=== PATIENT | female | born 1940 | race Caucasian/White ===

== ENCOUNTER 2019-07-13 10:35 | Outpatient (CLI) | payer MEDICARE, OTHER, SELFPAY ==
[2019-07-13 10:46] LABS: Basophils Absolute Auto 0.1 K/mm3 (0.0-0.1); Basophils Percent Auto 0.7 % (0.2-1.2); Eosinophils Absolute Auto 0.2 K/mm3 (0-0.3); Eosinophils Percent Auto 3.6 % (0-4.4); Hematocrit 48.1 % (37.0-47.0); Hemoglobin 15.1 g/dL (12.0-15.0); Immature Granulocyte Absolute 0.02 K/mm3 (0.00-0.031); Immature Granulocyte Percent A 0.3 % (0-0.5); Lymphocytes Absolute Auto 1.76 K/mm3 (0.9-3.2); Lymphocytes Percent Auto 26.1 % (18.3-44.2); Mean Corpuscular HGB Conc 31.4 g/dl (32-36); Mean Corpuscular Hemoglobin 28.9 pg (26-34); Mean Platelet Volume 10.1 fl (7.4-10.4); Monocytes Absolute Auto 0.8 K/mm3 (0.1-0.6); Monocytes Percent Auto 11.9 % (2.6-8.5); Neutrophils Absolute Auto 3.9 K/mm3 (1.3-6.7); Neutrophils Percent Auto 57.4 % (45.5-73.1); Platelet Count Result 292 k/mm3 (150-375); Red Blood Count 5.23 M/mm3 (4.2-5.4); Red Cell Distribution Width 15.5 % (11.5-14.5); White Blood Count 6.8 K/mm3 (4.5-10.0)
== END 2019-07-13 10:36 | disposition home or self-care (01) ==
PROVIDERS: PCP Family Medicine; Visit Provider Internal Medicine Hematology & Oncology
DX: D75.1 Secondary polycythemia (principal)
CPT/HCPCS: 36415; 85025

== ENCOUNTER 2019-12-11 12:24 | Outpatient (CLI) | payer MEDICARE, OTHER, SELFPAY ==
--- NOTE | ~2019-12-11 | MM_ITS ---
EXAMINATION: MM screening nina BI w amarjit HISTORY: Screening mammogram TECHNIQUE: Craniocaudal and mediolateral oblique 3-D tomosynthesis images were obtained and synthetic 2-D images were generated. CAD analysis was submitted and interpreted. COMPARISON: 11/28/2018, 11/01/2017, 10/29/2016 bilateral digital screening mammogram examinations BREAST PARENCHYMAL COMPOSITION: There are scattered areas of fibroglandular density. FINDINGS: There are multiple bilateral benign calcifications. There is no evidence of suspicious mass , calcification, or architectural distortion to suggest malignancy in either breast. There has been n o suspicious interval change. IMPRESSION: 1. No mammographic evidence of malignancy. 2. Recommend routine screening mammography in one year. BI-RADS Category 2: Benign finding(s). Reviewed, dictated and finalized at location A.
== END 2019-12-11 12:25 | disposition home or self-care (01) ==
PROVIDERS: PCP Family Medicine; Visit Provider Family Medicine
DX: Z12.31 Encounter for screening mammogram for malignant neoplasm of breast (principal)
CPT/HCPCS: 77063; 77067

== ENCOUNTER 2020-03-16 08:26 | Inpatient (IN) | payer MEDICARE, OTHER, SELFPAY ==
[2020-03-16] VITALS (9 sets, daily range): BP systolic 113–169; BP diastolic 41–54; PULSE 68–78; RESP 14–25; TEMP 36.4–36.7; O2SAT 91–100; BMI 28.5
--- NOTE | ~2020-03-16 | XR_ITS ---
EXAMINATION: XR chest 1V portable INDICATION: Shortness of breath TECHNIQUE: Portable AP chest at 0858 hours COMPARISON: 02/23/2016, 01/12/2013 FINDINGS: There are patchy, peripheral predominant opacities of the lungs. No pleural effusion or pne umothorax is identified. The heart size is normal. There is chronic leftward deviation of the trachea related to a previously described goiter. IMPRESSION: 1. Patchy bilateral airspace opacities, consistent with atelectasis versus pneumonia. Reviewed, dictated and finalized at location A. [employer]ITY ENGAGEMENT LEADER IMPRESSION: 1. Patchy bilateral airspace opacities, consistent with atelectasis versus pneu monia.
--- NOTE | 2020-03-16 08:43 | ECG_ITS ---
Measurements Intervals [place] Rate: 74 P: 66 TN: 158 QRS: -45 QRSD: 90 T: 34 QT: 364 QTc: 405 Interpretive Statements SINUS RHYTHM LEFT ANTERIOR FASCICULAR BLOCK POOR R WAVE PROGRESSION, ANTERIOR LEADS ABNORMAL ECG Electronically Signed On 03-16-2020 15:01:00 DESK ATTENDANT by Gus Baez D.O.
--- NOTE | 2020-03-16 08:52 | ED.WEAKNESS ---
HPI - Weakness General Chief complaint: Weakness Stated complaint: weakness/chills Time Seen by Provider: 03/16/20 08:33 Source: patient Mode of arrival: EMS Limitations: no limitations History of Present Illness HPI Narrative: This patient is a 79 year old female with history of hypertension, hyperlipidemia, and COPD who presents for evaluation of weakness and shortness of breath. She states she has been sob for 5-7 days and it is worse with any activity. She also reports weakness for the same period. She denies having a cough but her is here today for evaluation of a cough and weakness. She also denies fever, nausea, vomiting, chest pain, diarrhea or abdominal pain. She denies history of PE, DVT. She denies leg swelling or calf pain . EMS reports patient's oxygenation on arrival to their home was 89% on room so she was placed on NC. Her oxygen saturation in ED is 91-95% on room air. Related Data Home Medications Medication Instructions Recorded Confirmed aspirin 81 mg tablet,delayed 81 mg PO DAILY 04/10/19 03/16/20 release cholecalciferol (vitamin D3) 125 2,000 unit PO DAILY 04/10/19 03/16/20 mcg (5,000 unit) tablet ascorbic acid (vitamin C) [Centrum 500 mg PO BID 03/16/20 03/16/20 Singles-Vitamin C] atorvastatin [Lipitor] 40 mg PO DAILY 03/16/20 03/16/20 [id number] 1 ea INHALATION DAILY 03/16/20 03/16/20 [Trelegy Ellipta] Allergies Allergy/AdvReac Type Severity Reaction Status Date / Time iodine Allergy Unknown Rash Verified 03/16/20 16:21 Iodine and Iodide Containing Allergy Unknown Rash Verified 03/16/20 16:21 Produc Review of Systems Review of Systems: All systems reviewed & are unremarkable except as noted in HPI and below Constitutional: Constitutional: Denies fever(s) and Reports weakness ENT: Denies dizziness and Denies sore throat Cardiovascular: Cardiovascular: Denies chest pain Respiratory: Respiratory: Denies cough, Reports dyspnea and Denies wheezing Gastrointestinal: Gastrointestinal: Denies abdominal pain, Denies diarrhea, Denies nausea and Denies vomiting Genitourinary: Genitourinary: Denies hematuria, Denies nocturia and Denies dysuria Neurologic: Denies headache(s) [facility] Past Medical History Medical History (Updated 03/16/20 @ 18:37 by Dinorah Bui MD) Basal cell carcinoma Cerebrovascular accident (~1995) With mild right-sided weakness. Chronic kidney disease, stage 3 Baseline creatinine between 1.6 and 1.70. Gastroesophageal reflux disease History of vaginal delivery x 2. Hyperlipidemia Hypertension Mild obstructive sleep apnea On sleep study in March 2008. Osteoarthritis Transient ischemic attack Urge incontinence Surgical History Surgical History (Updated 03/16/20 @ 14:42 by Natalie Balderas PA-C) History of basal cell carcinoma excision (~2016) From the nose and brow. History of bilateral breast biopsy (~09/2006) With benign pathology. History of cataract extraction History of dilation and curettage History of tubal ligation Status post debridement (~2017) Debridement of traumatic hematoma of the left medial leg. [place] teeth removed Family History Family History Mother Hypertension Family history of malignant neoplasm of breast in first degree relative Other Cerebrovascular accident Diabetes mellitus Social History Social History (Updated 03/16/20 @ 14:43 by Natalie Balderas PA-C) Social History: Surrogate decision maker: Ronal Palacios, . Code status: Full code. Smoking packs per day: 1 Smoking cigarettes per day: 20.0 Years smoked: 35 Smoking pack-years: 35.00 Smoking status: Former smoker Second hand tobacco smoke exposure: No Smoking end date: 05/16/89 Alcohol intake: never Substance use: never Additional living arrangements comments: Resides in [place] with her .
[2020-03-16 09:14] LABS: Basophils Percent Auto 0.3 % (0.2-1.2); Eosinophils Percent Auto 0.3 % (0-4.4); Hematocrit 42.1 % (37.0-47.0); Hemoglobin 14.1 g/dL (12.0-15.0); Immature Granulocyte Absolute 0.03 K/mm3 (0.00-0.031); Immature Granulocyte Percent A 0.9 % (0-0.5); Lymphocytes Absolute Auto 0.44 K/mm3 (0.9-3.2); Lymphocytes Percent Auto 12.7 % (18.3-44.2); Mean Corpuscular HGB Conc 33.5 g/dl (32-36); Mean Corpuscular Hemoglobin 29.8 pg (26-34); Mean Platelet Volume 10.7 fl (7.4-10.4); Monocytes Absolute Auto 0.3 K/mm3 (0.1-0.6); Monocytes Percent Auto 9.8 % (2.6-8.5); Neutrophils Absolute Auto 2.6 K/mm3 (1.3-6.7); Platelet Count Result 217 k/mm3 (150-375); Red Blood Count 4.73 M/mm3 (4.2-5.4); Red Cell Distribution Width 13.7 % (11.5-14.5); White Blood Count 3.5 K/mm3 (4.5-10.0)
[2020-03-16 09:18] LABS: Base Excess ABG -8.4 mEq/l (+/-2.0); Carboxyhemoglobin 1.2 % THb (0-2.0); Fractional Inspired Oxygen 21 %; Methemoglobin ABG 0.3 %THb (0-1.5); Oxygen Content ABG 17.9 %vol (16.0-22.0); Oxygen Saturation ABG 93.4 % (95.0-100.0); Oxyhemoglobin 90.8 % THb (90.0-100.0); PO2 ABG 61.9 mmHg (80.0-100.0); PO2 FiO2 Ratio Arterial Blood 2.95 %; Reduced Hemoglobin 7.7 %THb (0-5.0)
[2020-03-16 09:20] LABS: Device ROOM AIR; PCO2 ABG 19.1 mmHg (35.0-45.0); Site Drawn LEFT BRACHIAL
[2020-03-16 09:24] LABS: Prothrombin Time 13.2 Seconds (11.1-14.7)
[2020-03-16 09:27] LABS: D Dimer 0.41 ug/mL (<0.48); Lactic Acid Reflex 1.3 mmol/L (0.7-2.1)
[2020-03-16 09:30] LABS: Alanine Aminotransferase 15 U/L (4-35); Alkaline Phosphatase 73 U/L (38-126); Anion Gap 14 mmol/L (8-16); Aspartate Amino Transferase 38 U/L (14-36); Bilirubin,Total 0.6 mg/dL (0.2-1.3); Blood Urea Nitrogen 32 mg/dL (7-17); Calcium 9.1 mg/dL (8.4-10.2); Carbon Dioxide 17 mmol/L (22-30); Chloride 101 mmol/L (98-107); Estimated CRCL calculation 24 ml/min; Estimated Glomerular Filt Rate 29; Glucose 100 mg/dL (65-105); Magnesium 1.7 mg/dL (1.6-2.3); Potassium 4.5 mmol/L (3.4-5.0); Sodium 132 mmol/L (137-145)
[2020-03-16 09:40] LABS: NT Pro B Type Natriuretic Pept 447 PG/ML (5-100); Troponin I < 0.012 ng/mL (0.000-0.034)
[2020-03-16 09:59] LABS: CRP 4.6 mg/dL (<1.0)
--- NOTE | 2020-03-16 10:07 | PC.NURSE ---
Patient oxygen sat at this time on room air noted to be 88%, placed on 2 li NC current oxygen at 99%. Dr Bui notified.
[2020-03-16 10:11] LABS: Add Urine Microscopic? YES; Appearance Urine Clear (Clear); Bacteria Urine Trace /hpf; Bilirubin Urine Negative (Negative); Blood Urine Negative (Negative); Color Urine Yellow (Yellow); Glucose Urine UA Negative (Negative); Ketones Urine Trace mg/dL (Negative); Leukocyte Esterase Ur Negative LEU/UL (Negative); Mucus Urine Rare /lpf; Nitrate Urine Negative (Negative); Protein Urine Negative (Negative); RBC Urine 0-2 /hpf (0-2); Specific Grav Ur 1.013 (1.001-1.035); Squamous Epithelial Cell Urine Rare /hpf (Few); Urobilinogen Urine Negative mg/dL (<2.0); WBC Urine 0-3 /hpf
[2020-03-16] MEDS: DEXAMETHASONE 2 MG TABLET 6 MG PO (12:21)
--- NOTE | 2020-03-16 14:00 | PM.IMHP ---
H&P: HPI History of Present Illness Date/Time: 03/16/20 14:00 Chief complaint: Weakness, shortness of breath. Narrative: Radha Palacios is a 79-year-old female with hypertension, hyperlipidemia, GERD, chronic kidney disease stage 3, and history of TIA to send to the emergency department earlier today via EMS from home for evaluation of weakness and shortness of breath. Both the patient and her were tested for COVID at a local religious on 03/03/2020, as they were offering free testing. They had no symptoms at that time but thought it would be a good idea to get tested. Several days thereafter they a received the news that they tested negative, and they went to [employer] to get some necessities. Prior to that they had been avoiding going outside of the home; they state compliance with masks while outside of the home. Unfortunately both began to feel bad on March 06 or . She complains mainly of generalized malaise, shortness of breath, rhinorrhea, occasional dry cough, and chills. She has been taking NyQuil with some benefit in her symptoms. She denies fever, headache, otalgia, odynophagia, chest pain, pleuritic pain, nausea, vomiting, anosmia, dysgeusia, and diarrhea. No known sick contacts or exposure to those positive for COVID-19. Her son has been staying with them while he is building a house, and he continues to work and go out and about in the community however he has not shown any signs of illness. No recent travel. Of note, on EMS arrival today she was reportedly hypoxic with ambulation and was placed on nasal cannula however was able to be weaned off of that as the day has progressed. Review of Systems Review of Systems: Narrative: Twelve systems were reviewed with pertinent positives and negatives as per HPI. Appetite has been okay. No diarrhea. No dysuria. She denies lower extremity edema. Except as documented, all other systems were reviewed and are negative. [facility] Past Medical History Medical History Basal cell carcinoma Cerebrovascular accident (~1995) With mild right-sided weakness. Chronic kidney disease, stage 3 Baseline creatinine between 1.6 and 1.70. Gastroesophageal reflux disease History of vaginal delivery x 2. Hyperlipidemia Hypertension Mild obstructive sleep apnea On sleep study in March 2008. Osteoarthritis Transient ischemic attack Urge incontinence Surgical History Surgical History (Updated 03/16/20 @ 14:42 by Natalie Balderas PA-C) History of basal cell carcinoma excision (~2016) From the nose and brow. History of bilateral breast biopsy (~09/2006) With benign pathology. History of cataract extraction History of dilation and curettage History of tubal ligation Status post debridement (~2017) Debridement of traumatic hematoma of the left medial leg. [place] teeth removed Family History Family History Mother Hypertension Family history of malignant neoplasm of breast in first degree relative Other Cerebrovascular accident Diabetes mellitus Social History Social History Social History: Surrogate decision maker: Ronal Palacios, . Code status: Full code. Smoking packs per day: 1 Smoking cigarettes per day: 20.0 Years smoked: 30 Smoking pack-years: 30.00 Smoking status: Former smoker Tobacco type: cigarettes Second hand tobacco smoke exposure: No Smoking end date: 09/28/95 Alcohol intake: never Substance use: never Additional living arrangements comments: Resides in [place] with her . Additional occupation/education comments: Retired. Gender identity (if verbalized by the patient): Female Sexual Orientation (if Verbalized by the Patient): Straight or Heterosexual Spiritual care concerns: No Meds Home Medications and Allergi
--- NOTE | 2020-03-16 16:13 | ADMGEN ---
This patient, Radha Palacios, was admitted to [facility] Surg Room 331-01. Patient/family oriented to hospital policies and general routines including ID bracelet, bed and alarms, visiting hours, pain management, procedures, bathroom and other care routines, personal items, smoking policy, room service/diet, and visiting hours. Information on how to activate the Rapid Response Team has been discussed. Patient/Family are encouraged to report perceived risks to care and to ask questions if they do not understand what they are told or what they should do.
[2020-03-17] VITALS: BP 133/48; PULSE 65; RESP 20; TEMP 36.6; O2SAT 92
[2020-03-17 04:00] VITALS: BP 138/60; PULSE 78; RESP 18; TEMP 36.5; O2SAT 91
[2020-03-17 06:48] LABS: Hematocrit 39.6 % (37.0-47.0); Hemoglobin 13.8 g/dL (12.0-15.0); Immature Granulocyte Absolute 0.03 K/mm3 (0.00-0.031); Immature Granulocyte Percent A 1.6 % (0-0.5); Lymphocytes Percent Auto 26.5 % (18.3-44.2); Mean Corpuscular HGB Conc 34.8 g/dl (32-36); Mean Corpuscular Hemoglobin 30.2 pg (26-34); Mean Corpuscular Volume 86.7 fl (80-100); Mean Platelet Volume 10.1 fl (7.4-10.4); Monocytes Absolute Auto 0.3 K/mm3 (0.1-0.6); Monocytes Percent Auto 16.4 % (2.6-8.5); Neutrophils Absolute Auto 1.1 K/mm3 (1.3-6.7); Neutrophils Percent Auto 55.5 % (45.5-73.1); Platelet Count Result 224 k/mm3 (150-375); Red Blood Count 4.57 M/mm3 (4.2-5.4); Red Cell Distribution Width 13.5 % (11.5-14.5)
[2020-03-17 07:04] LABS: Alanine Aminotransferase 15 U/L (4-35); Albumin Level 3.6 g/dL (3.5-5.1); Alkaline Phosphatase 69 U/L (38-126); Anion Gap 12 mmol/L (8-16); Aspartate Amino Transferase 32 U/L (14-36); Bilirubin,Total 0.6 mg/dL (0.2-1.3); Blood Urea Nitrogen 31 mg/dL (7-17); Calcium 8.8 mg/dL (8.4-10.2); Carbon Dioxide 17 mmol/L (22-30); Chloride 103 mmol/L (98-107); Estimated CRCL calculation 28 ml/min; Estimated Glomerular Filt Rate 36; Glucose 133 mg/dL (65-105); Lactate Dehydrogenase 651 U/L (313-618); Magnesium 1.9 mg/dL (1.6-2.3); Potassium 4.5 mmol/L (3.4-5.0); Sodium 132 mmol/L (137-145)
[2020-03-17 07:17] LABS: D Dimer 0.54 ug/mL (<0.48)
[2020-03-17 07:20] LABS: White Blood Count 1.9 K/mm3 (4.5-10.0)
[2020-03-17 07:22] LABS: Platelet Estimate Adequate (Adequate); Poikilocytosis 1+ (NORMAL)
[2020-03-17 07:23] LABS: Burr Cells 1+ (NORMAL); Ovalocytes 1+ (NORMAL)
[2020-03-17 08:00] VITALS: BP 142/80; PULSE 80; RESP 16; TEMP 36.3; O2SAT 94
[2020-03-17 08:51] LABS: Immature Granulocyte Absolute 0.03 K/mm3 (0.00-0.031); Lymphocytes Absolute Auto 0.55 K/mm3 (0.9-3.2); Lymphocytes Percent Auto 17.6 % (18.3-44.2); Mean Corpuscular HGB Conc 34.1 g/dl (32-36); Mean Corpuscular Hemoglobin 29.7 pg (26-34); Mean Corpuscular Volume 86.9 fl (80-100); Monocytes Absolute Auto 0.5 K/mm3 (0.1-0.6); Monocytes Percent Auto 14.7 % (2.6-8.5); Neutrophils Absolute Auto 2.1 K/mm3 (1.3-6.7); Neutrophils Percent Auto 66.7 % (45.5-73.1); Platelet Count Result 231 k/mm3 (150-375); Red Blood Count 4.72 M/mm3 (4.2-5.4); Red Cell Distribution Width 13.6 % (11.5-14.5); White Blood Count 3.1 K/mm3 (4.5-10.0)
[2020-03-17] MEDS: CHOLECALCIFEROL 1,000 UNITS TABLET 2000 UNITS PO (10:41)
[2020-03-17] MEDS: lisinopriL 20 MG TABLET 40 MG PO (10:41)
[2020-03-17] MEDS: TOLTERODINE TARTRATE LA 4 MG CAP.ER.24H PO (10:41)
[2020-03-17] MEDS: CLOPIDOGREL BISULFATE 75 MG TABLET PO (10:41)
[2020-03-17] MEDS: FELODIPINE 5 MG TAB CR 10 MG PO (10:41)
[2020-03-17] MEDS: PANTOPRAZOLE SOD SESQUIHYDRATE 20 MG TAB PO (10:41)
[2020-03-17] MEDS: ASPIRIN 81 MG ENTERIC TABLET PO (10:41)
[2020-03-17] MEDS: ATORVASTATIN 40 MG TABLET PO (10:42)
[2020-03-17] MEDS: ASCORBIC ACID 500 MG TABLET PO ×2 (10:42→18:11)
[2020-03-17 12:00] VITALS: BP 126/50; PULSE 78; RESP 18; TEMP 36.3; O2SAT 94
[2020-03-17 12:56] VITALS: BMI 28.5
[2020-03-17 16:00] VITALS: BP 115/40; PULSE 80; RESP 18; TEMP 36.5; O2SAT 91
--- NOTE | 2020-03-17 16:31 | PM.IMPN ---
Progress Note: A&P Assessment and Plan (1) Hypoxia: Code(s): R09.02 - Hypoxemia Status: Acute Assessment and Plan: 03/17/20 16:31 Patient is 79-year-old female presented emergency department with a complaint of weakness tired fatigue and shortness of breath concern the patient may be COVID positive patient is isolated, patient states feeling better denies any shortness of breath denies any fever or chills (2) Respiratory symptoms: Code(s): R09.89 - Other specified symptoms and signs involving the circulatory and respiratory systems Status: Acute Assessment and Plan: clinically stable (3) Abnormal chest x-ray: Code(s): R93.89 - Abnormal findings on diagnostic imaging of other specified body structures Status: Acute Assessment and Plan: possibly COVID pneumonia secondary bacterial pneumonia patient is being treated with Rocephin azithromycin pending COVID test results further recommendation to follow (4) Hypertension: Code(s): I10 - Essential (primary) hypertension Status: Inactive Assessment and Plan: will continue home regimen (5) Chronic kidney disease, stage 3: Code(s): N18.30 - Chronic kidney disease, stage 3 unspecified Status: Inactive Assessment and Plan: will monitor kidney function (6) Hyperlipidemia: Code(s): E78.5 - Hyperlipidemia, unspecified Status: Acute Assessment and Plan: will continue home regimen (7) Gastroesophageal reflux disease: Code(s): K21.9 - Gastro-esophageal reflux disease without esophagitis Status: Inactive Assessment and Plan: PPI (8) Urge incontinence: Code(s): N39.41 - Urge incontinence Status: Acute Assessment and Plan: will continue home regimen Subjective Date/time seen: 03/17/20 16:31 Patient is 79-year-old female presented emergency department with a complaint of weakness tired fatigue and shortness of breath concern the patient may be COVID positive patient is isolated, patient states feeling better denies any shortness of breath denies any fever or chills Review of Systems Review of Systems: All systems reviewed & are unremarkable except as noted in HPI and below Exam Narrative: Exam Narrative: elderly frail Patient is comfortable, NAD HEENT: eyes are clear and none icteric LUNGS: bilateral fair air with minimal rhonchi HEART: RR S1S2 ABD: not distended Lower extremities: no edema SKIN: nonjaundiced Neuro: grossly intact. Objective Data Vital Signs Vital Signs: Vital Signs - 24 hr 03/16/20 20:00 03/17/20 00:00 03/17/20 04:00 Temperature 97.5 F L 97.8 F 97.7 F Pulse Rate 71 65 78 Respiratory Rate 18 20 18 Blood Pressure 130/44 L 133/48 L 138/60 Pulse Oximetry 91 92 91 03/17/20 08:00 03/17/20 12:00 Temperature 97.3 F L 97.4 F L Pulse Rate 80 78 Respiratory Rate 16 18 Blood Pressure 142/80 H 126/50 L Pulse Oximetry 94 94 Intake/Output Intake/Output: Intake & Output 03/15/20 03/16/20 03/16/20 03/17/20 00:59 00:59 23:59 23:59 Intake Total 840 Output Total 200 Balance 640 Meds/Results Medications: Active Medications Generic Name Dose Route Start Last Admin Trade Name Freq PRN Reason Stop Dose Admin Albuterol 2 puff 03/16/20 11:26 Albuterol Sulfate (*Sp) Aerosol 1 Puff INHALATION QIDRT PRN Shortness Of Breath Ascorbic Acid 500 mg 03/17/20 09:00 03/17/20 10:42 Ascorbic Acid 500 Mg Tablet PO 500 mg BID KELVIN Administration Aspirin 81 mg 03/17/20 09:00 03/17/20 10:41 Aspirin 81 Mg Enteric Tablet PO 81 mg DAILY KELVIN Administration Atorvastatin Calcium 40 mg 03/17/20 09:00 03/17/20 10:42 Atorvastatin 40 Mg Tablet PO 40 mg DAILY KELVIN Administration Clopidogrel Bisulfate 75 mg 03/17/20 09:00 03/17/20 10:41 Clopidogrel Bisulfate 75 Mg Tablet PO 75 mg DAILY KELVIN Administration Felodipine 10 mg 03/17/20 09:00
--- NOTE | 2020-03-17 17:18 | PDONCCN ---
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 Patient came into the hospital with increasing shortness of breath and weakness. Denies any fevers and chills. She was tested for COVID-19 on March 03 and came back negative. She has been complaining of generalized malaise, rhinorrhea and shortness of breath. Is currently being treated for pneumonia. Her WBC count dropped to 1.9. hemoglobin and platelet count remains stable. She denies any bleeding and bruising. Denies any dysuria and hematuria. Denies any sore throat. Review of Systems - Review of Systems All systems reviewed & are unremarkable except as noted in HPI and bel - Neurologic Reports weakness, Denies headache(s) [facility] Medical History: Medical History (Last Reviewed 03/16/20 @ 20:45 by Natalie Balderas PA-C) Basal cell carcinoma Cerebrovascular accident Onset Date: ~1995 With mild right-sided weakness. Chronic kidney disease, stage 3 Baseline creatinine between 1.6 and 1.70. Gastroesophageal reflux disease History of vaginal delivery x 2. Hyperlipidemia Hypertension Mild obstructive sleep apnea On sleep study in March 2008. Osteoarthritis Transient ischemic attack Urge incontinence Surgical History: Surgical History (Last Updated 03/16/20 @ 14:42 by Natalie Balderas PA-C) History of basal cell carcinoma excision Onset Date: ~2016 From the nose and brow. History of bilateral breast biopsy Onset Date: ~09/2006 With benign pathology. History of cataract extraction History of dilation and curettage History of tubal ligation Status post debridement Onset Date: ~2017 Debridement of traumatic hematoma of the left medial leg. [place] teeth removed Family History: Family History (Last Reviewed 03/16/20 @ 14:42 by Natalie Balderas PA-C) Mother Hypertension Family history of malignant neoplasm of breast in first degree relative Other Cerebrovascular accident Diabetes mellitus - Social History Social History: Social History (Last Reviewed 03/16/20 @ 20:46 by Natalie Balderas PA-C) Gender Identity: Gender identity (if verbalized by the patient): Female Sexual Orientation: Sexual Orientation (if Verbalized by the Patient): Straight or Heterosexual Alcohol Use: Alcohol intake: never Substance Use: Substance use: never Others: Spiritual care concerns: No Smoking Status: Smoking status: Former smoker Tobacco type: cigarettes Second hand tobacco smoke exposure: No Smoking end date: 09/28/95 Smoking Pack-years: Smoking packs per day: 1 Smoking cigarettes per day: 20.0 Years smoked: 30 Smoking pack-years: 30.00 Meds Home Medications Medication Instructions Recorded Confirmed Type aspirin 81 mg tablet,delayed 81 mg PO DAILY 04/10/19 03/16/20 History release cholecalciferol (vitamin D3) 125 2,000 unit PO DAILY 04/10/19 03/16/20 History mcg (5,000 unit) tablet cetirizine 10 mg tablet 10 mg PO DAILY PRN #90 tablet 12/10/19 03/16/20 Rx felodipine 10 mg tablet,extended 10 mg PO DAILY #90 tablet 12/10/19 03/16/20 Rx release 24 hr clopidogrel 75 mg tablet 75 mg PO DAILY #90 tablet 03/10/20 03/16/20 Rx lisinopril 40 mg tablet 40 mg PO DAILY #90 tablet 03/10/20 03/16/20 Rx pantoprazole 20 mg tablet,delayed 20 mg PO QAM #90 tablet 03/10/20 03/16/20 Rx release tolterodine 4 mg capsule,extended 4 mg PO DAILY #90 cap 03/10/20 03/16/20 Rx release 24 hr ascorbic acid (vitamin C) [Centrum 500 mg PO
[2020-03-17 19:58] LABS: SARS-CoV-2 RNA PCR Positive
[2020-03-17 20:00] VITALS: BP 113/47; PULSE 75; RESP 16; TEMP 36.6; O2SAT 90
[2020-03-18] VITALS (7 sets, daily range): BP systolic 101–119; BP diastolic 39–54; PULSE 66–88; RESP 16–20; TEMP 36.4–37; O2SAT 90–95
[2020-03-18 06:29] LABS: Basophils Percent Auto 0.2 % (0.2-1.2); Eosinophils Percent Auto 0.2 % (0-4.4); Hematocrit 41.9 % (37.0-47.0); Hemoglobin 14.2 g/dL (12.0-15.0); Immature Granulocyte Absolute 0.04 K/mm3 (0.00-0.031); Immature Granulocyte Percent A 0.7 % (0-0.5); Lymphocytes Absolute Auto 1.64 K/mm3 (0.9-3.2); Lymphocytes Percent Auto 27.1 % (18.3-44.2); Mean Corpuscular HGB Conc 33.9 g/dl (32-36); Mean Corpuscular Hemoglobin 29.5 pg (26-34); Mean Corpuscular Volume 87.1 fl (80-100); Mean Platelet Volume 10.2 fl (7.4-10.4); Monocytes Absolute Auto 0.9 K/mm3 (0.1-0.6); Monocytes Percent Auto 14.9 % (2.6-8.5); Neutrophils Absolute Auto 3.5 K/mm3 (1.3-6.7); Neutrophils Percent Auto 56.9 % (45.5-73.1); Platelet Count Result 302 k/mm3 (150-375); Red Blood Count 4.81 M/mm3 (4.2-5.4); Red Cell Distribution Width 13.9 % (11.5-14.5); White Blood Count 6.1 K/mm3 (4.5-10.0)
[2020-03-18 06:37] LABS: Alanine Aminotransferase 19 U/L (4-35); Albumin Level 3.7 g/dL (3.5-5.1); Alkaline Phosphatase 80 U/L (38-126); Anion Gap 13 mmol/L (8-16); Aspartate Amino Transferase 38 U/L (14-36); Bilirubin,Total 0.5 mg/dL (0.2-1.3); Blood Urea Nitrogen 34 mg/dL (7-17); Calcium 9.1 mg/dL (8.4-10.2); Carbon Dioxide 22 mmol/L (22-30); Chloride 102 mmol/L (98-107); Estimated CRCL calculation 27 ml/min; Estimated Glomerular Filt Rate 34; Glucose 94 mg/dL (65-105); Potassium 4.3 mmol/L (3.4-5.0); Sodium 137 mmol/L (137-145)
[2020-03-18] MEDS: CLOPIDOGREL BISULFATE 75 MG TABLET PO (08:06)
[2020-03-18] MEDS: CHOLECALCIFEROL 1,000 UNITS TABLET 2000 UNITS PO (08:06)
[2020-03-18] MEDS: ATORVASTATIN 40 MG TABLET PO (08:06)
[2020-03-18] MEDS: PANTOPRAZOLE SOD SESQUIHYDRATE 20 MG TAB PO (08:07)
[2020-03-18] MEDS: ASPIRIN 81 MG ENTERIC TABLET PO (08:07)
[2020-03-18] MEDS: ASCORBIC ACID 500 MG TABLET PO ×2 (08:07→17:16)
[2020-03-18] MEDS: ACETAMINOPHEN 325 MG TABLET 650 MG PO (15:18)
--- NOTE | 2020-03-18 15:32 | PM.IMPN ---
Progress Note: A&P Assessment and Plan (1) Hypoxia: Code(s): R09.02 - Hypoxemia Status: Acute Assessment and Plan: 03/18/20 15:32 Patient is 79-year-old female presented emergency department with a complaint of weakness tired fatigue and shortness of breath concern the patient may be COVID positive patient is isolated, patient is positive for COVID-19 however is not requiring any oxygen does not have any fever, will continue to monitor if patient does not have any fever or requiring oxygen for 2 days will discharge the patient home. (2) Respiratory symptoms: Code(s): R09.89 - Other specified symptoms and signs involving the circulatory and respiratory systems Status: Acute Assessment and Plan: clinically stable (3) Abnormal chest x-ray: Code(s): R93.89 - Abnormal findings on diagnostic imaging of other specified body structures Status: Acute Assessment and Plan: possibly COVID pneumonia secondary bacterial pneumonia patient is being treated with Rocephin azithromycin pending COVID test results further recommendation to follow (4) Hypertension: Code(s): I10 - Essential (primary) hypertension Status: Inactive Assessment and Plan: will continue home regimen (5) Chronic kidney disease, stage 3: Code(s): N18.30 - Chronic kidney disease, stage 3 unspecified Status: Inactive Assessment and Plan: will monitor kidney function (6) Hyperlipidemia: Code(s): E78.5 - Hyperlipidemia, unspecified Status: Acute Assessment and Plan: will continue home regimen (7) Gastroesophageal reflux disease: Code(s): K21.9 - Gastro-esophageal reflux disease without esophagitis Status: Inactive Assessment and Plan: PPI (8) Urge incontinence: Code(s): N39.41 - Urge incontinence Status: Acute Assessment and Plan: will continue home regimen Subjective Date/time seen: 03/18/20 15:32 Patient is 79-year-old female presented emergency department with a complaint of weakness tired fatigue and shortness of breath concern the patient may be COVID positive patient is isolated, patient is positive for COVID-19 however is not requiring any oxygen does not have any fever, will continue to monitor if patient does not have any fever or requiring oxygen for 2 days will discharge the patient home. Review of Systems Review of Systems: All systems reviewed & are unremarkable except as noted in HPI and below Exam Narrative: Exam Narrative: elderly frail Patient is comfortable, NAD HEENT: eyes are clear and none icteric LUNGS: bilateral fair air with minimal rhonchi HEART: RR S1S2 ABD: not distended Lower extremities: no edema SKIN: nonjaundiced Neuro: grossly intact. Objective Data Vital Signs Vital Signs: Vital Signs - 24 hr 03/17/20 16:00 03/17/20 20:00 03/18/20 00:00 Temperature 97.7 F 98 F 98.6 F Pulse Rate 80 75 71 Respiratory Rate 18 16 16 Blood Pressure 115/40 L 113/47 L 113/43 L Pulse Oximetry 91 90 92 03/18/20 05:00 03/18/20 08:00 03/18/20 12:00 Temperature 98.3 F 98.2 F 97.6 F Pulse Rate 69 74 72 Respiratory Rate 16 16 16 Blood Pressure 109/54 L 119/53 L 114/39 L Pulse Oximetry 90 95 93 Intake/Output Intake/Output: Intake & Output 03/16/20 03/16/20 03/17/20 03/18/20 00:59 23:59 23:59 23:59 Intake Total 2440 850 Output Total 300 450 Balance 2140 400 Meds/Results Medications: Active Medications Generic Name Dose Route Start Last Admin Trade Name Freq PRN Reason Stop Dose Admin Acetaminophen 650 mg 03/18/20 15:10 03/18/20 15:18 Acetaminophen 325 Mg Tablet PO 650 mg Q6H PRN Administration Mild Pain (1-3) or Fever Albuterol 2 puff 03/16/20 11:26 Albuterol Sulfate (*Sp) Aerosol 1 Puff INHALATION QIDRT PRN Shortness Of Breath Ascorbic Acid 500 mg 03/17/20 09:00 03/18/20 08:07 Ascorbic Acid 500 Mg Tablet PO 5
[2020-03-18] MEDS: TOLTERODINE TARTRATE LA 4 MG CAP.ER.24H PO (17:16)
[2020-03-19] VITALS (10 sets, daily range): BP systolic 108–136; BP diastolic 42–77; PULSE 65–94; RESP 16–20; TEMP 36.2–37; O2SAT 88–94
[2020-03-19 06:31] LABS: Basophils Percent Auto 0.7 % (0.2-1.2); Eosinophils Percent Auto 0.5 % (0-4.4); Hematocrit 39.5 % (37.0-47.0); Hemoglobin 13.2 g/dL (12.0-15.0); Immature Granulocyte Absolute 0.04 K/mm3 (0.00-0.031); Lymphocytes Absolute Auto 0.85 K/mm3 (0.9-3.2); Lymphocytes Percent Auto 21.1 % (18.3-44.2); Mean Corpuscular HGB Conc 33.4 g/dl (32-36); Mean Corpuscular Hemoglobin 29.3 pg (26-34); Mean Corpuscular Volume 87.6 fl (80-100); Mean Platelet Volume 9.9 fl (7.4-10.4); Monocytes Absolute Auto 0.8 K/mm3 (0.1-0.6); Monocytes Percent Auto 20.6 % (2.6-8.5); Neutrophils Absolute Auto 2.3 K/mm3 (1.3-6.7); Neutrophils Percent Auto 56.1 % (45.5-73.1); Platelet Count Result 247 k/mm3 (150-375); Red Blood Count 4.51 M/mm3 (4.2-5.4); Red Cell Distribution Width 13.9 % (11.5-14.5)
[2020-03-19 06:54] LABS: Alanine Aminotransferase 17 U/L (4-35); Albumin Level 3.2 g/dL (3.5-5.1); Alkaline Phosphatase 78 U/L (38-126); Anion Gap 9 mmol/L (8-16); Aspartate Amino Transferase 34 U/L (14-36); Bilirubin,Total 0.4 mg/dL (0.2-1.3); Blood Urea Nitrogen 33 mg/dL (7-17); Calcium 8.5 mg/dL (8.4-10.2); Carbon Dioxide 22 mmol/L (22-30); Chloride 103 mmol/L (98-107); Estimated CRCL calculation 28 ml/min; Estimated Glomerular Filt Rate 36; Glucose 94 mg/dL (65-105); Sodium 134 mmol/L (137-145)
[2020-03-19 08:10] LABS: Platelet Estimate Adequate (Adequate)
[2020-03-19 08:11] LABS: Burr Cells 1+ (NORMAL); Ovalocytes 1+ (NORMAL)
[2020-03-19] MEDS: ENOXAPARIN 40 MG/0.4 ML SYRINGE SUB-Q ×2 (08:29→21:33)
[2020-03-19] MEDS: ASPIRIN 81 MG ENTERIC TABLET PO (08:29)
[2020-03-19] MEDS: PANTOPRAZOLE SOD SESQUIHYDRATE 20 MG TAB PO (08:29)
[2020-03-19] MEDS: ASCORBIC ACID 500 MG TABLET PO ×2 (08:29→16:50)
[2020-03-19] MEDS: ATORVASTATIN 40 MG TABLET PO (08:29)
[2020-03-19] MEDS: CHOLECALCIFEROL 1,000 UNITS TABLET 2000 UNITS PO (08:29)
[2020-03-19] MEDS: CLOPIDOGREL BISULFATE 75 MG TABLET PO (08:29)
[2020-03-19] MEDS: DEXAMETHASONE SOD PHOS INJ 4 MG/ML VIAL 6 MG IV PUSH (11:54)
--- NOTE | 2020-03-19 15:10 | PM.IMPN ---
Progress Note: A&P Assessment and Plan (1) Hypoxia: Code(s): R09.02 - Hypoxemia Status: Acute Assessment and Plan: 03/18/20 15:32 Patient is 79-year-old female presented emergency department with a complaint of weakness tired fatigue and shortness of breath, patient is positive for COVID-19 however is not requiring any oxygen does not have any fever, inflammatory markers were not that high but with her subjective shortness of breath and O2 sat less than 94 with basilar crackles will add dexamethasone 6 mg daily. Will hold antiviral at present time unless symptoms worsen (2) Respiratory symptoms: Code(s): R09.89 - Other specified symptoms and signs involving the circulatory and respiratory systems Status: Acute Assessment and Plan: clinically stable with good O2 sats and no tachypnea (3) Abnormal chest x-ray: Code(s): R93.89 - Abnormal findings on diagnostic imaging of other specified body structures Status: Acute Assessment and Plan: possibly COVID pneumonia or secondary bacterial pneumonia patient is being treated with Rocephin azithromycin and probable d/c on discharge home (4) Hypertension: Code(s): I10 - Essential (primary) hypertension Status: Inactive Assessment and Plan: pressure is soft and will continue calcium channel kayla but hold LEANDER-inhibitor (5) Chronic kidney disease, stage 3: Code(s): N18.30 - Chronic kidney disease, stage 3 unspecified Status: Inactive Assessment and Plan: will monitor kidney function, stable with creatinine 1.4 (6) Hyperlipidemia: Code(s): E78.5 - Hyperlipidemia, unspecified Status: Acute Assessment and Plan: will continue home regimen, atorvastatin 40 daily (7) Gastroesophageal reflux disease: Code(s): K21.9 - Gastro-esophageal reflux disease without esophagitis Status: Inactive Assessment and Plan: PPI (8) Urge incontinence: Code(s): N39.41 - Urge incontinence Status: Acute Assessment and Plan: will continue home regimen (9) DVT prophylaxis: Code(s): Z29.9 - Encounter for prophylactic measures, unspecified Status: Acute Assessment and Plan: Lovenox b.i.d. Subjective Date/time seen: 03/19/20 15:10 Interval history: date of visit 03/19. 79-year-old hypertensive female presented to ER with malaise some dyspnea on exertion and low-grade fever. Did slightly desaturate with exertion but O2 sats at rest have been 92 and above. COVID was positive and today she stated she feels a little short of breath with exertion but for the most part doing well. Exam Narrative: Exam Narrative: Blood pressure 134/60 pulse 72 respirations 16 per minute satting 92% on room air elderly frail Patient is comfortable, NAD HEENT: eyes are clear and non icteric LUNGS: bibasilar crackles posteriorly HEART: RR S1S2 ABD: not distended Lower extremities: no edema Neuro: grossly intact with no focal deficits. Objective Data Vital Signs Vital Signs: Vital Signs - 24 hr 03/18/20 16:00 03/18/20 18:54 03/18/20 22:00 Temperature 36.5 C 36.7 C Pulse Rate 66 88 Respiratory Rate 16 20 Blood Pressure 101/40 L 101/50 L 103/49 L Pulse Oximetry 92 91 03/19/20 00:15 03/19/20 04:40 03/19/20 08:00 Temperature 36.8 C 36.2 C L 36.6 C Pulse Rate 94 74 65 Respiratory Rate 20 20 16 Blood Pressure 108/47 L 111/42 L 124/47 L Pulse Oximetry 92 94 92 03/19/20 08:25 03/19/20 12:00 03/19/20 14:42 Temperature 36.8 C Pulse Rate 78 67 Respiratory Rate 16 18 Blood Pressure 134/60 Pulse Oximetry 92 91 92 Intake/Output Intake/Output: Intake & Output 03/16/20 03/17/20 03/18/20 03/19/20 23:59 23:59 23:59 23:59 Intake Total 2440 1300 395 Output Total 300 600 600 Balance 2140 700 -205 Meds/Results Medications: Active Medications Generic Name Dose Route Start Last Admin Trade Name Freq [place]
[2020-03-19] MEDS: REMDESIVIR 200 MG/NS 250 ML 200 MG/250 ML BAG 250 MG IVPB (16:50)
[2020-03-19] MEDS: TOLTERODINE TARTRATE LA 4 MG CAP.ER.24H PO (16:51)
[2020-03-20] VITALS (7 sets, daily range): BP systolic 96–143; BP diastolic 47–56; PULSE 68–97; RESP 16–20; TEMP 36.3–37.1; O2SAT 92–98
[2020-03-20 06:35] LABS: Basophils Percent Auto 0.6 % (0.2-1.2); Hematocrit 38.9 % (37.0-47.0); Hemoglobin 13.3 g/dL (12.0-15.0); Immature Granulocyte Absolute 0.07 K/mm3 (0.00-0.031); Lymphocytes Absolute Auto 0.67 K/mm3 (0.9-3.2); Lymphocytes Percent Auto 19.2 % (18.3-44.2); Mean Corpuscular HGB Conc 34.2 g/dl (32-36); Mean Corpuscular Hemoglobin 29.8 pg (26-34); Mean Platelet Volume 9.7 fl (7.4-10.4); Monocytes Absolute Auto 0.5 K/mm3 (0.1-0.6); Monocytes Percent Auto 14.6 % (2.6-8.5); Neutrophils Absolute Auto 2.2 K/mm3 (1.3-6.7); Neutrophils Percent Auto 63.6 % (45.5-73.1); Platelet Count Result 280 k/mm3 (150-375); Red Blood Count 4.47 M/mm3 (4.2-5.4); Red Cell Distribution Width 13.6 % (11.5-14.5); White Blood Count 3.5 K/mm3 (4.5-10.0)
[2020-03-20 06:46] LABS: D Dimer 1.34 ug/mL (<0.48)
[2020-03-20 06:56] LABS: Alanine Aminotransferase 25 U/L (4-35); Albumin Level 3.3 g/dL (3.5-5.1); Alkaline Phosphatase 77 U/L (38-126); Anion Gap 5 mmol/L (8-16); Aspartate Amino Transferase 35 U/L (14-36); Bilirubin,Total 0.4 mg/dL (0.2-1.3); Blood Urea Nitrogen 31 mg/dL (7-17); Calcium 8.7 mg/dL (8.4-10.2); Carbon Dioxide 25 mmol/L (22-30); Chloride 105 mmol/L (98-107); Estimated CRCL calculation 33 ml/min; Estimated Glomerular Filt Rate 43; Glucose 119 mg/dL (65-105); Lactate Dehydrogenase 685 U/L (313-618); Potassium 4.3 mmol/L (3.4-5.0); Sodium 135 mmol/L (137-145)
[2020-03-20 07:28] LABS: Platelet Estimate Adequate (Adequate)
[2020-03-20 07:29] LABS: Ovalocytes 1+ (NORMAL); Poikilocytosis 1+ (NORMAL)
[2020-03-20] MEDS: CHOLECALCIFEROL 1,000 UNITS TABLET 2000 UNITS PO (08:46)
[2020-03-20] MEDS: DEXAMETHASONE SOD PHOS INJ 4 MG/ML VIAL 6 MG IV PUSH (08:46)
[2020-03-20] MEDS: CLOPIDOGREL BISULFATE 75 MG TABLET PO (08:46)
[2020-03-20] MEDS: ASPIRIN 81 MG ENTERIC TABLET PO (08:46)
[2020-03-20] MEDS: ATORVASTATIN 40 MG TABLET PO (08:47)
[2020-03-20] MEDS: ENOXAPARIN 40 MG/0.4 ML SYRINGE SUB-Q ×2 (08:47→20:37)
[2020-03-20] MEDS: FELODIPINE 5 MG TAB CR 10 MG PO (08:47)
[2020-03-20] MEDS: PANTOPRAZOLE SOD SESQUIHYDRATE 20 MG TAB PO (08:47)
[2020-03-20] MEDS: ASCORBIC ACID 500 MG TABLET PO ×2 (08:48→18:03)
--- NOTE | 2020-03-20 12:19 | PM.IMPN ---
Progress Note: A&P Assessment and Plan (1) Hypoxia: Code(s): R09.02 - Hypoxemia Status: Acute Assessment and Plan: Patient is 79-year-old female presented emergency department with a complaint of weakness tired fatigue and shortness of breath, patient is positive for COVID-19 however was not requiring any oxygen until pm 03/19., inflammatory markers are about the same decadron and remdesivir started 03/19 with the desaturation(D#2) (2) Abnormal chest x-ray: Code(s): R93.89 - Abnormal findings on diagnostic imaging of other specified body structures Status: Acute Assessment and Plan: COVID pneumonia or possible secondary bacterial pneumonia patient is being treated with Rocephin azithromycin D#5 (3) Hypertension: Code(s): I10 - Essential (primary) hypertension Status: Inactive Assessment and Plan: pressure was lower and will continue calcium channel kayla but hold LEANDER-inhibitor (4) Chronic kidney disease, stage 3: Code(s): N18.30 - Chronic kidney disease, stage 3 unspecified Status: Inactive Assessment and Plan: will monitor kidney function, stable with creatinine down to 1.2 today (5) Hyperlipidemia: Code(s): E78.5 - Hyperlipidemia, unspecified Status: Acute Assessment and Plan: will continue home regimen, atorvastatin 40 daily (6) Gastroesophageal reflux disease: Code(s): K21.9 - Gastro-esophageal reflux disease without esophagitis Status: Inactive Assessment and Plan: PPI (7) Urge incontinence: Code(s): N39.41 - Urge incontinence Status: Acute Assessment and Plan: will continue home regimen (8) DVT prophylaxis: Code(s): Z29.9 - Encounter for prophylactic measures, unspecified Status: Acute Assessment and Plan: Lovenox b.i.d. Subjective Date/time seen: 03/20/20 12:19 Interval history: date of visit 03/20. 79-year-old hypertensive female presented to ER with malaise some dyspnea on exertion and low-grade fever. Did slightly desaturate with exertion but O2 sats at rest have been 92 and above until pm of 03/19 when dipped below 90 at rest. . COVID was positive and with lower 02 sats decadron and remdesivir were started Feels a little better today Exam Narrative: Exam Narrative: Blood pressure 136/82 pulse 80 respirations 16 per minute satting 92% on 2L NC elderly frail Patient is comfortable, NAD HEENT: eyes are clear and non icteric LUNGS: bibasilar crackles posteriorly HEART: RR S1S2 ABD: not distended Lower extremities: no edema Neuro: grossly intact with no focal deficits. Objective Data Vital Signs Vital Signs: Vital Signs - 24 hr 03/19/20 14:42 03/19/20 15:23 03/19/20 15:24 Temperature Pulse Rate 67 Respiratory Rate 18 Blood Pressure Pulse Oximetry 92 88 L 93 03/19/20 16:00 03/19/20 20:00 03/20/20 00:00 Temperature 37.0 C 36.8 C 36.3 C L Pulse Rate 70 69 68 Respiratory Rate 18 20 20 Blood Pressure 118/48 L 136/77 131/47 L Pulse Oximetry 93 93 93 03/20/20 04:00 03/20/20 08:00 03/20/20 12:00 Temperature 36.7 C 37.1 C 36.9 C Pulse Rate 79 97 72 Respiratory Rate 16 18 18 Blood Pressure 143/56 H 138/52 L 96/54 L Pulse Oximetry 96 95 92 Intake/Output Intake/Output: Intake & Output 03/17/20 03/18/20 03/19/20 03/20/20 23:59 23:59 23:59 23:59 Intake Total 2440 1300 1265 220 Output Total 300 600 600 500 Balance 2140 700 665 -280 Meds/Results Medications: Active Medications Generic Name Dose Route Start Last Admin Trade Name Freq PRN Reason Stop Dose Admin Acetaminophen 650 mg 03/18/20 15:10 03/18/20 15:18 Acetaminophen 325 Mg Tablet PO 650 mg Q6H PRN Administration Mild Pain (1-3) or Fever Albuterol 2 puff 03/16/20 11:26 Albuterol Sulfate (*Sp) Aerosol 1 Puff INHALATION QIDRT PRN Shortness Of Breath Ascorbic Acid 500 mg 03/17/20 09:00 03/20/20 0
[2020-03-20] MEDS: REMDESIVIR 100 MG/NS 250 ML 100 MG/250 ML BAG 250 MG IVPB (15:56)
[2020-03-20] MEDS: TOLTERODINE TARTRATE LA 4 MG CAP.ER.24H PO (18:03)
[2020-03-21] VITALS (7 sets, daily range): BP systolic 106–140; BP diastolic 46–74; PULSE 70–80; RESP 16–20; TEMP 36.4–36.8; O2SAT 89–96
[2020-03-21 06:45] LABS: Basophils Percent Auto 0.3 % (0.2-1.2); Hematocrit 39.3 % (37.0-47.0); Hemoglobin 13.3 g/dL (12.0-15.0); Immature Granulocyte Absolute 0.21 K/mm3 (0.00-0.031); Immature Granulocyte Percent A 3.1 % (0-0.5); Lymphocytes Absolute Auto 0.99 K/mm3 (0.9-3.2); Lymphocytes Percent Auto 14.7 % (18.3-44.2); Mean Corpuscular HGB Conc 33.8 g/dl (32-36); Mean Corpuscular Hemoglobin 30.1 pg (26-34); Mean Corpuscular Volume 88.9 fl (80-100); Mean Platelet Volume 9.8 fl (7.4-10.4); Monocytes Absolute Auto 0.7 K/mm3 (0.1-0.6); Monocytes Percent Auto 10.8 % (2.6-8.5); Neutrophils Absolute Auto 4.8 K/mm3 (1.3-6.7); Neutrophils Percent Auto 71.1 % (45.5-73.1); Platelet Count Result 345 k/mm3 (150-375); Red Blood Count 4.42 M/mm3 (4.2-5.4); Red Cell Distribution Width 13.8 % (11.5-14.5); White Blood Count 6.7 K/mm3 (4.5-10.0)
[2020-03-21 07:02] LABS: Alanine Aminotransferase 26 U/L (4-35); Alkaline Phosphatase 70 U/L (38-126); Anion Gap 6 mmol/L (8-16); Aspartate Amino Transferase 31 U/L (14-36); Bilirubin,Total 0.4 mg/dL (0.2-1.3); Blood Urea Nitrogen 37 mg/dL (7-17); Calcium 8.9 mg/dL (8.4-10.2); Carbon Dioxide 23 mmol/L (22-30); Chloride 107 mmol/L (98-107); Estimated CRCL calculation 36 ml/min; Estimated Glomerular Filt Rate 48; Glucose 111 mg/dL (65-105); Potassium 4.3 mmol/L (3.4-5.0); Sodium 136 mmol/L (137-145)
[2020-03-21] MEDS: FELODIPINE 5 MG TAB CR 10 MG PO (08:45)
[2020-03-21] MEDS: PANTOPRAZOLE SOD SESQUIHYDRATE 20 MG TAB PO (08:45)
[2020-03-21] MEDS: ATORVASTATIN 40 MG TABLET PO (08:45)
[2020-03-21] MEDS: CLOPIDOGREL BISULFATE 75 MG TABLET PO (08:46)
[2020-03-21] MEDS: ASCORBIC ACID 500 MG TABLET PO ×2 (08:46→16:30)
[2020-03-21] MEDS: LORATADINE 10 MG TABLET PO (08:46)
[2020-03-21] MEDS: CHOLECALCIFEROL 1,000 UNITS TABLET 2000 UNITS PO (08:46)
[2020-03-21] MEDS: ENOXAPARIN 40 MG/0.4 ML SYRINGE SUB-Q ×2 (08:46→20:19)
[2020-03-21] MEDS: ASPIRIN 81 MG ENTERIC TABLET PO (08:47)
[2020-03-21] MEDS: DEXAMETHASONE SOD PHOS INJ 4 MG/ML VIAL 6 MG IV PUSH (08:47)
--- NOTE | 2020-03-21 11:49 | PCNFU ---
Nutrition Follow-Up Complete: Inadequate oral intake r/t reduced appetite and recent illness as evidence by 91% of UBW Goal: PO intake of 50% of diet and supplements to aid in wt maintenance Progressing towards goal. We will continue current goal. Pt current nutrition is Regular. Nutrition recommendation:Agree Last recorded weight is 73 kg down from 79 kg on admit. Bowel Motility:+BM 03/20 Labs Reviewed:Glu 111, Na 136,BUN 37,Cr 1.10 Meds Noted:Rocephin,Lovenox,Vit C Additional Notes: Nutrition follow up. Unable to visit patient today due to COVID precautions. Patient is confused per nursing. Oral Intake has been good 50-100% of regular meals. Agree with diet orders. Monitoring: PO intake, weight, labs every five days
[2020-03-21] MEDS: ACETAMINOPHEN 325 MG TABLET 650 MG PO (14:51)
[2020-03-21] MEDS: REMDESIVIR 100 MG/NS 250 ML 100 MG/250 ML BAG 250 MG IVPB (15:14)
[2020-03-21] MEDS: TOLTERODINE TARTRATE LA 4 MG CAP.ER.24H PO (16:31)
--- NOTE | 2020-03-21 17:40 | PM.IMPN ---
Progress Note: A&P Assessment and Plan (1) Hypoxia: Code(s): R09.02 - Hypoxemia Status: Acute Assessment and Plan: Patient is 79-year-old female presented emergency department with a complaint of weakness tired fatigue and shortness of breath, patient is positive for COVID-19 however was not requiring any oxygen until pm 03/19., inflammatory markers are about the same decadron and remdesivir started 03/19 with the desaturation(D#3) (2) Abnormal chest x-ray: Code(s): R93.89 - Abnormal findings on diagnostic imaging of other specified body structures Status: Acute Assessment and Plan: COVID pneumonia or possible secondary bacterial pneumonia patient is being treated with Rocephin azithromycin D#6 (3) Hypertension: Code(s): I10 - Essential (primary) hypertension Status: Inactive Assessment and Plan: pressure was lower and will continue calcium channel kayla but hold LEANDER-inhibitor (4) Chronic kidney disease, stage 3: Code(s): N18.30 - Chronic kidney disease, stage 3 unspecified Status: Inactive Assessment and Plan: will monitor kidney function, stable with creatinine down to 1.1 today (5) Hyperlipidemia: Code(s): E78.5 - Hyperlipidemia, unspecified Status: Acute Assessment and Plan: will continue home regimen, atorvastatin 40 daily (6) Gastroesophageal reflux disease: Code(s): K21.9 - Gastro-esophageal reflux disease without esophagitis Status: Inactive Assessment and Plan: PPI (7) Urge incontinence: Code(s): N39.41 - Urge incontinence Status: Acute Assessment and Plan: will continue home regimen (8) DVT prophylaxis: Code(s): Z29.9 - Encounter for prophylactic measures, unspecified Status: Acute Assessment and Plan: Lovenox b.i.d. Subjective Date/time seen: 03/21/20 17:40 Interval history: date of visit 03/21. 79-year-old hypertensive female presented to ER with malaise some dyspnea on exertion and low-grade fever. Did slightly desaturate with exertion but O2 sats at rest have been 92 and above until pm of 03/19 when dipped below 90 at rest. . COVID was positive and with lower 02 sats decadron and remdesivir were started 03/19 Feels a little better today, less cough Exam Narrative: Exam Narrative: Blood pressure 122/80 pulse 62 respirations 16 per minute satting 96% on 1L NC elderly frail Patient is comfortable, NAD HEENT: eyes are clear and non icteric LUNGS: faint bibasilar crackles posteriorly, decreased HEART: RR S1S2 ABD: not distended Lower extremities: no edema Neuro: grossly intact with no focal deficits. Objective Data Vital Signs Vital Signs: Vital Signs - 24 hr 03/20/20 20:00 03/20/20 23:13 03/21/20 00:00 Temperature 36.4 C 36.6 C Pulse Rate 80 78 Respiratory Rate 20 20 Blood Pressure 136/48 L 140/69 Pulse Oximetry 94 98 96 03/21/20 01:10 03/21/20 04:00 03/21/20 08:00 Temperature 36.8 C 36.5 C Pulse Rate 80 71 Respiratory Rate 16 20 Blood Pressure 127/52 L 106/74 Pulse Oximetry 95 95 94 03/21/20 12:00 03/21/20 16:14 Temperature 36.8 C 36.6 C Pulse Rate 70 70 Respiratory Rate 16 18 Blood Pressure 123/48 L 115/46 L Pulse Oximetry 89 L 90 Intake/Output Intake/Output: Intake & Output 03/18/20 03/19/20 03/20/20 03/21/20 23:59 23:59 23:59 23:59 Intake Total 1300 1265 1410 930 Output Total 600 600 500 150 Balance 700 665 910 780 Meds/Results Medications: Active Medications Generic Name Dose Route Start Last Admin Trade Name Freq PRN Reason Stop Dose Admin Acetaminophen 650 mg 03/18/20 15:10 03/21/20 14:51 Acetaminophen 325 Mg Tablet PO 650 mg Q6H PRN Administration Mild Pain (1-3) or Fever Albuterol 2 puff 03/16/20 11:26 Albuterol Sulfate (*Sp) Aerosol 1 Puff INHALATION QIDRT PRN Shortness Of Breath Ascorbic Acid 500 mg 03/17/20 09:00 03/21/20
[2020-03-21] MEDS: FLUTICASONE/SALMETEROL 115-21 MCG INHALER 1 PUFF 2 PUFF INHALATION (20:07)
[2020-03-22] VITALS (7 sets, daily range): BP systolic 112–148; BP diastolic 38–68; PULSE 67–85; RESP 16–20; TEMP 36.3–37.2; O2SAT 90–97
[2020-03-22 07:22] LABS: Basophils Percent Auto 0.2 % (0.2-1.2); Eosinophils Percent Auto 0.1 % (0-4.4); Hematocrit 40.2 % (37.0-47.0); Hemoglobin 13.5 g/dL (12.0-15.0); Immature Granulocyte Absolute 0.34 K/mm3 (0.00-0.031); Immature Granulocyte Percent A 4.2 % (0-0.5); Lymphocytes Absolute Auto 1.28 K/mm3 (0.9-3.2); Lymphocytes Percent Auto 15.9 % (18.3-44.2); Mean Corpuscular HGB Conc 33.6 g/dl (32-36); Mean Corpuscular Hemoglobin 29.5 pg (26-34); Mean Platelet Volume 9.6 fl (7.4-10.4); Monocytes Percent Auto 11.8 % (2.6-8.5); Neutrophils Absolute Auto 5.5 K/mm3 (1.3-6.7); Neutrophils Percent Auto 67.8 % (45.5-73.1); Platelet Count Result 384 k/mm3 (150-375); Red Blood Count 4.57 M/mm3 (4.2-5.4); Red Cell Distribution Width 13.7 % (11.5-14.5); White Blood Count 8.1 K/mm3 (4.5-10.0)
[2020-03-22 07:33] LABS: Alanine Aminotransferase 27 U/L (4-35); Alkaline Phosphatase 71 U/L (38-126); Anion Gap 7 mmol/L (8-16); Aspartate Amino Transferase 29 U/L (14-36); Bilirubin,Total 0.3 mg/dL (0.2-1.3); Blood Urea Nitrogen 38 mg/dL (7-17); CRP 1.4 mg/dL (<1.0); Calcium 8.9 mg/dL (8.4-10.2); Carbon Dioxide 23 mmol/L (22-30); Chloride 106 mmol/L (98-107); Estimated CRCL calculation 36 ml/min; Estimated Glomerular Filt Rate 48; Glucose 88 mg/dL (65-105); Lactate Dehydrogenase 617 U/L (313-618); Sodium 136 mmol/L (137-145)
[2020-03-22 07:44] LABS: D Dimer 0.52 ug/mL (<0.48)
[2020-03-22] MEDS: CHOLECALCIFEROL 1,000 UNITS TABLET 2000 UNITS PO (08:24)
[2020-03-22] MEDS: FELODIPINE 5 MG TAB CR 10 MG PO (08:24)
[2020-03-22] MEDS: ASPIRIN 81 MG ENTERIC TABLET PO (08:24)
[2020-03-22] MEDS: ASCORBIC ACID 500 MG TABLET PO ×2 (08:24→16:46)
[2020-03-22] MEDS: CLOPIDOGREL BISULFATE 75 MG TABLET PO (08:25)
[2020-03-22] MEDS: ENOXAPARIN 40 MG/0.4 ML SYRINGE SUB-Q ×2 (08:25→20:36)
[2020-03-22] MEDS: LORATADINE 10 MG TABLET PO (08:25)
[2020-03-22] MEDS: PANTOPRAZOLE SOD SESQUIHYDRATE 20 MG TAB PO (08:25)
[2020-03-22] MEDS: ACETAMINOPHEN 325 MG TABLET 650 MG PO (08:25)
[2020-03-22] MEDS: ATORVASTATIN 40 MG TABLET PO (08:25)
[2020-03-22] MEDS: DEXAMETHASONE SOD PHOS INJ 4 MG/ML VIAL 6 MG IV PUSH (08:26)
[2020-03-22] MEDS: FLUTICASONE/SALMETEROL 115-21 MCG INHALER 1 PUFF 2 PUFF INHALATION ×2 (08:37)
--- NOTE | 2020-03-22 13:29 | PM.IMPN ---
Progress Note: A&P Assessment and Plan (1) Hypoxia: Code(s): R09.02 - Hypoxemia Status: Acute Assessment and Plan: Patient is 79-year-old female presented emergency department with a complaint of weakness tired fatigue and shortness of breath, patient is positive for COVID-19 however was not requiring any oxygen until pm 11., inflammatory markers crp and d-dimer both decreased some today decadron and remdesivir started 11 with the desaturation(D#4) (2) Abnormal chest x-ray: Code(s): R93.89 - Abnormal findings on diagnostic imaging of other specified body structures Status: Acute Assessment and Plan: COVID pneumonia or possible secondary bacterial pneumonia patient is being treated with Rocephin ,azithromycin D#7 so d/c today (3) Hypertension: Code(s): I10 - Essential (primary) hypertension Status: Inactive Assessment and Plan: pressure was lower and will continue calcium channel kayla but continue to hold LEANDER-inhibitor (4) Chronic kidney disease, stage 3: Code(s): N18.30 - Chronic kidney disease, stage 3 unspecified Status: Inactive Assessment and Plan: will monitor kidney function, stable with creatinine down to 1.1 again today (5) Hyperlipidemia: Code(s): E78.5 - Hyperlipidemia, unspecified Status: Acute Assessment and Plan: can resume, atorvastatin 40 daily (6) Gastroesophageal reflux disease: Code(s): K21.9 - Gastro-esophageal reflux disease without esophagitis Status: Inactive Assessment and Plan: PPI (7) Urge incontinence: Code(s): N39.41 - Urge incontinence Status: Acute Assessment and Plan: will continue home regimen (8) DVT prophylaxis: Code(s): Z29.9 - Encounter for prophylactic measures, unspecified Status: Acute Assessment and Plan: Lovenox b.i.d. Subjective Date/time seen: 03/22/20 13:29 Interval history: date of visit 03/22. 79-year-old hypertensive female presented to ER with malaise some dyspnea on exertion and low-grade fever. Did slightly desaturate with exertion but O2 sats at rest have been 92 and above until pm of 03/19 when dipped below 90 at rest. . COVID was positive and with lower 02 sats decadron and remdesivir were started 11/4 Feels a little better each day and now back on room air, less cough Exam Narrative: Exam Narrative: Blood pressure 114/70 pulse 68 respirations 16 per minute satting 90% on RA elderly frail Patient is comfortable, NAD HEENT: eyes are clear and non icteric LUNGS: faint R bibasilar crackles posteriorly, decreased again HEART: RR S1S2 ABD: not distended Lower extremities: no edema Neuro: grossly intact with no focal deficits. Objective Data Vital Signs Vital Signs: Vital Signs - 24 hr 03/21/20 16:14 03/21/20 20:00 03/22/20 00:00 Temperature 36.6 C 36.4 C L 37.2 C Pulse Rate 70 75 69 Respiratory Rate 18 18 18 Blood Pressure 115/46 L 120/53 L 127/51 L Pulse Oximetry 90 93 97 03/22/20 04:00 03/22/20 08:00 03/22/20 10:16 Temperature 36.4 C 36.3 C L Pulse Rate 77 85 Respiratory Rate 18 16 Blood Pressure 133/57 L 148/68 H Pulse Oximetry 93 93 92 03/22/20 12:00 Temperature 36.9 C Pulse Rate 67 Respiratory Rate 20 Blood Pressure 112/39 L Pulse Oximetry 90 Intake/Output Intake/Output: Intake & Output 03/19/20 03/20/20 03/21/20 03/22/20 23:59 23:59 23:59 23:59 Intake Total 1265 1410 1675 690 Output Total 600 500 450 Balance 396 918 1199 690 Meds/Results Medications: Active Medications Generic Name Dose Route Start Last Admin Trade Name Freq PRN Reason Stop Dose Admin Acetaminophen 650 mg 03/18/20 15:10 03/22/20 08:25 Acetaminophen 325 Mg Tablet PO 650 mg Q6H PRN Administration Mild Pain (1-3) or Fever Albuterol 2 puff 03/16/20 11:26 Albuterol Sulfate (*Sp) Aerosol 1 Puff INHALATION QIDRT PRN Shortness Of Abbie
[2020-03-22] MEDS: REMDESIVIR 100 MG/NS 250 ML 100 MG/250 ML BAG 250 MG IVPB (15:19)
[2020-03-22] MEDS: TOLTERODINE TARTRATE LA 4 MG CAP.ER.24H PO (16:46)
[2020-03-23] VITALS: BP 147/52; PULSE 78; RESP 18; TEMP 36.4; O2SAT 93
[2020-03-23 04:00] VITALS: BP 126/84; PULSE 70; RESP 16; TEMP 36.6; O2SAT 96
[2020-03-23 07:19] LABS: Basophils Percent Auto 0.5 % (0.2-1.2); Hematocrit 36.4 % (37.0-47.0); Hemoglobin 12.3 g/dL (12.0-15.0); Immature Granulocyte Absolute 0.36 K/mm3 (0.00-0.031); Immature Granulocyte Percent A 4.3 % (0-0.5); Lymphocytes Absolute Auto 1.47 K/mm3 (0.9-3.2); Lymphocytes Percent Auto 17.7 % (18.3-44.2); Mean Corpuscular HGB Conc 33.8 g/dl (32-36); Mean Corpuscular Hemoglobin 29.1 pg (26-34); Mean Corpuscular Volume 86.1 fl (80-100); Mean Platelet Volume 9.5 fl (7.4-10.4); Monocytes Absolute Auto 1.1 K/mm3 (0.1-0.6); Monocytes Percent Auto 13.1 % (2.6-8.5); Neutrophils Absolute Auto 5.3 K/mm3 (1.3-6.7); Neutrophils Percent Auto 64.4 % (45.5-73.1); Platelet Count Result 386 k/mm3 (150-375); Red Blood Count 4.23 M/mm3 (4.2-5.4); Red Cell Distribution Width 13.6 % (11.5-14.5); White Blood Count 8.3 K/mm3 (4.5-10.0)
[2020-03-23 07:27] LABS: Alanine Aminotransferase 26 U/L (4-35); Albumin Level 2.6 g/dL (3.5-5.1); Alkaline Phosphatase 59 U/L (38-126); Anion Gap 5 mmol/L (8-16); Aspartate Amino Transferase 28 U/L (14-36); Bilirubin,Total 0.3 mg/dL (0.2-1.3); Blood Urea Nitrogen 40 mg/dL (7-17); Calcium 8.3 mg/dL (8.4-10.2); Carbon Dioxide 24 mmol/L (22-30); Chloride 107 mmol/L (98-107); Estimated CRCL calculation 36 ml/min; Estimated Glomerular Filt Rate 48; Glucose 94 mg/dL (65-105); Sodium 136 mmol/L (137-145)
[2020-03-23 08:00] VITALS: BP 133/53; PULSE 64; RESP 16; TEMP 36.4; O2SAT 92; O2SAT 94
[2020-03-23] MEDS: FLUTICASONE/SALMETEROL 115-21 MCG INHALER 1 PUFF 2 PUFF INHALATION (08:26)
[2020-03-23] MEDS: ALBUTEROL SULFATE (*SP) AEROSOL 1 PUFF 2 PUFF INHALATION (08:26)
[2020-03-23 08:27] VITALS: O2SAT 93
[2020-03-23] MEDS: ACETAMINOPHEN 325 MG TABLET 650 MG PO (09:27)
[2020-03-23] MEDS: CHOLECALCIFEROL 1,000 UNITS TABLET 2000 UNITS PO (09:27)
[2020-03-23] MEDS: ASPIRIN 81 MG ENTERIC TABLET PO (09:27)
[2020-03-23] MEDS: FELODIPINE 5 MG TAB CR 10 MG PO (09:27)
[2020-03-23] MEDS: ASCORBIC ACID 500 MG TABLET PO (09:27)
[2020-03-23] MEDS: LORATADINE 10 MG TABLET PO (09:28)
[2020-03-23] MEDS: ENOXAPARIN 40 MG/0.4 ML SYRINGE SUB-Q (09:28)
[2020-03-23] MEDS: DEXAMETHASONE SOD PHOS INJ 4 MG/ML VIAL 6 MG IV PUSH (09:28)
[2020-03-23] MEDS: CLOPIDOGREL BISULFATE 75 MG TABLET PO (09:28)
[2020-03-23] MEDS: ATORVASTATIN 40 MG TABLET PO (09:28)
[2020-03-23] MEDS: PANTOPRAZOLE SOD SESQUIHYDRATE 20 MG TAB PO (09:28)
[2020-03-23 12:00] VITALS: BP 123/54; PULSE 93; RESP 20; TEMP 36.8; O2SAT 94
[2020-03-23] MEDS: REMDESIVIR 100 MG/NS 250 ML 100 MG/250 ML BAG 250 MG IVPB (12:44)
--- NOTE | 2020-03-23 16:35 | PM.DS ---
DS: Admitting Diagnosis Admitting Diagnosis Admitting Diagnosis: PUI COVID, hypoxia DS: Discharge Diagnosis Discharge Diagnosis (1) Hypoxia: Code(s): R09.02 - Hypoxemia Status: Acute Assessment and Plan: Patient is 79-year-old female presented emergency department with a complaint of weakness tired fatigue and shortness of breath, patient was positive for COVID-19 however was not requiring any oxygen until pm 03/19., inflammatory markers crp and d-dimer both decreased by discharge decadron and remdesivir started 03/19 with the desaturation and completed 5 day course the day of discharge 03/23 (2) Abnormal chest x-ray: Code(s): R93.89 - Abnormal findings on diagnostic imaging of other specified body structures Status: Acute Assessment and Plan: COVID pneumonia or possible secondary bacterial pneumonia patient was treated with Rocephin ,azithromycin for 7 days (3) Hypertension: Code(s): I10 - Essential (primary) hypertension Status: Inactive Assessment and Plan: pressure was lower and continued calcium channel kayla but continued to hold LEANDER-inhibitor. she will monitor at home with her home blood pressure cuff and follow-up with Dr. Acuña later determine whether needs to restart the LEANDER-inhibitor (4) Chronic kidney disease, stage 3: Code(s): N18.30 - Chronic kidney disease, stage 3 unspecified Status: Inactive Assessment and Plan: stable with creatinine down to 1.1 again today (5) Hyperlipidemia: Code(s): E78.5 - Hyperlipidemia, unspecified Status: Acute Assessment and Plan: , atorvastatin 40 daily (6) Gastroesophageal reflux disease: Code(s): K21.9 - Gastro-esophageal reflux disease without esophagitis Status: Inactive Assessment and Plan: PPI (7) Urge incontinence: Code(s): N39.41 - Urge incontinence Status: Acute Assessment and Plan: continue tolterodine DS: Summary Hospital Course Hospital Course: 79-year-old white female presented to the emergency room with malaise, Fatigue and low-grade fever. found to be COVID positive. initially O2 saturations were adequate but on the 4th dipped below 90% and Remdesivir and Decadron were started. She completed a 5 day course and O2 sats mary. She was satting 94% on room air by discharge. There was question of infiltrate of bacterial pneumonia and patient has 7 days of IV ceftriaxone and azithromycin. Blood pressure toward the low side and she will hold her LEANDER-inhibitor till she sees Dr. Acuña Time Spent with Patient Time attestation: Total time spent providing and/or coordinating discharge services: 35 minutes Exam Narrative: Exam Narrative: condition on discharge blood pressure 124/54 pulse is 80 saturating 94% on room air afebrile lungs very faint crackle right posterior base CV regular rate rhythm abdomen soft nontender no masses extremities without edema distal pulses 2+ neuro alert pleasant cooperative no focal deficits he was up about feeling better less short of breath and cough and able to be discharged home in stable condition DS: Data Data Completed and Pending Labs on day of discharge: Labs from last 24 hours 03/23/20 03/23/20 06:55 06:55 WBC 8.3 RBC 4.23 Hgb 12.3 Hct 36.4 L MCV 86.1 MCH 29.1 MCHC 33.8 RDW 13.6 Plt Count 386 H MPV 9.5 Immature Gran % (Auto) 4.3 H Neut % (Auto) 64.4 Lymph % (Auto) 17.7 L [place] % (Auto) 13.1 H Eos % (Auto) 0.0 Baso % (Auto) 0.5 Lymph # (Auto) 1.47 [place] # (Auto) 1.1 H Eos # (Auto) 0.0 Baso # (Auto) 0.0 Abs Immat Gran (auto) 0.36 H Absolute Neuts (auto) 5.3 Absolute Nucleated RBC 0.0 Nucleated RBC % 0.0 Sodium 136 L Potassium 4.0 Chloride 107 Carbon Dioxide 24 Anion Gap 5 L BUN 40 H Creatinine 1.10 H Estim Creat Clear Calc 36 Estimated GFR 48 L Glucose 94 Calcium 8.3 L
== END 2020-03-23 14:45 | disposition home or self-care (01) | DRG 177 ==
LOC: ANHED 11:28 → ANH3MEDSUR 12:09
PROVIDERS: Family Medicine; Physician Assistant; Admitting Provider Internal Medicine; Emergency Provider General Practice; PCP Family Medicine; Visit Provider Internal Medicine
DX: U07.1 COVID-19 (principal); J12.89 Other viral pneumonia; J15.9 Unspecified bacterial pneumonia; J44.0 Chronic obstructive pulmonary disease with (acute) lower respiratory infection; I69.351 Hemiplegia and hemiparesis following cerebral infarction affecting right dominant side; I12.9 Hypertensive chronic kidney disease with stage 1 through stage 4 chronic kidney disease, or unspecified chronic kidney disease; N18.30 Chronic kidney disease, stage 3 unspecified; R09.02 Hypoxemia; E78.5 Hyperlipidemia, unspecified; K21.9 Gastro-esophageal reflux disease without esophagitis; N39.41 Urge incontinence; G47.33 Obstructive sleep apnea (adult) (pediatric); M19.90 Unspecified osteoarthritis, unspecified site; Z85.828 Personal history of other malignant neoplasm of skin; Z98.42 Cataract extraction status, left eye; Z98.41 Cataract extraction status, right eye; Z87.891 Personal history of nicotine dependence
CPT/HCPCS: 36415; 36600; 51701; 71045; 80053; 81001; 82375; 82728; 82805; 83050; 83605; 83615; 83735; 83880; 84484; 85025; 85380; 85610; 85730; 86140; 87040; 87635; 93005; 94640; 96365; 96366; 96367; 99285; A9270; C9803; G0378; J0456; J0696; J1100; J1650; J8540; U0003

== ENCOUNTER 2020-08-19 16:03 | Outpatient (CLI) | payer MEDICARE, OTHER, SELFPAY ==
--- NOTE | ~2020-08-19 | XR_ITS ---
EXAMINATION: XR femur RT min 2V INDICATION: Right leg pain TECHNIQUE: Two views of the right femur are obtained on five radiographs. COMPARISON: None available FINDINGS: Bone alignment is normal. There is no fracture. 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 Calcified atherosclerosis is noted. IMPRESSION: 1. No acute osseous abnormality. Reviewed, dictated and finalized at location A.
--- NOTE | ~2020-08-19 | XR_ITS ---
EXAMINATION: XR ankle RT 2V DATE: 08/19/2020 16:36 INDICATION: Right foot and ankle pain TECHNIQUE: 1. Anteroposterior and lateral view of the right ankle were obtained. 2. Dorsoplantar, oblique and lateral views of the right foot were obtained. COMPARISON: None. FINDINGS: Alignment of the foot and ankle is normal. No fracture. 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 Tiny enthesopathic os sicle along the medial margin of the medial malleolus. Small bone island at the posterior calcaneus. No periosteal reaction or cortical erosions. Soft tissue swelling about the ankle, hindfoot and dista l lower leg both medially and laterally. IMPRESSION: 1. No acute osseous abnormality. Reviewed, dictated and finalized at location B.
--- NOTE | ~2020-08-19 | XR_ITS ---
EXAMINATION: XR foot RT min 3V, XR ankle RT 2V DATE: 08/19/2020 16:36 INDICATION: Right foot and ankle pain TECHNIQUE: 1. Anteroposterior and lateral view of the right ankle were obtained. 2. Dorsoplantar, oblique and lateral views of the right foot were obtained. COMPARISON: None. FINDINGS: Alignment of the foot and ankle is normal. No fracture. 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 Tiny enthesopathic os sicle along the medial margin of the medial malleolus. Small bone island at the posterior calcaneus. No periosteal reaction or cortical erosions. Soft tissue swelling about the ankle, hindfoot and dista l lower leg both medially and laterally. IMPRESSION: 1. No acute osseous abnormality. Reviewed, dictated and finalized at location B.
== END 2020-08-19 16:04 | disposition home or self-care (01) ==
PROVIDERS: PCP Family Medicine; Visit Provider Physician Assistant
DX: M25.571 Pain in right ankle and joints of right foot (principal); M79.671 Pain in right foot
CPT/HCPCS: 73552; 73600; 73630

== ENCOUNTER 2020-12-12 08:43 | Outpatient (CLI) | payer MEDICARE, OTHER, SELFPAY ==
--- NOTE | ~2020-12-12 | MM_ITS ---
EXAMINATION: MM screening nina BI w amarjit HISTORY: Screening mammogram TECHNIQUE: Craniocaudal and mediolateral oblique 3-D tomosynthesis images were obtained and synthetic 2-D images were generated. CAD analysis was submitted and interpreted. COMPARISON: 12/11/2019, 11/28/2018, 11/01/2017 bilateral digital screening mammogram examinations BREAST PARENCHYMAL COMPOSITION: There are scattered areas of fibroglandular density. FINDINGS: Multiple bilateral benign calcifications. There is no evidence of suspicious mass, calcific ation, or architectural distortion to suggest malignancy in either breast. There has been no suspicio us interval change. IMPRESSION: 1. No mammographic evidence of malignancy. 2. Recommend routine screening mammography in one year. BI-RADS Category 2: Benign finding(s). Reviewed, dictated and finalized at location A.
== END 2020-12-12 08:44 | disposition home or self-care (01) ==
LOC: ANHIMG 08:44
PROVIDERS: PCP Family Medicine; Visit Provider Student in an Organized Health Care Education/Training Program
DX: Z12.31 Encounter for screening mammogram for malignant neoplasm of breast (principal)
CPT/HCPCS: 77063; 77067

== ENCOUNTER 2021-03-06 15:57 | Emergency (ER) | payer MEDICARE, OTHER, SELFPAY ==
--- NOTE | ~2021-03-06 | US_ITS ---
EXAMINATION: US venous doppler LE RT DATE: 03/06/2021 17:36 INDICATION: Right groin pain TECHNIQUE: Duarte scale images without and with compression and Doppler images of the right lower extre mity veins were obtained. COMPARISON: 01/31/2008 FINDINGS: The right common femoral vein, profunda femoral vein, femoral vein, popliteal vein, peronea l trunk, posterior tibial veins, and greater saphenous vein are patent. IMPRESSION: 1. Patent right lower extremity veins. No evidence of deep venous thrombosis. Reviewed, dictated and finalized at location A.
--- NOTE | ~2021-03-06 | CT_ITS ---
EXAMINATION: CT abdomen pelvis wo con DATE: 03/06/2021 17:21 INDICATION: Right pelvic and groin pain TECHNIQUE: Computed tomography (CT) of the abdomen and pelvis was performed without intravenous contr ast. The dose-length product (DLP) was 573.84 mGy-cm. Automated exposure control and iterative recons truction technique were employed. COMPARISON: None FINDINGS: There is severe emphysema of the visualized lung bases. There is a 6 mm nodule of the right middle lobe. The heart size is normal. Calcified coronary artery atherosclerosis is noted. There is a small sliding hiatal hernia. A 3.1 x 2.2 cm fluid attenuation lesion of the left hepatic lobe likel y reflects a cyst or hemangioma in the absence of known malignancy. The spleen, pancreas, gallbladder , and adrenal glands are normal. Cysts of the kidneys measure up to 2.3 cm on the left. There is calc ified atherosclerosis of the aorta and many of the other arteries. No pathologically enlarged abdomin al or pelvic lymph nodes are identified. There is no free intraperitoneal gas or evidence of bowel ob struction. There is a 2.1 cm cystic lesion of the right ovary. There is an acute fracture of the righ t inferior pubic ramus. There is a questionable transverse insufficiency fracture of the left sacral ala. There is severe lumbar spondylosis. IMPRESSION: 1. Acute fracture of the right inferior pubic ramus. 2. Possible transverse insufficiency fracture of the left sacral ala. 3. 6 mm nodule of the right middle lobe. Follow-up low-dose chest CT in 6-12 months is recommended. 4. 2.1 cm cystic lesion of the right ovary. Nonemergent pelvic ultrasound is recommended. Reviewed, dictated and finalized at location A. IMPRESSION: 1. Acute fracture of the right inferior pubic ramus. 2. Possible transverse insufficiency fracture of the left sacral ala. 3. 6 mm nodule of the right middle lobe. Follow-up low-dose chest CT in 6-12 mo nths is recommended. 4. 2.1 cm cystic lesion of the right ovary. Nonemergent pelvic ultrasound is re commended.
--- NOTE | ~2021-03-06 | XR_ITS ---
EXAMINATION: XR pelvis 1-2V INDICATION: Right groin pain, initial encounter TECHNIQUE: AP view the pelvis is obtained. COMPARISON: None available FINDINGS: There is a transverse fracture of the right superior pubic ramus. Alignment at the hips is normal. No definite additional acute osseous findings are evident. Calcified atherosclerosis is noted . There is severe lumbar spondylosis. IMPRESSION: 1. Transverse fracture of the right superior pubic ramus. Reviewed, dictated and finalized at location A.
[2021-03-06 16:11] VITALS: BP 157/62; PULSE 96; RESP 16; TEMP 36.7; O2SAT 96
--- NOTE | 2021-03-06 16:53 | ED.GENADULT ---
HPI - General Adult General Chief complaint: Extremity Problem,Nontraumatic Stated complaint: r leg pain Time Seen by Provider: 03/06/21 16:42 Source: patient Mode of arrival: ambulatory Limitations: no limitations History of Present Illness HPI narrative: Patient is a 80-year-old female complaining of right groin pain, 8 out of 10, dull, worse with palpation movement started approximately 3 to 4 weeks ago. Patient denies any injury to the area. Patient denies any abdominal pain, nausea, vomiting, diarrhea, fever, chills or urinary symptoms. Related Data Home Medications Medication Instructions Recorded Confirmed aspirin 81 mg tablet,delayed 81 mg PO DAILY 04/10/19 09/09/20 release cholecalciferol (vitamin D3) 125 2,000 unit PO DAILY 04/10/19 09/09/20 mcg (5,000 unit) tablet ascorbic acid (vitamin C) 500 mg PO BID 03/16/20 09/09/20 Allergies Allergy/AdvReac Type Severity Reaction Status Date / Time iodine Allergy Unknown Rash Verified 08/19/20 15:18 Iodine and Iodide Containing Allergy Unknown Rash Verified 08/19/20 15:18 Produc Review of Systems Review of Systems: All systems reviewed & are unremarkable except as noted in HPI and below Constitutional: Constitutional: Denies body ache(s), Denies chills, Denies excessive sweating, Denies fatigue, Denies fever(s), Denies headache(s), Denies lethargy, Denies malaise, Denies weakness and Denies weight loss Eyes: Eyes: Denies blurry vision, Denies change in vision and Denies loss of vision ENT: Denies dizziness, Denies ear discharge, Denies headache(s), Denies lip swelling, Denies epistaxis, Denies nasal congestion, Denies neck pain, Denies throat swelling and Denies tongue swelling Cardiovascular: Cardiovascular: Denies chest pain, Denies chest pain at rest, Denies chest pain with activity, Denies diaphoresis, Denies rapid heart rate, Denies edema, Denies irregular heart rhythm, Denies lightheadedness, Denies palpitations, Denies dyspnea and Denies dyspnea on exertion Respiratory: Respiratory: Denies chest congestion, Denies cough, Denies hemoptysis, Denies dyspnea and Denies dyspnea on exertion Gastrointestinal: Gastrointestinal: Denies abdominal pain, Denies melena, Denies hematochezia, Denies diarrhea, Denies nausea, Denies vomiting and Denies hematemesis Musculoskeletal: Musculoskeletal: Denies abnormal gait, Denies deformity, Denies joint swelling, Denies limited range of motion, Denies neck pain and Denies numbness Neurologic: Denies Abnormal speech present, Denies abnormal gait, Denies confusion, Denies dizziness, Denies headache(s), Denies focal weakness, Denies loss of vision, Denies numbness, Denies Other visual disturbances, Denies Sensory deficit (Neuro) and Denies weakness Psychiatric: Psychiatric: Denies confusion, Denies depression, Denies auditory hallucinations, Denies homicidal ideation and Denies suicidal ideation Endocrine: Endocrine: Denies cold intolerance, Denies excessive sweating, Denies fatigue, Denies heat intolerance and Denies palpitations Hematologic/Lymphatic: Hematologic/Lymphatic: Denies easy bleeding and Denies easy bruising Allergic/Immunologic: Allergic/Immunologic: Denies lip swelling, Denies throat swelling and Denies tongue swelling PMFSH Past Medical History Medical History Basal cell carcinoma Cerebrovascular accident (~1995) With mild right-sided weakness. Chronic kidney disease, stage 3 Baseline creatinine between 1.6 and 1.70. Gastroesophageal reflux disease History of vaginal delivery x 2. Hyperlipidemia Hypertension Mild obstructive sleep apnea On sleep study in March 2008. Osteoarthritis Transient ischemic attack Urge incontinence Surgical History Surgical History History of basal cell carcinoma excision (~2016) From the nose and brow. History of bilateral breast biopsy (~09/2006) With [facility]
[2021-03-06] MEDS: HYDROcodone/acetaminophen (*CRX) 5-325 MG TABLET 1 TAB PO (19:23)
[2021-03-06 19:26] VITALS: BP 138/62; PULSE 93; RESP 16; O2SAT 97
[2021-03-06 19:42] LABS: Add Urine Microscopic? YES; Appearance Urine Clear (Clear); Bacteria Urine Trace /hpf; Bilirubin Urine Negative (Negative); Blood Urine Negative (Negative); Color Urine Yellow (Yellow); Glucose Urine UA Negative (Negative); Ketones Urine Negative (Negative); Leukocyte Esterase Ur Negative LEU/UL (Negative); Nitrate Urine Negative (Negative); Protein Urine Negative (Negative); RBC Urine 0-2 /hpf (0-2); Specific Grav Ur 1.014 (1.001-1.035); Squamous Epithelial Cell Urine Occasional /hpf (Few); Urobilinogen Urine Negative mg/dL (<2.0); WBC Urine 0-3 /hpf
== END 2021-03-06 19:30 | disposition home or self-care (01) ==
PROVIDERS: Emergency Provider Emergency Medicine; PCP Family Medicine
DX: S32.511A Fracture of superior rim of right pubis, initial encounter for closed fracture (principal); I69.951 Hemiplegia and hemiparesis following unspecified cerebrovascular disease affecting right dominant side; I12.9 Hypertensive chronic kidney disease with stage 1 through stage 4 chronic kidney disease, or unspecified chronic kidney disease; N18.30 Chronic kidney disease, stage 3 unspecified; K21.9 Gastro-esophageal reflux disease without esophagitis; E78.5 Hyperlipidemia, unspecified; G47.33 Obstructive sleep apnea (adult) (pediatric); M19.90 Unspecified osteoarthritis, unspecified site; Z85.828 Personal history of other malignant neoplasm of skin; Z98.49 Cataract extraction status, unspecified eye; Z87.891 Personal history of nicotine dependence; Z79.82 Long term (current) use of aspirin; R91.1 Solitary pulmonary nodule; N83.201 Unspecified ovarian cyst, right side; X58.XXXA Exposure to other specified factors, initial encounter
CPT/HCPCS: 72170; 74176; 81001; 93971; 99284; A9270

== ENCOUNTER 2021-10-06 10:05 | Outpatient (CLI) | payer MEDICARE, OTHER, SELFPAY ==
--- NOTE | ~2021-10-06 | XR_ITS ---
EXAM: XR knee RT min 4V DATE: 10/06/2021 10:35 HISTORY: M21.961 - knee bends medially when standing x1yr no injury, . COMPARISON: 08/19/2020. FINDINGS: Decreased mineralization. Exaggerated valgus deformity. Severe lateral joint space narrowi ng and subchondral sclerosis. Tricompartmental osteophytosis. Large volume joint fluid. No fracture o r dislocation. IMPRESSION: Tricompartmental osteoarthritis, severe in the lateral compartment. Reviewed, dictated and finalized at location K.
== END 2021-10-06 10:06 | disposition home or self-care (01) ==
PROVIDERS: PCP Family Medicine; Visit Provider Physician Assistant
DX: M21.961 Unspecified acquired deformity of right lower leg (principal); M25.361 Other instability, right knee; M17.11 Unilateral primary osteoarthritis, right knee
CPT/HCPCS: 73564

== ENCOUNTER 2021-12-14 14:09 | Outpatient (CLI) | payer MEDICARE, OTHER, SELFPAY ==
--- NOTE | ~2021-12-14 | MM_ITS ---
EXAMINATION: MM screening nina BI w amarjit HISTORY: Screening TECHNIQUE: Craniocaudal and mediolateral oblique 3-D tomosynthesis images were obtained and synthetic 2-D images were generated. CAD analysis was submitted and interpreted. COMPARISON: Comparison to multiple prior studies sequentially, with oldest reviewed study dated 10/28. BREAST PARENCHYMAL COMPOSITION: There are scattered areas of fibroglandular density. FINDINGS: There is no evidence of suspicious mass, calcification, or architectural distortion to sugg est malignancy in either breast. There has been no suspicious interval change. IMPRESSION: 1. No mammographic evidence of malignancy. 2. Recommend routine screening mammography in one year. BI-RADS Category 1: Negative Reviewed, dictated and finalized at location A.
--- NOTE | ~2021-12-14 | DEXA_ITS ---
Bone Density Report Name: VIVIAN LITTLEJOHN Age: 81 Sex: Female Ethnicity: White Date of : 1940 Indication: osteopenia; height loss; cancer; postmenopausal Referring Provider: RUPALI JUNIOR Study: Bone densitometry was performed. Exam Date: December 14, 2021 Accession number: [id number] Bone Density: Region BMD T-score Z-score Classification AP Spine(L1, L2) 1.011 0.3 2.8 Normal Femoral Neck (Left) 0.606 -2.2 0.1 Osteopenia Total Hip (Left) 0.798 -1.2 0.9 Osteopenia Femoral Neck (Right) 0.584 -2.4 -0.1 Osteopenia Total Hip (Right) 0.673 -2.2 -0.1 Osteopenia Total Hip Mean 0.735 -1.7 0.4 Osteopenia World Health Organization criteria for BMD impression classify patients as: Normal (T-score at or above -1.0), Osteopenia (T-score between -1.0 and -2.5), or Osteoporosis (T-score at or below -2.5). 10-year Fracture Risk(1): Major Osteoporotic Fracture 17% Hip Fracture 5.7% Reported Risk Factors: [place] (), Neck BMD=0.584, BMI=29.5 (1) FRAX(R) Version 3.08. Fracture probability calculated for an untreated patient. Fracture probability may be lower if the patient has received treatment. Previous Exams: Region Exam Age BMD T-score BMD Change BMD Change Date g/cm2 vs Baseline vs Previous AP Spine (L1-L2) 12/14/2021 81 1.011 0.3 0.130 (14.7%)* 0.032 (3.3%)* 11/28/2018 78 0.978 0.0 0.097 (11.1%)* 0.097 (11.1%)* 10/29/2015 75 0.881 -0.9 Total Hip(Left) 12/14/2021 81 0.798 -1.2 -0.065 (-7.5%) -0.025 (-3.1%) 11/28/2018 78 0.823 -1.0 -0.039 (-4.6%) -0.039 (-4.6%) 10/29/2015 75 0.862 -0.7 Total Hip(Right) 12/14/2021 81 0.673 -2.2 -0.030 (-4.2%) -0.027 (-3.9%) 11/28/2018 78 0.700 -2.0 -0.002 (-0.4%) -0.002 (-0.4%) 10/29/2015 75 0.702 -2.0 *Denotes significance at 95% confidence level, LSC for AP Spine = 0.022 g/cm2, LSC for Total Hip = 0.027 g/cm2 Clinical Information Provided by Patient: Has used the following medications: Vitamin D, Calcium Has the following medical conditions: Cancer Patient maximum height was 65 Menopause Age: 51 No regular weight bearing exercise Does not regularly consume dairy products Drinks caffeinated beverages Onset of menses at age 14 Number of children 2 Impression: The patient has low bone mass, based on the Right Femoral Neck T-score. The patient has an estimated ten-year risk of hip fracture of 5.7% and an estimated ten-year risk of
== END 2021-12-14 14:10 | disposition home or self-care (01) ==
LOC: ANHIMG 14:11
PROVIDERS: PCP Family Medicine; Visit Provider Student in an Organized Health Care Education/Training Program
DX: Z12.31 Encounter for screening mammogram for malignant neoplasm of breast (principal); Z78.0 Asymptomatic menopausal state; M85.89 Other specified disorders of bone density and structure, multiple sites
CPT/HCPCS: 77063; 77067; 77080

== ENCOUNTER 2022-02-24 09:19 | Outpatient (CLI) | payer MEDICARE, OTHER, SELFPAY ==
[2022-02-24 09:42] LABS: Hemoglobin 14.6 g/dL (12.0-15.0); Mean Corpuscular HGB Conc 32.4 g/dl (32-36); Mean Corpuscular Hemoglobin 30.6 pg (26-34); Mean Corpuscular Volume 94.3 fl (80-100); Mean Platelet Volume 9.4 fl (7.4-10.4); Platelet Count Result 300 k/mm3 (150-375); Red Blood Count 4.77 M/mm3 (4.2-5.4); Red Cell Distribution Width 13.4 % (11.5-14.5); White Blood Count 6.6 K/mm3 (4.5-10.0)
[2022-02-24 09:53] LABS: Anion Gap 14 mmol/L (8-16); Blood Urea Nitrogen 18 mg/dL (7-17); Calcium 9.9 mg/dL (8.4-10.2); Carbon Dioxide 23 mmol/L (22-30); Chloride 104 mmol/L (98-107); Estimated Glomerular Filt Rate 31; Glucose 108 mg/dL (65-110); Potassium 4.1 mmol/L (3.4-5.0); Sodium 141 mmol/L (137-145)
--- NOTE | 2022-02-24 09:54 | ECG_ITS ---
Measurements Intervals Freedom Rate: 75 P: 65 WI: 157 QRS: -35 QRSD: 106 T: 63 QT: 364 QTc: 409 Interpretive Statements SINUS RHYTHM POOR R-WAVE PROGRESSION COMPARED TO ECG 03/16/2020 08:29:01 NO SIGNIFICANT CHANGES Electronically Signed On 02-24-2022 15:23:37 CDT by Asim Santillan M.D.
[2022-02-24 11:27] LABS: Add Urine Microscopic? YES; Appearance Urine Cloudy (Clear); Bacteria Urine Trace /hpf; Bilirubin Urine Negative (Negative); Blood Urine Negative (Negative); Color Urine Yellow (Yellow); Glucose Urine UA Negative (Negative); Ketones Urine Negative (Negative); Leukocyte Esterase Ur Negative LEU/UL (Negative); Mucus Urine Rare /lpf; Nitrate Urine Negative (Negative); Protein Urine Negative (Negative); RBC Urine 0-2 /hpf (0-2); Specific Grav Ur 1.013 (1.001-1.035); Squamous Epithelial Cell Urine Moderate /hpf (Few); Urobilinogen Urine Negative mg/dL (<2.0); WBC Urine 0-3 /hpf
== END 2022-02-24 09:20 | disposition home or self-care (01) ==
LOC: ANHLAB 09:21
PROVIDERS: PCP Family Medicine; Visit Provider Nurse Practitioner Family
DX: Z01.818 Encounter for other preprocedural examination (principal)
CPT/HCPCS: 36415; 80048; 81001; 85027; 93005

== ENCOUNTER 2022-03-15 09:52 | Outpatient (CLI) | payer MEDICARE, OTHER, SELFPAY ==
[2022-03-15 11:26] LABS: Albumin Level 4.7 g/dL (3.5-5.1)
[2022-03-15 11:30] LABS: INR 1.1; Prothrombin Time 13.3 Seconds (11.1-14.7)
[2022-03-15 11:31] LABS: Partial Thromboplastin Time 31.4 SECONDS (22.3-36.8)
[2022-03-15 11:42] LABS: Appearance Urine Cloudy (Clear); Bilirubin Urine Negative (Negative); Blood Urine Negative (Negative); Color Urine Yellow (Yellow); Glucose Urine UA Negative (Negative); Ketones Urine Negative (Negative); Leukocyte Esterase Ur 1+ LEU/UL (Negative); Nitrate Urine Negative (Negative); Protein Urine Trace mg/dL (Negative); Specific Grav Ur 1.025 (1.001-1.035); Urobilinogen Urine 0.2 mg/dL (<2.0); pH Urine 5.5 (5.0-9.0)
[2022-03-15 11:43] LABS: Urine Cotinine NEGATIVE
[2022-03-15 12:25] LABS: Bacteria Urine 2+ /hpf; Budding Yeast Urine Present /hpf; Squamous Epithelial Cell Urine Many /hpf (Few); WBC Urine 21-30 /hpf
[2022-03-15 12:30] LABS: Add Urine Microscopic? YES
== END 2022-03-15 09:53 | disposition home or self-care (01) ==
PROVIDERS: PCP Family Medicine; Visit Provider Orthopaedic Surgery
DX: Z01.818 Encounter for other preprocedural examination (principal); M17.11 Unilateral primary osteoarthritis, right knee
CPT/HCPCS: 80307; 81001; 82040; 83036; 85610; 85730; 87081; 87086; 87088

== ENCOUNTER 2022-04-01 09:01 | Inpatient (IN) | payer MEDICARE, OTHER, SELFPAY ==
[2022-03-15 10:11] VITALS: BMI 29.4
--- NOTE | 2022-03-15 10:27 | PC.NURSE ---
Report to the Outpatient Waiting Room, entrance under the green pavilion located off [facility], at time _0900 on date _03/31/22 . Planned Procedure Time: _1100 . Time changes happen often and if your time is changed the preop area will call you the afternoon before. - You and your visitor will be asked to self-screen and do not enter if you have any COVID symptoms. - We encourage only one visitor and NO visitors under age 16 are allowed at this time. Your visitor will receive communication by the phone number that is given day of service. - The patient visitor is requested to social distance or may leave the building when not with patient due to restrictions. - A mask is required within the hospital. TOTAL JOINT CLASS AT 10 AM Patients may have clear liquids (water, carbonated beverages, clear teas, apple juice) until 3 hours prior to surgery with a maximum of 20 ounces. - No food from midnight until time of surgery - Infants may have breast milk until 4 hours before surgery, infant formula 6 hours prior to surgery. - Children will be allowed to drink immediately following surgery. If applicable, please bring a bottle or sippy cup to assist with drinking. Juice, water, soda, and popsicles are readily available. For infants on formula, please bring formula the day of surgery. Pacifiers are allowed. Take the following medications with a SIP of water the morning of surgery: FELODIPINE Medications to discontinue per physician __PLAVIX 5 DAYS PRE OP PER DR NEVES. ASPIRIN PER DR WOOD ALL VITAMINS AND SUPPLEMENTS 3 DAYS PRE OP Date to take last dose__PLAVIX 03/25/22 ALL VIT/SUPP 03/26/12 Please no make-up, nail cuban, hairspray, perfume, deodorant, or body powder the day of surgery. No jewelry (including any body piercings) or valuables the day of surgery, leave them at home. Please take a shower or bath the night before, or the morning of, surgery with an antibacterial soap. Wear comfortable, loose fitting clothing. Children are encouraged to wear pajamas. - Jewelry must be removed prior to entering the operating room. Rings and piercings that are not removed may be cut off. - The hospital will not accept responsibility for valuables. - Please leave all valuables, including medications, at home the day of surgery. If you are going home after surgery, a licensed [facility] driver must drive you home. - NO public transportation without another adult. - We recommend that an adult stay with you for 24 hours following discharge. - We also recommend that you do not drive, make important decision, drink alcoholic beverages, or take any drugs that were not prescribed by your health care provider for at least 24 hours after your discharge time. Follow any additional instructions given to you from your surgeon. If you or anyone in your household have experienced Covid symptoms in the past week, please notify your surgeon or the nurse liaison at the phone number below for possible testing. VERBAL AND WRITTEN instructions given to __PATIENT and asked if any additional questions and then verbalized understanding. Patient advised to call surgeon office or pre surgery nurse liaison [phone] if any additional questions.
[2022-03-15 10:47] VITALS: BP 156/66; PULSE 80; RESP 18; TEMP 36.7; O2SAT 97
[2022-03-31] VITALS (15 sets, daily range): BP systolic 90–190; BP diastolic 40–67; PULSE 74–96; RESP 12–18; TEMP 36.3–36.9; O2SAT 91–99
--- NOTE | 2022-03-31 07:19 | WPDHPUPDATE1 ---
History and Physical Update Update Date/Time: 03/31/22 07:19 History and Physical has been reviewed, including an updated exam of the patient. There are NO changes in the patient's condition. Risks, benefits, and alternatives have been discussed and questions answered. Patient agrees to proceed with procedure.
--- NOTE | 2022-03-31 07:34 | WPDANESEPPF ---
Anes - Initial Pre Proc Eval Procedure: Operation Date: 03/31/22 11:00 Proposed Procedures p Right Total Knee Arthroplasty - Pj Can MD Date/Time: 03/31/22 07:34 Surgeon: Pj Can MD Pre Op Diagnosis: right knee DJD with severe valgus deformity Patient Data Age: 81 Gender: F Height: 1.6 m Weight: 75.3 kg Last Vital Signs Temp 36.7 C 03/15/22 10:47 Pulse 80 03/15/22 10:47 Resp 18 03/15/22 10:47 BP 156/66 H 03/15/22 10:47 Pulse Ox 97 03/15/22 10:47 O2 Del Method Room Air 03/15/22 10:47 Allergies Allergy/AdvReac Type Severity Reaction Status Date / Time iodine Allergy Unknown Rash Verified 03/19/22 11:32 Iodine and Iodide Containing Allergy Unknown Rash Verified 03/19/22 11:32 Produc [id number] Allergy Unknown Rash Uncoded 03/24/22 09:56 Home Medications Medication Instructions Recorded Confirmed Type aspirin 81 mg tablet,delayed 81 mg PO DAILY 04/10/19 03/19/22 History release cholecalciferol (vitamin D3) 125 2,000 unit PO DAILY 04/10/19 03/19/22 History mcg (5,000 unit) tablet ascorbic acid (vitamin C) 500 mg 500 mg PO BID 03/16/20 03/19/22 History tablet fluticasone fur. 100 mcg-umeclid 1 ea inhalation DAILY #90 ea 03/25/21 03/19/22 Rx 62.5 mcg-vilant 25 mcg inhalat.powder (Trelegy Ellipta) lisinopril 40 mg tablet 40 mg PO DAILY #90 tabs 04/13/21 03/19/22 Rx cetirizine 10 mg tablet (Zyrtec) 10 mg PO DAILY PRN allergy 07/07/21 03/19/22 Rx symptoms #90 tabs felodipine 10 mg tablet,extended 10 mg PO DAILY #90 tabs 07/07/21 03/19/22 Rx release 24 hr atorvastatin 40 mg tablet (Lipitor) 40 mg PO DAILY #90 tabs 10/30/21 03/19/22 Rx clopidogrel 75 mg tablet (Plavix) 75 mg PO DAILY #90 tabs 03/11/22 03/19/22 Rx pantoprazole 20 mg tablet,delayed 20 mg PO QAM #90 tabs 03/11/22 03/19/22 Rx release (Protonix) tolterodine 4 mg capsule,extended 4 mg PO DAILY #90 caps 03/11/22 03/19/22 Rx release 24 hr (Detrol LA) acetaminophen 500 mg tablet 1,000 mg PO BID PRN Pain 03/15/22 03/19/22 History calcium carbonate 600 mg-vitamin 1 cap PO EVERY OTHER DAY 03/15/22 03/19/22 History D3 10 mcg (400 unit) capsule chlorhexidine gluconate 4 % 1 applic topical ONCE #237 mL 03/24/22 Rx topical liquid (Hibiclens) Patient hx anesthesia problems: none Family hx anesthesia problems: none Results Review: All pre-operative results and documents have been reviewed as part of the pre-operative evaluation. [facility] Past Medical History Medical History (Updated 03/31/22 @ 07:35 by John Lion MD) Arthritis Asthma Basal cell carcinoma Cerebrovascular accident (~1995) With mild right-sided weakness. Chills Chronic kidney disease, stage 3 Baseline creatinine between 1.6 and 1.70. Chronic low back pain CKD (chronic kidney disease) stage 3, GFR 30-59 ml/min COPD (chronic obstructive pulmonary disease) Diarrhea Fever Gastroesophageal reflux disease GERD (gastroesophageal reflux disease) High cholesterol History of TIA (transient ischemic attack) History of vaginal delivery x 2. HLD (hyperlipidemia) HTN (hypertension) Hyperlipidemia Hypertension Mild obstructive sleep apnea On sleep study in March 2008. 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 History of bilateral breast biopsy (~09/2006) With benign pathology. History of cataract extraction History of dilation and curettage History of tubal ligation Status post debridement (~2018) Debridement of traumatic hematoma of the left medial leg. [place] teeth
[2022-03-31] MEDS: TRANEXAMIC ACID 1,000MG/ISO100 1,000 MG/100 ML BAG 200 MG IVPB (10:00)
[2022-03-31] MEDS: LACTATED RINGERS 1,000 ML 30 ML IV CONT ×2 (10:00→15:06)
[2022-03-31] MEDS: ACETAMINOPHEN 500 MG TABLET 1000 MG PO (10:00)
--- NOTE | 2022-03-31 12:28 | WPDANESPNB ---
Anes - Peripheral Nerve Block Date/Time: 03/31/22 12:28 I have discussed with the patient/family/POA the placement of a peripheral nerve block for post-operative pain management, including associated risks, benefits, complications, and side effects. Alternative methods of post-operative analgesia were detailed. Questions were solicited and answers provided to the satisfaction of the patient/family/POA. Time-Out: A pre-procedural Time-Out was completed immediately before starting the procedure and confirmed: Patient Identification, Site, Procedure, Patient Position and the Availability of Requisite Equipment. Clinical Indications: Acute post-operative pain management requested by the operative surgeon. Nerve Block Insertion Note Anes-nerve block: adductor canal right Patient position: supine Skin prep: chlorhexidine Needle: 22 gauge, stimulating, insulated echogenic needle. Needle length: 80 mm Technique: ultrasound Technique comment: in plane Injectate: bupivacaine 0.25% with epi 5 mcg/ml (30cc) Observations: tolerated well Complications: none Procedure start time:: 1220 Procedure end time:: 1225
[2022-03-31] MEDS: ceFAZolin 2 GM/D5W 50 ML 2 GM/50 ML BAG IVPB ×2 (12:37→20:13)
[2022-03-31] MEDS: TRANEXAMIC ACID 1,000 MG/10 ML AMPUL 1000 MG IV PUSH (14:15)
--- NOTE | 2022-03-31 15:37 | P.OP_ITS ---
Procedure Note - Detailed Date of Procedure 03/31/22 Pre-op Diagnosis right knee DJD with severe valgus deformity Post-op Diagnosis Same Procedure Performed R TKA Surgeon Pj Can MD Anesthesia General Description of Procedure THE RIGHT KNEE WAS PREPPED AND DRAPED IN THE STERILE FASHION. A MIDLINE SKIN I NCISION WAS MADE. A MEDIAL PARAPATELLAR ARTHROTOMY WAS MADE. THE PATELLA WAS EVERTED. THERE WAS TRICOMPARTMENT DJD. THERE WAS MINIMAL PATELLA DJD. AN INTRAMEDULLARY JONN WAS PLACED IN THE FEMUR. A DISTAL FEMORAL CUT WAS MADE IN 5 DEGREES OF VALGUS REMOVING APPROXIMATELY 9 MM OF BONE FROM THE DISTAL FEMUR. THE FEMUR WAS SIZED TO 65. A 65 FEMORAL CUTTING BLOCK WAS PLACED IN ALIGNMENT WITH SAMANTHA'S LINE AND THE TRANSEPICONDYLAR AXIS. ANTERIOR POSTERIOR AND CHAMFER CUTS WERE MADE. THE CUTS WERE EXCELLENT. NEXT AN INTRAMEDULLARY CUTTING GUIDE WAS PLACED IN THE TIBIA. A TRANS TIBIAL CUT WAS MADE ALONG THE LONG AXIS OF THE TIBIA. APPROXIMATELY 10 MM OF BONE WAS REMOVED FROM THE HIGH SIDE OF THE TIBIA. THE TIBIA WAS THEN PLANED TO A SMOOTH SURFACE. POSTERIOR FEMORAL OSTEOPHYTES WERE REMOVED FROM THE FEMORAL CONDYLES. A 71 TIBIAL TRIAL WAS PLACED IN ALIGNMENT WITH THE 1/3 MEDIAL ASPECT OF THE TIBIAL TUBERCLE. THEN A 65 FEMORAL TRIAL COMPONENT WAS PLACED. BOTH HAD EXCELLENT FITS. EVENTUALLY A 14 MM POLYETHYLENE TRIAL COMPONENT WAS PLACED. THE KNEE WAS TAKEN THROUGH A RANGE OF MOTION. THE KNEE CAME OUT TO FULL EXTENSION. THERE WAS NO ABNORMAL TILT TO THE PATELLA. THERE WAS GOOD A/P AND VARUS/VALGUS STABILITY. THERE WAS NO EXCESSIVE ROLL BACK WITH FLEXION. THE TRIAL COMPONENTS WERE REMOVED. THEN A 65 FEMORAL COMPONENT AND 71 TIBIAL COMPONENT WITH A 14 POLYETHYLENE COMPONENT WERE CEMENTED INTO PLACE. ONCE THE CEMENT WAS HARD THE KNEE WAS TAKEN THROUGH A ROM AGAIN AND FOUND TO BE STABLE WITH NO PATELLA TILT NO EXCESSIVE ROLL BACK WITH FLEXION AND GOOD STABILITY WITH COMPLETE AND FULL EXTENSION. THE KNEE WAS IRRIGATED WITH STERILE BETADINE AND WATER FOR ABOUT 3 MINUTES. THE BLEEDERS WERE CAUTERIZED. THE ARTHROTOMY WAS REPAIRED WITH NUMBER 1 VICRYL. THE SUB CUTANEOUS LAYER WITH 2-0 VICRYL AND THE SKIN WITH CRISTEL. THE WOUND WAS WASHED AND A STERILE DRESSING WAS APPLIED. PATIENT WAS EXTUBATED. Estimated Blood Loss -100.0 Pathology None sent Complications No immediate complications Condition Stable Disposition PACU
[2022-03-31] MEDS: ONDANSETRON INJ 4 MG/2 ML VIAL IV PUSH (15:49)
[2022-03-31] MEDS: diphenhydrAMINE HCl INJ 50 MG/ML VIAL 12.5 MG IV PUSH (16:09)
[2022-03-31] MEDS: SCOPOLAMINE 1.5 MG PATCH TRANSDERM (16:10)
--- NOTE | 2022-03-31 17:01 | ADMGEN ---
This patient, Radha Palacios, was admitted to Medical Room 243-01. Patient/family oriented to hospital policies and general routines including ID bracelet, bed and alarms, visiting hours, pain management, procedures, bathroom and other care routines, personal items, smoking policy, room service/diet, and visiting hours. Information on how to activate the Rapid Response Team has been discussed. Patient/Family are encouraged to report perceived risks to care and to ask questions if they do not understand what they are told or what they should do.
[2022-03-31] MEDS: SODIUM CHLORIDE 0.9% IV 1,000 ML 125 ML IV CONT (17:57)
[2022-03-31] MEDS: ASCORBIC ACID 500 MG TABLET PO (17:59)
[2022-03-31] MEDS: SENNA/DOCUSATE SODIUM TABLET 2 TAB PO (17:59)
--- NOTE | 2022-03-31 19:38 | PM.IMHP ---
H&P: HPI History of Present Illness Date/Time: 03/31/22 19:38 Chief Complaint: [facility] Past Medical History Medical History (Updated 03/31/22 @ 07:35 by John Lion MD) Arthritis Asthma Basal cell carcinoma Cerebrovascular accident (~1995) With mild right-sided weakness. Chills Chronic kidney disease, stage 3 Baseline creatinine between 1.6 and 1.70. Chronic low back pain CKD (chronic kidney disease) stage 3, GFR 30-59 ml/min COPD (chronic obstructive pulmonary disease) Diarrhea Fever Gastroesophageal reflux disease GERD (gastroesophageal reflux disease) High cholesterol History of TIA (transient ischemic attack) History of vaginal delivery x 2. HLD (hyperlipidemia) HTN (hypertension) Hyperlipidemia Hypertension Mild obstructive sleep apnea On sleep study in March 2008. 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 History of bilateral breast biopsy (~09/2006) With benign pathology. History of cataract extraction History of dilation and curettage History of tubal ligation Status post debridement (~2017) Debridement of traumatic hematoma of the left medial leg. [place] teeth removed Family History Family History Mother Hypertension Family history of malignant neoplasm of breast in first degree relative Other Cerebrovascular accident Diabetes mellitus HLD (hyperlipidemia) Heart disease Skin cancer Social History Social History Social History: Surrogate decision maker: Ronal Palacios, . Code status: Full code. Smoking packs per day: 1 Smoking cigarettes per day: 20.0 Years smoked: 30 Smoking pack-years: 30.00 Smoking status: Former smoker Tobacco type: cigarettes Second hand tobacco smoke exposure: No Smoking end date: 09/28/95 Additional smoking assessment comments: DENIES ANY FORM OF TOBACCO USE Alcohol intake: never Substance use: never Substance use type: does not use Lack of Transportation: No Lack of Food: Never True Current Housing: I Have Housing Concerned About Future Housing: No Difficulty Paying Gas/Electric Bills: No Difficulty Paying for Meds: No Currently Unemployed: No Education: High School Diploma/GED Difficulty w/ Childcare or Family Care: No Living arrangements: with family Additional living arrangements comments: Resides in [place] with her . Additional occupation/education comments: Retired. Gender identity (if verbalized by the patient): Female Sexual Orientation (if Verbalized by the Patient): Straight or Heterosexual Spiritual care concerns: No Meds Home Medications and Allergies Home Medications Medication Instructions Recorded Confirmed Type aspirin 81 mg tablet,delayed 81 mg PO DAILY 04/10/19 03/19/22 History release cholecalciferol (vitamin D3) 125 2,000 unit PO DAILY 04/10/19 03/19/22 History mcg (5,000 unit) tablet ascorbic acid (vitamin C) 500 mg 500 mg PO DAILY 03/16/20 03/31/22 History tablet fluticasone fur. 100 mcg-umeclid 1 ea inhalation DAILY #90 ea 03/25/21 03/19/22 Rx 62.5 mcg-vilant 25 mcg inhalat.powder (Trelegy Ellipta) lisinopril 40 mg tablet 40 mg PO DAILY #90 tabs 04/13/21 03/19/22 Rx cetirizine 10 mg tablet (Zyrtec) 10 mg PO DAILY PRN allergy 07/07/21 03/19/22 Rx symptoms #90 tabs felodipine 10 mg tablet,extended 10 mg PO DAILY #90 tabs 07/07/21 03/19/22 Rx release 24 hr atorvastatin 40 m
--- NOTE | 2022-03-31 19:38 | PM.IMCN ---
Assessment and Plan Assessment and plan (1) GERD (gastroesophageal reflux disease): Code(s): K21.9 - Gastro-esophageal reflux disease without esophagitis Status: Acute Assessment and Plan: Continue Pepcid (2) CKD (chronic kidney disease) stage 3, GFR 30-59 ml/min: Code(s): N18.3 - Chronic kidney disease, stage 3 (moderate) Status: Acute Assessment and Plan: Avoid nephrotoxic medication daily CMP (3) HTN (hypertension): Code(s): I10 - Essential (primary) hypertension Status: Chronic Assessment and Plan: Continue lisinopril (4) COPD (chronic obstructive pulmonary disease): Code(s): J44.9 - Chronic obstructive pulmonary disease, unspecified Status: Chronic Assessment and Plan: Stable continue home medication (5) Right knee DJD: Code(s): M17.11 - Unilateral primary osteoarthritis, right knee Status: Acute Assessment and Plan: Status post right TKA\ DVT prophylaxis per Orthopedic Pain control (6) History of TIA (transient ischemic attack): Code(s): Z86.73 - Personal history of transient ischemic attack (TIA), and cerebral infarction without residual deficits Status: Acute Assessment and Plan: Continue Plavix and statin (7) HLD (hyperlipidemia): Code(s): E78.5 - Hyperlipidemia, unspecified Status: Acute Assessment and Plan: Continue statin (8) IFG (impaired fasting glucose): Code(s): R73.01 - Impaired fasting glucose Status: Acute Assessment and Plan: Started insulin sliding scale Recommend diabetic cardiac diet HPI Data of Consult Consult date: 03/31/22 Requesting Physician: Pj Can MD Primary Care Provider: Eber Acuña MD Consult Narrative Narrative: Radha Palacios is a 81 year old female with past medical history of hypertension on lisinopril obstructive sleep apnea hyperlipidemia on statin pre diabetic managed by diet hemoglobin A1c 6 GERD on Pepcid history of TIA on Plavix and statin presented to the hospital for right TKA tolerated well pain is controlled medicine was consulted for medical management Review of Systems Review of Systems: Twelve system review was done negative except [facility] Past Medical History Medical History (Updated 03/31/22 @ 07:35 by John Lion MD) Arthritis Asthma Basal cell carcinoma Cerebrovascular accident (~1995) With mild right-sided weakness. Chills Chronic kidney disease, stage 3 Baseline creatinine between 1.6 and 1.70. Chronic low back pain CKD (chronic kidney disease) stage 3, GFR 30-59 ml/min COPD (chronic obstructive pulmonary disease) Diarrhea Fever Gastroesophageal reflux disease GERD (gastroesophageal reflux disease) High cholesterol History of TIA (transient ischemic attack) History of vaginal delivery x 2. HLD (hyperlipidemia) HTN (hypertension) Hyperlipidemia Hypertension Mild obstructive sleep apnea On sleep study in March 2008. 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 History of bilateral breast biopsy (~09/2006) With benign pathology. History of cataract extraction History of dilation and curettage History of tubal ligation Status post debridement (~2018) Debridement of traumatic hematoma of the left medial leg. [place] teeth removed Family History Family History Mother Hypertension Family history of malignant neoplasm of breast in first degree relative Other Cerebrovascula
[2022-03-31] MEDS: ASPIRIN 325 MG ENTERIC TABLET PO (21:27)
[2022-03-31] MEDS: FAMOTIDINE 20 MG TABLET PO (21:27)
[2022-04-01] VITALS (10 sets, daily range): BP systolic 105–139; BP diastolic 38–62; PULSE 71–102; RESP 16–20; TEMP 36.3–36.9; O2SAT 90–96
--- NOTE | ~2022-04-01 | CT_ITS ---
EXAMINATION: CT brain wo con DATE: 04/02/2022 12:20 INDICATION: Altered mental status. TECHNIQUE: Computed tomography (CT) of the head was performed without intravenous contrast. The mA wa s adjusted according to patient size. Iterative reconstruction technique was employed. The dose-lengt h product was 605.33 mGy-cm. COMPARISON: Head CT 01/17/2014 FINDINGS: There is an old infarct involving the left basal ganglia and adjacent white matter. There a re scattered areas of low attenuation in the cerebral white matter, which is within normal limits for the patient's age. There is no intracranial hemorrhage, acute infarction, or abnormal intracranial m ass lesion. There is ex vacuo dilatation of frontal horn and anterior body of left lateral ventricle. There is mucosal thickening in the ethmoid sinuses. The mastoid air cells are normal. There are like ly changes of ocular lens replacement surgeries. IMPRESSION: 1. Old infarct involving the left basal ganglia and adjacent white matter. Reviewed, dictated and finalized at location A. FOOD SERVICES MANAGER
--- NOTE | ~2022-04-01 | XR_ITS ---
EXAMINATION: XR chest 1V INDICATION: Hypoxia TECHNIQUE: AP view of the chest is obtained. COMPARISON: 03/16/2020 FINDINGS: The lungs are free of acute opacities. No pleural effusion or pneumothorax. The cardiomedia stinal silhouette is normal. Leftward deviation of the trachea likely relates to multinodular goiter. IMPRESSION: 1. No acute cardiopulmonary abnormality. Reviewed, dictated and finalized at location F. TAPER MACHINE
--- NOTE | ~2022-04-01 | US_ITS ---
EXAMINATION: US venous doppler [facility] DATE: 04/02/2022 14:24 INDICATION: Lower limb edema. TECHNIQUE: Grayscale ultrasound images without and with compression and Doppler ultrasound images of the bilateral lower extremity veins were obtained. COMPARISON: Ultrasound 03/06/2021 FINDINGS: The visualized portions of right common femoral vein, profunda (deep) femoral vein, femoral vein, pop liteal vein, peroneal veins, posterior tibial veins, and greater saphenous vein outflow are patent. The visualized portions of left common femoral vein, profunda femoral vein, femoral vein, popliteal v ein, peroneal veins, posterior tibial veins, and greater saphenous vein outflow are patent. IMPRESSION: 1. No deep venous thrombosis. Reviewed, dictated and finalized at location A. VITIES COORDINATOR
--- NOTE | ~2022-04-01 | XR_ITS ---
EXAMINATION: XR knee RT 2V DATE: 03/31/2022 15:42 INDICATION: Postoperative evaluation following right total knee arthroplasty. TECHNIQUE: Anteroposterior and lateral views of the right knee were obtained. COMPARISON: None. FINDINGS: Right total knee arthroplasty without patellar resurfacing appears well seated and in near anatomic a lignment. No fractures identified. Skin [place] and expected postoperative subcutaneous, intramedul olinda and intra-articular gas. IMPRESSION: 1. Right total knee arthroplasty, negative for postoperative purposes. Reviewed, dictated and finalized at location B. PHONE REPAIR TECHNICIAN
--- NOTE | ~2022-04-01 | XR_ITS ---
XR chest 1V portable 04/05/2022 09:12 Indication: Hypoxia Procedure: AP portable chest Comparison: 04/02/2022 and 03/16/2020 Findings: Shallow inspiration. Heart size normal. Chronic right basilar atelectasis/scarring. No sign ificant pleural effusion. No edema or pneumothorax. No acute osseous abnormality. No focal pneumonia. Impression: 1: No acute cardiopulmonary disease. Reviewed, dictated and finalized at location B. MER TESTER Impression: 1: No acute cardiopulmonary disease.
[2022-04-01] MEDS: ceFAZolin 2 GM/D5W 50 ML 2 GM/50 ML BAG IVPB ×2 (04:23→11:50)
[2022-04-01 06:48] LABS: Basophils Percent Auto 0.2 % (0.2-1.2); Hematocrit 32.5 % (37.0-47.0); Hemoglobin 10.4 g/dL (12.0-15.0); Immature Granulocyte Absolute 0.06 K/mm3 (0.00-0.031); Immature Granulocyte Percent A 0.5 % (0-0.5); Lymphocytes Percent Auto 5.6 % (18.3-44.2); Mean Corpuscular Hemoglobin 30.1 pg (26-34); Mean Corpuscular Volume 93.9 fl (80-100); Mean Platelet Volume 9.8 fl (7.4-10.4); Monocytes Absolute Auto 0.7 K/mm3 (0.1-0.6); Monocytes Percent Auto 5.7 % (2.6-8.5); Neutrophils Absolute Auto 10.9 K/mm3 (1.3-6.7); Platelet Count Result 264 k/mm3 (150-375); Red Blood Count 3.46 M/mm3 (4.2-5.4); Red Cell Distribution Width 13.6 % (11.5-14.5); White Blood Count 12.4 K/mm3 (4.5-10.0)
[2022-04-01 07:04] LABS: Anion Gap 14 mmol/L (8-16); Blood Urea Nitrogen 25 mg/dL (7-17); Calcium 8.3 mg/dL (8.4-10.2); Carbon Dioxide 20 mmol/L (22-30); Chloride 101 mmol/L (98-107); Estimated CRCL calculation 19 ml/min; Estimated Glomerular Filt Rate 23; Glucose 124 mg/dL (65-110); Sodium 135 mmol/L (137-145)
--- NOTE | 2022-04-01 07:18 | PM.IMPN ---
Progress Note: A&P Assessment and Plan (1) Right knee DJD: Code(s): M17.11 - Unilateral primary osteoarthritis, right knee Status: Acute Assessment and Plan: Status post right TKA on 03/31/22; POD1 DVT prophylaxis per Orthopedic Continue pain control with PO [place] PRN (2) GERD (gastroesophageal reflux disease): Code(s): K21.9 - Gastro-esophageal reflux disease without esophagitis Status: Acute Assessment and Plan: Chronic, patient takes protonix at home. Will resume PPI and stop famotidine. (3) CKD (chronic kidney disease) stage 3, GFR 30-59 ml/min: Code(s): N18.3 - Chronic kidney disease, stage 3 (moderate) Status: Acute Assessment and Plan: BUN 24, creatinine 2.1, eGFR 23. Preop labs show creatinine 1.6, BUN 18-20, and eGFR 31. Previous labs to compare from 2019 and similar levels. Urine output ~400 mL since 1500 on the day of surgery. Hold lisinopril. Give 1L NS at 100 mL/hour then repeat BMP Monitor strict I/O and add daily weights Avoid nephrotoxic medication daily CMP (4) HTN (hypertension): Code(s): I10 - Essential (primary) hypertension Status: Chronic Assessment and Plan: Chronic, BP 134/38, Hold lisinopril as above (5) COPD (chronic obstructive pulmonary disease): Code(s): J44.9 - Chronic obstructive pulmonary disease, unspecified Status: Chronic Assessment and Plan: Chronic, stable. Not in acute exacerbation. Continue Trelegy inhaler (6) History of TIA (transient ischemic attack): Code(s): Z86.73 - Personal history of transient ischemic attack (TIA), and cerebral infarction without residual deficits Status: Acute Assessment and Plan: H/O TIA without residual. Continue Plavix and statin. ASA full-strength BID started for DVT prophylaxis postop. Monitor BP and avoid hypo or hypertension. (7) HLD (hyperlipidemia): Code(s): E78.5 - Hyperlipidemia, unspecified Status: Acute Assessment and Plan: Chronic, continue statin (8) IFG (impaired fasting glucose): Code(s): R73.01 - Impaired fasting glucose Status: Acute Assessment and Plan: A1c 6%, not home home medications for glucose control. Continue insulin sliding scale meal coverage Recommend diabetic cardiac diet Goal glucose <180 mg/dL to assist with optimal wound healing Plan CODE STATUS: FULL CODE Disposition: home with spouse Time Spent With Patient Time with patient: 15 - 25 minutes Subjective Date/time seen: 04/01/22 07:18 She has no complaints. Pain is controlled currently with oral medications. Review of Systems Review of Systems: All systems reviewed & are unremarkable except as noted in HPI and below Exam Narrative: GENERAL: Well appearing, well-nourished, non-toxic, in no acute distress. HEAD: Normocephalic, atraumatic. Pupils equal and round. Grossly normal hearing. Mucous membranes moist. NECK: Supple. No adenopathy, no masses. RESPIRATORY: Airway patent, respirations nonlabored. Clear to auscultation bilaterally, no rales, rhonchi, wheezing. CARDIOVASCULAR: Regular rate and rhythm without murmurs, rubs, or gallops. Peripheral pulses 2+ and equal bilaterally. ABDOMINAL: Soft, nontender, nondistended, no hepatosplenomegaly. Normoactive BS. MUSCULOSKELETAL: Moves all 4 extremities. +1 RLE edema nonpitting SKIN: Warm, dry, normal color. No rashes. Right knee surgical dressing with small serosanguinous drainage. NEURO: A&O X3. Speech clear. Cranial nerves II-XII grossly intact. gait not tested. No ataxic movements. PSYCHIATRIC: Appropriate mood and affect. Cooperative. Objective Data Vital Signs Vital Signs: Vital Signs - 24 hr 03/31/22 10:12 03/31/22 15:06 03/31/22 15:20 Temperature 98.5 F 98.3 F Pulse Rate 80 74 78 Respiratory Rate 14 13 16 Blood Pressure 190/51 H 90/41 L 140/50 L Pulse Oximetry 98 93 99 Oxygen Delivery Room Air Simple Face Ma
--- NOTE | 2022-04-01 08:04 | P.PNAN_ITS ---
Anes - Prog Note Post-Op Date/Time: 04/01/22 08:05 Vital Signs: Last Vital Signs Temp 36.6 C 04/01/22 06:15 Pulse 71 04/01/22 06:15 Resp 18 04/01/22 06:15 BP 134/38 L 04/01/22 06:15 Pulse Ox 93 04/01/22 06:15 O2 Del Method Nasal Cannula 03/31/22 20:00 O2 Flow Rate 2 03/31/22 20:00 Pain Score (VAS): 2 I/O: Intake & Output 03/31/22 04/01/22 04/01/22 23:59 07:59 15:59 Intake Total 890 550 Output Total 300 Balance 890 250 Laboratory Tests 04/01/22 05:14 04/01/22 05:14 03/31/22 04/01/22 04/01/22 09:50 05:14 05:14 WBC 12.4 H RBC 3.46 L Hgb 10.4 L D Hct 32.5 L MCV 93.9 MCH 30.1 MCHC 32.0 RDW 13.6 Plt Count 264 MPV 9.8 Immature Gran % (Auto) 0.5 Neut % (Auto) 88.0 H Lymph % (Auto) 5.6 L [place] % (Auto) 5.7 Eos % (Auto) 0.0 Baso % (Auto) 0.2 Lymph # (Auto) 0.70 L [place] # (Auto) 0.7 H Eos # (Auto) 0.0 Baso # (Auto) 0.0 Abs Immat Gran (auto) 0.06 H Absolute Neuts (auto) 10.9 H Absolute Nucleated RBC 0.0 Nucleated RBC % 0.0 Sodium 135 L Potassium 5.0 Chloride 101 Carbon Dioxide 20 L Anion Gap 14 BUN 25 H Creatinine 2.10 H Estim Creat Clear Calc 19 Estimated GFR 23 L Glucose 124 H Calcium 8.3 L Blood Type B Positive Antibody Screen Negative Patient Feedback: Patient satisfied with anesthetic care.
[2022-04-01 09:00] LABS: Glucose Point of Care 118 mg/dl (65-105)
[2022-04-01] MEDS: ASPIRIN 325 MG ENTERIC TABLET PO ×2 (09:07→21:38)
[2022-04-01] MEDS: ATORVASTATIN 40 MG TABLET PO (09:07)
[2022-04-01] MEDS: ASCORBIC ACID 500 MG TABLET PO ×2 (09:07→17:04)
[2022-04-01] MEDS: CHOLECALCIFEROL 1,000 UNITS TABLET 2000 UNITS PO (09:08)
[2022-04-01] MEDS: CLOPIDOGREL BISULFATE 75 MG TABLET PO (09:08)
[2022-04-01] MEDS: PANTOPRAZOLE SOD SESQUIHYDRATE 20 MG TAB PO (09:08)
[2022-04-01] MEDS: SENNA/DOCUSATE SODIUM TABLET 2 TAB PO ×2 (09:08→17:04)
[2022-04-01] MEDS: polyethylene glycoL 3350 17 GM POWD.PACK PO (09:09)
[2022-04-01] MEDS: FELODIPINE 5 MG TAB CR 10 MG PO (09:09)
[2022-04-01] MEDS: SODIUM CHLORIDE 0.9% IV 1,000 ML 100 ML IV CONT (09:10)
--- NOTE | 2022-04-01 10:27 | PM.PNORT ---
Progress Note: A&P Assessment and Plan (1) S/P total knee arthroplasty: Code(s): Z96.659 - Presence of unspecified artificial knee joint Status: Acute Assessment and Plan: POD #1 : Right TKA Continue PT/OT. WBAT. Walker. HIGH FALL RISK. Continue pain control. Ice knee. Protect skin. DVT prophylaxis with Aspirin, continue Plavix per Dr. Can. SCDs. Incentive Spirometry Use reviewed. Monitor Dressing. Change prior to discharge. Bowel Regimen. Dispo: Home with Home Health pending progress with PT/OT and medicine clearance (2) CKD (chronic kidney disease) stage 3, GFR 30-59 ml/min: Code(s): N18.3 - Chronic kidney disease, stage 3 (moderate) Status: Acute Assessment and Plan: Appreciate medicine input. BUN 24, creatinine 2.1, eGFR 23. Hold lisinopril. 1L NS at 100 mL/hour then repeat BMP Monitor strict I/O and add daily weights (3) HTN (hypertension): Code(s): I10 - Essential (primary) hypertension Status: Chronic (4) Asthma: Code(s): J45.909 - Unspecified asthma, uncomplicated Status: Chronic Assessment and Plan: Currently on 3L [place] O2. Wean as able. (5) COPD (chronic obstructive pulmonary disease): Code(s): J44.9 - Chronic obstructive pulmonary disease, unspecified Status: Chronic (6) History of TIA (transient ischemic attack): Code(s): Z86.73 - Personal history of transient ischemic attack (TIA), and cerebral infarction without residual deficits Status: Acute Assessment and Plan: H/O TIA without residual. Continue Plavix and statin. ASA full-strength BID started for DVT prophylaxis postop. Monitor BP and avoid hypo or hypertension. (7) HLD (hyperlipidemia): Code(s): E78.5 - Hyperlipidemia, unspecified Status: Acute Subjective Subjective Date/Time Seen: 04/01/22 10:27 Post Op day: 1 Principal diagnosis: Right TKA Interval history: POD #1: Right TKA Patient doing well. Pain well controlled in the right knee. Review of Systems Review of Systems: All systems reviewed & are unremarkable except as noted in HPI and below Constitutional: Constitutional: Denies fever(s) and Denies headache(s) ENT: Denies headache(s) Cardiovascular: Cardiovascular: Denies chest pain, Denies diaphoresis, Denies palpitations and Denies dyspnea Respiratory: Respiratory: Reports dyspnea Gastrointestinal: Gastrointestinal: Denies abdominal pain, Denies constipation, Denies nausea and Denies vomiting Genitourinary: Comments: [place] Catheter in place Musculoskeletal: Musculoskeletal: Reports arthralgias (Right Knee ) and Reports joint swelling (Right Knee ) Neurologic: Denies headache(s) Endocrine: Endocrine: Denies palpitations Exam Const: General: comfortable and no acute distress Resp: Effort & Inspection: normal respiratory effort Cardio: Rate: regular rate Rhythm: regular rhythm GI: GI Palp: Yes Soft to palpation, No Tenderness to palpation present (GI) and No Guarding due to palpation present (GI) Skin: General skin exam: wounds noted Wounds: wounds noted Other: Incision c/d/i. No surrounding redness/warmth. No hematoma. Mild ecchymosis. No wound dehiscence Neuro: Cognition (Neuro): normal cognition Other: NV intact aside from block. Moves toes. Sensation intact to light touch. +ankle dorsiflexion/plantarflexion. Extrem: Right lower extremity: normal to inspection, knee Details: tenderness (diffuse, mild ) Location: of the patella, swelling (diffuse, consistent with surgical intervention ), abnormal ROM Details: pain with active ROM during, pain with passive ROM during and with range as follows (limited due to recent surgical intervention ); able to extend lower leg actively and ecchymosis (mild ), lower leg (Negative Carrie's Sign ) Details: normal to inspection; no erythema and no tenderness, ankle (+ankle dorsiflexion/plantarflexion ) Details: normal to inspection, no justina
[2022-04-01] MEDS: FLUTICASONE/UMECLIDIN/VILANTER 100-62.5-25 MCG ELLIPTA 1 PUFF INHALATION (11:11)
[2022-04-01 11:57] LABS: Glucose Point of Care 188 mg/dl (65-105)
--- NOTE | 2022-04-01 13:36 | PC.NURSE ---
On 04/01/22, the student, [Marialuisa Sol], provided care and completed [facility] documentation on this patient. I have reviewed the student's documentation and agree with the findings.
[2022-04-01 17:13] LABS: Glucose Point of Care 138 mg/dl (65-105)
[2022-04-01] MEDS: TOLTERODINE TARTRATE LA 4 MG CAP.ER.24H PO (21:38)
[2022-04-01 22:35] LABS: Glucose Point of Care 112 mg/dl (65-105)
[2022-04-02] VITALS (8 sets, daily range): BP systolic 109–144; BP diastolic 42–72; PULSE 84–97; RESP 16–18; TEMP 36.4–37.1; O2SAT 92–99
[2022-04-02] MEDS: FELODIPINE 5 MG TAB CR 10 MG PO (09:11)
[2022-04-02] MEDS: polyethylene glycoL 3350 17 GM POWD.PACK PO (09:11)
[2022-04-02] MEDS: CLOPIDOGREL BISULFATE 75 MG TABLET PO (09:12)
[2022-04-02] MEDS: ASPIRIN 325 MG ENTERIC TABLET PO ×2 (09:12→21:00)
[2022-04-02] MEDS: CHOLECALCIFEROL 1,000 UNITS TABLET 2000 UNITS PO (09:12)
[2022-04-02] MEDS: SENNA/DOCUSATE SODIUM TABLET 2 TAB PO ×2 (09:12→17:19)
[2022-04-02] MEDS: ATORVASTATIN 40 MG TABLET PO (09:13)
[2022-04-02] MEDS: PANTOPRAZOLE SOD SESQUIHYDRATE 20 MG TAB PO (09:13)
[2022-04-02] MEDS: ASCORBIC ACID 500 MG TABLET PO ×2 (09:13→17:19)
[2022-04-02 09:23] LABS: Glucose Point of Care 131 mg/dl (65-105)
[2022-04-02] MEDS: oxyCODONE/ACETAMINOPHEN (*CRX) 5-325 MG TABLET 2 TABLET PO (09:25)
[2022-04-02] MEDS: FLUTICASONE/UMECLIDIN/VILANTER 100-62.5-25 MCG ELLIPTA 1 PUFF INHALATION (09:38)
[2022-04-02 09:46] LABS: Basophils Absolute Auto 0.1 K/mm3 (0.0-0.1); Basophils Percent Auto 0.6 % (0.2-1.2); Eosinophils Percent Auto 0.4 % (0-4.4); Hematocrit 31.3 % (37.0-47.0); Immature Granulocyte Absolute 0.04 K/mm3 (0.00-0.031); Immature Granulocyte Percent A 0.5 % (0-0.5); Lymphocytes Absolute Auto 1.54 K/mm3 (0.9-3.2); Lymphocytes Percent Auto 18.1 % (18.3-44.2); Mean Corpuscular HGB Conc 31.9 g/dl (32-36); Mean Corpuscular Hemoglobin 30.4 pg (26-34); Mean Corpuscular Volume 95.1 fl (80-100); Mean Platelet Volume 9.6 fl (7.4-10.4); Monocytes Absolute Auto 0.9 K/mm3 (0.1-0.6); Monocytes Percent Auto 10.9 % (2.6-8.5); Neutrophils Absolute Auto 5.9 K/mm3 (1.3-6.7); Neutrophils Percent Auto 69.5 % (45.5-73.1); Platelet Count Result 292 k/mm3 (150-375); Red Blood Count 3.29 M/mm3 (4.2-5.4); White Blood Count 8.5 K/mm3 (4.5-10.0)
--- NOTE | 2022-04-02 09:47 | PM.PNORT ---
Progress Note: A&P Assessment and Plan (1) S/P total knee arthroplasty: Code(s): Z96.659 - Presence of unspecified artificial knee joint Status: Acute Assessment and Plan: POD #2 : Right TKA Continue PT/OT. WBAT. Walker. HIGH FALL RISK. Continue pain control. Ice knee. Protect skin. DVT prophylaxis with Aspirin, continue Plavix per Dr. Can. SCDs. Incentive Spirometry Use reviewed. Monitor Dressing. Change prior to discharge. Bowel Regimen. Dispo: Home with Home Health pending progress with PT/OT and medicine clearance (2) CKD (chronic kidney disease) stage 3, GFR 30-59 ml/min: Code(s): N18.3 - Chronic kidney disease, stage 3 (moderate) Status: Acute Assessment and Plan: Appreciate medicine input. BUN 24, creatinine 2.1, eGFR 23. Hold lisinopril. Monitor strict I/O and add daily weights CMP ordered this AM. Dia still in place. Pending creatinine improvement, would recommend dia removal. (3) HTN (hypertension): Code(s): I10 - Essential (primary) hypertension Status: Chronic (4) Asthma: Code(s): J45.909 - Unspecified asthma, uncomplicated Status: Chronic Assessment and Plan: Currently on 3L [place] O2. Unable to wean per nursing staff. Appreciate medicine team input. (5) COPD (chronic obstructive pulmonary disease): Code(s): J44.9 - Chronic obstructive pulmonary disease, unspecified Status: Chronic (6) History of TIA (transient ischemic attack): Code(s): Z86.73 - Personal history of transient ischemic attack (TIA), and cerebral infarction without residual deficits Status: Acute Assessment and Plan: H/O TIA without residual. Continue Plavix and statin. ASA full-strength BID started for DVT prophylaxis postop. Monitor BP and avoid hypo or hypertension. (7) HLD (hyperlipidemia): Code(s): E78.5 - Hyperlipidemia, unspecified Status: Acute Subjective Subjective Date/Time Seen: 04/02/22 09:47 Post Op day: 2 Principal diagnosis: Right TKA Interval history: POD #2: Right TKA Patient doing well. Pain well controlled in the right knee. Review of Systems Review of Systems: All systems reviewed & are unremarkable except as noted in HPI and below Constitutional: Constitutional: Denies fever(s) and Denies headache(s) ENT: Denies headache(s) Cardiovascular: Cardiovascular: Denies chest pain, Denies diaphoresis, Denies palpitations and Denies dyspnea Respiratory: Respiratory: Reports dyspnea Gastrointestinal: Gastrointestinal: Denies abdominal pain, Denies constipation, Denies nausea and Denies vomiting Genitourinary: Comments: Dia Catheter in place Musculoskeletal: Musculoskeletal: Reports arthralgias (Right Knee ) and Reports joint swelling (Right Knee ) Neurologic: Denies headache(s) Endocrine: Endocrine: Denies palpitations Exam Const: General: comfortable and no acute distress Resp: Effort & Inspection: normal respiratory effort Cardio: Rate: regular rate Rhythm: regular rhythm GI: GI Palp: Yes Soft to palpation, No Tenderness to palpation present (GI) and No Guarding due to palpation present (GI) Skin: General skin exam: wounds noted Wounds: wounds noted Other: Incision c/d/i. No surrounding redness/warmth. No hematoma. Mild ecchymosis. No wound dehiscence Neuro: Cognition (Neuro): normal cognition Other: NV intact aside from block. Moves toes. Sensation intact to light touch. +ankle dorsiflexion/plantarflexion. Extrem: Right lower extremity: normal to inspection, knee Details: tenderness (diffuse, mild ) Location: of the patella, swelling (diffuse, consistent with surgical intervention ), abnormal ROM Details: pain with active ROM during, pain with passive ROM during and with range as follows (limited due to recent surgical intervention ); able to extend lower leg actively and ecchymosis (mild ), lower leg (Negative Carrie's Sign ) Details: normal to ins
[2022-04-02 10:09] LABS: Alanine Aminotransferase 11 U/L (6-35); Albumin Level 3.7 g/dL (3.5-5.1); Alkaline Phosphatase 55 U/L (38-126); Anion Gap 10 mmol/L (8-16); Aspartate Amino Transferase 39 U/L (14-36); Bilirubin,Total 0.6 mg/dL (0.2-1.3); Blood Urea Nitrogen 21 mg/dL (7-17); Calcium 8.6 mg/dL (8.4-10.2); Carbon Dioxide 20 mmol/L (22-30); Chloride 107 mmol/L (98-107); Estimated CRCL calculation 26 ml/min; Estimated Glomerular Filt Rate 33; Glucose 130 mg/dL (65-110); Potassium 4.4 mmol/L (3.4-5.0); Sodium 137 mmol/L (137-145)
--- NOTE | 2022-04-02 10:46 | PM.IMPN ---
Progress Note: A&P Assessment and Plan (1) Right knee DJD: Code(s): M17.11 - Unilateral primary osteoarthritis, right knee Status: Acute Assessment and Plan: Status post right TKA on 03/31/22; POD1 DVT prophylaxis per Orthopedic Continue pain control with PO [place] PRN. She dishes use of narcotics given concern for altered mental status 04/02/22 DC dia if not already removed. Patient still on supplemental O2, which she does not use at home. Wean O2 to keep sats>90%, encourage IS use. chest x-ray without acute pulmonary disease. Patient does have tenderness to the anterior calf as well as increased edema. Will check venous Doppler. (2) CKD (chronic kidney disease) stage 3, GFR 30-59 ml/min: Code(s): N18.3 - Chronic kidney disease, stage 3 (moderate) Status: Acute Assessment and Plan: BUN 24, creatinine 2.1, eGFR 23. Preop labs show creatinine 1.6, BUN 18-20, and eGFR 31. Previous labs to compare from 2019 and similar levels. Urine output ~400 mL since 1500 on the day of surgery. Hold lisinopril. Give 1L NS at 100 mL/hour then repeat BMP Monitor strict I/O and add daily weights Avoid nephrotoxic medication daily CMP 04/02/22 BUN 21, creatinine 1.5, eGFR 33 and at baseline after fluids. BP improve 144/60 and HR 94, urine output adequate and net balance +1 liter. Okay to resume lisinopril. (3) Acute metabolic encephalopathy: Code(s): G93.41 - Metabolic encephalopathy Status: Acute Assessment and Plan: possible. Patient's family is concerned patient is more confused than his usual. This may be secondary to anesthesia and or oral narcotics. Judicious use of with opioids. Trial alternative analgesics. 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 Resume supplemental oxygen to keep SpO2 greater than 92%. Will repeat ABG in 6 hours to show improvement. pH and pCO2 within normal range (4) Acute respiratory failure with hypoxia: Code(s): J96.01 - Acute respiratory failure with hypoxia Status: Acute Assessment and Plan: ABG shows hypoxemia PaO2 47.5 and oxyhemoglobin 85.2% on room air. chest x-ray negative for acute pulmonary disease Resume supplemental oxygen to keep SpO2 greater than 92%. Will repeat ABG in 6 hours to show improvement. pH and pCO2 within normal range no cough, sputum, or tachypnea on exam. Push incentive spirometer. Patient will need home O2 eval if unable to wean off supplemental oxygen (5) GERD (gastroesophageal reflux disease): Qualifiers: Esophagitis presence: without esophagitis Qualified Code(s): K21.9 - Gastro-esophageal reflux disease without esophagitis Code(s): K21.9 - Gastro-esophageal reflux disease without esophagitis Status: Acute Assessment and Plan: Chronic, patient takes protonix at home. Continue PPI. (6) HTN (hypertension): Qualifiers: Hypertension type: primary hypertension Qualified Code(s): I10 - Essential (primary) hypertension Code(s): I10 - Essential (primary) hypertension Status: Chronic Assessment and Plan: Chronic, BP stable, resume lisinopril as above (7) COPD (chronic obstructive pulmonary disease): Qualifiers: COPD type: unspecified COPD Qualified Code(s): J44.9 - Chronic obstructive pulmonary disease, unspecified Code(s): J44.9 - Chronic obstructive pulmonary disease, unspecified Status: Chronic Assessment and Plan: Chronic, stable. no wheezing on exam however patient noted to have acute hypoxemia. Start duonebs q.i.d. and push incentive spirometer (8) History of TIA (transient ischemic attack): Code(s): Z86.73 - Personal history of t
[2022-04-02 12:47] LABS: Glucose Point of Care 122 mg/dl (65-105)
[2022-04-02 12:51] LABS: Lactic Acid Reflex 1.9 mmol/L (0.7-2.0)
[2022-04-02 12:53] LABS: Ammonia < 9 umol/L (9-30)
[2022-04-02 13:46] LABS: Alveolar/Arterial O2 Gradient 67.6 mmHg; Base Excess ABG -4.1 mEq/l (+/-2.0); Carboxyhemoglobin 0.3 % THb (0-2.0); Fractional Inspired Oxygen 21 %; HCO3 ABG 19.1 mEq/l (22.0-26.0); Oxygen Content ABG 12.6 %vol (16.0-22.0); PCO2 ABG 28.9 mmHg (35.0-45.0); PO2 FiO2 Ratio Arterial Blood 2.26 %; Reduced Hemoglobin 14.5 %THb (0-5.0); Total Hemoglobin 10.5 g/dL (12.0-18.0); pH ABG 7.439 (7.350-7.450)
[2022-04-02 13:52] LABS: Oxygen Saturation ABG 85.6 % (95.0-100.0); PO2 ABG 47.5 mmHg (80.0-100.0)
[2022-04-02 13:53] LABS: Device ROOM AIR; Modified Allen's Test Pass; Oxyhemoglobin 85.2 % THb (90.0-100.0); Site Drawn RIGHT RADIAL
[2022-04-02 13:57] LABS: Folic Acid 4.5 ng/mL (2.76->20)
[2022-04-02 14:02] LABS: Procalcitonin 0.2 ng/mL
[2022-04-02 14:09] LABS: Thyroid Stimulating Hormone Reflex 0.248 uIU/mL (0.465-4.68)
[2022-04-02 17:56] LABS: Glucose Point of Care 119 mg/dl (65-105)
[2022-04-02] MEDS: ACETAMINOPHEN 500 MG TABLET 1000 MG PO (18:31)
[2022-04-02 20:37] LABS: Free T4 Free Thyroxine Reflex 2.15 ng/dL (0.78-2.19)
[2022-04-02 20:49] LABS: Carboxyhemoglobin 0.3 % THb (0-2.0); Fractional Inspired Oxygen 82 %; HCO3 ABG 18.5 mEq/l (22.0-26.0); Methemoglobin ABG 0.1 %THb (0-1.5); Oxygen Content ABG 11.7 %vol (16.0-22.0); Oxygen Saturation ABG 94.2 % (95.0-100.0); Oxyhemoglobin 92.1 % THb (90.0-100.0); PO2 ABG 63.5 mmHg (80.0-100.0); PO2 FiO2 Ratio Arterial Blood 0.77 %; Reduced Hemoglobin 7.5 %THb (0-5.0); pH ABG 7.486 (7.350-7.450)
[2022-04-02] MEDS: TOLTERODINE TARTRATE LA 4 MG CAP.ER.24H PO (21:00)
[2022-04-02 21:04] LABS: Device NASAL CANNULA; Modified Allen's Test Pass; Site Drawn RIGHT RADIAL
[2022-04-02 21:31] LABS: Total Triiodothyronine (T3) 0.92 NG/ML (0.97-1.69)
[2022-04-03] VITALS (11 sets, daily range): BP systolic 101–152; BP diastolic 45–79; PULSE 88–112; RESP 16–21; TEMP 36.1–36.9; O2SAT 91–100
[2022-04-03] MEDS: oxyCODONE/ACETAMINOPHEN (*CRX) 5-325 MG TABLET 2 TABLET PO (04:17)
[2022-04-03 06:04] LABS: Anion Gap 10 mmol/L (8-16); Blood Urea Nitrogen 20 mg/dL (7-17); Calcium 8.5 mg/dL (8.4-10.2); Carbon Dioxide 23 mmol/L (22-30); Chloride 105 mmol/L (98-107); Estimated CRCL calculation 27 ml/min; Estimated Glomerular Filt Rate 36; Glucose 104 mg/dL (65-110); Potassium 4.4 mmol/L (3.4-5.0); Sodium 138 mmol/L (137-145)
--- NOTE | 2022-04-03 07:28 | PM.IMPN ---
Progress Note: A&P Assessment and Plan (1) Right knee DJD: Code(s): M17.11 - Unilateral primary osteoarthritis, right knee Status: Acute Assessment and Plan: Status post right TKA on 03/31/22; POD1 DVT prophylaxis per Orthopedic Continue pain control with PO [place] PRN. She dishes use of narcotics given concern for altered mental status 04/02/22 DC dia if not already removed. Patient still on supplemental O2, which she does not use at home. Wean O2 to keep sats>90%, encourage IS use. chest x-ray without acute pulmonary disease. Patient does have tenderness to the anterior calf as well as increased edema. venous Doppler negative for DVT. Increased ecchymosis noted RLE with edema. Will defer to Ortho for evaluation and need for antiplatelet adjustment. (2) CKD (chronic kidney disease) stage 3, GFR 30-59 ml/min: Code(s): N18.3 - Chronic kidney disease, stage 3 (moderate) Status: Acute Assessment and Plan: BUN 24, creatinine 2.1, eGFR 23. Preop labs show creatinine 1.6, BUN 18-20, and eGFR 31. Previous labs to compare from 2019 and similar levels. Urine output ~400 mL since 1500 on the day of surgery. Hold lisinopril. Give 1L NS at 100 mL/hour then repeat BMP Monitor strict I/O and add daily weights Avoid nephrotoxic medication daily CMP 04/02/22 BUN 21, creatinine 1.5, eGFR 33 and at baseline after fluids. BP improve 144/60 and HR 94, urine output adequate and net balance +1 liter. Okay to resume lisinopril. 04/03/22 stable renal function and at baseline (3) Acute metabolic encephalopathy: Code(s): G93.41 - Metabolic encephalopathy Status: Acute Assessment and Plan: possible. Patient's family is concerned patient is more confused than his usual. This may be secondary to anesthesia and or oral narcotics. Judicious use of with opioids. Trial alternative analgesics. 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 Resume supplemental oxygen to keep SpO2 greater than 92%. Will repeat ABG in 6 hours to show improvement. pH and pCO2 within normal range TSH and TT3 low, free T4 within normal limits. She is not on a thyroid supplement. Recommend repeat thyroid panel in 4-6 weeks B12 low normal 322. Will trail B12 supplement PO daily (4) Acute respiratory failure with hypoxia: Code(s): J96.01 - Acute respiratory failure with hypoxia Status: Acute Assessment and Plan: ABG shows hypoxemia PaO2 47.5 and oxyhemoglobin 85.2% on room air. chest x-ray negative for acute pulmonary disease Resume supplemental oxygen to keep SpO2 greater than 92%. Will repeat ABG in 6 hours to show improvement. pH and pCO2 within normal range no cough, sputum, or tachypnea on exam. Push incentive spirometer. Patient will need home O2 eval if unable to wean off supplemental oxygen 04/03/22 Repeat ABG with improved PaO2 63, pH within normal limits and pCO2 not elevated. Home O2 eval today and no home O2 needed. Patient weaned to room air with adequate saturations at rest and ambulation. She denies respiratory symptoms. Stable. (5) GERD (gastroesophageal reflux disease): Qualifiers: Esophagitis presence: without esophagitis Qualified Code(s): K21.9 - Gastro-esophageal reflux disease without esophagitis Code(s): K21.9 - Gastro-esophageal reflux disease without esophagitis Status: Acute Assessment and Plan: Chronic, patient takes protonix at home. Continue PPI. (6) HTN (hypertension): Qualifiers: Hypertension type: primary hypertension Qualified Code(s): I10 - Essential (primary) hypertension Code(s): I10 - Essential (primary) hypertension Status: Chronic Assessment and P
[2022-04-03 08:28] LABS: Glucose Point of Care 113 mg/dl (65-105)
[2022-04-03] MEDS: ASPIRIN 325 MG ENTERIC TABLET PO ×2 (09:02→20:20)
[2022-04-03] MEDS: lisinopriL 20 MG TABLET 40 MG PO (09:02)
[2022-04-03] MEDS: CHOLECALCIFEROL 1,000 UNITS TABLET 2000 UNITS PO (09:03)
[2022-04-03] MEDS: ATORVASTATIN 40 MG TABLET PO (09:03)
[2022-04-03] MEDS: FELODIPINE 5 MG TAB CR 10 MG PO (09:03)
[2022-04-03] MEDS: CYANOCOBALAMIN TAB 2,000 MCG, CYANOCOBALAMIN TAB 500 MCG 2500 MCG PO (09:03)
[2022-04-03] MEDS: PANTOPRAZOLE SOD SESQUIHYDRATE 20 MG TAB PO (09:03)
[2022-04-03] MEDS: CLOPIDOGREL BISULFATE 75 MG TABLET PO (09:04)
[2022-04-03] MEDS: ASCORBIC ACID 500 MG TABLET PO (09:04)
[2022-04-03] MEDS: FLUTICASONE/UMECLIDIN/VILANTER 100-62.5-25 MCG ELLIPTA 1 PUFF INHALATION (09:57)
--- NOTE | 2022-04-03 11:09 | HOMEO2EVAL ---
Evaluation was performed at [facility] Home Oxygen Evaluation RC: Home Oxygen (O2) Evaluation Start: 04/03/22 07:24 Freq: ONCE Status: Active Protocol: RPE Activity Type Activity Date Activity User E-sign Co-sign Detail Recorded Client Recorded Date Recorded By Document 04/03/22 09:07 CLC [email or web address] 04/03/22 11:09 CLC Document 04/03/22 09:10 CLC [email or web address] 04/03/22 11:09 CLC Document 04/03/22 09:15 CLC [email or web address] 04/03/22 11:09 CLC 04/03/22 04/03/22 04/03/22 09:07 09:10 09:15 Home O2 Evaluation [Oxygen] -Test Phase Resting Exercise Resting -Oxygen Delivery Room Air Room Air Room Air [Pulse Oximetry] -Pulse Oximetry (90-100 %) 97 91 99 [Pulse Rate] -Pulse Rate (60-100 beats/min) 92 96 112 H [Evaluation] -Activity Tolerance Good -Rating of Perceived Dyspnea (PD) +1 Mild, Noticeable to the Participant but Not to an Observer -Rate of Perceived Exertion (PE) 12 Query Text:Click the Protocol Button to View the RPE Scale [Exercise] -Ambulation Distance (feet) 40 -Ambulation Distance (meters) 12.19 [Comments] -Home Oxygen Evaluation Comments Home O2 eval done while working with OT . Pt did arm exercises, walked to bathroom, brushed teeth and used restroom and back to chair while on room air. [Charges] -Treatment Charges O2 Evaluation - Inpatient
--- NOTE | 2022-04-03 11:10 | PCRCNOTE ---
Home O2 evaluation complete. Pt does not require any home oxygen.
[2022-04-03 12:24] LABS: Glucose Point of Care 150 mg/dl (65-105)
--- NOTE | 2022-04-03 13:25 | PM.PNORT ---
Progress Note: A&P Assessment and Plan (1) S/P total knee arthroplasty: Code(s): Z96.659 - Presence of unspecified artificial knee joint Status: Acute Assessment and Plan: POD 3 IMPROVING. WE WILL TRY AND WEAN HER OFF THE O2. WILL HOLD DC FOR NOW. MAY REQUIRE SNF. Subjective Subjective Date/Time Seen: 04/03/22 13:25 POD 3 IMPROVING. SHE IS STILL ON 02 DURING PT. SHE MAY REQUIRE HOME O2. NO SOB AT REST, NO CALF PAIN Exam Extrem: Other: VSS AFEBRILE DRESSING WITH MINIMAL DRAINAGE, SOFT TISSUE HEMATOMA EXPECTED, CLAF SOFT NON TENDER NEG HOMANS SIGN Objective Data Vital Signs Vital Signs: Vital Signs - 24 hr 04/02/22 14:00 04/02/22 18:00 04/02/22 21:45 Temperature 36.4 C 36.4 C 37.1 C Pulse Rate 90 88 97 Respiratory Rate 18 18 16 Blood Pressure 138/72 134/70 119/42 L Pulse Oximetry 96 95 94 Oxygen Delivery Oxygen Flow Rate 04/03/22 01:40 04/03/22 06:00 04/03/22 09:09 Temperature 36.7 C 36.7 C Pulse Rate 99 93 Respiratory Rate 18 21 H 20 Blood Pressure 152/72 H 148/62 H Pulse Oximetry 96 100 93 Oxygen Delivery Nasal Cannula Oxygen Flow Rate 2 04/03/22 09:59 04/03/22 10:39 04/03/22 09:07 Temperature 36.4 C L Pulse Rate 105 H 90 92 Respiratory Rate 16 20 Blood Pressure 115/56 L Pulse Oximetry 94 97 Oxygen Delivery Room Air Oxygen Flow Rate 04/03/22 09:10 04/03/22 09:15 Temperature Pulse Rate 96 112 H Respiratory Rate Blood Pressure Pulse Oximetry 91 99 Oxygen Delivery Room Air Room Air Oxygen Flow Rate Intake/Output Intake/Output: Intake & Output 03/31/22 04/01/22 04/02/22 04/03/22 23:59 23:59 23:59 23:59 Intake Total 940 1890 1430 418 Output Total 110 1375 1350 Balance 830 515 80 418 Meds/Results Medications: Active Medications Generic Name Dose Route Start Last Admin Trade Name Freq PRN Reason Stop Dose Admin Acetaminophen 1,000 mg 03/31/22 16:47 04/02/22 18:31 Acetaminophen 500 Mg Tablet PO 1,000 mg Q6H PRN Administration Pain Rated 1-3 Ascorbic Acid 500 mg 03/31/22 17:00 04/03/22 09:04 Ascorbic Acid 500 Mg Tablet PO 500 mg BID KELVIN Administration Aspirin 325 mg 03/31/22 21:00 04/03/22 09:02 Aspirin 325 Mg Enteric Tablet PO 325 mg Q12HR KELVIN Administration Atorvastatin Calcium 40 mg 04/01/22 09:00 04/03/22 09:03 Atorvastatin 40 Mg Tablet PO 40 mg DAILY KELVIN Administration Calcium Carbonate 500 mg 04/03/22 21:00 Calcium/Vitamin D 500 Mg Tablet PO Q48H KELVIN Clopidogrel Bisulfate 75 mg 04/01/22 09:00 04/03/22 09:04 Clopidogrel Bisulfate 75 Mg Tablet PO 75 mg DAILY KELVIN Administration Cyanocobalamin 2,000 mcg/ 2,500 mcg 04/03/22 09:00 04/03/22 09:03 Cyanocobalamin 500 mcg PO 2,500 mcg QAM KELVIN Administration Dextrose 12.5 gm 03/31/22 19:37 Dextrose 50% 25 Gm/50 Ml Syringe IV PUSH PRN PRN Hypoglycemia Protocol Diazepam 5 mg 03/31/22 16:47 Diazepam (*Crx) 5 Mg Tablet PO Q8H PRN Spasms Diphenhydramine HCl 25 mg 03/31/22 16:47 Diphenhydramine Hcl Inj 50 Mg/Ml Vial IV PUSH Q6H PRN Itching Felodipine 10 mg 04/01/22 09:00 04/03/22 09:03 Felodipine 5 Mg Tab Cr PO 10 mg DAILY KELVIN Administration Fluticasone/Umeclidinium/Vilanterol 1 puff 04/01/22 09:00 04/03/22 09:57 Fluticasone/Umeclidin/Vilanter 100-62.5-25 Mcg Ellipta INHALATION 1 puff DAILY [facility] Administration Glucagon 1 mg 03/31/22 19:37 Glucagon For Inj 1 Mg Vial IM PRN PRN Hypoglycemia Protocol Glucose 15 gm 03/31/22 19:37 Glucose Oral Gel 15 Gm Of Glucse In 37.5 Gm Tube PO PRN PRN Hypoglycemia Protocol Dextrose 1,000 mls @ 100 mls/hr 03/31/22 19:37 Dextrose 5% 1,000 Ml IVPB PRN PRN Hypoglycemia Protocol Insulin Aspart 3 - 6 units 04/01/22 08:00 04/03/22 12:05 Insulin Aspart (*Bkc) 100 Units/Ml SUB-Q Not Given TIDWM KELVIN Pro
[2022-04-03 13:32] LABS: Appearance Urine Clear (Clear); Bilirubin Urine Negative (Negative); Blood Urine Negative (Negative); Color Urine Yellow (Yellow); Glucose Urine UA Negative (Negative); Ketones Urine Trace mg/dL (Negative); Leukocyte Esterase Ur Negative LEU/UL (Negative); Nitrate Urine Negative (Negative); Protein Urine 1+ mg/dL (Negative); Urobilinogen Urine 0.2 mg/dL (<2.0); pH Urine 5.5 (5.0-9.0)
[2022-04-03 13:39] LABS: Bacteria Urine Trace /hpf; Mucus Urine Rare /lpf; Squamous Epithelial Cell Urine Many /hpf (Few)
[2022-04-03 13:40] LABS: Add Urine Microscopic? YES
--- NOTE | 2022-04-03 16:29 | PCPTNOTE ---
Attempted to see patient at 1300 and again at 1615. Patient declined both attempts due to feeling ill this afternoon. Continue per POC tomorrow.
[2022-04-03] MEDS: CALCIUM CARBONATE (TUMS) 500 MG (200 MG ELEMENTAL) PO (16:57)
[2022-04-03] MEDS: SENNA/DOCUSATE SODIUM TABLET 2 TAB PO (16:57)
[2022-04-03 17:01] LABS: Glucose Point of Care 103 mg/dl (65-105)
[2022-04-03] MEDS: TOLTERODINE TARTRATE LA 4 MG CAP.ER.24H PO (20:18)
[2022-04-03] MEDS: oxyCODONE/ACETAMINOPHEN (*CRX) 5-325 MG TABLET 1 TABLET PO (20:19)
[2022-04-03] MEDS: diazePAM (*CRX) 5 MG TABLET PO (20:20)
[2022-04-03 23:50] LABS: Glucose Point of Care 119 mg/dl (65-105)
[2022-04-04] VITALS (7 sets, daily range): BP systolic 121–128; BP diastolic 43–62; PULSE 78–90; RESP 16–20; TEMP 36.4–36.8; O2SAT 93–97
[2022-04-04] MEDS: oxyCODONE/ACETAMINOPHEN (*CRX) 5-325 MG TABLET 2 TABLET PO (03:15)
--- NOTE | 2022-04-04 07:26 | PM.IMPN ---
Progress Note: A&P Assessment and Plan (1) Right knee DJD: Code(s): M17.11 - Unilateral primary osteoarthritis, right knee Status: Acute Assessment and Plan: Status post right TKA on 03/31/22; POD1 DVT prophylaxis per Orthopedic Continue pain control with PO [place] PRN. Judicious use of narcotics given concern for altered mental status 04/02/22 DC dia if not already removed. Patient still on supplemental O2, which she does not use at home. Wean O2 to keep sats>90%, encourage IS use. chest x-ray without acute pulmonary disease. Patient does have tenderness to the anterior calf as well as increased edema. venous Doppler negative for DVT. Increased ecchymosis noted RLE with edema. Hold plavix ordered 04/03 she appears to take this for prior stroke/TIA in 2013 and could be trialed off dual antiplatelet therapy to prevent increased risk of bleeding. Elevate RLE to help with edema. 04/04/22 Hgb 8.0, was 10.0 two days prior. Will repeat this afternoon. (2) CKD (chronic kidney disease) stage 3, GFR 30-59 ml/min: Code(s): N18.3 - Chronic kidney disease, stage 3 (moderate) Status: Acute Assessment and Plan: BUN 24, creatinine 2.1, eGFR 23. Lisinopril held 04/01 and resumed 04/03/22 Preop labs show creatinine 1.6, BUN 18-20, and eGFR 31. Previous labs to compare from 2019 and similar levels. Urine output ~400 mL since 1500 on the day of surgery- Give 1L NS at 100 mL/hour then repeat BMP Monitor strict I/O and add daily weights Avoid nephrotoxic medication 04/02/22 BUN 21, creatinine 1.5, eGFR 33 and at baseline after fluids. BP improve 144/60 and HR 94, urine output adequate and net balance +1 liter. Okay to resume lisinopril. 04/03/22 stable renal function and at baseline Repeat BMP in am. (3) Acute metabolic encephalopathy: Code(s): G93.41 - Metabolic encephalopathy Status: Acute Assessment and Plan: possible. Patient's family is concerned patient is more confused than his usual. This may be secondary to anesthesia and or oral narcotics. Judicious use of with opioids. Trial alternative analgesics as needed. 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 Resume supplemental oxygen to keep SpO2 greater than 92%. Will repeat ABG in 6 hours to show improvement. pH and pCO2 within normal range Check TSH- TSH and TT3 low, free T4 within normal limits. She is not on a thyroid supplement. Recommend repeat thyroid panel in 4-6 weeks B12 & folate- B12 low normal 322. Will trail B12 supplement PO daily ammonia- within normal limits UA - no acute infection. Stable. Appears at baseline (4) Acute respiratory failure with hypoxia: Code(s): J96.01 - Acute respiratory failure with hypoxia Status: Acute Assessment and Plan: ABG shows hypoxemia PaO2 47.5 and oxyhemoglobin 85.2% on room air. chest x-ray negative for acute pulmonary disease no cough, sputum, or tachypnea on exam. Resume supplemental oxygen to keep SpO2 greater than 92%. Will repeat ABG in 6 hours to show improvement. pH and pCO2 within normal range Push incentive spirometer. Patient will need home O2 eval if unable to wean off supplemental oxygen- 04/03/22 home O2 eval- no supplemental O2 at home needed. 04/03/22 Repeat ABG with improved PaO2 63, pH within normal limits and pCO2 not elevated. Patient weaned to room air with adequate saturations at rest and ambulation. She continues to deny respiratory symptoms. 04/04/22 Patient on 2L O2 again today. Lung sounds diminished bibasilar lobes. Encourage incentive spirometry use. (5) GERD (gastroesophageal reflux disease): Qualifiers: Esophagitis presence: without esophagitis Qualified Code(s): K21.9 - Gastro-esophageal reflux
[2022-04-04 08:17] LABS: Hematocrit 24.9 % (37.0-47.0); Mean Corpuscular HGB Conc 32.1 g/dl (32-36); Mean Corpuscular Hemoglobin 30.9 pg (26-34); Mean Corpuscular Volume 96.1 fl (80-100); Mean Platelet Volume 9.3 fl (7.4-10.4); Platelet Count Result 251 k/mm3 (150-375); Red Blood Count 2.59 M/mm3 (4.2-5.4); Red Cell Distribution Width 14.4 % (11.5-14.5); White Blood Count 6.7 K/mm3 (4.5-10.0)
[2022-04-04] MEDS: lisinopriL 20 MG TABLET 40 MG PO (09:23)
[2022-04-04] MEDS: polyethylene glycoL 3350 17 GM POWD.PACK PO (09:23)
[2022-04-04] MEDS: ASCORBIC ACID 500 MG TABLET PO ×2 (09:24→16:33)
[2022-04-04] MEDS: CHOLECALCIFEROL 1,000 UNITS TABLET 2000 UNITS PO (09:24)
[2022-04-04] MEDS: CYANOCOBALAMIN TAB 2,000 MCG, CYANOCOBALAMIN TAB 500 MCG 2500 MCG PO (09:24)
[2022-04-04] MEDS: PANTOPRAZOLE SOD SESQUIHYDRATE 20 MG TAB PO (09:25)
[2022-04-04] MEDS: SENNA/DOCUSATE SODIUM TABLET 2 TAB PO ×2 (09:25→16:33)
[2022-04-04] MEDS: ASPIRIN 325 MG ENTERIC TABLET PO ×2 (09:25→21:23)
[2022-04-04] MEDS: ATORVASTATIN 40 MG TABLET PO (09:25)
[2022-04-04] MEDS: FELODIPINE 5 MG TAB CR 10 MG PO (09:25)
[2022-04-04] MEDS: FLUTICASONE/UMECLIDIN/VILANTER 100-62.5-25 MCG ELLIPTA 1 PUFF INHALATION (09:52)
[2022-04-04] MEDS: oxyCODONE/ACETAMINOPHEN (*CRX) 5-325 MG TABLET 1 TABLET PO (13:40)
[2022-04-04 13:48] LABS: Hematocrit 26.3 % (37.0-47.0); Hemoglobin 8.5 g/dL (12.0-15.0)
[2022-04-04] MEDS: TOLTERODINE TARTRATE LA 4 MG CAP.ER.24H PO (21:22)
[2022-04-05] VITALS (18 sets, daily range): BP systolic 104–145; BP diastolic 36–78; PULSE 83–100; RESP 16–20; TEMP 36.8–37.3; O2SAT 91–97
[2022-04-05 05:33] LABS: Hematocrit 23.4 % (37.0-47.0); Hemoglobin 7.3 g/dL (12.0-15.0); Mean Corpuscular HGB Conc 31.2 g/dl (32-36); Mean Corpuscular Hemoglobin 29.6 pg (26-34); Mean Corpuscular Volume 94.7 fl (80-100); Mean Platelet Volume 9.4 fl (7.4-10.4); Platelet Count Result 280 k/mm3 (150-375); Red Blood Count 2.47 M/mm3 (4.2-5.4); White Blood Count 6.3 K/mm3 (4.5-10.0)
[2022-04-05 05:40] LABS: Anion Gap 5 mmol/L (8-16); Blood Urea Nitrogen 21 mg/dL (7-17); Calcium 8.3 mg/dL (8.4-10.2); Carbon Dioxide 22 mmol/L (22-30); Chloride 106 mmol/L (98-107); Estimated CRCL calculation 27 ml/min; Estimated Glomerular Filt Rate 36; Glucose 104 mg/dL (65-110); Potassium 4.3 mmol/L (3.4-5.0); Sodium 133 mmol/L (137-145)
[2022-04-05] MEDS: BUDESONIDE RESPULE NEB 0.5 MG/2 ML AMP INHALATION ×2 (08:10→21:15)
[2022-04-05] MEDS: IPRATROPIUM BR 0.02% INH SOLN 0.5 MG/2.5 ML VIAL INHALATION ×3 (08:10→21:15)
[2022-04-05] MEDS: ALBUTEROL SULFATE NEB 2.5 MG/3 ML INH INHALATION ×3 (08:11→21:15)
--- NOTE | 2022-04-05 08:52 | PM.IMPN ---
Progress Note: A&P Assessment and Plan (1) Right knee DJD: Code(s): M17.11 - Unilateral primary osteoarthritis, right knee Status: Acute Assessment and Plan: Status post right TKA on 03/31/22; POD1 DVT prophylaxis per Orthopedic Continue pain control with PO [place] PRN. Judicious use of narcotics given concern for altered mental status 04/02/22 DC dia if not already removed. Patient still on supplemental O2, which she does not use at home. Wean O2 to keep sats>90%, encourage IS use. chest x-ray without acute pulmonary disease. Patient does have tenderness to the anterior calf as well as increased edema. venous Doppler negative for DVT. Increased ecchymosis noted RLE with edema. Hold plavix ordered 04/03 she appears to take this for prior stroke/TIA in 2013 and could be trialed off dual antiplatelet therapy to prevent increased risk of bleeding. Elevate RLE to help with edema. 04/04/22 Hgb 8.0, was 10.0 two days prior. repeat this afternoon 8.5 mg/dL. 04/05/22 Hgb 7.3/Hct 23.4%, she is dyspneic on exertion and still requiring supplemental O2. NO wheezing on exam and CXR negative for acute disease. Will transfuse 1 unit PRBC today given patient is symptomatic. Preop Hgb 14. (2) CKD (chronic kidney disease) stage 3, GFR 30-59 ml/min: Code(s): N18.3 - Chronic kidney disease, stage 3 (moderate) Status: Acute Assessment and Plan: BUN 24, creatinine 2.1, eGFR 23. Lisinopril held 04/01 and resumed 04/03/22 Preop labs show creatinine 1.6, BUN 18-20, and eGFR 31. Previous labs to compare from 2019 and similar levels. Urine output ~400 mL since 1500 on the day of surgery- Give 1L NS at 100 mL/hour then repeat BMP Monitor strict I/O and add daily weights Avoid nephrotoxic medication 04/02/22 BUN 21, creatinine 1.5, eGFR 33 and at baseline after fluids. BP improve 144/60 and HR 94, urine output adequate and net balance +1 liter. Okay to resume lisinopril. 04/03/22 stable renal function and at baseline 04/05/22 stable (3) Acute metabolic encephalopathy: Code(s): G93.41 - Metabolic encephalopathy Status: Acute Assessment and Plan: possible. Patient's family is concerned patient is more confused than his usual. This may be secondary to anesthesia and or oral narcotics. Judicious use of with opioids. Trial alternative analgesics as needed. 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 Resume supplemental oxygen to keep SpO2 greater than 92%. Will repeat ABG in 6 hours to show improvement. pH and pCO2 within normal range Check TSH- TSH and TT3 low, free T4 within normal limits. She is not on a thyroid supplement. Recommend repeat thyroid panel in 4-6 weeks B12 & folate- B12 low normal 322. Will trail B12 supplement PO daily ammonia- within normal limits UA - no acute infection. Stable. Appears at baseline (4) Acute respiratory failure with hypoxia: Code(s): J96.01 - Acute respiratory failure with hypoxia Status: Acute Assessment and Plan: ABG shows hypoxemia PaO2 47.5 and oxyhemoglobin 85.2% on room air. chest x-ray negative for acute pulmonary disease no cough, sputum, or tachypnea on exam. Resume supplemental oxygen to keep SpO2 greater than 92%. Will repeat ABG in 6 hours to show improvement. pH and pCO2 within normal range Push incentive spirometer. Patient will need home O2 eval if unable to wean off supplemental oxygen- 04/03/22 home O2 eval- no supplemental O2 at home needed. 04/03/22 Repeat ABG with improved PaO2 63, pH within normal limits and pCO2 not elevated. Patient weaned to room air with adequate saturations at rest and ambulation. She continues to deny respiratory symptoms. 04/04/22 Patient on 2L O2 again today. Lung sounds dim
[2022-04-05] MEDS: ATORVASTATIN 40 MG TABLET PO (09:26)
[2022-04-05] MEDS: FERROUS SULFATE 324 MG TABLET PO (09:26)
[2022-04-05] MEDS: CYANOCOBALAMIN TAB 2,000 MCG, CYANOCOBALAMIN TAB 500 MCG 2500 MCG PO (09:27)
[2022-04-05] MEDS: ASCORBIC ACID 500 MG TABLET PO (09:27)
[2022-04-05] MEDS: PANTOPRAZOLE SOD SESQUIHYDRATE 20 MG TAB PO (09:27)
[2022-04-05] MEDS: polyethylene glycoL 3350 17 GM POWD.PACK PO (09:28)
[2022-04-05] MEDS: CHOLECALCIFEROL 1,000 UNITS TABLET 2000 UNITS PO (09:28)
[2022-04-05] MEDS: SENNA/DOCUSATE SODIUM TABLET 2 TAB PO ×2 (09:28→16:55)
[2022-04-05] MEDS: ASPIRIN 325 MG ENTERIC TABLET PO ×2 (10:55→21:38)
[2022-04-05] MEDS: SODIUM CHLORIDE 0.9% IV 250 ML 30 ML IV CONT (11:46)
--- NOTE | 2022-04-05 13:45 | PM.PNORT ---
Progress Note: A&P Assessment and Plan (1) S/P total knee arthroplasty: Code(s): Z96.659 - Presence of unspecified artificial knee joint Status: Acute Assessment and Plan: POD #5 : Right TKA Continue PT/OT. WBAT. Walker. HIGH FALL RISK. Continue pain control. Ice knee. Protect skin. DVT prophylaxis with Aspirin. Plavix held per medicine team. SCDs. Incentive Spirometry Use reviewed. Monitor Dressing. Change prior to discharge. Bowel Regimen. Dispo: Home with Home Health vs. SNF pending progress with PT/OT and medicine clearance (2) CKD (chronic kidney disease) stage 3, GFR 30-59 ml/min: Code(s): N18.3 - Chronic kidney disease, stage 3 (moderate) Status: Acute Assessment and Plan: Creatinine stable. (3) HTN (hypertension): Qualifiers: Hypertension type: primary hypertension Qualified Code(s): I10 - Essential (primary) hypertension Code(s): I10 - Essential (primary) hypertension Status: Chronic (4) Asthma: Code(s): J45.909 - Unspecified asthma, uncomplicated Status: Chronic Assessment and Plan: . (5) COPD (chronic obstructive pulmonary disease): Qualifiers: COPD type: unspecified COPD Qualified Code(s): J44.9 - Chronic obstructive pulmonary disease, unspecified Code(s): J44.9 - Chronic obstructive pulmonary disease, unspecified Status: Chronic Assessment and Plan: Requiring nasal cannula O2. Plan for home O2 test prior to discharge. Appreciate medicine team input. (6) History of TIA (transient ischemic attack): Code(s): Z86.73 - Personal history of transient ischemic attack (TIA), and cerebral infarction without residual deficits Status: Acute Assessment and Plan: H/O TIA without residual. Continue Plavix and statin. ASA full-strength BID started for DVT prophylaxis postop. Monitor BP and avoid hypo or hypertension. (7) HLD (hyperlipidemia): Qualifiers: Hyperlipidemia type: mixed hyperlipidemia Qualified Code(s): E78.2 - Mixed hyperlipidemia Code(s): E78.5 - Hyperlipidemia, unspecified Status: Chronic (8) Postoperative anemia: Code(s): D64.9 - Anemia, unspecified Status: Acute Assessment and Plan: HgB low today. 1 unit PRBCs transfused. Post transfusion H/H pending. Appreciate medicine assistance. Time Spent With Patient Time: Reviewed with attending MD and patient's surgeon, Dr. Can. Reviewed HgB and postoperative ecchymosis. No further recommendations at this time. Agrees with current plan of care. Plan for discharge when medically stable. Subjective Subjective Date/Time Seen: 04/05/22 13:45 Post Op day: 5 Principal diagnosis: Right TKA Interval history: POD #2: Right TKA Patient states pain is well controlled today. Receiving blood at time of exam. Answering questions appropriately. Review of Systems Review of Systems: All systems reviewed & are unremarkable except as noted in HPI and below Exam Const: General: comfortable and no acute distress Resp: Effort & Inspection: normal respiratory effort Cardio: Rate: regular rate Rhythm: regular rhythm GI: GI Palp: Yes Soft to palpation, No Tenderness to palpation present (GI) and No Guarding due to palpation present (GI) Skin: General skin exam: wounds noted Wounds: wounds noted Other: Incision with olena sized drainage. No surrounding redness/warmth. No hematoma. Moderate ecchymosis. No wound dehiscence Neuro: Cognition (Neuro): normal cognition Other: NV intact. Moves toes. Sensation intact to light touch. +ankle dorsiflexion/plantarflexion. Extrem: Right lower extremity: normal to inspection, knee (soft ) Details: tenderness (diffuse, mild ) Location: of the patella, swelling (diffuse, consistent with surgical intervention ), abnormal ROM Details: pain with active ROM during, pain with passive ROM during and with range as follows (limited
[2022-04-05 16:23] LABS: IFOB Positive Control Positive; Immunochemical Fecal Occult Bl Negative (N)
[2022-04-05 17:00] LABS: Hemoglobin 8.8 g/dL (12.0-15.0)
[2022-04-05] MEDS: oxyCODONE/ACETAMINOPHEN (*CRX) 5-325 MG TABLET 1 TABLET PO (21:36)
[2022-04-05] MEDS: TOLTERODINE TARTRATE LA 4 MG CAP.ER.24H PO (21:38)
[2022-04-06] MEDS: ALBUTEROL SULFATE NEB 2.5 MG/3 ML INH INHALATION ×2 (02:07→09:38)
[2022-04-06] MEDS: IPRATROPIUM BR 0.02% INH SOLN 0.5 MG/2.5 ML VIAL INHALATION ×2 (02:07→09:38)
[2022-04-06 04:33] VITALS: BP 128/46; PULSE 93; RESP 16; TEMP 36.8; O2SAT 90
[2022-04-06 05:28] LABS: Hematocrit 24.6 % (37.0-47.0); Hemoglobin 8.2 g/dL (12.0-15.0); Mean Corpuscular HGB Conc 33.3 g/dl (32-36); Mean Corpuscular Hemoglobin 30.4 pg (26-34); Mean Corpuscular Volume 91.1 fl (80-100); Mean Platelet Volume 9.3 fl (7.4-10.4); Platelet Count Result 297 k/mm3 (150-375); Red Cell Distribution Width 15.2 % (11.5-14.5); White Blood Count 5.9 K/mm3 (4.5-10.0)
[2022-04-06 06:00] LABS: Anion Gap 6 mmol/L (8-16); Blood Urea Nitrogen 20 mg/dL (7-17); Calcium 8.4 mg/dL (8.4-10.2); Carbon Dioxide 23 mmol/L (22-30); Chloride 106 mmol/L (98-107); Estimated CRCL calculation 29 ml/min; Estimated Glomerular Filt Rate 39; Glucose 107 mg/dL (65-110); Potassium 4.2 mmol/L (3.4-5.0); Sodium 135 mmol/L (137-145)
[2022-04-06 08:44] VITALS: BP 123/56; PULSE 76; O2SAT 100
[2022-04-06] MEDS: FERROUS SULFATE 324 MG TABLET PO (08:46)
[2022-04-06] MEDS: ASPIRIN 325 MG ENTERIC TABLET PO (08:47)
[2022-04-06] MEDS: ASCORBIC ACID 500 MG TABLET PO (08:47)
[2022-04-06] MEDS: CYANOCOBALAMIN TAB 2,000 MCG, CYANOCOBALAMIN TAB 500 MCG 2500 MCG PO (08:48)
[2022-04-06] MEDS: ATORVASTATIN 40 MG TABLET PO (08:48)
[2022-04-06] MEDS: CHOLECALCIFEROL 1,000 UNITS TABLET 2000 UNITS PO (08:48)
[2022-04-06] MEDS: FELODIPINE 5 MG TAB CR 10 MG PO (08:49)
[2022-04-06] MEDS: PANTOPRAZOLE SOD SESQUIHYDRATE 20 MG TAB PO (08:50)
[2022-04-06] MEDS: lisinopriL 20 MG TABLET 40 MG PO (08:50)
[2022-04-06] MEDS: SENNA/DOCUSATE SODIUM TABLET 2 TAB PO (09:23)
[2022-04-06 09:38] VITALS: PULSE 88; RESP 16
[2022-04-06] MEDS: BUDESONIDE RESPULE NEB 0.5 MG/2 ML AMP INHALATION (09:38)
[2022-04-06 09:41] VITALS: O2SAT 94
--- NOTE | 2022-04-06 09:46 | PM.PNORT ---
Progress Note: A&P Assessment and Plan (1) S/P total knee arthroplasty: Code(s): Z96.659 - Presence of unspecified artificial knee joint Status: Acute Assessment and Plan: POD #6: Right TKA Continue PT/OT. WBAT. Walker. HIGH FALL RISK. Continue pain control. Ice knee. Protect skin. DVT prophylaxis with Aspirin. Plavix held per medicine team. SCDs. Incentive Spirometry Use reviewed. Monitor Dressing. Change prior to discharge. Bowel Regimen. Dispo: Home with Home Health vs. SNF pending progress with PT/OT and medicine clearance (2) CKD (chronic kidney disease) stage 3, GFR 30-59 ml/min: Code(s): N18.3 - Chronic kidney disease, stage 3 (moderate) Status: Acute Assessment and Plan: Creatinine stable. (3) HTN (hypertension): Qualifiers: Hypertension type: primary hypertension Qualified Code(s): I10 - Essential (primary) hypertension Code(s): I10 - Essential (primary) hypertension Status: Chronic (4) Asthma: Code(s): J45.909 - Unspecified asthma, uncomplicated Status: Chronic Assessment and Plan: . (5) COPD (chronic obstructive pulmonary disease): Qualifiers: COPD type: unspecified COPD Qualified Code(s): J44.9 - Chronic obstructive pulmonary disease, unspecified Code(s): J44.9 - Chronic obstructive pulmonary disease, unspecified Status: Chronic Assessment and Plan: No longer requiring Aspirin. (6) History of TIA (transient ischemic attack): Code(s): Z86.73 - Personal history of transient ischemic attack (TIA), and cerebral infarction without residual deficits Status: Acute Assessment and Plan: H/O TIA without residual. Continue Plavix and statin. 81mg Aspirin. Monitor BP and avoid hypo or hypertension. (7) HLD (hyperlipidemia): Qualifiers: Hyperlipidemia type: mixed hyperlipidemia Qualified Code(s): E78.2 - Mixed hyperlipidemia Code(s): E78.5 - Hyperlipidemia, unspecified Status: Chronic (8) Postoperative anemia: Code(s): D64.9 - Anemia, unspecified Status: Acute Assessment and Plan: HgB stable s/p transfusion of 1 unit of PRBCs. Time Spent With Patient Time: Reviewed with attending MD and patient's surgeon, Dr. Can. Reviewed HgB and postoperative ecchymosis. Reviewed medicine team recommendations to d/c Plavix at discharge. Dr. Can recommends continuing and to follow up with her PCP for decision of Plavix. No further recommendations at this time. Agrees with current plan of care. Plan for discharge when medically stable. Subjective Subjective Date/Time Seen: 04/06/22 09:46 Post Op day: 6 Principal diagnosis: Right TKA Interval history: POD #6: Right TKA Patient states pain is well controlled today. Improvement in breathing, no longer requiring oxygen. Very hopeful for discharge home. Review of Systems Review of Systems: All systems reviewed & are unremarkable except as noted in HPI and below Exam Const: General: comfortable and no acute distress Resp: Effort & Inspection: normal respiratory effort Cardio: Rate: regular rate Rhythm: regular rhythm GI: GI Palp: Yes Soft to palpation, No Tenderness to palpation present (GI) and No Guarding due to palpation present (GI) Skin: General skin exam: wounds noted Wounds: wounds noted Other: Incision with olena sized drainage. No surrounding redness/warmth. No hematoma. Moderate ecchymosis. No wound dehiscence Neuro: Cognition (Neuro): normal cognition Other: NV intact. Moves toes. Sensation intact to light touch. +ankle dorsiflexion/plantarflexion. Extrem: Right lower extremity: normal to inspection, knee (soft ) Details: tenderness (diffuse, mild ) Location: of the patella, swelling (diffuse, consistent with surgical intervention ), abnormal ROM Details: pain with active ROM during, pain with passive ROM during and with range as follows (limited du
[2022-04-06 09:51] VITALS: PULSE 85; RESP 16
--- NOTE | 2022-04-06 09:53 | PM.DS ---
DS: Admitting Diagnosis Discharge Date 04/06/22 Admitting Diagnosis Right Knee DJD DS: Discharge Diagnosis Discharge Diagnosis (1) S/P total knee arthroplasty: Code(s): Z96.659 - Presence of unspecified artificial knee joint Status: Acute Assessment and Plan: POD #6: Right TKA Continue PT/OT. WBAT. Walker. HIGH FALL RISK. Continue pain control. Ice knee. Protect skin. DVT prophylaxis with Aspirin. Plavix held per medicine team. SCDs. Incentive Spirometry Use reviewed. Monitor Dressing. Change prior to discharge. Bowel Regimen. Dispo: Home with Home Health vs. SNF pending progress with PT/OT and medicine clearance (2) CKD (chronic kidney disease) stage 3, GFR 30-59 ml/min: Code(s): N18.3 - Chronic kidney disease, stage 3 (moderate) Status: Acute Assessment and Plan: Creatinine stable. (3) HTN (hypertension): Qualifiers: Hypertension type: primary hypertension Qualified Code(s): I10 - Essential (primary) hypertension Code(s): I10 - Essential (primary) hypertension Status: Chronic (4) Asthma: Code(s): J45.909 - Unspecified asthma, uncomplicated Status: Chronic Assessment and Plan: . (5) COPD (chronic obstructive pulmonary disease): Qualifiers: COPD type: unspecified COPD Qualified Code(s): J44.9 - Chronic obstructive pulmonary disease, unspecified Code(s): J44.9 - Chronic obstructive pulmonary disease, unspecified Status: Chronic Assessment and Plan: No longer requiring Aspirin. (6) History of TIA (transient ischemic attack): Code(s): Z86.73 - Personal history of transient ischemic attack (TIA), and cerebral infarction without residual deficits Status: Acute Assessment and Plan: H/O TIA without residual. Continue Plavix and statin. 81mg Aspirin. Monitor BP and avoid hypo or hypertension. (7) HLD (hyperlipidemia): Qualifiers: Hyperlipidemia type: mixed hyperlipidemia Qualified Code(s): E78.2 - Mixed hyperlipidemia Code(s): E78.5 - Hyperlipidemia, unspecified Status: Chronic (8) Postoperative anemia: Code(s): D64.9 - Anemia, unspecified Status: Acute Assessment and Plan: HgB stable s/p transfusion of 1 unit of PRBCs. DS: Summary Hospital Course Reason for hospitalization: Right TKA Hospital Course: 81-year-old female admitted status post right total knee arthroplasty for postoperative medical management, pain control and physical and occupational therapy. Patient had difficulty with her postoperative course in regards to a low hemoglobin, elevated creatinine in and the need for oxygen requirement. Hospitalist service was consulted for further treatment. Patient did receive 1 unit of packed red blood cells which increased her hemoglobin and allowed for her to no longer require oxygen. She passed a home O2 test. Her creatinine is now stable. The patient has been cleared from medical standpoint. She has also been cleared from physical and occupational therapy standpoint. The patient will be discharged home with home health at this time. Her family will assist her in the home environment. She will follow up in the outpatient orthopedic clinic in approximately 3 weeks. Status at Discharge Functional status at discharge: uses cane/walker Overall status at discharge: patient is progressing back to baseline Time Spent with Patient Time attestation: Total time spent providing and/or coordinating discharge services: Exam Const: General: comfortable and no acute distress Resp: Effort & Inspection: normal respiratory effort Cardio: Rate: regular rate Rhythm: regular rhythm Skin: General skin exam: wounds noted Wounds: wounds noted Other: Incision with olena sized drainage. No surrounding redness/warmth. No hematoma. Moderate ecchymosis. No wound dehiscence Neuro: Cognition (Neuro): normal cognition Other: NV
--- NOTE | 2022-04-06 10:47 | P.PNIM_ITS ---
Progress Note: A&P Assessment and Plan (1) Right knee DJD: Code(s): M17.11 - Unilateral primary osteoarthritis, right knee Status: Acute Assessment and Plan: Status post right TKA on 03/31/22; POD1 * DVT prophylaxis per Orthopedic * Continue pain control with PO [facility] PRN. Judicious use of narcotics given concern for altered mental status * 04/02/22 DC dia if not already removed. Patient still on supplemental O2, which she does not use at home. Wean O2 to keep sats>90%, encourage IS use. chest x-ray without acute pulmonary disease. Patient does have tenderness to the anterior calf as well as increased edema. venous Doppler negative for DVT. * Increased ecchymosis noted RLE with edema. Hold plavix ordered 04/03 she appears to take this for prior stroke/TIA in 2013 and could be trialed off dual antiplatelet therapy to prevent increased risk of bleeding. Elevate RLE to help with edema. * 04/04/22 Hgb 8.0, was 10.0 two days prior. repeat this afternoon 8.5 mg/dL. * 04/05/22 Hgb 7.3/Hct 23.4%, she is dyspneic on exertion and still requiring supplemental O2. NO wheezing on exam and CXR negative for acute disease. Will transfuse 1 unit PRBC today given patient is symptomatic. Preop Hgb 14. * 04/06/22 Hgb 8.2-8.8 and improved. (2) CKD (chronic kidney disease) stage 3, GFR 30-59 ml/min: Code(s): N18.3 - Chronic kidney disease, stage 3 (moderate) Status: Acute Assessment and Plan: BUN 24, creatinine 2.1, eGFR 23. Lisinopril held 04/01 and resumed 04/03/22 Preop labs show creatinine 1.6, BUN 18-20, and eGFR 31. Previous labs to compare from 2019 and similar levels. * Urine output ~400 mL since 1500 on the day of surgery- Give 1L NS at 100 mL/hour then repeat BMP Monitor strict I/O and add daily weights Avoid nephrotoxic medication * 04/02/22 BUN 21, creatinine 1.5, eGFR 33 and at baseline after fluids. BP improve 144/60 and HR 94, urine output adequate and net balance +1 liter. Okay to resume lisinopril. * 04/03/22 stable renal function and at baseline * 04/06/22 stable (3) Acute metabolic encephalopathy: Code(s): G93.41 - Metabolic encephalopathy Status: Acute Assessment and Plan: possible. Patient's family is concerned patient is more confused than his usual. This may be secondary to anesthesia and or oral narcotics. Judicious use of with opioids. Trial alternative analgesics as needed. * CT head negative for acute bleeding but does show old infarct involving the left basal ganglia which has been previously noted on head CT in 2014 * chest x-ray is negative for acute abnormality * ABG shows hypoxemia PaO2 47.5 and oxyhemoglobin 85.2% on room air. Resume supplemental oxygen to keep SpO2 greater than 92%. Will repeat ABG in 6 hours to show improvement. pH and pCO2 within normal range * Check TSH- TSH and TT3 low, free T4 within normal limits. She is not on a thyroid supplement. Recommend repeat thyroid panel in 4-6 weeks * B12 & folate- B12 low normal 322. Will trail B12 supplement PO daily * ammonia- within normal limits * UA - no acute infection. * Stable. Appears at baseline (4) Acute respiratory failure with hypoxia: Code(s): J96.01 - Acute respiratory failure with hypoxia Status: Acute Assessment and Plan: ABG shows hypoxemia PaO2 47.5 and oxyhemoglobin 85.2% on room air. chest x-ray negative for acute pulmonary disease no cough, sputum, or tachypnea on exam. Resume supplemental oxygen to keep SpO2 greater than 92%. * Will repeat ABG in 6 hours to show improvement. pH and pCO2 within normal range * Push incentive spirometer. * Candy
== END 2022-04-06 11:50 | disposition home health service (06) | DRG 469 ==
LOC: ANHSURGERY 09:17 → ANH2MED 09:17
PROVIDERS: Nurse Practitioner Family; Admitting Provider Orthopaedic Surgery; PCP Family Medicine; Visit Provider Nurse Practitioner Family
PROC: 0SRC0J9 Replacement of Right Knee Joint with Synthetic Substitute, Cemented, Open Approach (ICD-10-PCS; CPT 27447; principal; 2022-03-31 11:00)
DX: M17.11 Unilateral primary osteoarthritis, right knee (principal); G93.41 Metabolic encephalopathy; J96.01 Acute respiratory failure with hypoxia; D62 Acute posthemorrhagic anemia; N18.30 Chronic kidney disease, stage 3 unspecified; E78.2 Mixed hyperlipidemia; K21.9 Gastro-esophageal reflux disease without esophagitis; G47.33 Obstructive sleep apnea (adult) (pediatric); I12.9 Hypertensive chronic kidney disease with stage 1 through stage 4 chronic kidney disease, or unspecified chronic kidney disease; R73.01 Impaired fasting glucose; J44.9 Chronic obstructive pulmonary disease, unspecified; Z85.828 Personal history of other malignant neoplasm of skin; Z83.3 Family history of diabetes mellitus; Z82.49 Family history of ischemic heart disease and other diseases of the circulatory system; Z87.891 Personal history of nicotine dependence; Z91.041 Radiographic dye allergy status; Z79.82 Long term (current) use of aspirin; Z79.899 Other long term (current) drug therapy; Z86.73 Personal history of transient ischemic attack (TIA), and cerebral infarction without residual deficits
CPT/HCPCS: 36415; 36430; 36600; 70450; 71045; 73560; 80048; 80053; 81001; 82140; 82274; 82375; 82607; 82746; 82805; 82948; 83050; 83605; 84145; 84439; 84443; 84480; 85014; 85018; 85025; 85027; 86850; 86900; 86901; 86923; 93970; 94618; 94640; 97110; 97116; 97161; 97165; 97530; 97535; A9270; C1713; C1776; J0171; J0690; J1100; J1170; J1200; J1885; J2250; J2270; J2405; J2704; J2795; J3010; J7030; J7050; J7120; P9016

== ENCOUNTER 2022-12-20 10:58 | Emergency (ER) | payer MEDICARE, OTHER, SELFPAY ==
[2022-12-20 10:59] VITALS: BP 148/118; PULSE 97; RESP 20; TEMP 36.1; O2SAT 97
[2022-12-20] MEDS: TETANUS,DIPHTHERIA,AC PERTUSSIS ADULT (0.5 ML) BOOSTRIX IM (12:02)
--- NOTE | 2022-12-20 12:13 | ED.WOUNDLAC ---
HPI - Wound/Laceration General Chief Complaint: Wound/Laceration Stated Complaint: bleeding wound Time Seen by Provider: 12/20/22 11:10 History of Present Illness HPI narrative: Pt fell several days ago and had laceration to her left leg. Pt fell again today and scab on wound fell off and wound rebled and she was not able to stop the bleeding since she is on plavix. Pt has small new abrasion above this wound which is oozing as well. Unsure of last tetanus. Related Data Home Medications Medication Instructions Recorded Confirmed aspirin 81 mg tablet,delayed 81 mg PO DAILY 04/10/19 09/10/22 release cholecalciferol (vitamin D3) 125 2,000 unit PO DAILY 04/10/19 09/10/22 mcg (5,000 unit) tablet ascorbic acid (vitamin C) 500 mg 500 mg PO DAILY 03/16/20 09/10/22 tablet acetaminophen 500 mg tablet 1,000 mg PO BID PRN Pain 03/15/22 09/10/22 Allergies Allergy/AdvReac Type Severity Reaction Status Date / Time iodine Allergy Unknown Rash Verified 10/28/22 09:17 Iodine and Iodide Containing Allergy Unknown Rash Verified 10/28/22 09:17 Produc [id number] Allergy Unknown Rash Uncoded 10/28/22 09:17 Review of Systems Review of Systems: All systems reviewed & are unremarkable except as noted in HPI and below PMFSH Past Medical History Medical History Arthritis Asthma Basal cell carcinoma Cerebrovascular accident (~1995) With mild right-sided weakness. Chills Chronic kidney disease, stage 3 Baseline creatinine between 1.6 and 1.70. Chronic low back pain CKD (chronic kidney disease) stage 3, GFR 30-59 ml/min COPD (chronic obstructive pulmonary disease) Diarrhea Fever Gastroesophageal reflux disease GERD (gastroesophageal reflux disease) High cholesterol History of TIA (transient ischemic attack) History of vaginal delivery x 2. HLD (hyperlipidemia) HTN (hypertension) Hyperlipidemia Hypertension Mild obstructive sleep apnea On sleep study in March 2008. 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 History of bilateral breast biopsy (~09/2006) With benign pathology. History of cataract extraction History of dilation and curettage History of tubal ligation S/P total knee arthroplasty Rt TKA 03/31/22 Status post debridement (~2018) Debridement of traumatic hematoma of the left medial leg. [place] teeth removed Family History Family History Mother Hypertension Family history of malignant neoplasm of breast in first degree relative Other Cerebrovascular accident Diabetes mellitus HLD (hyperlipidemia) Heart disease Skin cancer Social History Social History Social History: Surrogate decision maker: Ronal Palacios, . Code status: Full code. Smoking packs per day: 1 Smoking cigarettes per day: 20.0 Years smoked: 30 Smoking pack-years: 30.00 Smoking status: Former smoker Tobacco type: cigarettes Second hand tobacco smoke exposure: No Smoking end date: 05/16/93 Additional smoking assessment comments: DENIES ANY FORM OF TOBACCO USE Alcohol intake: never Substance use: never Substance use type: does not use Lack of Transportation: No Lack of Food: Never True Current Housing: I Have Housing Concerned About Future Housing: No Difficulty Paying Gas/Electric Bills: No Difficulty Paying for Meds: No Currently Unemployed: No Education: High School
== END 2022-12-20 12:15 | disposition home or self-care (01) ==
PROVIDERS: Emergency Provider Emergency Medicine; PCP Family Medicine
DX: S81.812A Laceration without foreign body, left lower leg, initial encounter (principal); I12.9 Hypertensive chronic kidney disease with stage 1 through stage 4 chronic kidney disease, or unspecified chronic kidney disease; N18.30 Chronic kidney disease, stage 3 unspecified; E78.5 Hyperlipidemia, unspecified; J44.9 Chronic obstructive pulmonary disease, unspecified; Z86.73 Personal history of transient ischemic attack (TIA), and cerebral infarction without residual deficits; Z23 Encounter for immunization; Z79.01 Long term (current) use of anticoagulants; Z87.891 Personal history of nicotine dependence; W19.XXXA Unspecified fall, initial encounter
CPT/HCPCS: 90471; 90715; 99282

== ENCOUNTER 2023-01-03 08:04 | Inpatient (IN) | payer MEDICARE, OTHER, SELFPAY ==
[2023-01-03] VITALS (38 sets, daily range): BP systolic 120–165; BP diastolic 54–78; PULSE 101–114; RESP 16–41; TEMP 36.6–37.1; O2SAT 90–100
--- NOTE | ~2023-01-03 | CT_ITS ---
EXAMINATION: CT diagnostic chest wo con DATE: 01/04/2023 08:17 INDICATION: Follow-up nodular opacity left lung. TECHNIQUE: Computed tomography (CT) of the chest was performed without intravenous contrast. The dose -length product was 226.47 mGy-cm. Automated exposure control and iterative reconstruction technique were employed. COMPARISON: Chest x-ray dated 01/03/2023 FINDINGS: There are nonenlarged mediastinal lymph nodes. There is a complex mass involving the inferi or aspect of the right thyroid lobe which is substernal. Recommend correlation with ultrasound. There is atherosclerosis of the aorta and coronary arteries. There are bilateral low density lesions in th e kidneys, most likely cysts. There is a 3 mm nonobstructing right renal stone. There is a 4 cm cyst of the left hepatic lobe. There is severe emphysema. No endobronchial lesions. There is bronchiectasi s of the lower lobes with bilateral lower lobe consolidation which may represent atelectasis/scarring and/or pneumonia. There are small bilateral pulmonary nodules measuring 3 mm or less, likely benign. IMPRESSION: 1. Bilateral lower lobe consolidation which represent atelectasis/scarring or pneumonia. There is tobias ateral lower lobe bronchiectasis. 2: Small bilateral pulmonary nodules measuring 3 mm or less, likely benign. Recommend follow-up CT in 12 months. 3: Large complex right thyroid mass. Correlation with thyroid ultrasound recommended. 4: Emphysema. Reviewed, dictated and finalized at location L. IMPRESSION: 1. Bilateral lower lobe consolidation which represent atelectasis/scarring or p neumonia. There is bilateral lower lobe bronchiectasis. 2: Small bilateral pulmonary nodules measuring 3 mm or less, likely benign. Rec ommend follow-up CT in 12 months. 3: Large complex right thyroid mass. Correlation with thyroid ultrasound recomm ended. 4: Emphysema.
--- NOTE | ~2023-01-03 | XR_ITS ---
XR chest 1V portable DATE: 01/09/2023 05:54 INDICATION: Pneumonia TECHNIQUE: Portable AP chest on 01/09/2023 at 0542 hours COMPARISON: 01/08/2023 CT pulmonary scan is not available from PACS 01/07/2023 CT chest 01/06/2020 portable AP chest FINDINGS: Right substernal thyroid goiter with prominent leftward deviation of the trachea in the sup erior mediastinum. Heart size is normal. There is extensive thoracic aortic calcification. There is bibasilar lower lobe infiltrate and/atelectasis, left greater than right. No pleural effusion or pneumothorax is evident. Diffuse osteopenia. Mildly displaced lateral anterolateral right 10th rib fracture IMPRESSION: Bilateral lower lobe infiltrate and/atelectasis, left greater than right Reviewed, dictated and finalized at location A.
--- NOTE | ~2023-01-03 | CT_ITS ---
Clinical Indication: Pulmonary embolus CT Scan of the Chest with Contrast: Technique: Contiguous sections were acquired throughout the chest after intravenous administration of 100 cc of Omnipaque 350. Dose reduction technique was used on this scan by utilizing automated expos ure control and iterative reconstruction technique. The dose-length product (DLP) was 336.32 mGy-cm. COMPARISON: 01/07/2023 Findings: Stable large right thyroid lobe nodule, with substernal extension and associated leftward d eviation of the trachea. There is no evidence of any significant mediastinal, hilar or axillary lymphadenopathy. There are pul monary emboli in the left upper lobar pulmonary artery extending into left upper lobe segmental branc hes.. There is no evidence of aortic dissection or aneurysm. There is extensive atherosclerotic calci fication of the aorta and coronary arteries. There is no evidence of pleural or pericardial effusion. There is severe emphysema with minimal bibasilar atelectatic change. No suspicious pulmonary nodule s een. Images through the upper abdomen reveal stable hepatic and renal cysts. Impression: Left upper lobe artery pulmonary embolus extending to segmental branches in the left upper lobe. Severe emphysema. Enlarged right thyroid lobe with substernal extension and leftward deviation of the trachea. Case discussed with Dr. Reyna at the time of this reading. Reviewed, dictated and finalized at location M. Impression: Left upper lobe artery pulmonary embolus extending to segmental branches in the left upper lobe. Severe emphysema. Enlarged right thyroid lobe with substernal extension and leftward deviation of the trachea. Case discussed with Dr. Reyna at the time of this reading.
--- NOTE | ~2023-01-03 | XR_ITS ---
EXAMINATION: XR chest 1V portable Exam Date/Time: 01/11/2023 14:15 CDT HISTORY: sob Comparison: 01/09/2023. RESULT: Lines, tubes, and devices: None. Lungs and pleura: Streaky bibasilar scar/atelectasis, senescent changes, otherwise clear. Cardiomediastinal silhouette: Stable. Other: No acute osseous or upper abdominal finding. IMPRESSION: No acute cardiopulmonary process. Reviewed, dictated and finalized at location K.
--- NOTE | ~2023-01-03 | XR_ITS ---
EXAMINATION: XR chest 1V portable INDICATION: Shortness of breath TECHNIQUE: Portable AP chest at 1131 hours COMPARISON: 01/03/2023 FINDINGS: There are minimal airspace opacities of the lung bases. No pleural effusion or pneumothorax . The cardiomediastinal silhouette is normal. A right thyroid goiter is noted. IMPRESSION: 1. Minimal bibasilar airspace opacities, consistent with atelectasis versus pneumonia. Reviewed, dictated and finalized at location A. IMPRESSION: 1. Minimal bibasilar airspace opacities, consistent with atelectasis versus pne umonia.
--- NOTE | ~2023-01-03 | US_ITS ---
EXAMINATION: US venous doppler [facility] DATE: 01/06/2023 14:01 INDICATION: Lower limb deep vein thrombosis. TECHNIQUE: Grayscale ultrasound images without and with compression and Doppler ultrasound images of the bilateral lower extremity veins were obtained. COMPARISON: Ultrasound 04/02/2022 FINDINGS: The visualized portions of right common femoral vein, profunda (deep) femoral vein, femoral vein, pop liteal vein, peroneal veins, posterior tibial veins, and greater saphenous vein outflow are patent. The visualized portions of left common femoral vein, profunda femoral vein, femoral vein, popliteal v ein, peroneal veins, posterior tibial veins, and greater saphenous vein outflow are patent. IMPRESSION: 1. No deep venous thrombosis. Reviewed, dictated and finalized at location A.
--- NOTE | ~2023-01-03 | XR_ITS ---
EXAMINATION: XR_[id number]_CR INDICATION: Right knee pain post reduction TECHNIQUE: Two views of the right knee are obtained. COMPARISON: 0832 hours FINDINGS: There are changes of knee arthroplasty. The previously described dislocation has been reduc ed. Alignment is normal. No fracture is identified. IMPRESSION: 1. Reduced knee dislocation. Reviewed, dictated and finalized at location A.
--- NOTE | ~2023-01-03 | XR_ITS ---
EXAMINATION: XR chest 1V INDICATION: Pain after fall TECHNIQUE: AP view of the chest obtained on two radiographs. COMPARISON: 04/05/2022 FINDINGS: There is a nodular opacity left lung base. Emphysema is noted. No pleural effusion or pneum othorax. The heart size is normal. There is a small to moderate-sized hiatal hernia. IMPRESSION: 1. Nodular opacity of the left lower lobe which may be infectious or inflammatory however, malignancy is a consideration given background emphysema. Follow-up with nonemergent CT of the chest is recomme nded. 2. Small to moderate size hiatal hernia. Reviewed, dictated and finalized at location A. IMPRESSION: 1. Nodular opacity of the left lower lobe which may be infectious or inflammato ry however, malignancy is a consideration given background emphysema. Follow-up with nonemergent CT of the chest is recommended. 2. Small to moderate size hiatal hernia.
--- NOTE | ~2023-01-03 | XR_ITS ---
EXAMINATION: XR hip RT 2V w AP pelvis DATE: 01/03/2023 08:38 INDICATION: Fall. TECHNIQUE: An anteroposterior view of the pelvis and 2 views of right hip were obtained. COMPARISON: Pelvis radiograph 04/29/2021 FINDINGS: There are old healed fractures of right superior and inferior pubic rami and right parasymp hyseal pubis. There is a subcapital fracture of right femoral neck. The distal fracture fragment demo nstrates 11 mm shortening and 13 mm anterior displacement. There is mild osteoarthrosis of the hips. There is severe lumbar spondylosis. IMPRESSION: 1. Displaced subcapital fracture of right femoral neck. 2. Mild osteoarthritis of the hips. Reviewed, dictated and finalized at location A.
--- NOTE | ~2023-01-03 | XR_ITS ---
EXAMINATION: XR hip RT min 2V DATE: 01/04/2023 17:55 INDICATION: Postoperative evaluation following placement of a bipolar type right hip hemiarthroplasty . TECHNIQUE: Anteroposterior and lateral views of the right hip were obtained. COMPARISON: 01/03/2023 FINDINGS: Interval resection of the right femoral head and fractured neck and placement of a noncemented bipola r type right hip hemiarthroplasty which is in near-anatomic alignment. Again seen is an old fracture deformity at the medial side of the right pubic ring which is better appreciated on the prior study. Moderate osteoarthritis at the right sacral iliac joint. Expected small amount of postoperative soft tissue gas. IMPRESSION: 1. Bipolar type right hip hemiarthroplasty, negative for postoperative purposes. 2. Chronic fracture deformity at the medial side of the right pubic ring. Reviewed, dictated and finalized at location A. IMPRESSION: 1. Bipolar type right hip hemiarthroplasty, negative for postoperative purposes . 2. Chronic fracture deformity at the medial side of the right pubic ring.
--- NOTE | ~2023-01-03 | XR_ITS ---
XR_[id number]_CR 01/03/2023 08:38 Indication: Right knee pain after trauma Procedure: 3 views right knee Comparison: No prior studies for comparison. Findings: There is posterior dislocation of the right knee. There is a right total knee arthroplasty. No definitive acute fracture is identified, although repeat x-rays recommended post reduction. Osteo penia. Impression: 1: Posterior dislocation of the right knee. Reviewed, dictated and finalized at location B. Impression: 1: Posterior dislocation of the right knee.
--- NOTE | ~2023-01-03 | XR_ITS ---
EXAMINATION: XR ankle RT 2V DATE: 01/05/2023 10:43 INDICATION: Right ankle pain with weightbearing. TECHNIQUE: 2 views of right ankle were obtained. COMPARISON: Right ankle radiographs 08/19/20 FINDINGS: Bone alignment is normal. No fracture. Joint spaces are normal. There is ankle soft tissue swelling. IMPRESSION: 1. No fracture. Reviewed, dictated and finalized at location A. IMPRESSION: 1. No fracture.
--- NOTE | ~2023-01-03 | CT_ITS ---
EXAMINATION:CT diagnostic chest wo con DATE: 01/07/2023 10:07 INDICATION: Pneumonia. Congestive heart failure. TECHNIQUE: Computed tomography (CT) of the chest was performed without intravenous contrast. Automate d exposure control and iterative reconstruction technique were employed. The dose-length product (DLP ) was 199.48 mGy-cm. COMPARISON: Chest CT 01/04/2023 FINDINGS: There is severe emphysema. There is mild atelectasis in the inferior lungs. No pleural effu isa. The heart size is normal. There are coronary artery calcifications. No pericardial effusion. Th ere is a multinodular goiter with extension into the mediastinum and leftward displacement of the tra flower. There is a 3.5 cm cyst in the liver. There are cysts in left kidney measuring up to 1.9 cm. The re are fractures of right 10th and 11th ribs. There is mild thoracic spondylosis. There is mild chron ic anterior wedging of multiple midthoracic vertebral bodies. IMPRESSION: 1. Severe emphysema. 2. Right 10th and 11th rib fractures, likely acute or subacute. 3. Intrathoracic goiter. Reviewed, dictated and finalized at location A.
--- NOTE | ~2023-01-03 | US_ITS ---
EXAMINATION: US thyroid DATE: 01/04/2023 10:32 INDICATION: Thyroid nodule. TECHNIQUE: Multiple ultrasound images of the thyroid were obtained. COMPARISON: Ultrasound 07/15/15 FINDINGS: The right thyroid lobe measures 6.9 x 3.1 x 3.7 cm. The left thyroid lobe measures 5.1 x 2.1 x 1.8 c m. In the right thyroid lobe, there is a 4.4 cm predominantly solid, isoechoic, wider than tall nodu le with ill-defined margin without echogenic foci (TI-RADS TR3). In the left thyroid lobe, there is a 12 mm predominantly solid, isoechoic, wider than tall nodule with smooth margin without echogenic fo ci (TR3). IMPRESSION: 1. Thyroid nodules, stable from 07/15/15, likely benign. No follow-up is needed. Reviewed, dictated and finalized at location A.
--- NOTE | 2023-01-03 08:28 | ED.FALL ---
HPI - Fall General Chief Complaint: Fall Stated Complaint: fall Time Seen by Provider: 01/03/23 08:07 History of Present Illness HPI Narrative: Patient is an 82-year-old female who presents ER status post mechanical fall. She landed on her right side. She suffered onset pain to her right hip. She does have some swelling to her right knee with concern for deformity. She reports some chronic swelling since her knee replacement surgery. She did not strike her head or lose consciousness. She does take Plavix. No additional concerns. Related Data Home Medications Medication Instructions Recorded Confirmed aspirin 81 mg tablet,delayed 81 mg PO DAILY 04/10/19 01/03/23 release cholecalciferol (vitamin D3) 125 2,000 unit PO DAILY 04/10/19 01/03/23 mcg (5,000 unit) tablet acetaminophen 500 mg tablet 1,000 mg PO BID PRN Pain 03/15/22 01/03/23 Allergies Allergy/AdvReac Type Severity Reaction Status Date / Time iodine Allergy Unknown Rash Verified 10/28/22 09:17 Iodine and Iodide Containing Allergy Unknown Rash Verified 10/28/22 09:17 Produc [id number] Allergy Unknown Rash Uncoded 10/28/22 09:17 Review of Systems Review of Systems: All systems reviewed & are unremarkable except as noted in HPI and below Constitutional: Constitutional: Denies chills, Denies fatigue and Denies fever(s) ENT: Denies nasal congestion and Denies sore throat Cardiovascular: Cardiovascular: Denies chest pain, Denies rapid heart rate and Denies radiating jaw, neck or arm pain Gastrointestinal: Gastrointestinal: Denies abdominal pain, Denies nausea and Denies vomiting Musculoskeletal: Musculoskeletal: Reports arthralgias, Reports joint swelling and Denies muscle cramps Neurologic: Denies syncope, Denies headache(s), Denies focal weakness and Denies numbness [facility] Past Medical History Medical History (Updated 01/03/23 @ 18:05 by Jessy Wetzel NP) Arthritis Asthma Basal cell carcinoma Cerebrovascular accident (~1995) With mild right-sided weakness. Chills Chronic kidney disease, stage 3 Baseline creatinine between 1.6 and 1.70. Chronic low back pain CKD (chronic kidney disease) stage 3, GFR 30-59 ml/min COPD (chronic obstructive pulmonary disease) Diarrhea Fever Gastroesophageal reflux disease GERD (gastroesophageal reflux disease) High cholesterol History of TIA (transient ischemic attack) History of vaginal delivery x 2. HLD (hyperlipidemia) HTN (hypertension) Hyperlipidemia Hypertension Mild obstructive sleep apnea On sleep study in March 2008. 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 History of bilateral breast biopsy (~09/2006) With benign pathology. History of cataract extraction History of dilation and curettage History of removal of pigmented skin lesion History of tubal ligation S/P total knee arthroplasty Rt TKA 03/31/22 Status post debridement (~2017) Debridement of traumatic hematoma of the left medial leg. [place] teeth removed Family History Family History Mother Hypertension Family history of malignant neoplasm of breast in first degree relative Other Cerebrovascular accident Diabetes mellitus HLD (hyperlipidemia) Heart disease Skin cancer Social History Social History (Updated 01/03/23 @ 17:56 by Jessy Wetzel NP) Social History: She lives with her Ronal and has 2 children. She is retired. Surrogate decision maker: Ronal Palacios, .
[2023-01-03] MEDS: MORPHINE SULFATE (*CRX) 4 MG/ML INJ IV PUSH (08:50)
[2023-01-03 09:10] LABS: Basophils Absolute Auto 0.1 K/mm3 (0.0-0.1); Basophils Percent Auto 0.5 % (0.2-1.2); Eosinophils Absolute Auto 0.1 K/mm3 (0-0.3); Eosinophils Percent Auto 0.4 % (0-4.4); Hematocrit 41.8 % (37.0-47.0); Hemoglobin 13.7 g/dL (12.0-15.0); Immature Granulocyte Absolute 0.12 K/mm3 (0.00-0.031); Immature Granulocyte Percent A 0.9 % (0-0.5); Lymphocytes Absolute Auto 1.15 K/mm3 (0.9-3.2); Lymphocytes Percent Auto 8.9 % (18.3-44.2); Mean Corpuscular HGB Conc 32.8 g/dl (32-36); Mean Corpuscular Hemoglobin 29.8 pg (26-34); Mean Corpuscular Volume 91.1 fl (80-100); Mean Platelet Volume 9.5 fl (7.4-10.4); Monocytes Absolute Auto 0.8 K/mm3 (0.1-0.6); Monocytes Percent Auto 5.8 % (2.6-8.5); Neutrophils Absolute Auto 10.8 K/mm3 (1.3-6.7); Neutrophils Percent Auto 83.5 % (45.5-73.1); Platelet Count Result 380 k/mm3 (150-375); Red Blood Count 4.59 M/mm3 (4.2-5.4); Red Cell Distribution Width 13.7 % (11.5-14.5); White Blood Count 12.9 K/mm3 (4.5-10.0)
[2023-01-03 09:30] LABS: Albumin Level 4.2 g/dL (3.5-5.1); Alkaline Phosphatase 140 U/L (38-126); Anion Gap 10 mmol/L (8-16); Aspartate Amino Transferase 31 U/L (14-36); Blood Urea Nitrogen 22 mg/dL (7-17); Calcium 9.6 mg/dL (8.4-10.2); Carbon Dioxide 20 mmol/L (22-30); Chloride 101 mmol/L (98-107); Estimated CRCL calculation 21 ml/min; Estimated Glomerular Filt Rate 27; Glucose 115 mg/dL (65-110); Potassium 3.8 mmol/L (3.4-5.0); Sodium 131 mmol/L (137-145)
[2023-01-03 09:32] LABS: Partial Thromboplastin Time 27.4 SECONDS (22.3-36.8); Prothrombin Time 13.9 Seconds (11.1-14.7)
[2023-01-03 09:35] LABS: Alanine Aminotransferase 32 U/L (6-35)
[2023-01-03] MEDS: MORPHINE SULFATE (*CRX) 2 MG/ML INJ IV PUSH (09:38)
[2023-01-03] MEDS: SODIUM CHLORIDE 0.9% IV 1,000 ML 150 ML (09:38)
[2023-01-03] MEDS: PROPOFOL IV EMULSION 200 MG/20 ML VIAL 70 MG IV PUSH (10:39)
[2023-01-03 11:53] LABS: Appearance Urine Clear (Clear); Bacteria Urine None Seen /hpf; Bilirubin Urine Negative (Negative); Color Urine Yellow (Yellow); Glucose Urine UA Negative (Negative); Ketones Urine Negative (Negative); Leukocyte Esterase Ur Negative LEU/UL (Negative); Nitrate Urine Negative (Negative); Non Pathogenic Casts 0-2; Protein Urine Trace mg/dL (Negative); RBC Urine 0-2 /hpf (0-2); Specific Grav Ur 1.008 (1.001-1.035); Squamous Epithelial Cell Urine None seen /hpf (Few); Urobilinogen Urine 0.2 mg/dL (<2.0); WBC Urine 0-5 /hpf
[2023-01-03 12:02] LABS: Add Urine Microscopic? YES
--- NOTE | 2023-01-03 12:05 | PC.NURSE ---
This patient, Radha Palacios, was admitted to Medical Room 343-01. Patient/family oriented to hospital policies and general routines including ID bracelet, bed and alarms, visiting hours, pain management, procedures, bathroom and other care routines, personal items, smoking policy, room service/diet, and visiting hours. Information on how to activate the Rapid Response Team has been discussed. Patient/Family are encouraged to report perceived risks to care and to ask questions if they do not understand what they are told or what they should do.
[2023-01-03] MEDS: SODIUM CHLORIDE 0.9% IV 1,000 ML 125 ML IV CONT ×2 (12:54→20:30)
--- NOTE | 2023-01-03 14:17 | PM.IMHP ---
H&P: HPI History of Present Illness Date/Time: 01/03/23 14:17 Chief Complaint: Fall Narrative: This is an 82-year-old female patient who came to the emergency room status post mechanical fall. The patient stated that she fell over her own feet when she was walking down the [place] from the bathroom. She landed on her right side. She suffered onset of pain to her right hip. She also has some swelling to the right knee and was concern for deformity. She reported that some of the edema is chronic. She has had some chronic swelling since her knee replacement. Patient stated she did not strike her head or lose consciousness. The patient stated that as long as she does not move she does not have any discomfort but when she moves her pain is about a 6 or 7. The patient is not able to ambulate on her right. Her white count was noted to be 12.9. Platelet count 380. Her sodium is 131 with a previous normal a few months ago. Creatinine is 1.8 with a previous creatinine of 1.63 on 07/16/2022. Her GFR is listed as 27 with a previous value of 31. Chest x-ray was read as the following. Nodular opacity of the left lower lobe which may be infectious or inflammatory however, malignancy is a consideration given background emphysema. Follow-up with nonemergent CT of the chest is recommended. 2. Small to moderate size hiatal hernia. Hip and pelvis x-ray was read as the following. Displaced subcapital fracture of right femoral neck. 2. Mild osteoarthritis of the hips. Knee x-ray was read as?Posterior dislocation of the right knee. The right knee was reduced and knee x-rays were repeated . Reduced knee dislocation. The patient was given morphine and her profile was used during the repositioning of the right knee. The patient was ordered a dose of Ancef as per Dr. Carbajal who had been consulted for the hip fracture.. The patient is being admitted to inpatient status on the date of service of 01/04/2020 Review of Systems Review of Systems: All systems reviewed & are unremarkable except as noted in HPI and below Constitutional: Constitutional: Reports as per HPI and Reports no additional constitutional complaints Eyes: Eyes: Reports as per HPI and Reports no additional eye complaints ENT: Reports system reviewed and no additional complaints, except as documented and Reports Normal hearing present Cardiovascular: Cardiovascular: Reports no additional cardiovascular complaints Respiratory: Respiratory: Reports no additional respiratory complaints and Reports no additional respiratory complaints Gastrointestinal: Gastrointestinal: Reports as per HPI and Reports no additional gastrointestinal complaints Musculoskeletal: Musculoskeletal: Reports no additional musculoskeletal complaints Integumentary/Breasts: Skin/Breast: Reports system reviewed and no additional complaints, except as docu and Reports as per HPI Neurologic: Reports system reviewed and no additional complaints, except as documented, Reports as per HPI and Reports Normal hearing present Psychiatric: Psychiatric: Reports no additional psychiatric complaints and Reports as per HPI Endocrine: Endocrine: Reports no additional endocrine complaints Hematologic/Lymphatic: Hematologic/Lymphatic: Reports no additional hematologic/lymphatic complaints Allergic/Immunologic: Allergic/Immunologic: Reports no additional allergic/immunologic complaints [facility] Past Medical History Medical History (Updated 01/03/23 @ 18:05 by Jessy Wetzel NP) Arthritis Asthma Basal cell carcinoma Cerebrovascular accident (~1995) With mild right-sided weakness. Chills Chronic kidney disease, stage 3 Baseline creatinine between 1.6 and 1.70. Chronic low back pain CKD (chronic kidney disease) stage 3, GFR 30-59 ml/min COPD (chronic obstructive pulmonary disease) Diarrhea Fever Gastroesophageal reflux disease GERD (gastroesophageal reflux disease) High cholesterol History of TIA (transient ischemic attack) Hi
--- NOTE | 2023-01-03 15:55 | PM.CNOR ---
Assessment and Plan Assessment and plan (1) Subcapital fracture of right hip: Qualifiers: Encounter type: initial encounter Fracture type: closed Qualified Code(s): S72.011A - Unspecified intracapsular fracture of right femur, initial encounter for closed fracture Code(s): S72.011A - Unspecified intracapsular fracture of right femur, initial encounter for closed fracture Status: Acute (2) 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: Code(s): T84.022A - Instability of internal right knee prosthesis, initial encounter Status: Acute Plan Displaced right hip femoral neck fracture will benefit from bipolar hemiarthroplasty. Associated right knee instability, likely precipitated by right-sided weakness as a sequela past CVA. Will hold Plavix. Closed reduction of the knee performed in the emergency department. Patient reports a history of frequent subluxation events. Prosthetic instability may need to be addressed in the future. Proceed with bipolar hemiarthroplasty. Risks, benefits, and alternatives discussed. History of Present Illness HPI Consult date: 01/03/23 Chief complaint: Hip Fracture/Knee Dislocation Narrative: Patient complains of acute right hip pain. Fell from standing height. She states that her knee locks up intermittently. Often she can shake it free. She required closed reduction of her right knee arthroplasty emergency department. Admitted for management the right hip fracture. No previous hip pain. History of CVA with right-sided weakness. Comfortable at rest. Review of Systems Review of Systems: Denies loss of consciousness. All systems reviewed & are unremarkable except as noted in HPI and below PMFSH Past Medical History Medical History Arthritis Asthma Basal cell carcinoma Cerebrovascular accident (~1995) With mild right-sided weakness. Chills Chronic kidney disease, stage 3 Baseline creatinine between 1.6 and 1.70. Chronic low back pain CKD (chronic kidney disease) stage 3, GFR 30-59 ml/min COPD (chronic obstructive pulmonary disease) Diarrhea Fever Gastroesophageal reflux disease GERD (gastroesophageal reflux disease) High cholesterol History of TIA (transient ischemic attack) History of vaginal delivery x 2. HLD (hyperlipidemia) HTN (hypertension) Hyperlipidemia Hypertension Mild obstructive sleep apnea On sleep study in March 2008. 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 History of bilateral breast biopsy (~09/2006) With benign pathology. History of cataract extraction History of dilation and curettage History of tubal ligation S/P total knee arthroplasty Rt TKA 03/31/22 Status post debridement (~2017) Debridement of traumatic hematoma of the left medial leg. [place] teeth removed Family History Family History Mother Hypertension Family history of malignant neoplasm of breast in first degree relative Other Cerebrovascular accident Diabetes mellitus HLD (hyperlipidemia) Heart disease Skin cancer Social History Social History Social History: Surrogate decision maker: Ronal Palacios, . Code status: Full code. Smoking packs per day: 1 Smoking cigarettes per day: 20.0 Years smoked: 30 Smoking pack-years: 30.00 Smoking status: Former smoker Second hand tobacco smoke exposure: No Additional
[2023-01-04] VITALS (15 sets, daily range): BP systolic 93–158; BP diastolic 50–113; PULSE 90–108; RESP 16–20; TEMP 36.4–37.3; O2SAT 87–97
[2023-01-04 05:57] LABS: Basophils Percent Auto 0.3 % (0.2-1.2); Eosinophils Percent Auto 0.4 % (0-4.4); Hemoglobin 11.8 g/dL (12.0-15.0); Immature Granulocyte Absolute 0.02 K/mm3 (0.00-0.031); Immature Granulocyte Percent A 0.3 % (0-0.5); Lymphocytes Absolute Auto 0.97 K/mm3 (0.9-3.2); Lymphocytes Percent Auto 12.5 % (18.3-44.2); Mean Corpuscular HGB Conc 31.9 g/dl (32-36); Mean Corpuscular Hemoglobin 29.1 pg (26-34); Mean Corpuscular Volume 91.4 fl (80-100); Monocytes Absolute Auto 0.6 K/mm3 (0.1-0.6); Monocytes Percent Auto 7.9 % (2.6-8.5); Neutrophils Absolute Auto 6.1 K/mm3 (1.3-6.7); Neutrophils Percent Auto 78.6 % (45.5-73.1); Platelet Count Result 299 k/mm3 (150-375); Red Blood Count 4.05 M/mm3 (4.2-5.4); Red Cell Distribution Width 13.6 % (11.5-14.5); White Blood Count 7.7 K/mm3 (4.5-10.0)
[2023-01-04 06:04] LABS: Alanine Aminotransferase 16 U/L (6-35); Albumin Level 3.5 g/dL (3.5-5.1); Alkaline Phosphatase 106 U/L (38-126); Anion Gap 6 mmol/L (8-16); Aspartate Amino Transferase 26 U/L (14-36); Blood Urea Nitrogen 18 mg/dL (7-17); Calcium 8.4 mg/dL (8.4-10.2); Carbon Dioxide 21 mmol/L (22-30); Chloride 105 mmol/L (98-107); Estimated CRCL calculation 27 ml/min; Estimated Glomerular Filt Rate 36; Glucose 108 mg/dL (65-110); Magnesium 1.9 mg/dL (1.6-2.3); Sodium 132 mmol/L (137-145)
[2023-01-04 07:29] LABS: Thyroid Stimulating Hormone Reflex 0.327 uIU/mL (0.465-4.68)
--- NOTE | 2023-01-04 08:05 | PC.NURSE ---
Patient off of unit to CT
--- NOTE | 2023-01-04 08:08 | PCPTNOTE ---
Pt to have ortho surgery. Please re-order when medically stable.
--- NOTE | 2023-01-04 08:20 | PC.NURSE ---
Patient returned to unit from CT
[2023-01-04 08:24] LABS: Free T4 Free Thyroxine Reflex 1.64 ng/dL (0.78-2.19)
[2023-01-04] MEDS: FLUTICASONE/UMECLIDIN/VILANTER 100-62.5-25 MCG ELLIPTA 1 PUFF INHALATION (08:43)
[2023-01-04 09:03] LABS: Total Triiodothyronine (T3) 0.99 NG/ML (0.97-1.69)
--- NOTE | 2023-01-04 10:12 | WPDHPUPDATE1 ---
History and Physical Update Update Date/Time: 01/04/23 10:12 History and Physical has been reviewed, including an updated exam of the patient. There are NO changes in the patient's condition. Risks, benefits, and alternatives have been discussed and questions answered. Patient agrees to proceed with procedure.
--- NOTE | 2023-01-04 11:43 | PM.IMPN ---
Progress Note: A&P Assessment and Plan (1) Subcapital fracture of right hip: Qualifiers: Encounter type: initial encounter Fracture type: closed Qualified Code(s): S72.011A - Unspecified intracapsular fracture of right femur, initial encounter for closed fracture Code(s): S72.011A - Unspecified intracapsular fracture of right femur, initial encounter for closed fracture Status: Acute Assessment and Plan: Dr. Carbajal has been consulted. Continue with analgesics. The patient will need DVT prophylaxis per orthopedic doctor. 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 Continue with analgesics. PT OT evaluation (3) CKD (chronic kidney disease) stage 3, GFR 30-59 ml/min: Code(s): N18.3 - Chronic kidney disease, stage 3 (moderate) Status: Acute Assessment and Plan: Creatinine 1.8 with a baseline of anywhere from 1.3-1.8. Lisinopril is on hold at this time. (4) HTN (hypertension): Qualifiers: Hypertension type: primary hypertension Qualified Code(s): I10 - Essential (primary) hypertension Code(s): I10 - Essential (primary) hypertension Status: Chronic Assessment and Plan: Lisinopril is on hold due to acute on chronic renal failure continue with a lot of felodipine (5) Lung nodule: Code(s): R91.1 - Solitary pulmonary nodule Status: Acute Assessment and Plan: CT chest 1. Bilateral lower lobe consolidation which represent atelectasis/scarring or pneumonia. There is bilateral lower lobe bronchiectasis. 2: Small bilateral pulmonary nodules measuring 3 mm or less, likely benign. Recommend follow-up CT in 12 months. 3: Large complex right thyroid mass. Correlation with thyroid ultrasound recommended. 4:? Emphysema. (6) HLD (hyperlipidemia): Qualifiers: Hyperlipidemia type: mixed hyperlipidemia Qualified Code(s): E78.2 - Mixed hyperlipidemia Code(s): E78.5 - Hyperlipidemia, unspecified Status: Chronic Assessment and Plan: Continue with atorvastatin (7) History of TIA (transient ischemic attack): Code(s): Z86.73 - Personal history of transient ischemic attack (TIA), and cerebral infarction without residual deficits Status: Acute Assessment and Plan: Continue with Plavix aspirin on hold at this time (8) COPD (chronic obstructive pulmonary disease): Qualifiers: COPD type: unspecified COPD Qualified Code(s): J44.9 - Chronic obstructive pulmonary disease, unspecified Code(s): J44.9 - Chronic obstructive pulmonary disease, unspecified Status: Chronic (9) Asthma: Code(s): J45.909 - Unspecified asthma, uncomplicated Status: Chronic Assessment and Plan: Continue with home inhalers (10) Thyroid mass: Code(s): E07.9 - Disorder of thyroid, unspecified Status: Acute Assessment and Plan: Thyroid ultrasound performed. Mass unchanged from previous studies Subjective Date/time seen: 01/04/23 11:43 Interval history: Pain in bilateral lower extremity Review of Systems Review of Systems: All systems reviewed & are unremarkable except as noted in HPI and below Constitutional: Constitutional: Reports as per HPI and Reports no additional constitutional complaints Eyes: Eyes: Reports as per HPI and Reports no additional eye complaints ENT: Reports system reviewed and no additional complaints, except as documented and Reports Normal hearing present Cardiovascular: Cardiovascular: Reports no additional cardiovascular complaints Respiratory: Respiratory: Reports no additional respiratory complaints and Reports no additional respiratory complaints Gastrointestinal: Gastrointestinal: Reports as per HPI and Reports no additional gastrointestinal comp
--- NOTE | 2023-01-04 14:08 | PC.NURSE ---
Patient off the unit to surgery
--- NOTE | 2023-01-04 14:21 | WPDANESEPPF ---
Anes - Initial Pre Proc Eval Procedure: Operation Date: 01/04/23 15:30 Proposed Procedures p Right Bipolar Hip Replacement(Right) - Lambert Carbajal MD Date/Time: 01/04/23 14:21 Surgeon: Manuelito Lara MD Pre Op Diagnosis: Hip Fracture/Knee Dislocation Patient Data Age: 82 Gender: F Height: 1.6 m Weight: 70 kg Last Vital Signs Temp 37.1 C 01/04/23 04:18 Pulse 100 01/04/23 09:12 Resp 16 01/04/23 09:12 BP 143/50 H 01/04/23 04:18 Pulse Ox 92 01/04/23 09:11 O2 Del Method Nasal Cannula 01/04/23 09:11 O2 Flow Rate 3 01/04/23 09:11 FiO2 32 01/04/23 09:11 Allergies Allergy/AdvReac Type Severity Reaction Status Date / Time iodine Allergy Unknown Rash Verified 10/28/22 09:17 Iodine and Iodide Containing Allergy Unknown Rash Verified 10/28/22 09:17 Produc [id number] Allergy Unknown Rash Uncoded 10/28/22 09:17 Home Medications Medication Instructions Recorded Confirmed Type aspirin 81 mg tablet,delayed 81 mg PO DAILY 04/10/19 01/03/23 History release cholecalciferol (vitamin D3) 125 2,000 unit PO DAILY 04/10/19 01/03/23 History mcg (5,000 unit) tablet fluticasone fur. 100 mcg-umeclid 1 ea inhalation DAILY #90 ea 03/25/21 01/03/23 Rx 62.5 mcg-vilant 25 mcg inhalat.powder (Trelegy Ellipta) clopidogrel 75 mg tablet (Plavix) 75 mg PO DAILY #90 tabs 03/11/22 01/03/23 Rx pantoprazole 20 mg tablet,delayed 20 mg PO QAM #90 tabs 03/11/22 01/03/23 Rx release (Protonix) tolterodine 4 mg capsule,extended 4 mg PO DAILY #90 caps 03/11/22 01/03/23 Rx release 24 hr (Detrol LA) acetaminophen 500 mg tablet 1,000 mg PO BID PRN Pain 03/15/22 01/03/23 History ascorbic acid (vitamin C) 500 mg 500 mg PO DAILY #30 tabs 04/06/22 01/03/23 Rx tablet (Vitamin C) calcium carbonate 500 mg-vitamin 500 mg PO Q48H #30 tabs 04/06/22 01/03/23 Rx D3 5 mcg (200 unit) tablet (Oyster Shell Calcium-Vitamin D3) cyanocobalamin (vitamin B-12) 2,500 mcg PO QAM #30 tabs 04/06/22 01/03/23 Rx 2,500 mcg tablet ferrous sulfate 325 mg (65 mg 324 mg PO DAILY@0800 #30 tabs 04/06/22 01/03/23 Rx iron) tablet atorvastatin 40 mg tablet (Lipitor) 40 mg PO DAILY #90 tabs 04/15/22 01/03/23 Rx cetirizine 10 mg tablet (Zyrtec) 10 mg PO DAILY PRN allergy 04/15/22 01/03/23 Rx symptoms #90 tabs felodipine 10 mg tablet,extended 10 mg PO DAILY #90 tabs 04/15/22 01/03/23 Rx release 24 hr lisinopril 40 mg tablet 40 mg PO DAILY #90 tabs 04/15/22 01/03/23 Rx Laboratory Tests 01/03/23 01/04/23 08:51 05:45 WBC 7.7 K/mm3 (4.5-10.0) RBC 4.05 L M/mm3 (4.2-5.4) Hgb 11.8 L g/dL (12.0-15.0) Hct 37.0 % (37.0-47.0) MCV 91.4 fl (80-100) MCH 29.1 pg (26-34) MCHC 31.9 L g/dl (32-36) RDW 13.6 % (11.5-14.5) Plt Count 299 k/mm3 (150-375) MPV 9.0 fl (7.4-10.4) Immature Gran % (Auto) 0.3 % (0-0.5) Neut % (Auto) 78.6 H % (45.5-73.1) Lymph % (Auto) 12.5 L % (18.3-44.2) [place] % (Auto) 7.9 % (2.6-8.5) Eos % (Auto) 0.4 % (0-4.4) Baso % (Auto) 0.3 % (0.2-1.2) Lymph # (Auto) 0.97 K/mm3 (0.9-3.2) [place] # (Auto) 0.6 K/mm3 (0.1-0.6) Eos # (Auto) 0.0 K/mm3 (0-0.3) Baso # (Auto) 0.0 K/mm3 (0.0-0.1) Abs Immat Gran (auto) 0.02 K/mm3 (0.00-0.031) Absolute Neuts (auto) 6.1 K/mm3 (1.3-6.7) Absolute Nucleated RBC 0.0 K/mm3 (0.0-0.012) Nucleated RBC % 0.0 % (0.0-0.2) Sodium 132 L mmol/L (137-145) Potassium 4.0 mmol/L (3.4-5.0) Chloride 105 mmol/L (98-107) Carbon Dioxide 21 L mmol/L (22-30) Anion Gap 6 L mmol/L (8-16) BUN 18 H mg/dL (7-17) Creatinine 1.40 H mg/dL (0.7-1.0) Estim Creat Clear Calc 27 ml/min Estimated GFR 36 L (59 - ) Glucose 108 mg/dL (65-110) Calcium 8.4 mg/dL (8.4-10.2) Magnesium 1.9 mg/dL
[2023-01-04] MEDS: LACTATED RINGERS 1,000 ML 30 ML IV CONT (15:03)
[2023-01-04] MEDS: TRANEXAMIC ACID 1,000MG/ISO100 1,000 MG/100 ML BAG 200 MG IVPB (15:04)
--- NOTE | 2023-01-04 15:39 | PM.PNORT ---
Subjective Subjective Date/Time Seen: 01/04/23 15:39 Objective Data Vital Signs Vital Signs: Vital Signs - 24 hr 01/03/23 21:00 01/03/23 20:00 01/04/23 04:18 Temperature 98.2 F 98.7 F Pulse Rate 107 H 96 Respiratory Rate 16 18 Blood Pressure 120/54 L 143/50 H Pulse Oximetry 92 93 92 Oxygen Delivery Nasal Cannula Oxygen Flow Rate 2 Fraction of Inspired Oxygen 01/04/23 09:11 01/04/23 09:12 01/04/23 07:55 Temperature Pulse Rate 100 100 Respiratory Rate 16 16 Blood Pressure Pulse Oximetry 92 92 Oxygen Delivery Nasal Cannula Nasal Cannula Oxygen Flow Rate 3 2 Fraction of Inspired Oxygen 32 01/04/23 14:24 Temperature 99.2 F Pulse Rate 99 Respiratory Rate 16 Blood Pressure 152/68 H Pulse Oximetry 93 Oxygen Delivery Nasal Cannula Oxygen Flow Rate 3 Fraction of Inspired Oxygen Intake/Output Intake/Output: Intake & Output 01/01/23 01/02/23 01/03/23 01/04/23 23:59 23:59 23:59 23:59 Intake Total 1600 100 Output Total 700 1250 Balance 900 -1150 Meds/Results Medications: Active Medications Generic Name Dose Route Start Last Admin Trade Name Freq PRN Reason Stop Dose Admin Acetaminophen 1,000 mg 01/03/23 17:57 Acetaminophen 500 Mg Tablet PO BID PRN Pain Hydrocodone Bitart/Acetaminophen 1 tab 01/03/23 18:06 Hydrocodone/Acetaminophen (*Crx) 5-325 Mg Tablet PO Q4H PRN Pain Rated 4-6 Ascorbic Acid 500 mg 01/04/23 09:00 01/04/23 07:49 Ascorbic Acid 500 Mg Tablet PO Not Given DAILY KELVIN Atorvastatin Calcium 40 mg 01/04/23 09:00 01/04/23 07:49 Atorvastatin 40 Mg Tablet PO Not Given DAILY KELVIN Calcium Carbonate 500 mg 01/03/23 18:00 01/03/23 18:32 Calcium/Vitamin D 500 Mg Tablet PO Not Given Q48H KELVIN Clopidogrel Bisulfate 75 mg 01/04/23 09:00 01/04/23 07:49 Clopidogrel Bisulfate 75 Mg Tablet PO Not Given DAILY KELVIN Cyanocobalamin 2,500 mcg 01/04/23 09:00 01/04/23 07:49 Cyanocobalamin 500 Mcg Tablet PO Not Given QAM KELVIN Felodipine 10 mg 01/04/23 09:00 01/04/23 07:50 Felodipine 5 Mg Tab Cr PO 02/03/23 08:59 Not Given DAILY KELVIN Fentanyl Citrate 25 mcg 01/04/23 14:23 Fentanyl Citrate Inj (*Crx) 100 Mcg/2 Ml Vial IV PUSH Q2M PRN Pain Ferrous Sulfate 325 mg 01/04/23 08:00 01/04/23 07:49 Ferrous Sulfate [address] PO 02/03/23 07:59 Not Given DAILY@0800 KELVIN Fluticasone/Umeclidinium/Vilanterol 1 puff 01/04/23 09:00 01/04/23 08:43 Fluticasone/Umeclidin/Vilanter 100-62.5-25 Mcg Ellipta INHALATION 1 puff DAILY KELVIN Administration Sodium Chloride 1,000 mls @ 125 mls/hr 01/03/23 10:30 01/03/23 20:30 Normal Saline Iv IV CONT 125 mls/hr .Q8H KELVIN Administration Lactated Ringer's 1,000 mls @ 30 mls/hr 01/03/23 15:55 Lr - Lactated Ringers Iv IV CONT .Q24H KELVIN Lactated Ringer's 1,000 mls @ 30 mls/hr 01/04/23 14:25 01/04/23 15:03 Lr - Lactated Ringers Iv IV CONT 30 mls/hr .Q24H KELVIN Administration Lactated Ringer's 1,000 mls @ 30 mls/hr 01/04/23 14:25 Lr - Lactated Ringers Iv IV CONT .Q24H KELVIN Loratadine 10 mg 01/03/23 17:57 Loratadine 10 Mg Tablet PO DAILY PRN allergy symptoms Morphine Sulfate 2 mg 01/03/23 13:18 Morphine Sulfate (*Crx) 2 Mg/Ml Inj IV PUSH Q2H PRN Pain Rated 7-10 Ondansetron HCl 4 mg 01/03/23 10:30 Ondansetron Inj 4 Mg/2 Ml Vial IV PUSH Q4H PRN Nausea Ondansetron HCl 4 mg 01/04/23 14:23 Ondansetron Inj 4 Mg/2 Ml Vial IV PUSH ONCE PRN Nausea Pantoprazole Sodium 20 mg 01/04/23 09:00 01/04/23 07:51 Pantoprazole Sod Sesquihydrate 20 Mg Tab PO Not Given QAM KELVIN Tolterodine Tartrate 4 mg 01/04/23 09:00 01/04/23 07:52 Tolterodine Tartrate La 4 Mg Cap.Er.24h PO Not Given DAILY KELVIN Vitamin D 2,000 units 01/04/23 09:00 01/04/23 07:49 Cholecalciferol 1,000 Units Tablet PO Not Given DAILY
[2023-01-04] MEDS: ceFAZolin 2 GM/D5W 50 ML 2 GM/50 ML BAG IVPB (16:17)
--- NOTE | 2023-01-04 17:36 | W.PM.PROC2 ---
Procedure Note - Detailed Date of Procedure 01/04/23 Pre-op Diagnosis Displaced femoral neck fracture right hip. Post-op Diagnosis Same Procedure Performed Bipolar hemiarthroplasty right hip. Surgeon Lambert Carbajal MD Anesthesia General Description of Procedure A general anesthetic was administered. The patient was carefully placed in the lateral decubitus position on the peg board positioner. An axillary roll was placed. The hip was prepped and draped in the usual sterile fashion. A minimally invasive optimized posterior approach to the hip was performed. An L shaped capsulotomy was created along the upper border of the piriformis. The short external rotators were tagged with number 2 high strength suture for later repair. The labrum was preserved. The femoral neck cut was performed. The femoral head was removed and sized. The acetabular floor was cleared of debris and loose tissue. The femur was sequentially reamed and broached. Trial was assessed for leg length and stability. The real component was impacted into position, trialed again, and the final head and bipolar component were assembled. The hip was reduced after copious irrigation. The short external rotators and capsule were repaired through drill holes in the posterior trochanter. The wound was closed in layers with 1 vicryl, 2,0, and 2-0 running barbed suture. Adhesive tapes were placed on the skin, followed by a sterile gauze dressing. The patient was extubated and brought to the recovery room. Implants [place] Accolate 2 hip stem 127? size 4. . 49 mm bipolar component. Metal inner ball +0. Estimated Blood Loss 200 Drains No Pathology None sent Complications None Condition Stable Disposition PACU [facility] Billing Surgery - Charge Forward: Surgery Billing
[2023-01-04] MEDS: fentaNYL CITRATE INJ (*CRX) 100 MCG/2 ML VIAL 25 MCG IV PUSH (18:00)
--- NOTE | 2023-01-04 18:45 | SUR.PHASEI ---
1830 - dr. howard at bedside. aware of o2 sat 86%-88% on 3l/nc. pt to stay on simple mask at 4l. floor aware.
[2023-01-05] VITALS (12 sets, daily range): BP systolic 119–161; BP diastolic 52–78; PULSE 77–123; RESP 18–20; TEMP 36.4–36.9; O2SAT 85–94
[2023-01-05] MEDS: ceFAZolin 1 GM/NS 50 ML 1 GM/50 ML BAG IVPB ×3 (00:07→16:19)
[2023-01-05 05:55] LABS: Basophils Percent Auto 0.2 % (0.2-1.2); Hematocrit 37.3 % (37.0-47.0); Hemoglobin 11.8 g/dL (12.0-15.0); Immature Granulocyte Absolute 0.07 K/mm3 (0.00-0.031); Immature Granulocyte Percent A 0.6 % (0-0.5); Lymphocytes Absolute Auto 0.57 K/mm3 (0.9-3.2); Lymphocytes Percent Auto 4.6 % (18.3-44.2); Mean Corpuscular HGB Conc 31.6 g/dl (32-36); Mean Corpuscular Volume 94.9 fl (80-100); Mean Platelet Volume 9.7 fl (7.4-10.4); Monocytes Percent Auto 7.9 % (2.6-8.5); Neutrophils Absolute Auto 10.7 K/mm3 (1.3-6.7); Neutrophils Percent Auto 86.7 % (45.5-73.1); Platelet Count Result 284 k/mm3 (150-375); Red Blood Count 3.93 M/mm3 (4.2-5.4); Red Cell Distribution Width 13.6 % (11.5-14.5); White Blood Count 12.3 K/mm3 (4.5-10.0)
[2023-01-05 06:13] LABS: Anion Gap 3 mmol/L (8-16); Blood Urea Nitrogen 26 mg/dL (7-17); Calcium 8.6 mg/dL (8.4-10.2); Carbon Dioxide 22 mmol/L (22-30); Chloride 103 mmol/L (98-107); Estimated CRCL calculation 25 ml/min; Estimated Glomerular Filt Rate 33; Glucose 138 mg/dL (65-110); Potassium 4.5 mmol/L (3.4-5.0); Sodium 128 mmol/L (137-145)
[2023-01-05] MEDS: FLUTICASONE/UMECLIDIN/VILANTER 100-62.5-25 MCG ELLIPTA 1 PUFF INHALATION (07:27)
[2023-01-05] MEDS: CYANOCOBALAMIN 500 MCG TABLET 2500 MCG PO (08:22)
[2023-01-05] MEDS: ATORVASTATIN 40 MG TABLET PO (08:22)
[2023-01-05] MEDS: CLOPIDOGREL BISULFATE 75 MG TABLET PO (08:22)
[2023-01-05] MEDS: CHOLECALCIFEROL 1,000 UNITS TABLET 2000 UNITS PO (08:23)
[2023-01-05] MEDS: FELODIPINE 5 MG TAB CR 10 MG PO (08:23)
[2023-01-05] MEDS: FERROUS SULFATE 325 MG TABLET DR PO (08:23)
[2023-01-05] MEDS: PANTOPRAZOLE SOD SESQUIHYDRATE 20 MG TAB PO (08:23)
[2023-01-05] MEDS: ASCORBIC ACID 500 MG TABLET PO (08:23)
[2023-01-05] MEDS: TOLTERODINE TARTRATE LA 4 MG CAP.ER.24H PO (08:31)
--- NOTE | 2023-01-05 11:11 | PM.IMPN ---
Progress Note: A&P Assessment and Plan (1) Respiratory failure: Code(s): J96.90 - Respiratory failure, unspecified, unspecified whether with hypoxia or hypercapnia Status: Acute Assessment and Plan: Unsure of etiology, check CXR, possible pna noted on CT 01/04 Check CRP, PCT, consider initiating abx Afebrile for now, tachycardic, check ECG, ABG (2) Subcapital fracture of right hip: Qualifiers: Encounter type: initial encounter Fracture type: closed Qualified Code(s): S72.011A - Unspecified intracapsular fracture of right femur, initial encounter for closed fracture Code(s): S72.011A - Unspecified intracapsular fracture of right femur, initial encounter for closed fracture Status: Acute Assessment and Plan: 01/04: Bipolar hemiarthroplasty right hip 01/05: POD1 (3) 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: Code(s): T84.022A - Instability of internal right knee prosthesis, initial encounter Status: Acute Assessment and Plan: as above (4) CKD (chronic kidney disease) stage 3, GFR 30-59 ml/min: Code(s): N18.3 - Chronic kidney disease, stage 3 (moderate) Status: Acute Assessment and Plan: stable, would discontinue lisinopril, initiate beta kayla if BP med needed at d/c (5) HTN (hypertension): Qualifiers: Hypertension type: primary hypertension Qualified Code(s): I10 - Essential (primary) hypertension Code(s): I10 - Essential (primary) hypertension Status: Chronic Assessment and Plan: Blood pressures reviewed 01/05 D/c lisinopril d/t CKF Cont felodipine (6) Lung nodule: Code(s): R91.1 - Solitary pulmonary nodule Status: Acute Assessment and Plan: CT chest showed bilateral lower lobe consolidation which represent atelectasis/scarring or pneumonia. There is bilateral lower lobe bronchiectasis. Small bilateral pulmonary nodules measuring 3 mm or less, likely benign. Recommend follow-up CT in 12 months. Large complex right thyroid mass. Correlation with thyroid ultrasound recommended. Emphysema. (7) HLD (hyperlipidemia): Qualifiers: Hyperlipidemia type: mixed hyperlipidemia Qualified Code(s): E78.2 - Mixed hyperlipidemia Code(s): E78.5 - Hyperlipidemia, unspecified Status: Chronic Assessment and Plan: Continue with atorvastatin (8) History of TIA (transient ischemic attack): Code(s): Z86.73 - Personal history of transient ischemic attack (TIA), and cerebral infarction without residual deficits Status: Acute Assessment and Plan: Continue with Plavix, aspirin on hold at this time (9) COPD (chronic obstructive pulmonary disease): Qualifiers: COPD type: unspecified COPD Qualified Code(s): J44.9 - Chronic obstructive pulmonary disease, unspecified Code(s): J44.9 - Chronic obstructive pulmonary disease, unspecified Status: Chronic (10) Asthma: Code(s): J45.909 - Unspecified asthma, uncomplicated Status: Chronic Assessment and Plan: Continue with home inhalers (11) Thyroid mass: Code(s): E07.9 - Disorder of thyroid, unspecified Status: Acute Assessment and Plan: Thyroid ultrasound performed. Mass unchanged from previous studies Plan DVT prophylaxis with SCDs GI prophylaxis not indicated Code status full code Subjective Date/time seen: 01/05/23 11:11 Interval history: No overnight events noted. No chest pain or shortness of breath. No nausea, vomiting or diarrhea. No fevers or chills. Overnight, required up to 7L O2, has required up to 10L, slowly improving. Review of Systems Review of Systems: 12 point review of systems was assessed and was negative except as noted in the HPI Exam Narrative: General: No acute distress, alert and oriented per baseline HEENT: Atraumatic, normocephalic, mucous membran
--- NOTE | 2023-01-05 11:22 | ECG_ITS ---
Measurements Intervals [place] Rate: 93 P: 41 [place]: 130 QRS: -28 QRSD: 102 T: 10 QT: 327 QTc: 408 Interpretive Statements SINUS RHYTHM POOR R WAVE PROGRESSION COMPARED TO ECG 02/24/2022 09:59:45 NO SIGNIFICANT CHANGES Electronically Signed On 01-05-2023 14:09:50 CDT by Graciela Clements M.D.
--- NOTE | 2023-01-05 12:36 | PM.PNORT ---
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 Patient tolerated procedure well. No complications. Pain manageable with pain medication. No numbness or tingling. She will likely need rehab at discharge. Patient notes no pain in the knee. She is wearing an immobilizer. Patient reports a history of frequent subluxation events.? Prosthetic instability may need to be addressed in the future. Follow up in office in 1 month with xrays of the hip and knee. Ortho instructions: D/C to SNF/rehab Follow up in office in 4 weeks with xrays. Please call for appointment. [facility]. Wound Care: Remove Mepilex dressing at 7 days post op. Remove steristrips at 14 days post op. May shower. No soaking. PT: Weight bearing as tolerated with knee immobilizer and walker. Subjective Subjective Date/Time Seen: 01/05/23 12:36 Interval history: Patient resting comfortably in bed. She states she has no pain. Wearing knee immobilizer. On nasal canula. Review of Systems Review of Systems: Pain right hip and leg with movement. Denied pain elsewhere. ROS unobtainable: Yes unobtainable due to medical condition Exam Narrative: Normal weight 85 y/o Male. Resting comfortably in bed. Wearing knee immobilizer on right side. Dressing dry and intact with no drainage. Mild swelling. No edema. No ecchymosis. No erythema. No hematoma. Range of motion limited due to pain. Calf nontender. Thigh nontender. No varicosities. Distal pulses palpable. Objective Data Vital Signs Vital Signs: Vital Signs - 24 hr 01/04/23 14:24 01/04/23 17:40 01/04/23 17:55 Temperature 99.2 F 98.4 F Pulse Rate 99 108 H 95 Pulse Rate [With Activity During Therapy Session] Respiratory Rate 16 18 18 Blood Pressure 152/68 H 140/113 H 152/79 H Pulse Oximetry 93 90 90 Pulse Oximetry [With Activity During Therapy Session] Oxygen Delivery Nasal Cannula Simple Face Mask Simple Face Mask Oxygen Flow Rate 3 10 10 01/04/23 18:00 01/04/23 18:15 01/04/23 18:30 Temperature Pulse Rate 98 94 91 Pulse Rate [With Activity During Therapy Session] Respiratory Rate 18 20 18 Blood Pressure 147/74 H 93/80 L 158/92 H Pulse Oximetry 88 L 87 L 91 Pulse Oximetry [With Activity During Therapy Session] Oxygen Delivery Simple Face Mask Simple Face Mask Simple Face Mask Oxygen Flow Rate 10 10 4 01/04/23 18:45 01/04/23 19:00 01/04/23 20:00 Temperature 97.8 F Pulse Rate 92 90 95 Pulse Rate [With Activity During Therapy Session] Respiratory Rate 20 20 20 Blood Pressure 158/60 H 150/62 H 147/68 H Pulse Oximetry 89 L 90 91 Pulse Oximetry [With Activity During Therapy Session] Oxygen Delivery Simple Face Mask Simple Face Mask Oxygen Flow Rate 4 4 01/04/23 20:15 01/04/23 20:45 01/04/23 20:00 Temperature 97.7 F 97.6 F Pulse Rate 96 108 H Pulse Rate [With Activity During Therapy Session] Respiratory Rate 20 18 Blood Pressure 157/76 H 127/52 L Pulse Oximetry 97 93 96 Pulse Oximetry [With Activity During Therapy Session] Oxygen Delivery High Flow Nasal Cannula Oxygen Flow Rate 7 01/05/23 00:38 01/05/23 04:57 01/05/23 07:28 Temperature 97.5 F L 97.6 F Pulse Rate 77 98 Pulse Rate [With Activity During Therapy Session] Respiratory Rate 18 20 Blood Pressure 125/71 161/76 H Pulse Oximetry 92 91 91 Pulse Oximetry [With Act
--- NOTE | 2023-01-05 12:47 | WPDANESPN ---
Anes - Prog Note Post-Op Date/Time: 01/05/23 12:47 Cardiovascular status: normal Respiratory status: normal Airway patency: baseline Mental status: baseline Post-Op hydration status: normal Vital Signs: Last Vital Signs Temp 36.9 C 01/05/23 09:33 Pulse 123 H 01/05/23 09:40 Resp 18 01/05/23 09:33 BP 133/75 01/05/23 09:33 Pulse Ox 85 L 01/05/23 09:40 O2 Del Method Nasal Cannula 01/05/23 09:40 O2 Flow Rate 7 01/05/23 09:40 FiO2 32 01/04/23 09:11 Pain Score (VAS): 3 I/O: Intake & Output 01/04/23 01/05/23 01/05/23 23:59 07:59 15:59 Intake Total 950 200 890 Output Total 450 Balance 950 -250 890 Laboratory Tests 01/05/23 05:23 01/05/23 05:23 01/05/23 05:23 WBC 12.3 H RBC 3.93 L Hgb 11.8 L Hct 37.3 MCV 94.9 MCH 30.0 MCHC 31.6 L RDW 13.6 Plt Count 284 MPV 9.7 Immature Gran % (Auto) 0.6 H Neut % (Auto) 86.7 H Lymph % (Auto) 4.6 L [place] % (Auto) 7.9 Eos % (Auto) 0.0 Baso % (Auto) 0.2 Lymph # (Auto) 0.57 L [place] # (Auto) 1.0 H Eos # (Auto) 0.0 Baso # (Auto) 0.0 Abs Immat Gran (auto) 0.07 H Absolute Neuts (auto) 10.7 H Absolute Nucleated RBC 0.0 Nucleated RBC % 0.0 Sodium 128 L Potassium 4.5 Chloride 103 Carbon Dioxide 22 Anion Gap 3 L BUN 26 H Creatinine 1.50 H Estim Creat Clear Calc 25 Estimated GFR 33 L Glucose 138 H Calcium 8.6 Post-procedural complaints: none Patient Feedback: Patient satisfied with anesthetic care.
[2023-01-05] MEDS: HYDROcodone/acetaminophen (*CRX) 5-325 MG TABLET 1 TAB PO ×2 (14:00→20:20)
--- NOTE | 2023-01-05 15:11 | ECG_ITS ---
Measurements Intervals [place] Rate: 100 P: 65 [place]: 153 QRS: -27 QRSD: 94 T: 30 QT: 319 QTc: 412 Interpretive Statements SINUS TACHYCARDIA POOR R-WAVE PROGRESSION COMPARED TO ECG 01/05/2023 12:06:04 SINUS TACHYCARDIA NOW PRESENT Electronically Signed On 01-05-2023 17:19:59 CDT by Graciela Clements M.D.
[2023-01-05 15:54] LABS: Alveolar/Arterial O2 Gradient 265.9 mmHg; Base Excess ABG -2.1 mEq/l (+/-2.0); Fractional Inspired Oxygen 48 %; HCO3 ABG 20.5 mEq/l (22.0-26.0); Oxygen Content ABG 13.7 %vol (16.0-22.0); PCO2 ABG 28.7 mmHg (35.0-45.0); PO2 FiO2 Ratio Arterial Blood 0.91 %; pH ABG 7.471 (7.350-7.450)
[2023-01-05 15:57] LABS: PO2 ABG 43.9 mmHg (80.0-100.0)
[2023-01-05 15:58] LABS: Oxygen Saturation ABG 83.7 % (95.0-100.0)
[2023-01-05 15:59] LABS: Oxyhemoglobin 81.5 % THb (90.0-100.0)
[2023-01-05 16:00] LABS: Device OTHER DEVICE; Site Drawn LEFT BRACHIAL
[2023-01-05 16:17] LABS: Procalcitonin 0.2 ng/mL
[2023-01-05] MEDS: levoFLOXacin 750 MG TABLET PO (16:19)
[2023-01-05] MEDS: ALBUTEROL SULFATE NEB 2.5 MG/3 ML INH INHALATION (19:39)
[2023-01-05] MEDS: IPRATROPIUM BR 0.02% INH SOLN 0.5 MG/2.5 ML VIAL INHALATION (19:39)
[2023-01-05 19:59] LABS: Base Excess ABG -0.8 mEq/l (+/-2.0); Fractional Inspired Oxygen 60 %; HCO3 ABG 21.9 mEq/l (22.0-26.0); Oxygen Content ABG 14.4 %vol (16.0-22.0); Oxygen Saturation ABG 91.5 % (95.0-100.0); Oxyhemoglobin 89.6 % THb (90.0-100.0); PO2 ABG 55.8 mmHg (80.0-100.0); PO2 FiO2 Ratio Arterial Blood 0.93 %; Total Hemoglobin 11.4 g/dL (12.0-18.0); pH ABG 7.481 (7.350-7.450)
[2023-01-05 20:00] LABS: Modified Allen's Test Pass; Site Drawn RIGHT RADIAL
[2023-01-05 20:01] LABS: Device HIGH FLOW NASAL CANN
[2023-01-06] VITALS (12 sets, daily range): BP systolic 127–146; BP diastolic 57–70; PULSE 86–111; RESP 16–20; TEMP 36.6–36.9; O2SAT 90–95
[2023-01-06] MEDS: IPRATROPIUM BR 0.02% INH SOLN 0.5 MG/2.5 ML VIAL INHALATION ×4 (01:45→20:06)
[2023-01-06] MEDS: ALBUTEROL SULFATE NEB 2.5 MG/3 ML INH INHALATION ×4 (01:45→20:06)
[2023-01-06] MEDS: HYDROcodone/acetaminophen (*CRX) 5-325 MG TABLET 1 TAB PO ×4 (02:05→19:53)
[2023-01-06] MEDS: CHOLECALCIFEROL 1,000 UNITS TABLET 2000 UNITS PO (08:28)
[2023-01-06] MEDS: TOLTERODINE TARTRATE LA 4 MG CAP.ER.24H PO (08:28)
[2023-01-06] MEDS: ATORVASTATIN 40 MG TABLET PO (08:28)
[2023-01-06] MEDS: FELODIPINE 5 MG TAB CR 10 MG PO (08:28)
[2023-01-06] MEDS: FERROUS SULFATE 325 MG TABLET DR PO (08:28)
[2023-01-06] MEDS: CLOPIDOGREL BISULFATE 75 MG TABLET PO (08:28)
[2023-01-06] MEDS: ASCORBIC ACID 500 MG TABLET PO (08:28)
[2023-01-06] MEDS: CYANOCOBALAMIN 500 MCG TABLET 2500 MCG PO (08:28)
[2023-01-06] MEDS: PANTOPRAZOLE SOD SESQUIHYDRATE 20 MG TAB PO (08:28)
[2023-01-06] MEDS: FLUTICASONE/UMECLIDIN/VILANTER 100-62.5-25 MCG ELLIPTA 1 PUFF INHALATION (09:37)
--- NOTE | 2023-01-06 10:27 | PM.IMPN ---
Progress Note: A&P Assessment and Plan (1) Respiratory failure: Code(s): J96.90 - Respiratory failure, unspecified, unspecified whether with hypoxia or hypercapnia Status: Acute Assessment and Plan: Unsure of etiology, check CXR, possible pna noted on CT 01/04 Check CRP, PCT Afebrile for now, tachycardic, check ECG, ABG Levaquin + nebs started 01/05 01/06: cont to worsen, consult pulm, PCT 0.2, leuk fluctuating, add vanc and check MRSA swab (2) Subcapital fracture of right hip: Qualifiers: Encounter type: initial encounter Fracture type: closed Qualified Code(s): S72.011A - Unspecified intracapsular fracture of right femur, initial encounter for closed fracture Code(s): S72.011A - Unspecified intracapsular fracture of right femur, initial encounter for closed fracture Status: Acute Assessment and Plan: 01/04: Bipolar hemiarthroplasty right hip 01/05: POD1 01/06: POD2 (3) 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: Code(s): T84.022A - Instability of internal right knee prosthesis, initial encounter Status: Acute Assessment and Plan: as above (4) CKD (chronic kidney disease) stage 3, GFR 30-59 ml/min: Code(s): N18.3 - Chronic kidney disease, stage 3 (moderate) Status: Acute Assessment and Plan: stable, would discontinue lisinopril, initiate beta kayla if BP med needed at d/c (5) HTN (hypertension): Qualifiers: Hypertension type: primary hypertension Qualified Code(s): I10 - Essential (primary) hypertension Code(s): I10 - Essential (primary) hypertension Status: Chronic Assessment and Plan: Blood pressures reviewed 01/06 D/c lisinopril d/t CKD Cont felodipine (6) Lung nodule: Code(s): R91.1 - Solitary pulmonary nodule Status: Acute Assessment and Plan: CT chest showed bilateral lower lobe consolidation which represent atelectasis/scarring or pneumonia. There is bilateral lower lobe bronchiectasis. Small bilateral pulmonary nodules measuring 3 mm or less, likely benign. Recommend follow-up CT in 12 months. Large complex right thyroid mass. Correlation with thyroid ultrasound recommended. Emphysema. (7) HLD (hyperlipidemia): Qualifiers: Hyperlipidemia type: mixed hyperlipidemia Qualified Code(s): E78.2 - Mixed hyperlipidemia Code(s): E78.5 - Hyperlipidemia, unspecified Status: Chronic Assessment and Plan: Continue with atorvastatin (8) History of TIA (transient ischemic attack): Code(s): Z86.73 - Personal history of transient ischemic attack (TIA), and cerebral infarction without residual deficits Status: Acute Assessment and Plan: Continue with Plavix, aspirin on hold at this time (9) COPD (chronic obstructive pulmonary disease): Qualifiers: COPD type: unspecified COPD Qualified Code(s): J44.9 - Chronic obstructive pulmonary disease, unspecified Code(s): J44.9 - Chronic obstructive pulmonary disease, unspecified Status: Chronic (10) Asthma: Code(s): J45.909 - Unspecified asthma, uncomplicated Status: Chronic Assessment and Plan: Continue with home inhalers (11) Thyroid mass: Code(s): E07.9 - Disorder of thyroid, unspecified Status: Acute Assessment and Plan: Thyroid ultrasound performed. Mass unchanged from previous studies Plan DVT prophylaxis with SCDs GI prophylaxis not indicated Code status full code Subjective Date/time seen: 01/06/23 10:27 Interval history: No overnight events noted. No chest pain or shortness of breath. No nausea, vomiting or diarrhea. No fevers or chills. Overnight required more O2, no complaints though. Patient states she feels fine. Review of Systems Review of Systems: 12 point review of systems was assessed and was negative except as noted in the HPI Exam Narrative
--- NOTE | 2023-01-06 10:55 | PM.PNORT ---
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 Patient tolerated procedure well. No complications. Pain manageable with pain medication. No numbness or tingling. Progressing well. Notes very little pain. She is pleased with her progress. Continue physical therapy as able. She will likely need rehab at discharge. Patient notes no pain in the knee. She is wearing an immobilizer. Patient reports a history of frequent subluxation events.? Prosthetic instability may need to be addressed an outpatient in the future. She will need to keep the knee immobilizer on during physical therapy and while ambulating. She may remove it while at rest. Follow up in office in 1 month with xrays of the hip and knee. Subjective Subjective Date/Time Seen: 01/06/23 10:55 Interval history: Patient resting comfortably in bed. She is still on nasal canula. She states she has no pain in the hip and knee at rest. Review of Systems Review of Systems: All systems reviewed & are unremarkable except as noted in HPI and below Exam Narrative: Overweight 82 y/o female. Resting comfortably in a chair. Wearing O2 nasal canula. Wearing knee immobilizer on right side. Mild swelling and ecchymosis in lower leg. Dressing dry and intact with no drainage. Mild swelling. No edema. No ecchymosis. No erythema. No hematoma. Range of motion limited due to pain. Calf nontender. Thigh nontender. No varicosities. Distal pulses palpable. Wiggles toes. Light touch sensation intact. Good capillary refill. Objective Data Vital Signs Vital Signs: Vital Signs - 24 hr 01/05/23 12:49 01/05/23 19:40 01/05/23 19:43 Temperature 98.4 F Pulse Rate 97 94 Respiratory Rate 18 20 Blood Pressure 134/52 L Pulse Oximetry 92 94 Oxygen Delivery Oxygen Flow Rate 10 Fraction of Inspired Oxygen 01/05/23 20:00 01/05/23 20:49 01/05/23 19:50 Temperature 98.1 F Pulse Rate 103 H 90 Respiratory Rate 18 20 Blood Pressure 119/78 Pulse Oximetry 94 88 L Oxygen Delivery High Flow Nasal Cannula Oxygen Flow Rate 10 Fraction of Inspired Oxygen 01/06/23 01:45 01/06/23 01:59 01/06/23 05:02 Temperature 98.4 F Pulse Rate 86 88 97 Respiratory Rate 20 20 18 Blood Pressure 146/57 H Pulse Oximetry 93 Oxygen Delivery Oxygen Flow Rate Fraction of Inspired Oxygen 01/06/23 08:39 01/06/23 09:39 01/06/23 09:39 Temperature Pulse Rate 92 92 Respiratory Rate 18 18 Blood Pressure Pulse Oximetry 94 Oxygen Delivery High Flow Nasal Cannula High Flow Nasal Cannula Oxygen Flow Rate 10 10 Fraction of Inspired Oxygen 60 01/06/23 09:55 01/06/23 08:35 Temperature Pulse Rate 87 Respiratory Rate 18 Blood Pressure Pulse Oximetry 95 Oxygen Delivery High Flow Nasal Cannula Oxygen Flow Rate 10 Fraction of Inspired Oxygen Intake/Output Intake/Output: Intake & Output 01/03/23 01/04/23 01/05/23 01/06/23 23:59 23:59 23:59 23:59 Intake Total 1600 1050 2520 240 Output Total 700 1250 775 450 Balance 900 -200 1745 -210 Meds/Results Medications: Active Medications Generic Name Dose Route Start Last Admin Trade Name Freq PRN Reason Stop Dose Admin Acetaminophen 1,000 mg 01/03/23 17:57 Acetaminophen 500 Mg Tablet PO BID PRN Pain Hydrocodone Bitart/Acetaminophen 1 tab 01/03/23 18:06 01/06/23 08:30 Hydrocodon
[2023-01-06 11:56] LABS: Basophils Percent Auto 0.3 % (0.2-1.2); Eosinophils Absolute Auto 0.1 K/mm3 (0-0.3); Eosinophils Percent Auto 0.6 % (0-4.4); Hematocrit 37.6 % (37.0-47.0); Immature Granulocyte Absolute 0.08 K/mm3 (0.00-0.031); Immature Granulocyte Percent A 0.7 % (0-0.5); Lymphocytes Absolute Auto 1.08 K/mm3 (0.9-3.2); Lymphocytes Percent Auto 9.4 % (18.3-44.2); Mean Corpuscular HGB Conc 31.9 g/dl (32-36); Mean Corpuscular Hemoglobin 29.9 pg (26-34); Mean Corpuscular Volume 93.5 fl (80-100); Mean Platelet Volume 9.9 fl (7.4-10.4); Monocytes Absolute Auto 1.2 K/mm3 (0.1-0.6); Monocytes Percent Auto 10.3 % (2.6-8.5); Neutrophils Percent Auto 78.7 % (45.5-73.1); Platelet Count Result 335 k/mm3 (150-375); Red Blood Count 4.02 M/mm3 (4.2-5.4); Red Cell Distribution Width 13.7 % (11.5-14.5); White Blood Count 11.5 K/mm3 (4.5-10.0)
[2023-01-06 12:09] LABS: Alanine Aminotransferase 32 U/L (6-35); Albumin Level 3.6 g/dL (3.5-5.1); Alkaline Phosphatase 127 U/L (38-126); Anion Gap 11 mmol/L (8-16); Aspartate Amino Transferase 69 U/L (14-36); Bilirubin,Total 0.7 mg/dL (0.2-1.3); Blood Urea Nitrogen 28 mg/dL (7-17); Carbon Dioxide 20 mmol/L (22-30); Chloride 99 mmol/L (98-107); Estimated CRCL calculation 22 ml/min; Estimated Glomerular Filt Rate 29; Glucose 121 mg/dL (65-110); Potassium 4.6 mmol/L (3.4-5.0); Sodium 130 mmol/L (137-145)
--- NOTE | 2023-01-06 13:20 | PM.CNPUL ---
Assessment and Plan Assessment and plan (1) Lung nodule: Code(s): R91.1 - Solitary pulmonary nodule Status: Acute (2) Acute respiratory failure with hypoxia: Code(s): J96.01 - Acute respiratory failure with hypoxia Status: Acute Assessment and Plan: This 82-year-old female with known COPD, advanced centrilobular emphysema on chest CT presented with right hip fracture and underwent surgery 2 days ago. The patient's respiratory status has worsened since admission in the sense that oxygen needs have increased from a low-flow oxygen of 2 L to 10 liters/minute. The patient has mild leukocytosis, no fever and no signs to suggest nosocomial pneumonia. In particular she has no cough wheezing sputum production fever chills or hemoptysis. The initial chest imaging studies were more consistent with bilateral atelectasis rather than pneumonia. On last chest x-ray there is no new infiltrate that would favor nosocomial pneumonia. On physical exam the patient has crackles posteriorly. The patient's history in conjunction with the auscultatory and diagnostic test findings suggest worsening hypoxemia related to atelectasis, recent surgery, and use of IV fluids. Doubt the patient has pneumonia or pulmonary embolism. Of note the patient is not receiving any DVT prophylaxis with heparin/DOAC. Plan: I prescribed Lasix 20 mg IV x1. The patient should continue with out of bed in chair as ordered, and incentive spirometry every 2 hours. I would continue with nebulized short-acting bronchodilators. I would consider nebulized mucolytic agents like Mucomyst twice daily. Ordered venous study of lower extremities. I would also discontinue vancomycin at this point. Will follow the patient along with you. (3) COPD (chronic obstructive pulmonary disease): Qualifiers: COPD type: unspecified COPD Qualified Code(s): J44.9 - Chronic obstructive pulmonary disease, unspecified Code(s): J44.9 - Chronic obstructive pulmonary disease, unspecified Status: Chronic (4) History of TIA (transient ischemic attack): Code(s): Z86.73 - Personal history of transient ischemic attack (TIA), and cerebral infarction without residual deficits Status: Acute History of Present Illness History of Present Illness Consult date: 01/06/23 Chief complaint: Hip Fracture/Knee Dislocation Narrative: This 82-year-old female was brought into the emergency room after she fell at home. The patient was in her usual state of health until she fell at home. Workup in the emergency room showed right hip fracture. Subsequently the patient was taken to the OR and underwent surgery for hip arthroplasty 2 days ago. Patient has known history of a COPD. Chest CT on admission showed centrilobular emphysema and basal infiltrates most likely atelectasis. In addition there are tiny nodules, less than 4 mm diameter for which repeat chest CT in 1 year was recommended by radiology. Patient was placed initially or supplemental oxygen at low-flow. Since admission especially after surgery the oxygen flow has increased to 10 liters/minute. She was found to have mild leukocytosis but no fever. Patient was started on antibiotics for possible nosocomial pneumonia. Currently the patient is sitting in chair, not having any respiratory symptoms. In particular she denied having fever chills hemoptysis cough sputum production or wheezing. She has a known history of COPD and in the past she was on Trelegy. Over the last several months she has not been using any maintenance bronchodilator for COPD. Since admission to the hospital she has received over 2 L IV fluids. Review of Systems Review of Systems: All systems reviewed & are unremarkable except as noted in HPI and below PMFSH Past Medical History Medical History Arthritis Asthma Basal cell carcinoma Cerebrovascular accident (~1995) With mild right
[2023-01-06] MEDS: FUROSEMIDE INJ 40 MG/4 ML VIAL 20 MG IV PUSH (14:38)
[2023-01-07] VITALS (12 sets, daily range): BP systolic 151; BP diastolic 60; PULSE 92–107; RESP 16–18; TEMP 36.8; O2SAT 90–95
--- NOTE | 2023-01-07 | ECHO_ITS ---
Patient Info Name: Radha Palacios Age: 82 years : 1940 Gender: Female Ht: 63 in Wt: 153 lbs BSA: 1.77 m2 HR: 104 bpm BP: 151 / 60 mmHg Heart Rhythm: Sinus Rhythm Technical Quality: Fair Exam Date: 01/07/2023 3:48 PM Exam Location: [facility] Card Pulmonary Patient Status: Inpatient Admit Date: 01/03/2023 Staff Ordering Physician: Eliot Mckinnon MD Retail Sales Clerk: Elyssa Hadley RDCS Attending Provider: Manuelito Lara MD Referring Physician: Ino HERRING; Exam Type: CA echo doppler color flow Study Info Indications - chf Complete two-dimensional, color flow and Doppler transthoracic echocardiogram is performed. Summary 1. Complete two-dimensional, color flow and Doppler transthoracic echocardiogram is performed. 2. Left ventricular chamber dimension is normal. 3. Left ventricular systolic function is normal, estimated at 60-65%. 4. The left ventricular diastolic function is grade I diastolic dysfunction. 5. E/e' 8 is minimally elevated. 6. There is severe aortic valve sclerosis. 7. There is mild to moderate aortic valve stenosis with a peak velocity of 248 cm/s, mean gradient of 14 mmHg, and aortic valve area of 1.6 cm2. 8. There is trace aortic valve regurgitation. 9. There is trace tricuspid valve regurgitation. 10. Mild pulmonary hypertension, estimated pulmonary arterial systolic pressure is 49 mmHg. Left Ventricle E/e' 8 is minimally elevated. Left ventricular chamber dimension is normal. Left ventricular systolic function is normal, estimated at 60-65%. The left ventricular diastolic function is grade I diastolic dysfunction. Right Ventricle Right ventricular systolic function is normal and with normal TAPSE 2.2 cm. Right ventricular chamber dimension is normal. Left Atria Left atrial chamber dimension is normal. Right Atria Right atrial chamber dimension is normal. Aortic Valve The aortic valve is trileaflet. There is severe aortic valve sclerosis. There is mild to moderate aortic valve stenosis with a peak velocity of 248 cm/s, mean gradient of 14 mmHg, and aortic valve area of 1.6 cm2. There is trace aortic valve regurgitation. Pulmonic Valve There is no pulmonic regurgitation. Mitral Valve There is no mitral valve stenosis. There is no mitral valve regurgitation. Tricuspid Valve There is trace tricuspid valve regurgitation. Mild pulmonary hypertension, estimated pulmonary arterial systolic pressure is 49 mmHg. Inferior Vena Cava Normal inferior vena cava with >50% collapse upon inspiration consistent with normal right atrial pressure, 5 mmHg. Aorta The aortic root size at the sinus of Valsalva is normal. Left Ventricular Outflow Tract Name Value Normal LVOT 2D LVOT Diameter 2.0 cm LVOT Doppler LVOT Peak Gradient 5 mmHg LVOT Mean Gradient 2 mmHg LVOT VTI 22 cm LVOT VTI/AV VTI Ratio 0.5 LVOT Stroke Volume 67 ml LVOT CO 5.3 l/min LVOT CI 3.0 l/min/m2 Pulmonic Valve
[2023-01-07 05:54] LABS: Basophils Percent Auto 0.5 % (0.2-1.2); Eosinophils Absolute Auto 0.1 K/mm3 (0-0.3); Eosinophils Percent Auto 1.6 % (0-4.4); Hematocrit 31.8 % (37.0-47.0); Hemoglobin 10.3 g/dL (12.0-15.0); Immature Granulocyte Absolute 0.08 K/mm3 (0.00-0.031); Immature Granulocyte Percent A 1.1 % (0-0.5); Lymphocytes Absolute Auto 1.15 K/mm3 (0.9-3.2); Lymphocytes Percent Auto 15.2 % (18.3-44.2); Mean Corpuscular HGB Conc 32.4 g/dl (32-36); Mean Corpuscular Hemoglobin 29.4 pg (26-34); Mean Corpuscular Volume 90.9 fl (80-100); Mean Platelet Volume 9.6 fl (7.4-10.4); Monocytes Percent Auto 12.8 % (2.6-8.5); Neutrophils Absolute Auto 5.2 K/mm3 (1.3-6.7); Neutrophils Percent Auto 68.8 % (45.5-73.1); Platelet Count Result 306 k/mm3 (150-375); Red Cell Distribution Width 13.6 % (11.5-14.5); White Blood Count 7.6 K/mm3 (4.5-10.0)
[2023-01-07 06:00] LABS: Alanine Aminotransferase 27 U/L (6-35); Albumin Level 3.2 g/dL (3.5-5.1); Alkaline Phosphatase 116 U/L (38-126); Anion Gap 4 mmol/L (8-16); Aspartate Amino Transferase 62 U/L (14-36); Bilirubin,Total 0.7 mg/dL (0.2-1.3); Blood Urea Nitrogen 28 mg/dL (7-17); Calcium 8.5 mg/dL (8.4-10.2); Carbon Dioxide 26 mmol/L (22-30); Chloride 97 mmol/L (98-107); Estimated CRCL calculation 25 ml/min; Estimated Glomerular Filt Rate 33; Glucose 113 mg/dL (65-110); Potassium 4.3 mmol/L (3.4-5.0); Sodium 127 mmol/L (137-145)
[2023-01-07] MEDS: ATORVASTATIN 40 MG TABLET PO (08:17)
[2023-01-07] MEDS: PANTOPRAZOLE SOD SESQUIHYDRATE 20 MG TAB PO (08:17)
[2023-01-07] MEDS: TOLTERODINE TARTRATE LA 4 MG CAP.ER.24H PO (08:17)
[2023-01-07] MEDS: CLOPIDOGREL BISULFATE 75 MG TABLET PO (08:17)
[2023-01-07] MEDS: CHOLECALCIFEROL 1,000 UNITS TABLET 2000 UNITS PO (08:17)
[2023-01-07] MEDS: CYANOCOBALAMIN 500 MCG TABLET 2500 MCG PO (08:18)
[2023-01-07] MEDS: FERROUS SULFATE 325 MG TABLET DR PO (08:18)
[2023-01-07] MEDS: FELODIPINE 5 MG TAB CR 10 MG PO (08:18)
[2023-01-07] MEDS: ASCORBIC ACID 500 MG TABLET PO (08:18)
[2023-01-07] MEDS: levoFLOXacin 750 MG TABLET PO (08:18)
[2023-01-07] MEDS: ALBUTEROL SULFATE NEB 2.5 MG/3 ML INH INHALATION ×3 (08:26→20:30)
[2023-01-07] MEDS: IPRATROPIUM BR 0.02% INH SOLN 0.5 MG/2.5 ML VIAL INHALATION ×3 (08:26→20:30)
[2023-01-07] MEDS: FLUTICASONE/UMECLIDIN/VILANTER 100-62.5-25 MCG ELLIPTA 1 PUFF INHALATION (08:27)
--- NOTE | 2023-01-07 08:51 | PCPTNOTE ---
Attempted to see patient for PT, however RN advised not to see patient due to patient requiring increase oxygen at 12 L high flow and decrease in O2 SATs. Patient not appropriate for PT at this time.
--- NOTE | 2023-01-07 09:01 | PM.PNORT ---
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 Patient progressing well. She is still having trouble with her O2 stats and the nurse had to increase her oxygen last night. She states she is starting to get some pain in the hip and knee but it is manageable. She is wearing her knee immobilizer. Patient reports a history of frequent subluxation events.? Prosthetic instability may need to be addressed an outpatient in the future. She will need to keep the knee immobilizer on during physical therapy and while ambulating. She may remove it while at rest. Plan to follow up in 1 month in office for both her hip and knee. Okay for discharge from orthopedic standpoint when medically cleared. Subjective Subjective Date/Time Seen: 01/07/23 09:01 Interval history: Patient resting in bed getting a breathing treatment at the time of my visit. Patient is still on O2 nasal canula and recently needed to go up to 12 liters. She states today she is starting to feel some pain in her hip and knee. Knee immobilizer in place. Review of Systems Review of Systems: All systems reviewed & are unremarkable except as noted in HPI and below Exam Narrative: Overweight 82 y/o female. Resting comfortably in bed. Wearing O2 nasal canula and receiving a breathing treatment. Wearing knee immobilizer on right side. Mild swelling and ecchymosis in lower leg. Dressing dry and intact with no drainage. Moderate swelling. No edema. No ecchymosis. No erythema. No hematoma. Range of motion limited due to pain. Calf nontender. Thigh nontender. No varicosities. Distal pulses palpable. Wiggles toes. Light touch sensation intact. Good capillary refill. Objective Data Vital Signs Vital Signs: Vital Signs - 24 hr 01/06/23 09:39 01/06/23 09:39 01/06/23 09:55 Temperature Pulse Rate 92 92 87 Respiratory Rate 18 18 18 Blood Pressure Pulse Oximetry 94 Oxygen Delivery High Flow Nasal Cannula Oxygen Flow Rate 10 Fraction of Inspired Oxygen 60 01/06/23 14:10 01/06/23 14:17 01/06/23 20:06 Temperature Pulse Rate 88 96 103 H Respiratory Rate 18 18 18 Blood Pressure Pulse Oximetry Oxygen Delivery Oxygen Flow Rate Fraction of Inspired Oxygen 01/06/23 20:10 01/06/23 20:17 01/06/23 21:19 Temperature 97.8 F Pulse Rate 103 H 99 111 H Respiratory Rate 18 16 Blood Pressure 127/70 Pulse Oximetry 90 91 Oxygen Delivery High Flow Nasal Cannula Oxygen Flow Rate 10 Fraction of Inspired Oxygen 01/07/23 07:05 01/07/23 08:27 01/07/23 08:31 Temperature 98.2 F Pulse Rate 102 H 107 H 107 H Respiratory Rate 18 16 16 Blood Pressure 151/60 H Pulse Oximetry 93 90 Oxygen Delivery High Flow Nasal Cannula Oxygen Flow Rate 12 Fraction of Inspired Oxygen 01/07/23 08:45 Temperature Pulse Rate 104 H Respiratory Rate 16 Blood Pressure Pulse Oximetry Oxygen Delivery Oxygen Flow Rate Fraction of Inspired Oxygen Intake/Output Intake/Output: Intake & Output 01/04/23 01/05/23 01/06/23 01/07/23 23:59 23:59 23:59 23:59 Intake Total 1050 2570 2240 Output Total 6326 732 9860 1850 Balance -200 9956 -331 -7131 Meds/Results Medications: Active Medications Generic Name Dose Route Start Last Admin Trade Name Freq PRN Reason Stop Dose Admin Acetaminophen 1,000 mg 01/03/23 17:57 Acetaminophen 500 Mg Tablet PO
--- NOTE | 2023-01-07 11:52 | PM.PNPUL ---
Progress Note: A&P Assessment and Plan (1) Respiratory failure: Code(s): J96.90 - Respiratory failure, unspecified, unspecified whether with hypoxia or hypercapnia Status: Acute Assessment and Plan: This 82-year-old female with known COPD, advanced centrilobular emphysema on chest CT presented with right hip fracture and underwent surgery 3 days ago.? The patient's respiratory status has worsened since admission in the sense that oxygen needs have increased from a low-flow oxygen of 2 L to 10 liters/minute.? The patient had mild leukocytosis, no fever and no signs to suggest nosocomial pneumonia.? She is currently on just levofloxacin. She remains on high-flow nasal cannula but her respiratory status is otherwise unchanged. Chest CT showed no evidence of new infiltrates, she has advanced confluent centrilobular emphysema and basal atelectasis as before. In addition she has to rib fractures on right. The patient denied having any chest pain with breathing. Echocardiogram is pending. She diuresed yesterday following Lasix 20 mg IV. I suspect the patient's respiratory failure is related to advanced centrilobular emphysema and basal atelectasis following surgery for right hip fracture. There is no evidence of pneumonia on the CT., WBC back into the normal range. Plan: Continue with current treatment, incentive spirometry every 2 hours. Get patient out of bed in a chair. Continue with nebulized short-acting bronchodilators. Await echocardiogram although no evidence of pulmonary edema on chest CT. May consider BiPAP support for basal atelectasis if hypoxemia persists. I would optimize regimen for DVT prophylaxis. (2) Lung nodule: Code(s): R91.1 - Solitary pulmonary nodule Status: Acute (3) Acute respiratory failure with hypoxia: Code(s): J96.01 - Acute respiratory failure with hypoxia Status: Acute (4) COPD (chronic obstructive pulmonary disease): Qualifiers: COPD type: unspecified COPD Qualified Code(s): J44.9 - Chronic obstructive pulmonary disease, unspecified Code(s): J44.9 - Chronic obstructive pulmonary disease, unspecified Status: Chronic (5) CKD (chronic kidney disease) stage 3, GFR 30-59 ml/min: Code(s): N18.3 - Chronic kidney disease, stage 3 (moderate) Status: Acute (6) Subcapital fracture of right hip: Qualifiers: Encounter type: initial encounter Fracture type: closed Qualified Code(s): S72.011A - Unspecified intracapsular fracture of right femur, initial encounter for closed fracture Code(s): S72.011A - Unspecified intracapsular fracture of right femur, initial encounter for closed fracture Status: Acute Subjective Date/time seen: 01/07/23 11:52 Interval history: Patient has no new respiratory symptoms. She remains on relatively high oxygen flow via nasal cannula, using 10 liters/minute. She does not look septic. Spends most of the time bedridden. Using incentive spirometry. Has no chest pain fever chills cough sputum production or orthopnea. Review of Systems Review of Systems: All systems reviewed & are unremarkable except as noted in HPI and below (HPI and below) Exam Narrative: GENERAL APPEARANCE: Well developed, well nourished, alert and cooperative, and appears to be in no acute distress while sitting in chair SKIN: Inspection of the skin reveals no rashes, ulcerations or petechiae. HEENT: Sclerae anicteric and conjunctivae pink and moist. Extraocular movements were intact and pupils were equal, round, and reactive to light. The oral mucosa, hard and soft palate, tongue and posterior pharynx were normal. NECK: Supple. There was no thyroid enlargement, and no tenderness, or masses were felt.. LUNGS: Auscultation of the lungs crackles posteriorly, no wheezing CARDIAC: There was a regular rate and rhythm without any murmurs, gallops, rubs. ABDOMEN: Soft and nontender with normal bowel sounds. There wa
[2023-01-07] MEDS: ENOXAPARIN 30 MG/0.3 ML SYRINGE SUB-Q (13:49)
[2023-01-07] MEDS: HYDROcodone/acetaminophen (*CRX) 5-325 MG TABLET 1 TAB PO (17:28)
--- NOTE | 2023-01-07 17:29 | PC.NURSE ---
Pt has been on 12 L O2 today. Pt's oxygen continues to drop into the 80's. Pt has reported pain, that has been treated with medication. Pt worked with therapy while having oxygen monitored the whole time. Pt was placed on telemetry due to elevated heart rate with activity. Pt was placed on lovenox for DVT prophylaxis. Will continue to monitor pt.
[2023-01-07] MEDS: ACETYLCYSTEINE 20% INHAL SOLN 800 MG/4 ML VIAL 200 MG INHALATION (20:30)
[2023-01-08] VITALS (14 sets, daily range): BP systolic 100–140; BP diastolic 40–50; PULSE 88–101; RESP 16–22; TEMP 36.6–36.8; O2SAT 91–96
[2023-01-08 05:31] LABS: Basophils Percent Auto 0.6 % (0.2-1.2); Eosinophils Absolute Auto 0.1 K/mm3 (0-0.3); Eosinophils Percent Auto 1.5 % (0-4.4); Hematocrit 31.3 % (37.0-47.0); Hemoglobin 10.4 g/dL (12.0-15.0); Immature Granulocyte Absolute 0.04 K/mm3 (0.00-0.031); Immature Granulocyte Percent A 0.6 % (0-0.5); Lymphocytes Absolute Auto 1.02 K/mm3 (0.9-3.2); Lymphocytes Percent Auto 15.6 % (18.3-44.2); Mean Corpuscular HGB Conc 33.2 g/dl (32-36); Mean Corpuscular Hemoglobin 30.1 pg (26-34); Mean Corpuscular Volume 90.5 fl (80-100); Mean Platelet Volume 9.4 fl (7.4-10.4); Monocytes Absolute Auto 0.9 K/mm3 (0.1-0.6); Monocytes Percent Auto 13.1 % (2.6-8.5); Neutrophils Absolute Auto 4.5 K/mm3 (1.3-6.7); Neutrophils Percent Auto 68.6 % (45.5-73.1); Platelet Count Result 318 k/mm3 (150-375); Red Blood Count 3.46 M/mm3 (4.2-5.4); Red Cell Distribution Width 13.8 % (11.5-14.5); White Blood Count 6.6 K/mm3 (4.5-10.0)
[2023-01-08 05:48] LABS: Alanine Aminotransferase 27 U/L (6-35); Albumin Level 3.1 g/dL (3.5-5.1); Alkaline Phosphatase 116 U/L (38-126); Anion Gap 1 mmol/L (8-16); Aspartate Amino Transferase 58 U/L (14-36); Bilirubin,Total 0.7 mg/dL (0.2-1.3); Blood Urea Nitrogen 26 mg/dL (7-17); Calcium 8.8 mg/dL (8.4-10.2); Carbon Dioxide 27 mmol/L (22-30); Chloride 97 mmol/L (98-107); Estimated CRCL calculation 25 ml/min; Estimated Glomerular Filt Rate 33; Glucose 114 mg/dL (65-110); Potassium 4.3 mmol/L (3.4-5.0); Sodium 125 mmol/L (137-145)
[2023-01-08] MEDS: FLUTICASONE/UMECLIDIN/VILANTER 100-62.5-25 MCG ELLIPTA 1 PUFF INHALATION (07:52)
[2023-01-08] MEDS: ALBUTEROL SULFATE NEB 2.5 MG/3 ML INH INHALATION ×3 (07:53→21:00)
[2023-01-08] MEDS: IPRATROPIUM BR 0.02% INH SOLN 0.5 MG/2.5 ML VIAL INHALATION ×3 (07:53→21:00)
[2023-01-08] MEDS: ACETYLCYSTEINE 20% INHAL SOLN 800 MG/4 ML VIAL 200 MG INHALATION ×2 (07:53→21:00)
[2023-01-08] MEDS: FLUTICASONE PROPIONATE 0.05% NA SPR 16 GM BTL (*BKC) 2 SPRAY NASAL (09:26)
[2023-01-08] MEDS: ATORVASTATIN 40 MG TABLET PO (09:28)
[2023-01-08] MEDS: ASCORBIC ACID 500 MG TABLET PO (09:28)
[2023-01-08] MEDS: LORATADINE 10 MG TABLET PO (09:28)
[2023-01-08] MEDS: FERROUS SULFATE 325 MG TABLET DR PO (09:28)
[2023-01-08] MEDS: PANTOPRAZOLE SOD SESQUIHYDRATE 20 MG TAB PO (09:29)
[2023-01-08] MEDS: FELODIPINE 5 MG TAB CR 10 MG PO (09:29)
[2023-01-08] MEDS: CYANOCOBALAMIN 500 MCG TABLET 2500 MCG PO (09:29)
[2023-01-08] MEDS: CLOPIDOGREL BISULFATE 75 MG TABLET PO (09:29)
[2023-01-08] MEDS: TOLTERODINE TARTRATE LA 4 MG CAP.ER.24H PO (09:29)
[2023-01-08] MEDS: CHOLECALCIFEROL 1,000 UNITS TABLET 2000 UNITS PO (09:29)
[2023-01-08] MEDS: ENOXAPARIN 30 MG/0.3 ML SYRINGE SUB-Q (09:30)
[2023-01-08] MEDS: ACETAMINOPHEN 500 MG TABLET 1000 MG PO (11:10)
--- NOTE | 2023-01-08 12:07 | PM.PNPUL ---
Progress Note: A&P Assessment and Plan (1) Respiratory failure: Code(s): J96.90 - Respiratory failure, unspecified, unspecified whether with hypoxia or hypercapnia Status: Acute Assessment and Plan: This 82-year-old female with known COPD, advanced centrilobular emphysema on chest CT presented with right hip fracture and underwent surgery 3 days ago.? The patient's respiratory status has worsened since admission in the sense that oxygen needs have increased from a low-flow oxygen of 2 L to 10 liters/minute.? The patient had mild leukocytosis, no fever and no signs to suggest nosocomial pneumonia.? She is currently on just levofloxacin. She remains on high-flow nasal cannula but her respiratory status is otherwise unchanged. Chest CT showed no evidence of new infiltrates, she has advanced confluent centrilobular emphysema and basal atelectasis as before. In addition she has to rib fractures on right. The patient denied having any chest pain with breathing. Echocardiogram is pending. She diuresed yesterday following Lasix 20 mg IV. I suspect the patient's respiratory failure is related to advanced centrilobular emphysema and basal atelectasis following surgery for right hip fracture. There is no evidence of pneumonia on the CT., WBC back into the normal range. Persistent hypoxemia related to advanced COPD and basal atelectasis. Echocardiogram showed normal EF no evidence of elevated pulmonary artery systolic pressure and evidence of a mild to moderate aortic stenosis. Patient has been fluid negative following administration of IV Lasix. Unclear whether she continues with incentive spirometry. plan: Continue with current treatment, increase spirometry every 2 hours, out of bed to chair ambulate. Repeat chest x-ray in a.m. (2) Lung nodule: Code(s): R91.1 - Solitary pulmonary nodule Status: Acute (3) Acute respiratory failure with hypoxia: Code(s): J96.01 - Acute respiratory failure with hypoxia Status: Acute (4) COPD (chronic obstructive pulmonary disease): Qualifiers: COPD type: unspecified COPD Qualified Code(s): J44.9 - Chronic obstructive pulmonary disease, unspecified Code(s): J44.9 - Chronic obstructive pulmonary disease, unspecified Status: Chronic (5) CKD (chronic kidney disease) stage 3, GFR 30-59 ml/min: Code(s): N18.3 - Chronic kidney disease, stage 3 (moderate) Status: Acute (6) Subcapital fracture of right hip: Qualifiers: Encounter type: initial encounter Fracture type: closed Qualified Code(s): S72.011A - Unspecified intracapsular fracture of right femur, initial encounter for closed fracture Code(s): S72.011A - Unspecified intracapsular fracture of right femur, initial encounter for closed fracture Status: Acute Subjective Date/time seen: 01/08/23 12:07 Interval history: Patient has no new respiratory symptoms. She has no cough wheezing orthopnea fever chills or hemoptysis. She continues to require relatively high oxygen flow. Review of Systems Review of Systems: All systems reviewed & are unremarkable except as noted in HPI and below (HPI and below) Exam Narrative: GENERAL APPEARANCE: Well developed, well nourished, alert and cooperative, and appears to be in no acute distress while sitting in chair SKIN: Inspection of the skin reveals no rashes, ulcerations or petechiae. HEENT: Sclerae anicteric and conjunctivae pink and moist. Extraocular movements were intact and pupils were equal, round, and reactive to light. The oral mucosa, hard and soft palate, tongue and posterior pharynx were normal. NECK: Supple. There was no thyroid enlargement, and no tenderness, or masses were felt.. LUNGS: Auscultation of the lungs crackles posteriorly, no wheezing CARDIAC: There was a regular rate and rhythm without any murmurs, gallops, rubs. ABDOMEN: Soft and nontender with normal bowel sounds. There was no organomega
--- NOTE | 2023-01-08 12:18 | PM.IMPN ---
Progress Note: A&P Assessment and Plan (1) Respiratory failure: Code(s): J96.90 - Respiratory failure, unspecified, unspecified whether with hypoxia or hypercapnia Status: Acute Assessment and Plan: Unsure of etiology, check CXR, possible pna noted on CT 01/04 Check CRP, PCT Afebrile for now, tachycardic, check ECG, ABG Levaquin + nebs started 01/05 01/06: cont to worsen, consult pulm, PCT 0.2, leuk fluctuating, add vanc and check MRSA swab 01/07: pulm rec IS, no further concerns, abx de-escalated to levaquin alone, no fevers, low suspicion for infection (2) Subcapital fracture of right hip: Qualifiers: Encounter type: initial encounter Fracture type: closed Qualified Code(s): S72.011A - Unspecified intracapsular fracture of right femur, initial encounter for closed fracture Code(s): S72.011A - Unspecified intracapsular fracture of right femur, initial encounter for closed fracture Status: Acute Assessment and Plan: 01/04: Bipolar hemiarthroplasty right hip 01/05: POD1 01/06: POD2 (3) 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: Code(s): T84.022A - Instability of internal right knee prosthesis, initial encounter Status: Acute Assessment and Plan: as above (4) CKD (chronic kidney disease) stage 3, GFR 30-59 ml/min: Code(s): N18.3 - Chronic kidney disease, stage 3 (moderate) Status: Acute Assessment and Plan: stable, would discontinue lisinopril, initiate beta kayla if BP med needed at d/c (5) HTN (hypertension): Qualifiers: Hypertension type: primary hypertension Qualified Code(s): I10 - Essential (primary) hypertension Code(s): I10 - Essential (primary) hypertension Status: Chronic Assessment and Plan: Blood pressures reviewed 01/07 D/c lisinopril d/t CKD Cont felodipine (6) Lung nodule: Code(s): R91.1 - Solitary pulmonary nodule Status: Acute Assessment and Plan: CT chest showed bilateral lower lobe consolidation which represent atelectasis/scarring or pneumonia. There is bilateral lower lobe bronchiectasis. Small bilateral pulmonary nodules measuring 3 mm or less, likely benign. Recommend follow-up CT in 12 months. Large complex right thyroid mass. Correlation with thyroid ultrasound recommended. Emphysema. (7) HLD (hyperlipidemia): Qualifiers: Hyperlipidemia type: mixed hyperlipidemia Qualified Code(s): E78.2 - Mixed hyperlipidemia Code(s): E78.5 - Hyperlipidemia, unspecified Status: Chronic Assessment and Plan: Continue with atorvastatin (8) History of TIA (transient ischemic attack): Code(s): Z86.73 - Personal history of transient ischemic attack (TIA), and cerebral infarction without residual deficits Status: Acute Assessment and Plan: Continue with Plavix, aspirin on hold at this time (9) COPD (chronic obstructive pulmonary disease): Qualifiers: COPD type: unspecified COPD Qualified Code(s): J44.9 - Chronic obstructive pulmonary disease, unspecified Code(s): J44.9 - Chronic obstructive pulmonary disease, unspecified Status: Chronic (10) Asthma: Code(s): J45.909 - Unspecified asthma, uncomplicated Status: Chronic Assessment and Plan: Continue with home inhalers (11) Thyroid mass: Code(s): E07.9 - Disorder of thyroid, unspecified Status: Acute Assessment and Plan: Thyroid ultrasound performed. Mass unchanged from previous studies Plan DVT prophylaxis with SCDs GI prophylaxis not indicated Code status full code Subjective Date/time seen: 01/08/23 12:18 Interval history: No overnight events noted. No chest pain or shortness of breath. No nausea, vomiting or diarrhea. No fevers or chills. Overnight required more O2, no complaints though. Patient states she feels fine. Review of Systems Review of Sy
--- NOTE | 2023-01-08 12:20 | PM.IMPN ---
Progress Note: A&P Assessment and Plan (1) Respiratory failure: Code(s): J96.90 - Respiratory failure, unspecified, unspecified whether with hypoxia or hypercapnia Status: Acute Assessment and Plan: Unsure of etiology, check CXR, possible pna noted on CT 01/04 Check CRP, PCT Afebrile for now, tachycardic, check ECG, ABG Levaquin + nebs started 01/05 01/06: cont to worsen, consult pulm, PCT 0.2, leuk fluctuating, add vanc and check MRSA swab 01/07: pulm rec IS, no further concerns, abx de-escalated to levaquin alone, no fevers, low suspicion for infection 01/08: still on 10L hi sharri, not worsening, leuk resolved, cont levaquin, IS, appreciate pulm consult, CT chest showed severe emphysema, no signs of infection, dopplers negative for DVT, check d-dimer, if elevated, check CTA r/o PE (2) Subcapital fracture of right hip: Qualifiers: Encounter type: initial encounter Fracture type: closed Qualified Code(s): S72.011A - Unspecified intracapsular fracture of right femur, initial encounter for closed fracture Code(s): S72.011A - Unspecified intracapsular fracture of right femur, initial encounter for closed fracture Status: Acute Assessment and Plan: 01/04: Bipolar hemiarthroplasty right hip (3) 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: Code(s): T84.022A - Instability of internal right knee prosthesis, initial encounter Status: Acute Assessment and Plan: as above (4) CKD (chronic kidney disease) stage 3, GFR 30-59 ml/min: Code(s): N18.3 - Chronic kidney disease, stage 3 (moderate) Status: Acute Assessment and Plan: stable, would discontinue lisinopril, initiate beta kayla if BP med needed at d/c (5) HTN (hypertension): Qualifiers: Hypertension type: primary hypertension Qualified Code(s): I10 - Essential (primary) hypertension Code(s): I10 - Essential (primary) hypertension Status: Chronic Assessment and Plan: Blood pressures reviewed 01/08 D/c lisinopril d/t CKD Cont felodipine (6) Lung nodule: Code(s): R91.1 - Solitary pulmonary nodule Status: Acute Assessment and Plan: CT chest showed bilateral lower lobe consolidation which represent atelectasis/scarring or pneumonia. There is bilateral lower lobe bronchiectasis. Small bilateral pulmonary nodules measuring 3 mm or less, likely benign. Recommend follow-up CT in 12 months. Large complex right thyroid mass. Correlation with thyroid ultrasound recommended. Emphysema. (7) HLD (hyperlipidemia): Qualifiers: Hyperlipidemia type: mixed hyperlipidemia Qualified Code(s): E78.2 - Mixed hyperlipidemia Code(s): E78.5 - Hyperlipidemia, unspecified Status: Chronic Assessment and Plan: Continue with atorvastatin (8) History of TIA (transient ischemic attack): Code(s): Z86.73 - Personal history of transient ischemic attack (TIA), and cerebral infarction without residual deficits Status: Acute Assessment and Plan: Continue with Plavix, aspirin on hold at this time (9) COPD (chronic obstructive pulmonary disease): Qualifiers: COPD type: unspecified COPD Qualified Code(s): J44.9 - Chronic obstructive pulmonary disease, unspecified Code(s): J44.9 - Chronic obstructive pulmonary disease, unspecified Status: Chronic (10) Asthma: Code(s): J45.909 - Unspecified asthma, uncomplicated Status: Chronic Assessment and Plan: Continue with home inhalers (11) Thyroid mass: Code(s): E07.9 - Disorder of thyroid, unspecified Status: Acute Assessment and Plan: Thyroid ultrasound performed. Mass unchanged from previous studies Plan DVT prophylaxis with SCDs GI prophylaxis not indicated Code status full code Subjective Date/time seen: 01/08/23 12:20 Interval history: No overnight events noted. No chest p
[2023-01-08 13:11] LABS: CRP 17.2 mg/dL (<1.0)
[2023-01-08 13:13] LABS: Procalcitonin 0.2 ng/mL
[2023-01-08 14:07] LABS: D Dimer 3.67 ug/mL (<0.48)
[2023-01-08] MEDS: HYDROcodone/acetaminophen (*CRX) 5-325 MG TABLET 1 TAB PO (15:14)
[2023-01-09] VITALS (19 sets, daily range): BP systolic 115–134; BP diastolic 48–58; PULSE 85–100; RESP 18–24; TEMP 36.4–36.7; O2SAT 92–94
[2023-01-09] MEDS: ALBUTEROL SULFATE NEB 2.5 MG/3 ML INH INHALATION ×4 (02:33→20:17)
[2023-01-09] MEDS: IPRATROPIUM BR 0.02% INH SOLN 0.5 MG/2.5 ML VIAL INHALATION ×4 (02:33→20:17)
[2023-01-09 05:29] LABS: Basophils Absolute Auto 0.1 K/mm3 (0.0-0.1); Basophils Percent Auto 0.7 % (0.2-1.2); Eosinophils Absolute Auto 0.2 K/mm3 (0-0.3); Hemoglobin 10.2 g/dL (12.0-15.0); Immature Granulocyte Absolute 0.06 K/mm3 (0.00-0.031); Immature Granulocyte Percent A 0.9 % (0-0.5); Lymphocytes Percent Auto 17.4 % (18.3-44.2); Mean Corpuscular HGB Conc 31.9 g/dl (32-36); Mean Corpuscular Hemoglobin 29.7 pg (26-34); Mean Platelet Volume 9.1 fl (7.4-10.4); Monocytes Absolute Auto 0.9 K/mm3 (0.1-0.6); Monocytes Percent Auto 12.4 % (2.6-8.5); Neutrophils Absolute Auto 4.5 K/mm3 (1.3-6.7); Neutrophils Percent Auto 65.6 % (45.5-73.1); Platelet Count Result 351 k/mm3 (150-375); Red Blood Count 3.44 M/mm3 (4.2-5.4); Red Cell Distribution Width 13.9 % (11.5-14.5); White Blood Count 6.9 K/mm3 (4.5-10.0)
[2023-01-09 05:44] LABS: Alanine Aminotransferase 31 U/L (6-35); Albumin Level 3.1 g/dL (3.5-5.1); Alkaline Phosphatase 129 U/L (38-126); Anion Gap 2 mmol/L (8-16); Aspartate Amino Transferase 53 U/L (14-36); Bilirubin,Total 0.6 mg/dL (0.2-1.3); Blood Urea Nitrogen 32 mg/dL (7-17); Calcium 8.5 mg/dL (8.4-10.2); Carbon Dioxide 24 mmol/L (22-30); Chloride 99 mmol/L (98-107); Estimated CRCL calculation 29 ml/min; Estimated Glomerular Filt Rate 39; Glucose 112 mg/dL (65-110); Potassium 4.2 mmol/L (3.4-5.0); Sodium 125 mmol/L (137-145)
[2023-01-09] MEDS: ACETYLCYSTEINE 20% INHAL SOLN 800 MG/4 ML VIAL 200 MG INHALATION ×2 (07:59→20:17)
[2023-01-09] MEDS: FLUTICASONE/UMECLIDIN/VILANTER 100-62.5-25 MCG ELLIPTA 1 PUFF INHALATION (07:59)
--- NOTE | 2023-01-09 08:11 | PM.IMPN ---
Progress Note: A&P Assessment and Plan (1) Respiratory failure: Code(s): J96.90 - Respiratory failure, unspecified, unspecified whether with hypoxia or hypercapnia Status: Acute Assessment and Plan: Unsure of etiology, check CXR, possible pna noted on CT 01/04 Levaquin + nebs started 01/05 01/06: cont to worsen, consult pulm, PCT 0.2, leuk fluctuating, add vanc and check MRSA swab 01/07: pulm rec IS, no further concerns, abx de-escalated to levaquin alone, no fevers, low suspicion for infection 01/08: still on 10L hi sharri, not worsening, leuk resolved, cont levaquin, IS, appreciate pulm consult, CT chest showed severe emphysema, no signs of infection, dopplers negative for DVT, check d-dimer, if elevated, check CTA r/o PE 01/09: weaned to 4L, improving, check CTA (2) Subcapital fracture of right hip: Qualifiers: Encounter type: initial encounter Fracture type: closed Qualified Code(s): S72.011A - Unspecified intracapsular fracture of right femur, initial encounter for closed fracture Code(s): S72.011A - Unspecified intracapsular fracture of right femur, initial encounter for closed fracture Status: Acute Assessment and Plan: 01/04: Bipolar hemiarthroplasty right hip (3) 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: Code(s): T84.022A - Instability of internal right knee prosthesis, initial encounter Status: Acute Assessment and Plan: as above (4) CKD (chronic kidney disease) stage 3, GFR 30-59 ml/min: Code(s): N18.3 - Chronic kidney disease, stage 3 (moderate) Status: Acute Assessment and Plan: stable, would discontinue lisinopril, initiate beta kayla if BP med needed at d/c Improving, monitor (5) HTN (hypertension): Qualifiers: Hypertension type: primary hypertension Qualified Code(s): I10 - Essential (primary) hypertension Code(s): I10 - Essential (primary) hypertension Status: Chronic Assessment and Plan: Blood pressures reviewed 01/09 D/c lisinopril d/t CKD Cont felodipine (6) Lung nodule: Code(s): R91.1 - Solitary pulmonary nodule Status: Acute Assessment and Plan: CT chest showed bilateral lower lobe consolidation which represent atelectasis/scarring or pneumonia. There is bilateral lower lobe bronchiectasis. Small bilateral pulmonary nodules measuring 3 mm or less, likely benign. Recommend follow-up CT in 12 months. Large complex right thyroid mass. Correlation with thyroid ultrasound recommended. Emphysema. (7) HLD (hyperlipidemia): Qualifiers: Hyperlipidemia type: mixed hyperlipidemia Qualified Code(s): E78.2 - Mixed hyperlipidemia Code(s): E78.5 - Hyperlipidemia, unspecified Status: Chronic Assessment and Plan: Continue with atorvastatin (8) History of TIA (transient ischemic attack): Code(s): Z86.73 - Personal history of transient ischemic attack (TIA), and cerebral infarction without residual deficits Status: Acute Assessment and Plan: Continue with Plavix, aspirin on hold at this time (9) COPD (chronic obstructive pulmonary disease): Qualifiers: COPD type: unspecified COPD Qualified Code(s): J44.9 - Chronic obstructive pulmonary disease, unspecified Code(s): J44.9 - Chronic obstructive pulmonary disease, unspecified Status: Chronic (10) Asthma: Code(s): J45.909 - Unspecified asthma, uncomplicated Status: Chronic Assessment and Plan: Continue with home inhalers (11) Thyroid mass: Code(s): E07.9 - Disorder of thyroid, unspecified Status: Acute Assessment and Plan: Thyroid ultrasound performed. Mass unchanged from previous studies Plan DVT prophylaxis with SCDs GI prophylaxis not indicated Code status full code Subjective Date/time seen: 01/09/23 08:11 Interval history: No overnight events noted. No chest pa
[2023-01-09] MEDS: ENOXAPARIN 30 MG/0.3 ML SYRINGE SUB-Q (09:16)
[2023-01-09] MEDS: FLUTICASONE PROPIONATE 0.05% NA SPR 16 GM BTL (*BKC) 2 SPRAY NASAL (09:16)
[2023-01-09] MEDS: ASCORBIC ACID 500 MG TABLET PO (09:17)
[2023-01-09] MEDS: TOLTERODINE TARTRATE LA 4 MG CAP.ER.24H PO (09:17)
[2023-01-09] MEDS: LORATADINE 10 MG TABLET PO (09:17)
[2023-01-09] MEDS: FERROUS SULFATE 325 MG TABLET DR PO (09:17)
[2023-01-09] MEDS: CLOPIDOGREL BISULFATE 75 MG TABLET PO (09:17)
[2023-01-09] MEDS: levoFLOXacin 750 MG TABLET PO (09:17)
[2023-01-09] MEDS: ATORVASTATIN 40 MG TABLET PO (09:17)
[2023-01-09] MEDS: PANTOPRAZOLE SOD SESQUIHYDRATE 20 MG TAB PO (09:17)
[2023-01-09] MEDS: CHOLECALCIFEROL 1,000 UNITS TABLET 2000 UNITS PO (09:17)
[2023-01-09] MEDS: FELODIPINE 5 MG TAB CR 10 MG PO (09:18)
[2023-01-09] MEDS: CYANOCOBALAMIN 500 MCG TABLET 2500 MCG PO (09:18)
--- NOTE | 2023-01-09 09:30 | PCRCNOTE ---
ABG not done per Dr Mckinnon
--- NOTE | 2023-01-09 10:21 | PM.PNPUL ---
Progress Note: A&P Assessment and Plan (1) Respiratory failure: Code(s): J96.90 - Respiratory failure, unspecified, unspecified whether with hypoxia or hypercapnia Status: Acute Assessment and Plan: This 82-year-old female with known COPD, advanced centrilobular emphysema on chest CT presented with right hip fracture and underwent surgery 3 days ago.? The patient's respiratory status has worsened since admission in the sense that oxygen needs have increased from a low-flow oxygen of 2 L to 10 liters/minute.? The patient had mild leukocytosis, no fever and no signs to suggest nosocomial pneumonia.? She is currently on just levofloxacin. She remains on high-flow nasal cannula but her respiratory status is otherwise unchanged. Chest CT showed no evidence of new infiltrates, she has advanced confluent centrilobular emphysema and basal atelectasis as before. In addition she has two rib fractures on right. The patient denied having any chest pain with breathing. She has diuresed following Lasix 20 mg IV. I suspect the patient's respiratory failure is related to advanced centrilobular emphysema and basal atelectasis following surgery for right hip fracture. There is no evidence of pneumonia on the CT. WBC back into the normal range. Today's chest x-ray showed essentially unchanged basal atelectasis. Creatinine trending down. The patient was placed on 4 L oxygen while seated in chair O2 saturation remained in the range of 95-96% while on 4 liters/minute. plan: Continue with current treatment, ambulate in room, increase spirometry every 2 hours, out of bed to chair. (2) Lung nodule: Code(s): R91.1 - Solitary pulmonary nodule Status: Acute (3) Acute respiratory failure with hypoxia: Code(s): J96.01 - Acute respiratory failure with hypoxia Status: Acute (4) COPD (chronic obstructive pulmonary disease): Qualifiers: COPD type: unspecified COPD Qualified Code(s): J44.9 - Chronic obstructive pulmonary disease, unspecified Code(s): J44.9 - Chronic obstructive pulmonary disease, unspecified Status: Chronic (5) CKD (chronic kidney disease) stage 3, GFR 30-59 ml/min: Code(s): N18.3 - Chronic kidney disease, stage 3 (moderate) Status: Acute (6) Subcapital fracture of right hip: Qualifiers: Encounter type: initial encounter Fracture type: closed Qualified Code(s): S72.011A - Unspecified intracapsular fracture of right femur, initial encounter for closed fracture Code(s): S72.011A - Unspecified intracapsular fracture of right femur, initial encounter for closed fracture Status: Acute Subjective Date/time seen: 01/09/23 10:21 Interval history: Patient has no new respiratory symptoms. She is afebrile off antibiotics. No cough sputum production wheezing chest pain. Still on 10 liters/minute supplemental oxygen Review of Systems Review of Systems: All systems reviewed & are unremarkable except as noted in HPI and below (HPI and below) Exam Narrative: GENERAL APPEARANCE: Well developed, well nourished, alert and cooperative, and appears to be in no acute distress while sitting in chair SKIN: Inspection of the skin reveals no rashes, ulcerations or petechiae. HEENT: Sclerae anicteric and conjunctivae pink and moist. Extraocular movements were intact and pupils were equal, round, and reactive to light. The oral mucosa, hard and soft palate, tongue and posterior pharynx were normal. NECK: Supple. There was no thyroid enlargement, and no tenderness, or masses were felt.. LUNGS: Auscultation of the lungs crackles posteriorly, no wheezing CARDIAC: There was a regular rate and rhythm without any murmurs, gallops, rubs. ABDOMEN: Soft and nontender with normal bowel sounds. There was no organomegaly. LYMPH NODES: No lymphadenopathy was appreciated in the neck. EXTREMITIES: No cyanosis, clubbing or edema. NEUROLOGIC: Alert and oriented x 3. Normal
[2023-01-09] MEDS: predniSONE 40 MG, predniSONE 10 MG 50 MG PO ×3 (11:02→22:41)
[2023-01-10] VITALS (20 sets, daily range): BP systolic 128–150; BP diastolic 46–65; PULSE 92–117; RESP 18–20; TEMP 36.4–36.9; O2SAT 90–93
[2023-01-10] MEDS: ALBUTEROL SULFATE NEB 2.5 MG/3 ML INH INHALATION ×4 (02:11→20:20)
[2023-01-10] MEDS: IPRATROPIUM BR 0.02% INH SOLN 0.5 MG/2.5 ML VIAL INHALATION ×4 (02:11→20:20)
[2023-01-10 06:05] LABS: Basophils Percent Auto 0.2 % (0.2-1.2); Hematocrit 29.3 % (37.0-47.0); Hemoglobin 9.7 g/dL (12.0-15.0); Immature Granulocyte Absolute 0.08 K/mm3 (0.00-0.031); Immature Granulocyte Percent A 1.3 % (0-0.5); Lymphocytes Absolute Auto 0.59 K/mm3 (0.9-3.2); Lymphocytes Percent Auto 9.5 % (18.3-44.2); Mean Corpuscular HGB Conc 33.1 g/dl (32-36); Mean Corpuscular Hemoglobin 29.4 pg (26-34); Mean Corpuscular Volume 88.8 fl (80-100); Monocytes Absolute Auto 0.2 K/mm3 (0.1-0.6); Monocytes Percent Auto 3.6 % (2.6-8.5); Neutrophils Absolute Auto 5.3 K/mm3 (1.3-6.7); Neutrophils Percent Auto 85.4 % (45.5-73.1); Platelet Count Result 397 k/mm3 (150-375); Red Cell Distribution Width 13.6 % (11.5-14.5); White Blood Count 6.2 K/mm3 (4.5-10.0)
[2023-01-10 06:19] LABS: Alanine Aminotransferase 29 U/L (6-35); Alkaline Phosphatase 125 U/L (38-126); Anion Gap 5 mmol/L (8-16); Aspartate Amino Transferase 44 U/L (14-36); Bilirubin,Total 0.6 mg/dL (0.2-1.3); Blood Urea Nitrogen 35 mg/dL (7-17); Calcium 8.8 mg/dL (8.4-10.2); Carbon Dioxide 25 mmol/L (22-30); Chloride 97 mmol/L (98-107); Estimated CRCL calculation 27 ml/min; Estimated Glomerular Filt Rate 36; Glucose 156 mg/dL (65-110); Potassium 4.3 mmol/L (3.4-5.0); Sodium 127 mmol/L (137-145)
[2023-01-10] MEDS: ACETYLCYSTEINE 20% INHAL SOLN 800 MG/4 ML VIAL 200 MG INHALATION (07:30)
[2023-01-10] MEDS: FLUTICASONE/UMECLIDIN/VILANTER 100-62.5-25 MCG ELLIPTA 1 PUFF INHALATION (07:47)
--- NOTE | 2023-01-10 09:01 | PM.IMPN ---
Progress Note: A&P Assessment and Plan (1) Respiratory failure: Code(s): J96.90 - Respiratory failure, unspecified, unspecified whether with hypoxia or hypercapnia Status: Acute Assessment and Plan: Unsure of etiology, check CXR, possible pna noted on CT 01/04 Levaquin + nebs started 01/05 01/06: cont to worsen, consult pulm, PCT 0.2, leuk fluctuating, add vanc and check MRSA swab 01/07: pulm rec IS, no further concerns, abx de-escalated to levaquin alone, no fevers, low suspicion for infection 01/08: still on 10L hi sharri, not worsening, leuk resolved, cont levaquin, IS, appreciate pulm consult, CT chest showed severe emphysema, no signs of infection, dopplers negative for DVT, check d-dimer, if elevated, check CTA r/o PE 01/09: weaned to 4L, improving, check CTA 01/10: PE finally discovered on CTA, will initiate heparin drip in light of recent surgery on 01/04, anticipate discharge to facility soon on Eliquis if hemoglobin remains stable on heparin drip, will discontinue antibiotics today after completing 6 day course (2) Subcapital fracture of right hip: Qualifiers: Encounter type: initial encounter Fracture type: closed Qualified Code(s): S72.011A - Unspecified intracapsular fracture of right femur, initial encounter for closed fracture Code(s): S72.011A - Unspecified intracapsular fracture of right femur, initial encounter for closed fracture Status: Acute Assessment and Plan: 01/04: Bipolar hemiarthroplasty right hip (3) 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: Code(s): T84.022A - Instability of internal right knee prosthesis, initial encounter Status: Acute Assessment and Plan: as above (4) CKD (chronic kidney disease) stage 3, GFR 30-59 ml/min: Code(s): N18.3 - Chronic kidney disease, stage 3 (moderate) Status: Acute Assessment and Plan: stable, would discontinue lisinopril, initiate beta kayla if BP med needed at d/c Improving, monitor (5) HTN (hypertension): Qualifiers: Hypertension type: primary hypertension Qualified Code(s): I10 - Essential (primary) hypertension Code(s): I10 - Essential (primary) hypertension Status: Chronic Assessment and Plan: Blood pressures reviewed 01/10 D/c lisinopril d/t CKD Cont felodipine (6) Lung nodule: Code(s): R91.1 - Solitary pulmonary nodule Status: Acute Assessment and Plan: CT chest showed bilateral lower lobe consolidation which represent atelectasis/scarring or pneumonia. There is bilateral lower lobe bronchiectasis. Small bilateral pulmonary nodules measuring 3 mm or less, likely benign. Recommend follow-up CT in 12 months. Large complex right thyroid mass. Correlation with thyroid ultrasound 01/04 showed that the thyroid nodules were stable from 2016 and likely benign, no follow-up recommended. Emphysema. (7) HLD (hyperlipidemia): Qualifiers: Hyperlipidemia type: mixed hyperlipidemia Qualified Code(s): E78.2 - Mixed hyperlipidemia Code(s): E78.5 - Hyperlipidemia, unspecified Status: Chronic Assessment and Plan: Continue with atorvastatin (8) History of TIA (transient ischemic attack): Code(s): Z86.73 - Personal history of transient ischemic attack (TIA), and cerebral infarction without residual deficits Status: Acute Assessment and Plan: Continue with Plavix, aspirin on hold at this time (9) COPD (chronic obstructive pulmonary disease): Qualifiers: COPD type: unspecified COPD Qualified Code(s): J44.9 - Chronic obstructive pulmonary disease, unspecified Code(s): J44.9 - Chronic obstructive pulmonary disease, unspecified Status: Chronic (10) Asthma: Code(s): J45.909 - Unspecified asthma, uncomplicated Status: Chronic Assessment and Plan: Continue with home inhalers (11) Thyroid mass: Code(s): E07.9 - Disor
[2023-01-10] MEDS: FLUTICASONE PROPIONATE 0.05% NA SPR 16 GM BTL (*BKC) 2 SPRAY NASAL (09:30)
[2023-01-10] MEDS: CLOPIDOGREL BISULFATE 75 MG TABLET PO (09:31)
[2023-01-10] MEDS: FERROUS SULFATE 325 MG TABLET DR PO (09:31)
[2023-01-10] MEDS: ASCORBIC ACID 500 MG TABLET PO (09:31)
[2023-01-10] MEDS: PANTOPRAZOLE SOD SESQUIHYDRATE 20 MG TAB PO (09:31)
[2023-01-10] MEDS: FELODIPINE 5 MG TAB CR 10 MG PO (09:31)
[2023-01-10] MEDS: ATORVASTATIN 40 MG TABLET PO (09:31)
[2023-01-10] MEDS: CHOLECALCIFEROL 1,000 UNITS TABLET 2000 UNITS PO (09:32)
[2023-01-10] MEDS: LORATADINE 10 MG TABLET PO (09:33)
[2023-01-10] MEDS: TOLTERODINE TARTRATE LA 4 MG CAP.ER.24H PO (09:33)
[2023-01-10] MEDS: CYANOCOBALAMIN 500 MCG TABLET 2500 MCG PO (09:38)
[2023-01-10 09:39] LABS: INR 1.2; Prothrombin Time 15.3 Seconds (11.1-14.7)
[2023-01-10] MEDS: HEPARIN SODIUM 5,000 UNITS/ML VIAL 5000 UNITS IV PUSH (09:39)
[2023-01-10 09:40] LABS: Partial Thromboplastin Time 29.9 SECONDS (22.3-36.8)
--- NOTE | 2023-01-10 10:11 | PCOTNOTE ---
The patient treatment was not able to be completed. Nursing was setting up IV. will follow up later on this date. Will plan to continue treatment per plan of care.
[2023-01-10] MEDS: HEPARIN SOD/D5W 100 UNITS/ML 25,000 UNITS/250 ML BAG 11 UNITS IV CONT (10:14)
--- NOTE | 2023-01-10 10:37 | PCNWS ---
Weekly nutritional screen. Patient is tolerating current diet with adequate intake. No weight loss reported. No nutritional needs at this time.
--- NOTE | 2023-01-10 12:20 | PM.PNPUL ---
Progress Note: A&P Assessment and Plan (1) Respiratory failure: Code(s): J96.90 - Respiratory failure, unspecified, unspecified whether with hypoxia or hypercapnia Status: Acute Assessment and Plan: Patient's respiratory status has improved over the last 48 hours with FiO2 now decreased down to 4 liters/minute since yesterday morning. On physical exam she continues to have crackles at bases bilaterally. CTPA showed small pulmonary embolism in left upper lobe. Pulmonary embolism most likely occurred days ago as patient's respiratory status has not worsened over the last week and if anything it has improved. It is highly likely that the pulmonary embolism occurred at home and precipitated fall with hip fracture. On admission she had respiratory alkalosis which was attributed to pain. On admission she could not have a CT PA because of renal failure. Study of lower extremities was negative for DVT. Patient has been on IV heparin since this a.m.. I have discontinued Plavix to minimize risk of bleeding. The patient will require anticoagulant most likely Eliquis for long-term treatment. Will follow along with you. (2) Subcapital fracture of right hip: Qualifiers: Encounter type: initial encounter Fracture type: closed Qualified Code(s): S72.011A - Unspecified intracapsular fracture of right femur, initial encounter for closed fracture Code(s): S72.011A - Unspecified intracapsular fracture of right femur, initial encounter for closed fracture Status: Acute (3) CKD (chronic kidney disease) stage 3, GFR 30-59 ml/min: Code(s): N18.3 - Chronic kidney disease, stage 3 (moderate) Status: Acute (4) COPD (chronic obstructive pulmonary disease): Qualifiers: COPD type: unspecified COPD Qualified Code(s): J44.9 - Chronic obstructive pulmonary disease, unspecified Code(s): J44.9 - Chronic obstructive pulmonary disease, unspecified Status: Chronic (5) History of TIA (transient ischemic attack): Code(s): Z86.73 - Personal history of transient ischemic attack (TIA), and cerebral infarction without residual deficits Status: Acute (6) Pulmonary embolism: Code(s): I26.99 - Other pulmonary embolism without acute cor pulmonale Status: Acute Subjective Date/time seen: 01/10/23 12:20 Interval history: Patient has no new respiratory symptoms. Supplemental oxygen decreased down to 4 L per minute since yesterday. Surprising finding of pulmonary embolism this a.m. following CT PA. patient is currently on IV heparin drip. Review of Systems Review of Systems: All systems reviewed & are unremarkable except as noted in HPI and below (HPI and below) Exam Narrative: GENERAL APPEARANCE: Well developed, well nourished, alert and cooperative, and appears to be in no acute distress while sitting in chair SKIN: Inspection of the skin reveals no rashes, ulcerations or petechiae. HEENT: Sclerae anicteric and conjunctivae pink and moist. Extraocular movements were intact and pupils were equal, round, and reactive to light. The oral mucosa, hard and soft palate, tongue and posterior pharynx were normal. NECK: Supple. There was no thyroid enlargement, and no tenderness, or masses were felt.. LUNGS: Auscultation of the lungs crackles posteriorly, no wheezing CARDIAC: There was a regular rate and rhythm without any murmurs, gallops, rubs. ABDOMEN: Soft and nontender with normal bowel sounds. There was no organomegaly. LYMPH NODES: No lymphadenopathy was appreciated in the neck. EXTREMITIES: No cyanosis, clubbing or edema. NEUROLOGIC: Alert and oriented x 3. Normal affect. Objective Data Vital Signs Vital Signs: Vital Signs - 24 hr 01/09/23 14:09 01/09/23 14:18 01/09/23 14:00 Temperature 36.7 C Pulse Rate 90 92 91 Respiratory Rate 18 18 24 H Blood Pressure 115/50 L Pulse Oximetry 93 Oxygen Delivery Oxygen Flow Rate 01/09/23 16:00 08
--- NOTE | 2023-01-10 16:00 | PM.PNORT ---
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 Patient progressing well. Found to have a small PE. Her breathing is improving. Notes her hip is feeling much better today. She continues to use her knee immobilizer. Note some pain today after she took the immobilizer off so she put it back on. Will continue to follow. Subjective Subjective Date/Time Seen: 01/10/23 16:00 Interval history: Patient resting comfortably in bed. Sitting up. Notes decreased pain in her hip. Notes that she tried taking the immobilizer off her knee and had increased pain so she put it back on. She has been working with physical therapy. Review of Systems Review of Systems: All systems reviewed & are unremarkable except as noted in HPI and below Exam Narrative: Overweight 82 y/o female. Resting comfortably in a chair. Wearing O2 nasal canula. Wearing knee immobilizer on right side. Mild swelling and ecchymosis in lower leg. Dressing dry and intact with no drainage. Mild swelling. No edema. No ecchymosis. No erythema. No hematoma. Range of motion limited due to pain. Calf nontender. Thigh nontender. No varicosities. Distal pulses palpable. Wiggles toes. Light touch sensation intact. Good capillary refill. Objective Data Vital Signs Vital Signs: Vital Signs - 24 hr 01/09/23 20:00 01/09/23 20:00 01/09/23 20:25 Temperature Pulse Rate 92 90 Respiratory Rate 18 Blood Pressure Pulse Oximetry 93 Oxygen Delivery Nasal Cannula Oxygen Flow Rate 4 01/09/23 20:20 01/09/23 20:31 01/09/23 20:43 Temperature 97.6 F Pulse Rate 92 85 Respiratory Rate 18 18 Blood Pressure 134/58 L Pulse Oximetry 92 94 Oxygen Delivery Nasal Cannula Oxygen Flow Rate 4 01/10/23 00:00 01/10/23 02:11 01/10/23 02:22 Temperature Pulse Rate 93 96 92 Respiratory Rate 18 18 Blood Pressure Pulse Oximetry Oxygen Delivery Oxygen Flow Rate 01/10/23 04:13 01/10/23 04:00 01/10/23 07:32 Temperature 97.6 F Pulse Rate 101 H 103 H Respiratory Rate 18 Blood Pressure 150/65 H Pulse Oximetry 91 92 Oxygen Delivery Nasal Cannula Oxygen Flow Rate 4 01/10/23 07:32 01/10/23 07:53 01/10/23 09:30 Temperature Pulse Rate 103 H 102 H 102 H Respiratory Rate 18 18 18 Blood Pressure Pulse Oximetry 92 Oxygen Delivery Nasal Cannula Oxygen Flow Rate 4 01/10/23 13:43 01/10/23 13:50 01/10/23 14:04 Temperature Pulse Rate 103 H 104 H Respiratory Rate 18 18 Blood Pressure Pulse Oximetry 92 Oxygen Delivery Nasal Cannula Oxygen Flow Rate 2.5 01/10/23 08:00 01/10/23 12:00 01/10/23 14:18 Temperature 98.4 F Pulse Rate 108 H 117 H 107 H Respiratory Rate 20 Blood Pressure 128/54 L Pulse Oximetry 90 Oxygen Delivery Oxygen Flow Rate Intake/Output Intake/Output: Intake & Output 01/07/23 01/08/23 01/09/23 01/10/23 23:59 23:59 23:59 23:59 Intake Total 2100 660 1920 730 Output Total 2700 3150 1050 1150 Balance -600 -3620 870 -420 Meds/Results Medications: Active Medications Generic Name Dose Route Start Last Admin Trade Name Freq PRN Reason Stop Dose Admin Acetaminophen 1,000 mg 01/03/23 17:57 01/08/23 11:10 Acetaminophen 500 Mg Tablet PO 1,000 mg BID PRN Administration Pain Hydrocodone Bitart/Acetaminophen 1 tab 01/03/23 18:06 01/08/23 15:14 Hydrocodone/Acetamin
[2023-01-10 16:25] LABS: Partial Thromboplastin Time 149.7 SECONDS (22.3-36.8)
[2023-01-11] VITALS (18 sets, daily range): BP systolic 129–134; BP diastolic 45–49; PULSE 81–105; RESP 16–18; TEMP 36.1–36.7; O2SAT 90–97
[2023-01-11 00:51] LABS: Partial Thromboplastin Time 71.9 SECONDS (22.3-36.8)
[2023-01-11] MEDS: ALBUTEROL SULFATE NEB 2.5 MG/3 ML INH INHALATION ×4 (02:39→19:54)
[2023-01-11] MEDS: IPRATROPIUM BR 0.02% INH SOLN 0.5 MG/2.5 ML VIAL INHALATION ×4 (02:39→19:53)
[2023-01-11 06:36] LABS: Basophils Percent Auto 0.1 % (0.2-1.2); Eosinophils Absolute Auto 0.1 K/mm3 (0-0.3); Eosinophils Percent Auto 0.6 % (0-4.4); Hematocrit 27.2 % (37.0-47.0); Hemoglobin 8.9 g/dL (12.0-15.0); Immature Granulocyte Absolute 0.23 K/mm3 (0.00-0.031); Immature Granulocyte Percent A 1.9 % (0-0.5); Lymphocytes Percent Auto 19.1 % (18.3-44.2); Mean Corpuscular HGB Conc 32.7 g/dl (32-36); Mean Corpuscular Hemoglobin 29.7 pg (26-34); Mean Corpuscular Volume 90.7 fl (80-100); Mean Platelet Volume 8.9 fl (7.4-10.4); Monocytes Absolute Auto 1.3 K/mm3 (0.1-0.6); Monocytes Percent Auto 10.5 % (2.6-8.5); Neutrophils Absolute Auto 8.2 K/mm3 (1.3-6.7); Neutrophils Percent Auto 67.8 % (45.5-73.1); Platelet Count Result 393 k/mm3 (150-375); Red Cell Distribution Width 13.9 % (11.5-14.5)
[2023-01-11 06:46] LABS: Chloride 99 mmol/L (98-107); Potassium 3.9 mmol/L (3.4-5.0); Sodium 130 mmol/L (137-145)
[2023-01-11 06:47] LABS: Alanine Aminotransferase 28 U/L (6-35); Albumin Level 2.8 g/dL (3.5-5.1); Alkaline Phosphatase 106 U/L (38-126); Anion Gap 6 mmol/L (8-16); Aspartate Amino Transferase 41 U/L (14-36); Bilirubin,Total 0.5 mg/dL (0.2-1.3); Blood Urea Nitrogen 41 mg/dL (7-17); Calcium 8.6 mg/dL (8.4-10.2); Carbon Dioxide 25 mmol/L (22-30); Estimated CRCL calculation 25 ml/min; Estimated Glomerular Filt Rate 33; Glucose 108 mg/dL (65-110); Partial Thromboplastin Time 96.9 SECONDS (22.3-36.8)
[2023-01-11] MEDS: PANTOPRAZOLE SOD SESQUIHYDRATE 20 MG TAB PO (08:48)
[2023-01-11] MEDS: CYANOCOBALAMIN 500 MCG TABLET 2500 MCG PO (08:48)
[2023-01-11] MEDS: LORATADINE 10 MG TABLET PO (08:48)
[2023-01-11] MEDS: FELODIPINE 5 MG TAB CR 10 MG PO (08:48)
[2023-01-11] MEDS: ATORVASTATIN 40 MG TABLET PO (08:49)
[2023-01-11] MEDS: ASCORBIC ACID 500 MG TABLET PO (08:49)
[2023-01-11] MEDS: FLUTICASONE PROPIONATE 0.05% NA SPR 16 GM BTL (*BKC) 2 SPRAY NASAL (08:49)
[2023-01-11] MEDS: CHOLECALCIFEROL 1,000 UNITS TABLET 2000 UNITS PO (08:49)
[2023-01-11] MEDS: FERROUS SULFATE 325 MG TABLET DR PO (08:49)
[2023-01-11] MEDS: TOLTERODINE TARTRATE LA 4 MG CAP.ER.24H PO (08:49)
[2023-01-11] MEDS: FLUTICASONE/UMECLIDIN/VILANTER 100-62.5-25 MCG ELLIPTA 1 PUFF INHALATION (09:29)
--- NOTE | 2023-01-11 10:29 | PM.IMPN ---
Progress Note: A&P Assessment and Plan (1) Respiratory failure: Code(s): J96.90 - Respiratory failure, unspecified, unspecified whether with hypoxia or hypercapnia Status: Acute Assessment and Plan: Unsure of etiology, check CXR, possible pna noted on CT 01/04 Levaquin + nebs started 01/05 01/06: cont to worsen, consult pulm, PCT 0.2, leuk fluctuating, add vanc and check MRSA swab 01/07: pulm rec IS, no further concerns, abx de-escalated to levaquin alone, no fevers, low suspicion for infection 01/08: still on 10L hi sharri, not worsening, leuk resolved, cont levaquin, IS, appreciate pulm consult, CT chest showed severe emphysema, no signs of infection, dopplers negative for DVT, check d-dimer, if elevated, check CTA r/o PE 01/09: weaned to 4L, improving, check CTA 01/10: PE finally discovered on CTA, will initiate heparin drip in light of recent surgery on 01/04, anticipate discharge to facility soon on Eliquis if hemoglobin remains stable on heparin drip, will discontinue antibiotics today after completing 6 day course 01/11: hgb dropped a bit, recheck this afternoon, if still dropping, stop heparin drip and place IVC filter, bump in leuk, check PCT, CRP, concern for pna, check CXR (2) Subcapital fracture of right hip: Qualifiers: Encounter type: initial encounter Fracture type: closed Qualified Code(s): S72.011A - Unspecified intracapsular fracture of right femur, initial encounter for closed fracture Code(s): S72.011A - Unspecified intracapsular fracture of right femur, initial encounter for closed fracture Status: Acute Assessment and Plan: 01/04: Bipolar hemiarthroplasty right hip (3) 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: Code(s): T84.022A - Instability of internal right knee prosthesis, initial encounter Status: Acute Assessment and Plan: as above (4) CKD (chronic kidney disease) stage 3, GFR 30-59 ml/min: Code(s): N18.3 - Chronic kidney disease, stage 3 (moderate) Status: Acute Assessment and Plan: stable, would discontinue lisinopril, initiate beta kayla if BP med needed at d/c Improving, monitor (5) HTN (hypertension): Qualifiers: Hypertension type: primary hypertension Qualified Code(s): I10 - Essential (primary) hypertension Code(s): I10 - Essential (primary) hypertension Status: Chronic Assessment and Plan: Blood pressures reviewed 01/11 D/c lisinopril d/t CKD Cont felodipine (6) Lung nodule: Code(s): R91.1 - Solitary pulmonary nodule Status: Acute Assessment and Plan: CT chest showed bilateral lower lobe consolidation which represent atelectasis/scarring or pneumonia. There is bilateral lower lobe bronchiectasis. Small bilateral pulmonary nodules measuring 3 mm or less, likely benign. Recommend follow-up CT in 12 months. Large complex right thyroid mass. Correlation with thyroid ultrasound 01/04 showed that the thyroid nodules were stable from 2016 and likely benign, no follow-up recommended. Emphysema. (7) HLD (hyperlipidemia): Qualifiers: Hyperlipidemia type: mixed hyperlipidemia Qualified Code(s): E78.2 - Mixed hyperlipidemia Code(s): E78.5 - Hyperlipidemia, unspecified Status: Chronic Assessment and Plan: Continue with atorvastatin (8) History of TIA (transient ischemic attack): Code(s): Z86.73 - Personal history of transient ischemic attack (TIA), and cerebral infarction without residual deficits Status: Acute Assessment and Plan: Continue with Plavix, aspirin on hold at this time (9) COPD (chronic obstructive pulmonary disease): Qualifiers: COPD type: unspecified COPD Qualified Code(s): J44.9 - Chronic obstructive pulmonary disease, unspecified Code(s): J44.9 - Chronic obstructive pulmonary disease, unspecified Status: Chronic (10) Asthma: Code(s): J45.909 - Unsp
[2023-01-11 10:56] LABS: CRP 3.2 mg/dL (<1.0)
--- NOTE | 2023-01-11 11:03 | PM.PNORT ---
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 Patient progressing well. Found to have a small PE. Her breathing is improving. Notes her hip is feeling much better today. She continues to use her knee immobilizer. May remove Mepilex dressing today. Leave steri-strips for 1 more week. Okay for discharge from orthopedic standpoint. Knee laxity can be re-evaluated as an outpatient. Subjective Subjective Date/Time Seen: 01/11/23 11:03 Interval history: Patient working with formal physical therapy at the time of my visit. She states her hip hurts with movement but overall doing well. Able to walk with walker. She states her breathing is also improving. Review of Systems Review of Systems: All systems reviewed & are unremarkable except as noted in HPI and below Exam Narrative: Overweight 82 y/o female. Resting comfortably in a chair. Wearing O2 nasal canula. Wearing knee immobilizer on right side. Mild swelling and ecchymosis in lower leg. Dressing dry and intact with no drainage. Mild swelling. No edema. No ecchymosis. No erythema. No hematoma. Range of motion limited due to pain. Calf nontender. Thigh nontender. No varicosities. Distal pulses palpable. Wiggles toes. Light touch sensation intact. Good capillary refill. Objective Data Vital Signs Vital Signs: Vital Signs - 24 hr 01/10/23 13:43 01/10/23 13:50 01/10/23 14:04 Temperature Pulse Rate 103 H 104 H Respiratory Rate 18 18 Blood Pressure Pulse Oximetry 92 Oxygen Delivery Nasal Cannula Oxygen Flow Rate 2.5 Fraction of Inspired Oxygen 01/10/23 12:00 01/10/23 14:18 01/10/23 16:00 Temperature 98.4 F Pulse Rate 117 H 107 H 106 H Respiratory Rate 20 Blood Pressure 128/54 L Pulse Oximetry 90 Oxygen Delivery Oxygen Flow Rate Fraction of Inspired Oxygen 01/10/23 20:19 01/10/23 20:21 01/10/23 20:28 Temperature Pulse Rate 101 H 103 H Respiratory Rate 18 18 Blood Pressure Pulse Oximetry 92 Oxygen Delivery Nasal Cannula Oxygen Flow Rate 4 Fraction of Inspired Oxygen 01/10/23 21:47 01/10/23 20:00 01/10/23 20:00 Temperature 98.4 F Pulse Rate 107 H 103 H Respiratory Rate 18 Blood Pressure 129/46 L Pulse Oximetry 93 91 Oxygen Delivery Nasal Cannula Oxygen Flow Rate 4 Fraction of Inspired Oxygen 01/11/23 00:00 01/11/23 02:39 01/11/23 02:49 Temperature Pulse Rate 92 81 82 Respiratory Rate 16 16 Blood Pressure Pulse Oximetry Oxygen Delivery Oxygen Flow Rate Fraction of Inspired Oxygen 01/11/23 04:00 01/11/23 05:43 01/11/23 08:00 Temperature 97.0 F L Pulse Rate 82 98 98 Respiratory Rate 18 18 Blood Pressure 129/49 L Pulse Oximetry 94 94 Oxygen Delivery Nasal Cannula Oxygen Flow Rate 4 Fraction of Inspired Oxygen 40 01/11/23 09:15 01/11/23 09:15 01/11/23 09:31 Temperature Pulse Rate 92 98 Respiratory Rate 18 18 Blood Pressure Pulse Oximetry 93 Oxygen Delivery Nasal Cannula Oxygen Flow Rate 4 Fraction of Inspired Oxygen 36 Intake/Output Intake/Output: Intake & Output 01/08/23 01/09/23 01/10/23 01/11/23 23:59 23:59 23:59 23:59 Intake Total 660 1920 980 340 Output Total 3150 1050 1750 750 Balance -5990 870 -770 -165 Meds/Results Medications: Active Medications Generic Name Dose Route Start Last Admin Trade Name Carlos
[2023-01-11 11:06] LABS: Procalcitonin 0.2 ng/mL
[2023-01-11 12:42] LABS: Partial Thromboplastin Time 62.9 SECONDS (22.3-36.8)
[2023-01-11] MEDS: HEPARIN SOD/D5W 100 UNITS/ML 25,000 UNITS/250 ML BAG 9 UNITS IV CONT (12:43)
[2023-01-11] MEDS: HEPARIN SODIUM 5,000 UNITS/ML VIAL 2500 UNITS IV PUSH (12:54)
[2023-01-11 14:57] LABS: Basophils Absolute Auto 0.1 K/mm3 (0.0-0.1); Basophils Percent Auto 0.4 % (0.2-1.2); Eosinophils Absolute Auto 0.1 K/mm3 (0-0.3); Eosinophils Percent Auto 0.6 % (0-4.4); Hematocrit 33.3 % (37.0-47.0); Hemoglobin 10.3 g/dL (12.0-15.0); Immature Granulocyte Absolute 0.39 K/mm3 (0.00-0.031); Immature Granulocyte Percent A 2.5 % (0-0.5); Lymphocytes Absolute Auto 3.12 K/mm3 (0.9-3.2); Mean Corpuscular HGB Conc 30.9 g/dl (32-36); Mean Corpuscular Hemoglobin 29.3 pg (26-34); Mean Corpuscular Volume 94.9 fl (80-100); Mean Platelet Volume 8.8 fl (7.4-10.4); Monocytes Percent Auto 12.6 % (2.6-8.5); Neutrophils Percent Auto 63.9 % (45.5-73.1); Platelet Count Result 499 k/mm3 (150-375); Red Blood Count 3.51 M/mm3 (4.2-5.4); Red Cell Distribution Width 14.1 % (11.5-14.5); White Blood Count 15.6 K/mm3 (4.5-10.0)
--- NOTE | 2023-01-11 15:06 | PM.PNPUL ---
Progress Note: A&P Assessment and Plan (1) Respiratory failure: Code(s): J96.90 - Respiratory failure, unspecified, unspecified whether with hypoxia or hypercapnia Status: Acute Assessment and Plan: Patient's respiratory status has improved over the last 48 hours with FiO2 now decreased down to 4 liters/minute since yesterday morning. On physical exam she continues to have crackles at bases bilaterally but less than before. CTPA showed small pulmonary embolism in left upper lobe. Pulmonary embolism most likely occurred days ago as patient's respiratory status has not worsened over the last week and if anything it has improved. It is likely that the pulmonary embolism occurred at home and precipitated the fall with hip fracture. Patient did not have any symptoms such as shortness of breath palpitations or near syncope around preceding the time of fall at home. Overall her respiratory status has improved. She continues to require supplemental oxygen at 4 liters/minute. On physical exam she has fewer crackles at bases than before. Plan: Have discontinued IV heparin started the patient on direct anticoagulant i.e. Eliquis 10 mg q.12 hours for 7 days followed by Eliquis 5 mg b.i.d.. Patient will need evaluation for home oxygen. Need to evaluate patient in the clinic in approximately 1 month post discharge. (2) Subcapital fracture of right hip: Qualifiers: Encounter type: initial encounter Fracture type: closed Qualified Code(s): S72.011A - Unspecified intracapsular fracture of right femur, initial encounter for closed fracture Code(s): S72.011A - Unspecified intracapsular fracture of right femur, initial encounter for closed fracture Status: Acute (3) CKD (chronic kidney disease) stage 3, GFR 30-59 ml/min: Code(s): N18.3 - Chronic kidney disease, stage 3 (moderate) Status: Acute (4) COPD (chronic obstructive pulmonary disease): Qualifiers: COPD type: unspecified COPD Qualified Code(s): J44.9 - Chronic obstructive pulmonary disease, unspecified Code(s): J44.9 - Chronic obstructive pulmonary disease, unspecified Status: Chronic (5) History of TIA (transient ischemic attack): Code(s): Z86.73 - Personal history of transient ischemic attack (TIA), and cerebral infarction without residual deficits Status: Acute (6) Pulmonary embolism: Code(s): I26.99 - Other pulmonary embolism without acute cor pulmonale Status: Acute Subjective Date/time seen: 01/11/23 15:06 Interval history: Patient has no new respiratory symptoms. Respiratory status stable over the last 24 hours. Getting out of bed walking in room. Still on supplemental oxygen via nasal cannula at 4 liters/minute. Upon questioning the patient denied having any loss of consciousness or dizziness or near syncope just prior to fall at home. She fell at home right after going from bathroom to her room. Review of Systems Review of Systems: All systems reviewed & are unremarkable except as noted in HPI and below (HPI and below) Objective Data Vital Signs Vital Signs: Vital Signs - 24 hr 01/10/23 16:00 01/10/23 20:19 01/10/23 20:21 Temperature Pulse Rate 106 H 101 H Respiratory Rate 18 Blood Pressure Pulse Oximetry 92 Oxygen Delivery Nasal Cannula Oxygen Flow Rate 4 Fraction of Inspired Oxygen 01/10/23 20:28 01/10/23 21:47 01/10/23 20:00 Temperature 36.9 C Pulse Rate 103 H 107 H 103 H Respiratory Rate 18 18 Blood Pressure 129/46 L Pulse Oximetry 93 Oxygen Delivery Oxygen Flow Rate Fraction of Inspired Oxygen 01/10/23 20:00 01/11/23 00:00 01/11/23 02:39 Temperature Pulse Rate 92 81 Respiratory Rate 16 Blood Pressure Pulse Oximetry 91 Oxygen Delivery Nasal Cannula Oxygen Flow Rate 4 Fraction of Inspired Oxygen 01/11/23 02:49 01/11/23 04:00 01/11/23 05:43 Temperature 36.1 C L Pulse Rate 82
[2023-01-11 15:16] LABS: CRP 2.6 mg/dL (<1.0)
[2023-01-11] MEDS: HEPARIN SOD/D5W 100 UNITS/ML 25,000 UNITS/250 ML BAG 11 UNITS IV CONT (18:05)
[2023-01-11 19:25] LABS: Basophils Absolute Auto 0.1 K/mm3 (0.0-0.1); Basophils Percent Auto 0.4 % (0.2-1.2); Eosinophils Absolute Auto 0.1 K/mm3 (0-0.3); Eosinophils Percent Auto 0.9 % (0-4.4); Hematocrit 30.1 % (37.0-47.0); Hemoglobin 9.7 g/dL (12.0-15.0); Immature Granulocyte Absolute 0.44 K/mm3 (0.00-0.031); Immature Granulocyte Percent A 3.5 % (0-0.5); Lymphocytes Absolute Auto 2.73 K/mm3 (0.9-3.2); Lymphocytes Percent Auto 21.5 % (18.3-44.2); Mean Corpuscular HGB Conc 32.2 g/dl (32-36); Mean Corpuscular Hemoglobin 29.2 pg (26-34); Mean Corpuscular Volume 90.7 fl (80-100); Monocytes Absolute Auto 1.6 K/mm3 (0.1-0.6); Monocytes Percent Auto 12.4 % (2.6-8.5); Neutrophils Absolute Auto 7.8 K/mm3 (1.3-6.7); Neutrophils Percent Auto 61.3 % (45.5-73.1); Platelet Count Result 463 k/mm3 (150-375); Red Blood Count 3.32 M/mm3 (4.2-5.4); White Blood Count 12.7 K/mm3 (4.5-10.0)
[2023-01-11 19:29] LABS: INR 1.2; Prothrombin Time 15.4 Seconds (11.1-14.7)
[2023-01-12] VITALS (10 sets, daily range): BP systolic 131–135; BP diastolic 38–49; PULSE 91–98; RESP 14–16; TEMP 35.9–36.8; O2SAT 90–95
[2023-01-12] MEDS: IPRATROPIUM BR 0.02% INH SOLN 0.5 MG/2.5 ML VIAL INHALATION ×2 (02:32→06:31)
[2023-01-12] MEDS: ALBUTEROL SULFATE NEB 2.5 MG/3 ML INH INHALATION ×2 (02:32→06:31)
[2023-01-12 06:37] LABS: Hematocrit 26.5 % (37.0-47.0); Hemoglobin 8.8 g/dL (12.0-15.0); Mean Corpuscular HGB Conc 33.2 g/dl (32-36); Mean Corpuscular Hemoglobin 29.9 pg (26-34); Mean Corpuscular Volume 90.1 fl (80-100); Platelet Count Result 366 k/mm3 (150-375); Red Blood Count 2.94 M/mm3 (4.2-5.4); White Blood Count 8.5 K/mm3 (4.5-10.0)
[2023-01-12 06:38] LABS: Basophils Percent Auto 0.4 % (0.2-1.2); Eosinophils Absolute Auto 0.2 K/mm3 (0-0.3); Eosinophils Percent Auto 1.9 % (0-4.4); Immature Granulocyte Percent A 3.5 % (0-0.5); Lymphocytes Absolute Auto 2.17 K/mm3 (0.9-3.2); Lymphocytes Percent Auto 25.6 % (18.3-44.2); Mean Platelet Volume 8.8 fl (7.4-10.4); Monocytes Absolute Auto 1.1 K/mm3 (0.1-0.6); Monocytes Percent Auto 13.1 % (2.6-8.5); Neutrophils Absolute Auto 4.7 K/mm3 (1.3-6.7); Neutrophils Percent Auto 55.5 % (45.5-73.1)
[2023-01-12 06:51] LABS: Partial Thromboplastin Time 134.1 SECONDS (22.3-36.8)
[2023-01-12 07:06] LABS: Alanine Aminotransferase 27 U/L (6-35); Albumin Level 2.6 g/dL (3.5-5.1); Alkaline Phosphatase 95 U/L (38-126); Anion Gap 4 mmol/L (8-16); Aspartate Amino Transferase 36 U/L (14-36); Bilirubin,Total 0.5 mg/dL (0.2-1.3); Blood Urea Nitrogen 42 mg/dL (7-17); Calcium 8.4 mg/dL (8.4-10.2); Carbon Dioxide 27 mmol/L (22-30); Chloride 100 mmol/L (98-107); Estimated CRCL calculation 23 ml/min; Estimated Glomerular Filt Rate 31; Glucose 104 mg/dL (65-110); Potassium 4.1 mmol/L (3.4-5.0); Sodium 131 mmol/L (137-145)
[2023-01-12] MEDS: CHOLECALCIFEROL 1,000 UNITS TABLET 2000 UNITS PO (09:00)
[2023-01-12] MEDS: FELODIPINE 5 MG TAB CR 10 MG PO (09:01)
[2023-01-12] MEDS: CYANOCOBALAMIN 500 MCG TABLET 2500 MCG PO (09:01)
[2023-01-12] MEDS: TOLTERODINE TARTRATE LA 4 MG CAP.ER.24H PO (09:01)
[2023-01-12] MEDS: LORATADINE 10 MG TABLET PO (09:01)
[2023-01-12] MEDS: ASCORBIC ACID 500 MG TABLET PO (09:01)
[2023-01-12] MEDS: FERROUS SULFATE 325 MG TABLET DR PO (09:01)
[2023-01-12] MEDS: ATORVASTATIN 40 MG TABLET PO (09:01)
[2023-01-12] MEDS: PANTOPRAZOLE SOD SESQUIHYDRATE 20 MG TAB PO (09:02)
[2023-01-12] MEDS: FLUTICASONE PROPIONATE 0.05% NA SPR 16 GM BTL (*BKC) 2 SPRAY NASAL (09:02)
--- NOTE | 2023-01-12 11:30 | PM.PNORT ---
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 Patient progressing well. Found to have a small PE. Her breathing is improving. Notes her hip is feeling much better today. She continues to use her knee immobilizer. Removed Mepilex today. Scant dried blood on steri-strips. Wound well healing. Leave steri-strips for 1 more week. Okay for discharge from orthopedic standpoint. Knee laxity can be re-evaluated as an outpatient. Dr. Carbajal will discuss with Dr. Can. Will give [place] script for pain. Subjective Subjective Date/Time Seen: 01/12/23 11:30 Interval history: Patient resting comfortably in chair. Working with formal physical therapy at the time of my visit. Pain with motion but well controlled. No other complaints. Review of Systems Review of Systems: All systems reviewed & are unremarkable except as noted in HPI and below Exam Narrative: Overweight 82 y/o female. Resting comfortably in a chair. Wearing O2 nasal canula. Wearing knee immobilizer on right side. Mild swelling and ecchymosis in lower leg. Mepilex removed today. Steri-strips intact with scant dried blood. Moderate swelling. No edema. No ecchymosis. No erythema. No hematoma. Range of motion limited due to pain. Calf nontender. Thigh nontender. No varicosities. Distal pulses palpable. Wiggles toes. Light touch sensation intact. Good capillary refill. Objective Data Vital Signs Vital Signs: Vital Signs - 24 hr 01/11/23 13:27 01/11/23 13:29 01/11/23 12:00 Temperature 97.7 F Pulse Rate 96 94 99 Respiratory Rate 18 18 Blood Pressure 134/46 L Pulse Oximetry 97 Oxygen Delivery Oxygen Flow Rate 01/11/23 13:45 01/11/23 16:00 01/11/23 19:17 Temperature 98.1 F Pulse Rate 95 105 H 97 Respiratory Rate 18 16 Blood Pressure 130/45 L Pulse Oximetry 93 Oxygen Delivery Oxygen Flow Rate 01/11/23 19:58 01/11/23 19:55 01/11/23 20:00 Temperature Pulse Rate 95 96 Respiratory Rate 18 Blood Pressure Pulse Oximetry 93 Oxygen Delivery Nasal Cannula Oxygen Flow Rate 4 01/11/23 20:00 01/12/23 02:33 01/11/23 20:08 Temperature Pulse Rate 92 98 Respiratory Rate 16 18 Blood Pressure Pulse Oximetry 90 Oxygen Delivery Nasal Cannula Oxygen Flow Rate 4 01/12/23 00:00 01/12/23 02:48 01/12/23 04:00 Temperature Pulse Rate 93 94 91 Respiratory Rate 16 Blood Pressure Pulse Oximetry Oxygen Delivery Oxygen Flow Rate 01/12/23 05:29 01/12/23 06:32 01/12/23 06:43 Temperature 98.3 F Pulse Rate 91 95 98 Respiratory Rate 16 16 16 Blood Pressure 135/38 L Pulse Oximetry 90 Oxygen Delivery Oxygen Flow Rate 01/12/23 08:00 01/12/23 08:04 Temperature Pulse Rate 96 Respiratory Rate Blood Pressure Pulse Oximetry 94 Oxygen Delivery Nasal Cannula Oxygen Flow Rate 2.5 Intake/Output Intake/Output: Intake & Output 01/09/23 01/10/23 01/11/23 01/12/23 23:59 23:59 23:59 23:59 Intake Total 0184 263 4632 697 Output Total 1050 1750 1500 1900 Balance 870 -729 120 1203 Meds/Results Medications: Active Medications Generic Name Dose Route Start Last Admin Trade Name Carlosq PRN Reason Stop Dose Admin Acetaminophen 1,000 mg 01/03/23 17:57 01/08/23 11:10 Acetaminophen 500 Mg Tablet PO 1,000 mg BID PRN Administration Pain Hydrocodone Bitart/Acetaminoph
--- NOTE | 2023-01-12 12:06 | PM.DS ---
DS: Admitting Diagnosis Discharge Date 01/12/23 Admitting Diagnosis acute respiratory failure DS: Discharge Diagnosis Discharge Diagnosis (1) Pulmonary embolism: Code(s): I26.99 - Other pulmonary embolism without acute cor pulmonale Status: Acute (2) Respiratory failure: Code(s): J96.90 - Respiratory failure, unspecified, unspecified whether with hypoxia or hypercapnia Status: Acute (3) Subcapital fracture of right hip: Qualifiers: Encounter type: initial encounter Fracture type: closed Qualified Code(s): S72.011A - Unspecified intracapsular fracture of right femur, initial encounter for closed fracture Code(s): S72.011A - Unspecified intracapsular fracture of right femur, initial encounter for closed fracture Status: Acute (4) Lung nodule: Code(s): R91.1 - Solitary pulmonary nodule Status: Acute (5) Thyroid mass: Code(s): E07.9 - Disorder of thyroid, unspecified Status: Acute DS: Summary Hospital Course Hospital Course: Patient was admitted with acute respiratory failure and subcapital fracture of the right hip. Orthopedic surgery was consulted. Patient underwent bipolar hemiarthroplasty of the right hip. Possible pneumonia noted on CT 01/04. Levaquin + nebs started 01/05. Pulmonology was consulted. Repeat CT chest showed severe emphysema, no signs of infection, dopplers negative for DVT. PE discovered on CTA, patient was initially started on heparin drip which was later on changed to Eliquis. Patient is still requiring 4 L oxygen. Need to continue to work on tapering oxygen. CT chest showed bilateral lower lobe consolidation which represent atelectasis/scarring or pneumonia. There is bilateral lower lobe bronchiectasis. Small bilateral pulmonary nodules measuring 3 mm or less, likely benign. Recommend follow-up CT in 12 months. Large complex right thyroid mass. Correlation with thyroid ultrasound 01/04 showed that the thyroid nodules were stable from 2016 and likely benign, no follow-up recommended. Since patient is being started on Eliquis will discontinue aspirin. Continue Plavix continue statin. Patient is clinically stable and is being discharged to rehab. Patient has chronic kidney disease. Creatinine is at baseline. Continue lisinopril at home dose. Time Spent with Patient Time attestation: Total time spent providing and/or coordinating discharge services: DS: Data Data Completed and Pending Labs on day of discharge: Labs from last 24 hours 08/30/23 08/29/23 08/29/23 06:30 19:01 14:30 WBC 8.5 12.7 H 15.6 H RBC 2.94 L 3.32 L 3.51 L Hgb 8.8 L 9.7 L 10.3 L Hct 26.5 L 30.1 L 33.3 L MCV 90.1 90.7 94.9 MCH 29.9 29.2 29.3 MCHC 33.2 32.2 30.9 L RDW 14.0 14.0 14.1 Plt Count 366 463 H 499 H MPV 8.8 9.0 8.8 Immature Gran % (Auto) 3.5 H 3.5 H 2.5 H Neut % (Auto) 55.5 61.3 63.9 Lymph % (Auto) 25.6 21.5 20.0 [place] % (Auto) 13.1 H 12.4 H 12.6 H Eos % (Auto) 1.9 0.9 0.6 Baso % (Auto) 0.4 0.4 0.4 Lymph # (Auto) 2.17 2.73 3.12 [place] # (Auto) 1.1 H 1.6 H 2.0 H Eos # (Auto) 0.2 0.1 0.1 Baso # (Auto) 0.0 0.1 0.1 Abs Immat Gran (auto) 0.30 H 0.44 H 0.39 H Absolute Neuts (auto) 4.7 7.8 H 10.0 H Absolute Nucleated RBC 0.0 0.0 0.0 Nucleated RBC % 0.0 0.0 0.0 PT 15.4 H INR 1.2 APTT 134.1 H 150.0 H Sodium 131 L Potassium 4.1 Chloride 100 Carbon Dioxide 27 Anion Gap 4 L BUN 42 H Creatinine 1.60 H Estim Creat Clear Calc 23 Estimated GFR 31 L Glucose 104 Calcium 8.4 Total Bilirubin 0.5 AST 36 ALT 27 Alkaline Phosphatase 95 C-Reactive Protein 2.6 H Total Protein 5.0 L Albumin 2.6 L 01/11/23 12:18 WBC RBC Hgb Hct MCV MCH MCHC RDW Plt Count MPV Immature Gran % (Auto) Neut % (Auto) Lymph % (Auto) [place] % (Auto) Eos % (Auto) Baso % (Auto) Lymph # (Auto) [place] # (Auto) Eos # (Aut
[2023-01-12] MEDS: HYDROcodone/acetaminophen (*CRX) 5-325 MG TABLET 1 TAB PO (13:29)
== END 2023-01-12 15:50 | DRG 521 ==
LOC: ANHED 10:40 → ANH3MED 11:29
PROVIDERS: Nurse Practitioner; Orthopaedic Surgery; Student in an Organized Health Care Education/Training Program; Admitting Provider Hospitalist; Emergency Provider Emergency Medicine; PCP Family Medicine; Visit Provider Hospitalist
PROC: 0SRR01A Replacement of Right Hip Joint, Femoral Surface with Metal Synthetic Substitute, Uncemented, Open Approach (ICD-10-PCS; CPT 27125; principal; 2023-01-04 15:30)
DX: S72.011A Unspecified intracapsular fracture of right femur, initial encounter for closed fracture (principal); I26.99 Other pulmonary embolism without acute cor pulmonale; J96.01 Acute respiratory failure with hypoxia; I69.351 Hemiplegia and hemiparesis following cerebral infarction affecting right dominant side; T84.022A Instability of internal right knee prosthesis, initial encounter; S22.41XA Multiple fractures of ribs, right side, initial encounter for closed fracture; W19.XXXA Unspecified fall, initial encounter; E78.2 Mixed hyperlipidemia; E07.9 Disorder of thyroid, unspecified; G47.33 Obstructive sleep apnea (adult) (pediatric); G89.29 Other chronic pain; I12.9 Hypertensive chronic kidney disease with stage 1 through stage 4 chronic kidney disease, or unspecified chronic kidney disease; J43.2 Centrilobular emphysema; K21.9 Gastro-esophageal reflux disease without esophagitis; M54.9 Dorsalgia, unspecified; M19.90 Unspecified osteoarthritis, unspecified site; N18.30 Chronic kidney disease, stage 3 unspecified; R91.8 Other nonspecific abnormal finding of lung field; Z87.891 Personal history of nicotine dependence; Z79.02 Long term (current) use of antithrombotics/antiplatelets; Z79.82 Long term (current) use of aspirin; Z85.828 Personal history of other malignant neoplasm of skin; Z96.651 Presence of right artificial knee joint
CPT/HCPCS: 27550; 36415; 36600; 51702; 71045; 71250; 71275; 73502; 73560; 73600; 76536; 80048; 80053; 81001; 82805; 83735; 84145; 84439; 84443; 84480; 85025; 85380; 85610; 85730; 86140; 86850; 86900; 86901; 87081; 93005; 93306; 93970; 94640; 96374; 96375; 97110; 97116; 97161; 97165; 97530; 97535; 99285; A9270; C1776; J0171; J0690; J1100; J1200; J1644; J1650; J1885; J1940; J2270; J2405; J2704; J2795; J3010; J3370; J7030; J7120; J7512; Q9967

== ENCOUNTER 2023-03-11 00:27 | Day surgery (SDC) | payer MEDICARE, OTHER, SELFPAY ==
--- NOTE | 2023-03-10 11:38 | PC.NURSE ---
Report to the Outpatient Waiting Room, entrance under the green pavilion located off [facility], at time __0800 on date ____03/11/23___. Planned Procedure Time: _1000 . Time changes happen often and if your time is changed the preop area will call you the afternoon before. - You and your visitor will be asked to self-screen and do not enter if you have any COVID symptoms. - A mask is optional within the hospital at this time. Patients may have clear liquids (water, carbonated beverages, clear teas, apple juice) until 3 hours prior to surgery with a maximum of 20 ounces. - No food from midnight until time of surgery - Infants may have breast milk until 4 hours before surgery, formula 6 hours prior to surgery. - Children will be allowed to drink immediately following surgery. If applicable, please bring a bottle or sippy cup to assist with drinking. Juice, water, soda, and popsicles are readily available. For infants on formula, please bring formula the day of surgery. Pacifiers are allowed. Take the following medications with a SIP of water the morning of surgery: __FELODIPINE DO NOT STOP ANY OF YOUR OTHER PRESCRIPTION MEDICATIONS PRIOR TO SURGERY ?EXCEPT THE FOLLOWING Medications to discontinue per physician ____PLAVIX PER DR WOOD Date to take last dose Please no make-up, nail khmer, hairspray, perfume, deodorant, or body powder the day of surgery. No jewelry (including any body piercings) or valuables the day of surgery, leave them at home. Please take a shower or bath the night before, or the morning of, surgery with an antibacterial soap. Wear comfortable, loose fitting clothing. Children are encouraged to wear pajamas. - Jewelry must be removed prior to entering the operating room. Rings and piercings that are not removed may be cut off. - The hospital will not accept responsibility for valuables. - Please leave all valuables, including medications, at home the day of surgery. If you are going home after surgery, a licensed auto driver must drive you home. - NO public transportation without another adult if you receive anesthesia. - We recommend that an adult stay with you for 24 hours following discharge. - We also recommend that you do not drive, make important decision, drink alcoholic beverages, or take any drugs that were not prescribed by your health care provider for at least 24 hours after your discharge time. For Pediatric surgeries, we recommend two adults accompany the child home. Follow any additional instructions given to you from your surgeon. If you or anyone in your household have experienced Covid symptoms in the past week, please notify your surgeon or the nurse liaison at the phone number below for possible testing. Telephone instructions given to _PT and asked if any additional questions and then verbalized understanding. Patient advised to call surgeon office or pre surgery nurse liaison [phone] if any additional questions.
[2023-03-10 11:41] VITALS: BMI 24.7
[2023-03-11] VITALS (12 sets, daily range): BP systolic 133–197; BP diastolic 55–104; PULSE 83–101; RESP 16–289; TEMP 36.3–36.7; O2SAT 93–100
--- NOTE | ~2023-03-11 | XR_ITS ---
XR surgery orthopedic 03/11/2023 10:21 Indication: Closed reduction right knee dislocation TECHNIQUE: Fluoroscopy used during Closed reduction right knee dislocation performed by [Pj Can MD] on 03/11/2023. 20 seconds of fluoroscopy time with 2 fluoroscopic images captured. FINDINGS: Correlate with procedure note. IMPRESSION: Fluoroscopy used during Closed reduction right knee dislocation. Reviewed, dictated and finalized at location B.
--- NOTE | 2023-03-11 07:57 | WPDANESEPPF ---
Anes - Initial Pre Proc Eval Procedure: Operation Date: 03/11/23 10:00 Proposed Procedures p Closed Reduction Right Knee Dislocation - Pj Can MD Date/Time: 03/11/23 07:57 Surgeon: Pj Can MD Pre Op Diagnosis: right knee dislocation Patient Data Age: 82 Gender: F Height: 1.6 m Weight: 63.5 kg Allergies Allergy/AdvReac Type Severity Reaction Status Date / Time iodine Allergy Unknown Rash Verified 03/10/23 08:21 Iodine and Iodide Containing Allergy Unknown Rash Verified 03/10/23 08:21 Produc Home Medications Medication Instructions Recorded Confirmed Type clopidogrel 75 mg tablet (Plavix) 75 mg PO DAILY #90 tabs 03/11/22 03/10/23 Rx pantoprazole 20 mg tablet,delayed 20 mg PO QAM #90 tabs 03/11/22 03/10/23 Rx release (Protonix) acetaminophen 500 mg tablet 1,000 mg PO BID PRN Pain 03/15/22 03/10/23 History calcium carbonate 500 mg-vitamin 500 mg PO Q48H #30 tabs 04/06/22 03/10/23 Rx D3 5 mcg (200 unit) tablet (Oyster Shell Calcium-Vitamin D3) cyanocobalamin (vitamin B-12) 2,500 mcg PO QAM #30 tabs 04/06/22 03/10/23 Rx 2,500 mcg tablet atorvastatin 40 mg tablet (Lipitor) 40 mg PO DAILY #90 tabs 04/15/22 03/10/23 Rx cetirizine 10 mg tablet (Zyrtec) 10 mg PO DAILY PRN allergy 04/15/22 03/10/23 Rx symptoms #90 tabs felodipine 10 mg tablet,extended 10 mg PO DAILY #90 tabs 04/15/22 03/10/23 Rx release 24 hr lisinopril 40 mg tablet 40 mg PO DAILY #90 tabs 04/15/22 03/10/23 Rx albuterol sulfate 90 mcg/actuation 1 inh inhalation Q4-6H PRN copd 02/10/23 03/10/23 Rx aerosol inhaler #8.5 grams fluticasone fur. 100 mcg-umeclid 1 ea inhalation DAILY #90 ea 02/10/23 03/10/23 Rx 62.5 mcg-vilant 25 mcg inhalat.powder (Trelegy Ellipta) Patient hx anesthesia problems: none Family hx anesthesia problems: none Results Review: All pre-operative results and documents have been reviewed as part of the pre-operative evaluation. [facility] Past Medical History Medical History Arthritis Asthma Basal cell carcinoma Cerebrovascular accident (~1995) With mild right-sided weakness. Chills Chronic kidney disease, stage 3 Baseline creatinine between 1.6 and 1.70. Chronic low back pain CKD (chronic kidney disease) stage 3, GFR 30-59 ml/min COPD (chronic obstructive pulmonary disease) Diarrhea Fever Gastroesophageal reflux disease GERD (gastroesophageal reflux disease) High cholesterol History of TIA (transient ischemic attack) History of vaginal delivery x 2. HLD (hyperlipidemia) HTN (hypertension) Hyperlipidemia Hypertension Mild obstructive sleep apnea On sleep study in March 2008. 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 History of bilateral breast biopsy (~09/2006) With benign pathology. History of cataract extraction History of dilation and curettage History of removal of pigmented skin lesion History of tubal ligation S/P total knee arthroplasty Rt TKA 03/31/22 Status post debridement (~2017) Debridement of traumatic hematoma of the left medial leg. [place] teeth removed Family History Family History Mother Hypertension Family history of malignant neoplasm of breast in first degree relative Other Cerebrovascular accident Diabetes mellitus HLD (hyperlipidemia) Heart disease Skin cancer Social History Social History (Reviewed 03/10/23 @ 08:23 by Laura Bates
[2023-03-11] MEDS: SODIUM CHLORIDE 0.9% IV 500 ML 30 ML IV CONT (08:00)
[2023-03-11] MEDS: CELECOXIB 200 MG CAPSULE PO (08:45)
[2023-03-11] MEDS: ACETAMINOPHEN 500 MG TABLET 1000 MG PO (08:45)
[2023-03-11] MEDS: LACTATED RINGERS 1,000 ML 30 ML IV CONT (08:47)
[2023-03-11 09:04] LABS: Prothrombin Time 14.1 Seconds (11.1-14.7)
[2023-03-11 09:05] LABS: Partial Thromboplastin Time 28.8 SECONDS (22.3-36.8)
--- NOTE | 2023-03-11 09:40 | WPDHPUPDATE1 ---
History and Physical Update Update Date/Time: 03/11/23 09:40 History and Physical has been reviewed, including an updated exam of the patient. There are NO changes in the patient's condition. Risks, benefits, and alternatives have been discussed and questions answered. Patient agrees to proceed with procedure.
--- NOTE | 2023-03-11 10:18 | W.PM.PROC2 ---
Procedure Note - Detailed Date of Procedure 03/11/23 Pre-op Diagnosis RIGHT TKA CHRONIC DISLOCATION Post-op Diagnosis Same Procedure Performed CLOSED REDUCTION RIGHT TKA Surgeon Pj Can MD Anesthesia General Indications RIGHT TKA CHRONIC DISLOCATION Findings R TKA DISLOCATION. RELOCATION WAS DIFFICULT TO ACHIEVE BUT SUCCESSFUL Description of Procedure THE PATIENT WAS TAKEN TO THE OPERATING ROOM. GENERAL ANESTHESIA WAS INDUCED. THE RIGHT KNEE WAS IDENTIFIED. THE RIGHT KNEE WAS MANIPULATED IN FLEXION AND EXTENSION UNTIL REDUCTION WAS ACCOMPLISHED. C ARM XRAYS WERE PREFORMED DEMONSTRATING R TKA REDUCTION AND NO EVIDENCE OF PERIPROSTHETIC FRACTURE. KNEE IMMOBILIZER WAS PLACED. THE PATIENT WAS EXTUBATED AND SENT TO RECOVERY ROOM. Estimated Blood Loss 0 Complications No immediate complications Disposition PACU
[2023-03-11] MEDS: fentaNYL CITRATE INJ (*CRX) 100 MCG/2 ML VIAL 25 MCG IV PUSH ×4 (10:22→10:28)
[2023-03-11] MEDS: HYDROmorphone HCL INJ (*CRX) 1 MG/ML SYR 0.25 MG IV PUSH ×7 (10:43→11:19)
[2023-03-11] MEDS: LABETALOL HCL INJ 100 MG/20 ML VIAL IV PUSH (11:32)
[2023-03-11] MEDS: ONDANSETRON HCL ODT 4 MG TABLET PO (13:15)
--- NOTE | 2023-03-11 15:07 | SUR.PHASEII ---
RN called the office to have the prescription for Leslie changed to [employer] instead of [place].
== END 2023-03-11 13:18 | disposition home health service (06) ==
PROVIDERS: PCP Family Medicine; Visit Provider Orthopaedic Surgery
PROC: (CPT 27552; principal; 2023-03-11 10:00)
DX: T84.022A Instability of internal right knee prosthesis, initial encounter (principal); R29.6 Repeated falls; I69.351 Hemiplegia and hemiparesis following cerebral infarction affecting right dominant side; I12.9 Hypertensive chronic kidney disease with stage 1 through stage 4 chronic kidney disease, or unspecified chronic kidney disease; N18.30 Chronic kidney disease, stage 3 unspecified; J44.9 Chronic obstructive pulmonary disease, unspecified; K21.9 Gastro-esophageal reflux disease without esophagitis; E78.00 Pure hypercholesterolemia, unspecified; G47.33 Obstructive sleep apnea (adult) (pediatric); Z96.641 Presence of right artificial hip joint; Z79.02 Long term (current) use of antithrombotics/antiplatelets; Z79.51 Long term (current) use of inhaled steroids; Z87.891 Personal history of nicotine dependence
CPT/HCPCS: 27552; 36415; 85610; 85730; 99199; A9270; J0330; J1100; J1170; J2405; J2704; J3010; J7040; J7120; L1830

== ENCOUNTER 2023-03-28 11:14 | Inpatient (IN) | payer MEDICARE, OTHER, SELFPAY ==
[2023-03-28] VITALS (28 sets, daily range): BP systolic 104–176; BP diastolic 40–116; PULSE 77–105; RESP 12–31; TEMP 36.2–36.9; O2SAT 92–100; BMI 26.6
--- NOTE | ~2023-03-28 | XR_ITS ---
[id number] DATE: 04/01/2023 09:57 INDICATION: Dislocated total knee replacement TECHNIQUE: AP and crosstable lateral view of right knee COMPARISON: 03/18/2023 right knee 01/03/2023 pre and postoperative reduction right knee radiographs FINDINGS: There is repeat posterior dislocation at the right knee joint post right total knee arthrop lasty. Diffuse osteopenia. No fracture is evident. No periosteal reaction or bone destruction. No hardware d isplacement. Osteopenia. IMPRESSION: Posterior dislocation at the right knee Reviewed, dictated and finalized at Location A. Reviewed, dictated and finalized at location B. R ENERGY INSTALLATION MANAGER
--- NOTE | ~2023-03-28 | XR_ITS ---
EXAMINATION: XR surgery orthopedic DATE: 03/30/2023 15:32 INDICATION: Closed reduction of right knee dislocation. TECHNIQUE: 2 intraoperative fluoroscopic views of the right knee were obtained. I was not present. Fl uoroscopy time was 15 seconds. COMPARISON: Right knee radiographs 03/28/2023 FINDINGS: There is a total right knee arthroplasty in near-anatomic alignment. No fracture. IMPRESSION: 1. Total right knee arthroplasty in near-anatomic alignment. Reviewed, dictated and finalized at location A. OR POWER SCHEDULER
--- NOTE | ~2023-03-28 | XR_ITS ---
Right Knee Technique: AP, lateral, and oblique views were obtained. Clinical History: Deformity, prior dislocation COMPARISON: 03/10/2023 Findings: No acute fracture seen. Right knee arthroplasty is in place. There is stable anterior dislo cation versus severe subluxation of the distal femur relative to the proximal tibia. Soft tissues are unremarkable. No joint effusion is seen. Impression: Stable anterior dislocation versus severe subluxation of the distal femur with respect to the proxima l tibia. Right knee arthroplasty hardware is unchanged. Reviewed, dictated and finalized at location M. [employer] LE[employer] BURNING Impression: Stable anterior dislocation versus severe subluxation of the distal femur with respect to the proximal tibia. Right knee arthroplasty hardware is unchanged.
[2023-03-28 11:48] LABS: Basophils Percent Auto 0.6 % (0.2-1.2); Eosinophils Absolute Auto 0.1 K/mm3 (0-0.3); Eosinophils Percent Auto 1.5 % (0-4.4); Hematocrit 40.6 % (37.0-47.0); Hemoglobin 12.9 g/dL (12.0-15.0); Immature Granulocyte Absolute 0.02 K/mm3 (0.00-0.031); Immature Granulocyte Percent A 0.3 % (0-0.5); Lymphocytes Absolute Auto 2.81 K/mm3 (0.9-3.2); Lymphocytes Percent Auto 41.3 % (18.3-44.2); Mean Corpuscular HGB Conc 31.8 g/dl (32-36); Mean Corpuscular Hemoglobin 27.9 pg (26-34); Mean Corpuscular Volume 87.9 fl (80-100); Mean Platelet Volume 9.8 fl (7.4-10.4); Monocytes Absolute Auto 0.5 K/mm3 (0.1-0.6); Monocytes Percent Auto 7.5 % (2.6-8.5); Neutrophils Absolute Auto 3.3 K/mm3 (1.3-6.7); Neutrophils Percent Auto 48.8 % (45.5-73.1); Platelet Count Result 357 k/mm3 (150-375); Red Blood Count 4.62 M/mm3 (4.2-5.4); Red Cell Distribution Width 15.2 % (11.5-14.5); White Blood Count 6.8 K/mm3 (4.5-10.0)
[2023-03-28 11:58] LABS: Alanine Aminotransferase 15 U/L (6-35); Albumin Level 3.7 g/dL (3.5-5.1); Alkaline Phosphatase 93 U/L (38-126); Anion Gap 10 mmol/L (8-16); Aspartate Amino Transferase 26 U/L (14-36); Bilirubin,Total 0.8 mg/dL (0.2-1.3); Blood Urea Nitrogen 16 mg/dL (7-17); Calcium 10.1 mg/dL (8.4-10.2); Carbon Dioxide 20 mmol/L (22-30); Chloride 106 mmol/L (98-107); Estimated Glomerular Filt Rate 33; Glucose 101 mg/dL (65-110); Potassium 4.4 mmol/L (3.4-5.0); Sodium 136 mmol/L (137-145)
[2023-03-28 12:14] LABS: Partial Thromboplastin Time 27.7 SECONDS (22.3-36.8); Prothrombin Time 13.4 Seconds (11.1-14.7)
[2023-03-28] MEDS: PROPOFOL IV EMULSION 200 MG/20 ML VIAL (12:55)
[2023-03-28] MEDS: SODIUM CHLORIDE 0.9% IV 1,000 ML 999 ML (13:23)
[2023-03-28 13:40] LABS: Appearance Urine Cloudy (Clear); Bacteria Urine None Seen /hpf; Bilirubin Urine Negative (Negative); Blood Urine Negative (Negative); Color Urine Yellow (Yellow); Glucose Urine UA Negative (Negative); Ketones Urine Negative (Negative); Leukocyte Esterase Ur Negative LEU/UL (Negative); Nitrate Urine Negative (Negative); Non Pathogenic Casts 0-2; Protein Urine Negative (Negative); RBC Urine 0-2 /hpf (0-2); Specific Grav Ur 1.006 (1.001-1.035); Squamous Epithelial Cell Urine Moderate /hpf (Few); Urobilinogen Urine 0.2 mg/dL (<2.0); WBC Urine 0-5 /hpf; pH Urine 7.5 (5.0-9.0)
[2023-03-28 14:03] LABS: Add Urine Microscopic? YES
--- NOTE | 2023-03-28 14:07 | ED.LOWEXIN ---
HPI - Extremity Injury (Lower) General Chief Complaint: Extremity Injury, Lower Stated Complaint: knee problem Time Seen by Provider: 03/28/23 11:23 History of Present Illness HPI Narrative: Patient is an 82-year-old female who presents ER with a deformity to the right knee. Her home health went out to check on her today and noted that she was wearing the wrong knee immobilizer and when she removed it the patient had a dislocation of the knee. This is happened to patient recurrently. She has had multiple visits to the OR to have it reduced. She sees Dr. Can. Patient is alert and oriented x2. She has no idea how her leg could become dislocated. She is unsure when she removed her original brace from her knee. She denies any trauma. The is also present and is unsure about any injury or change in the knee immobilizer. Related Data Home Medications Medication Instructions Recorded Confirmed acetaminophen 500 mg tablet 1,000 mg PO BID PRN Pain 03/15/22 03/18/23 Allergies Allergy/AdvReac Type Severity Reaction Status Date / Time iodine Allergy Unknown Rash Verified 03/18/23 09:28 Iodine and Iodide Containing Allergy Unknown Rash Verified 03/18/23 09:28 Produc [id number] Allergy Unknown Rash Uncoded 03/18/23 09:28 Review of Systems Review of Systems: ROS unobtainable: Yes unobtainable due to mental status PMFSH Past Medical History Medical History (Updated 03/28/23 @ 16:55 by Natalie Balderas PA-C) Arthritis Asthma Basal cell carcinoma Cerebrovascular accident (1995) With mild right-sided weakness. Chronic kidney disease, stage 3 Baseline creatinine between 1.6 and 1.70. Chronic low back pain Chronic obstructive pulmonary disease Gastroesophageal reflux disease History of vaginal delivery x 2. Hyperlipidemia Hypertension Mild obstructive sleep apnea On sleep study in March 2008. Noncompliance with CPAP Osteoarthritis Pelvic fracture Prolapse of female pelvic organs Transient ischemic attack Urge incontinence Urinary frequency Surgical History Surgical History (Updated 03/28/23 @ 16:43 by Natalie Balderas PA-C) History of arthroplasty of right knee (03/31/22) History of basal cell carcinoma excision (2016) From the nose and brow. History of bilateral breast biopsy (09/2006) With benign pathology. History of cataract extraction History of dilation and curettage History of tubal ligation Status post debridement (2017) Debridement of traumatic hematoma of the left medial leg. [place] teeth removed Family History Family History Mother Hypertension Family history of malignant neoplasm of breast in first degree relative Other Cerebrovascular accident Diabetes mellitus HLD (hyperlipidemia) Heart disease Skin cancer Social History Social History (Updated 03/28/23 @ 16:44 by Natalie Balderas PA-C) Social History: Surrogate decision maker: Ronal Palacios, . Code status: Full code. Smoking packs per day: 1 Smoking cigarettes per day: 20.0 Years smoked: 30 Smoking pack-years: 30.00 Smoking status: Former smoker Tobacco type: cigarettes Second hand tobacco smoke exposure: No Smoking end date: 05/16/89 Alcohol intake: former Substance use: never Substance use type: does not use Lack of Transportation: No Lack of Food: Never True Current Housing: I Have Housing Concerned About Future Housing: No Difficulty Paying Gas/Electric Bills: No Difficulty Paying for Meds: No Currently Unemployed: No Education: High School Diploma/GED Difficulty w/ Childcare or Family Care: No Living arrangements: with family Additional living arrangements comments: Resides in [place] with her . Occupation/Education: retired Additional occupation/education comments: Retired. Spiritual care concerns: No Exam Narrative: GENERAL: Well-appearing, well-n
--- NOTE | 2023-03-28 14:21 | PC.NURSE ---
1400 40mg of Propofol given IV. 1402 30mg of propofol given IV 1405 10mg of propofol given IV 1405 End of procedure.
--- NOTE | 2023-03-28 15:37 | PC.NURSE ---
pt contacted regarding pt stay in the hospital
--- NOTE | 2023-03-28 16:24 | PM.IMHP ---
H&P: HPI History of Present Illness Date/Time: 03/28/23 15:30 Chief Complaint: Possible right knee dislocation. Narrative: This is an 82-year-old female status post right total knee arthroplasty in March 2022 with history of multiple dislocations over the past several months related to falls who presented to the emergency department via EMS from home for evaluation of right knee dislocation. The patient provides the following history. She is followed by Dr. Can and is supposed to wear a knee immobilizer at all times however there are concerns that she may not be compliant with that. Today she sustained another fall (she is not able to tell me exactly how or why she fell) and reports that the knee once again became dislocated. She tells me that she was wearing a brace at that time however it sounds as though she was wearing something different and not what was prescribed recently by Dr. Can. The patient thinks that the knee dislocated, causing her to fall. Radiographs done on arrival confirmed dislocation versus subluxation. Dr. Can intends on taking the patient to the OR tomorrow for reduction. At the time of my evaluation she has no complaints and specifically denies paresthesias, skin color, and temperature changes distal to the dislocation. Review of Systems Review of Systems: Twelve systems were reviewed. No fever, chills, or sweats. No recent cold or flu symptoms. No chest pain shortness a breath. No nausea, vomiting, diarrhea, or dysuria. Except as documented, all other systems were reviewed and are negative. [facility] Past Medical History Medical History (Updated 03/28/23 @ 16:55 by Natalie Balderas PA-C) Arthritis Asthma Basal cell carcinoma Cerebrovascular accident (1995) With mild right-sided weakness. Chronic kidney disease, stage 3 Baseline creatinine between 1.6 and 1.70. Chronic low back pain Chronic obstructive pulmonary disease Gastroesophageal reflux disease History of vaginal delivery x 2. Hyperlipidemia Hypertension Mild obstructive sleep apnea On sleep study in March 2008. Noncompliance with CPAP Osteoarthritis Pelvic fracture Prolapse of female pelvic organs Transient ischemic attack Urge incontinence Urinary frequency Surgical History Surgical History (Updated 03/28/23 @ 16:43 by Natalie Balderas PA-C) History of arthroplasty of right knee (03/31/22) History of basal cell carcinoma excision (2016) From the nose and brow. History of bilateral breast biopsy (09/2006) With benign pathology. History of cataract extraction History of dilation and curettage History of tubal ligation Status post debridement (2018) Debridement of traumatic hematoma of the left medial leg. [place] teeth removed Family History Family History Mother Hypertension Family history of malignant neoplasm of breast in first degree relative Other Cerebrovascular accident Diabetes mellitus HLD (hyperlipidemia) Heart disease Skin cancer Social History Social History (Updated 03/28/23 @ 16:44 by Natalie Balderas PA-C) Social History: Surrogate decision maker: Ronal Palacios, . Code status: Full code. Smoking packs per day: 1 Smoking cigarettes per day: 20.0 Years smoked: 30 Smoking pack-years: 30.00 Smoking status: Former smoker Tobacco type: cigarettes Second hand tobacco smoke exposure: No Smoking end date: 05/16/89 Alcohol intake: former Substance use: never Substance use type: does not use Lack of Transportation: No Lack of Food: Never True Current Housing: I Have Housing Concerned About Future Housing: No Difficulty Paying Gas/Electric Bills: No Difficulty Paying for Meds: No Currently Unemployed: No Education: High School Diploma/GED Difficulty w/ Childcare or Family Care: No Living arrangements: with family Additional living arrangements comments: Resides in [facility]
--- NOTE | 2023-03-28 18:44 | ADMGEN ---
This patient, Radha Palacios, was admitted to [facility] Surg Room 316-01. Patient/family oriented to hospital policies and general routines including ID bracelet, bed and alarms, visiting hours, pain management, procedures, bathroom and other care routines, personal items, smoking policy, room service/diet, and visiting hours. Information on how to activate the Rapid Response Team has been discussed. Patient/Family are encouraged to report perceived risks to care and to ask questions if they do not understand what they are told or what they should do.
[2023-03-28] MEDS: HYDROcodone/acetaminophen (*CRX) 5-325 MG TABLET 1 TAB PO (19:00)
[2023-03-29 04:49] VITALS: BP 152/60; PULSE 88; RESP 16; TEMP 36.1; O2SAT 97
[2023-03-29 06:08] LABS: Basophils Percent Auto 0.8 % (0.2-1.2); Eosinophils Absolute Auto 0.2 K/mm3 (0-0.3); Eosinophils Percent Auto 2.9 % (0-4.4); Hemoglobin 12.3 g/dL (12.0-15.0); Immature Granulocyte Absolute 0.01 K/mm3 (0.00-0.031); Immature Granulocyte Percent A 0.2 % (0-0.5); Lymphocytes Absolute Auto 1.75 K/mm3 (0.9-3.2); Lymphocytes Percent Auto 33.8 % (18.3-44.2); Mean Corpuscular HGB Conc 30.8 g/dl (32-36); Mean Corpuscular Volume 91.1 fl (80-100); Mean Platelet Volume 9.6 fl (7.4-10.4); Monocytes Absolute Auto 0.5 K/mm3 (0.1-0.6); Monocytes Percent Auto 10.4 % (2.6-8.5); Neutrophils Absolute Auto 2.7 K/mm3 (1.3-6.7); Neutrophils Percent Auto 51.9 % (45.5-73.1); Platelet Count Result 303 k/mm3 (150-375); Red Blood Count 4.39 M/mm3 (4.2-5.4); Red Cell Distribution Width 15.5 % (11.5-14.5); White Blood Count 5.2 K/mm3 (4.5-10.0)
[2023-03-29 06:19] LABS: Anion Gap 7 mmol/L (8-16); Blood Urea Nitrogen 15 mg/dL (7-17); Calcium 9.3 mg/dL (8.4-10.2); Carbon Dioxide 23 mmol/L (22-30); Chloride 106 mmol/L (98-107); Estimated CRCL calculation 25 ml/min; Estimated Glomerular Filt Rate 36; Glucose 97 mg/dL (65-110); Magnesium 1.9 mg/dL (1.6-2.3); Potassium 3.9 mmol/L (3.4-5.0); Sodium 136 mmol/L (137-145)
[2023-03-29] MEDS: HYDROcodone/acetaminophen (*CRX) 5-325 MG TABLET 1 TAB PO ×2 (08:53→18:03)
--- NOTE | 2023-03-29 09:37 | PM.CNOR ---
Assessment and Plan Assessment and plan (1) Dislocation, knee: Qualifiers: Encounter type: initial encounter Laterality: right Qualified Code(s): S83.104A - Unspecified dislocation of right knee, initial encounter Code(s): S83.106A - Unspecified dislocation of unspecified knee, initial encounter Status: Acute Assessment and Plan: History, exam radiographs reviewed with the patient. Radiographs of the right knee revealed dislocated right total knee arthroplasty. Discussed condition, nature, etiology course of natural history. Conservative and operative treatment options reviewed as well as risks benefits of each. Recommended closed reduction of the right TKA under anesthesia with Dr. Can. The patients questions were answered. The patient desires operative treatment. Risks of surgery including but not limited to neurovascular damage, wound complications, blood clot, pulmonary embolus, stroke, myocardial infarction, anesthetic risks up to and including were reviewed. Continued pain and possible dysfunction were explained. No guarantees were offered. The patient understands and wishes to proceed. Plan: Closed Reduction RIGHT TKA Dislocation by Dr. Can NPO Bed rest Obtain consent. Pain control Care coordination consult for possible placement versus rehab given multiple falls. PT/OT pending resolution of dislocation. Knee immobilizer at that time. (2) Orthopedic aftercare: Code(s): Z47.89 - Encounter for other orthopedic aftercare Status: Acute Plan Reviewed radiographs and physical exam with attending physician, Dr. Can who agrees with current plan as indicated above. No further recommendations at this time. History of Present Illness HPI Consult date: 03/29/23 Chief complaint: Knee Dislocation Narrative: 82-year-old female with a history of a right total knee arthroplasty in March of [address] Can. Patient has a history of a right TKA dislocation. She was previously seen by Dr. Can in the outpatient setting and instructed to wear knee immobilizer at all times. She sustained a home a fall at home yesterday at which point the knee was dislocated again. She presented to the emergency room for re-evaluation. Radiographs revealed a dislocation versus subluxation of the right TKA. Dr. Can notified. Review of Systems Constitutional: Constitutional: Reports no additional constitutional complaints, Denies chills, Denies fatigue, Denies fever(s), Denies headache(s) and Denies weakness Eyes: Eyes: Denies change in vision ENT: Reports Normal hearing present and Denies headache(s) Cardiovascular: Cardiovascular: Denies chest pain and Denies dyspnea Respiratory: Respiratory: Denies cough, Denies dyspnea and Denies wheezing Gastrointestinal: Gastrointestinal: Denies constipation, Denies diarrhea, Denies nausea and Denies vomiting Genitourinary: Genitourinary: Denies hematuria, Denies dysuria and Denies urinary urgency Musculoskeletal: Musculoskeletal: Reports as per HPI, Denies numbness and Denies tingling Integumentary/Breasts: Skin/Breast: Reports as per HPI Neurologic: Reports as per HPI, Reports Normal hearing present, Denies headache(s), Denies numbness, Denies tingling and Denies weakness Psychiatric: Psychiatric: Reports no additional psychiatric complaints Endocrine: Endocrine: Reports no additional endocrine complaints and Denies fatigue Hematologic/Lymphatic: Hematologic/Lymphatic: Reports no additional hematologic/lymphatic complaints Allergic/Immunologic: Allergic/Immunologic: Reports no additional allergic/immunologic complaints and Denies wheezing PMFSH Past Medical History Medical History Arthritis Asthma Basal cell carcinoma Cerebrovascular accident (1995) With mild right-sided weakness. Chronic kidney disease, stage 3 Baseline creatinine between 1.6 and 1.70. Chron
[2023-03-29 10:52] VITALS: BMI 26.6
[2023-03-29 14:00] VITALS: BP 147/47; PULSE 94; RESP 16; TEMP 36.6; O2SAT 95
--- NOTE | 2023-03-29 14:54 | PM.IMPN ---
Progress Note: A&P Assessment and Plan (1) 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: Code(s): T84.022A - Instability of internal right knee prosthesis, initial encounter Status: Acute Assessment and Plan: Dr. Can has been consulted and reducing the dislocation in the OR today PT/OT to evaluate post surgery when appropriate (2) Hypertension: Code(s): I10 - Essential (primary) hypertension Status: Chronic Assessment and Plan: continue home meds (3) Chronic kidney disease, stage 3: Code(s): N18.30 - Chronic kidney disease, stage 3 unspecified Status: Chronic Assessment and Plan: creatinine stable on admission continue home meds as appropriate (4) Chronic obstructive pulmonary disease: Code(s): J44.9 - Chronic obstructive pulmonary disease, unspecified Status: Chronic Assessment and Plan: No acute issues with regards to her COPD Subjective Date/time seen: 03/29/23 14:54 Interval history: Patient is an 82 YO female status post right total knee arthroplasty in March 2022 with history of multiple dislocations over the past several months related to falls who presented to the emergency department via EMS from home for evaluation of right knee dislocation. The patient provides the following history. She is followed by Dr. Can and is supposed to wear a knee immobilizer at all times however there are concerns that she may not be compliant with that. She sustained another fall yesterday and reports that the knee once again became dislocated. The patient thinks that the knee dislocated which her to fall. She could not tell me a specific action that triggers her dislocations. Radiographs done on arrival confirmed dislocation versus subluxation. Dr. Can to reduce in OR today. She reports discomfort but is not in acute distress or severe pain. She is NPO and awaiting surgery. Will await surgery recommendations for d/c. PT/OT ordered for when appropriate. Still awaiting home medications to be verified as the patient is poor historian and son believes they are the same from last admission. Review of Systems Review of Systems: Twelve systems were reviewed. No fever, chills, or sweats. No recent cold or flu symptoms. No chest pain shortness a breath. No nausea, vomiting, diarrhea, or dysuria. Except as documented, all other systems were reviewed and are negative. Exam Narrative: General: Elderly female lying in bed. HEENT: Normocephalic, atraumatic. PERRL, EOMI. Sclera anicteric. Mucous membranes. Neck: Supple. Respiratory: Lungs are clear to auscultation bilaterally. Cardiovascular: Regular rate and rhythm with S1-S2. Gastrointestinal: Abdomen is soft, nontender, and nondistended with positive bowel sounds. Skin: Warm and dry. No rash or lesions on limited exam. Extremities: No cyanosis, clubbing, or edema. Radial and pedal pulses intact. Musculoskeletal: Gross deformity of the right knee with edema. Sensation intact throughout the right lower leg with strong pulses. Neurological: Alert. Cranial nerves 2-12 are grossly intact. No gross focal deficits to casual conversation. Psychiatric: Appropriate mood and affect. Objective Data Vital Signs Vital Signs: Vital Signs - 24 hr 03/28/23 17:59 03/28/23 19:06 03/28/23 20:37 Temperature 98.4 F 97.1 F L Pulse Rate 98 105 H 89 Respiratory Rate 16 20 16 Blood Pressure 142/60 H 160/59 H 127/43 L Pulse Oximetry 97 98 97 Oxygen Delivery 03/28/23 20:00 03/29/23 04:49 Temperature 97 F L Pulse Rate 88 Respiratory Rate 16 Blood Pressure 152/60 H Pulse Oximetry 97 97 Oxygen Delivery Room Air Intake/Output Intake/Output: Intake & Output 03/26/23 03/27/23 03/28/23 03/29/23 23:59 23:59 23:59 23:59 Intake Total 1000 Output Total 200 Balance 1000 -200 Meds/Results Medications: Active Medications Generic Name Dose Route Start Last Ad
--- NOTE | 2023-03-29 15:54 | SUR.PREOP ---
1500:PT CASE TO BE POSTPONED UNTIL TOMORROW.
[2023-03-29] MEDS: SODIUM CHLORIDE 0.9% IV 1,000 ML 75 ML IV CONT (18:04)
[2023-03-29 21:20] VITALS: BP 114/41; PULSE 85; RESP 13; TEMP 36.7; O2SAT 93
[2023-03-30] VITALS (12 sets, daily range): BP systolic 121–178; BP diastolic 40–62; PULSE 78–96; RESP 14–22; TEMP 36.6–37.1; O2SAT 93–100
[2023-03-30 07:10] LABS: Hematocrit 36.7 % (37.0-47.0); Hemoglobin 11.4 g/dL (12.0-15.0); Mean Corpuscular HGB Conc 31.1 g/dl (32-36); Mean Corpuscular Hemoglobin 28.2 pg (26-34); Mean Corpuscular Volume 90.8 fl (80-100); Mean Platelet Volume 9.7 fl (7.4-10.4); Platelet Count Result 275 k/mm3 (150-375); Red Blood Count 4.04 M/mm3 (4.2-5.4); Red Cell Distribution Width 15.4 % (11.5-14.5); White Blood Count 5.5 K/mm3 (4.5-10.0)
--- NOTE | 2023-03-30 07:14 | WPDHPUPDATE1 ---
History and Physical Update Update Date/Time: 03/30/23 07:14 History and Physical has been reviewed, including an updated exam of the patient. There are NO changes in the patient's condition. Risks, benefits, and alternatives have been discussed and questions answered. Patient agrees to proceed with procedure.
[2023-03-30 07:20] LABS: Anion Gap 8 mmol/L (8-16); Blood Urea Nitrogen 17 mg/dL (7-17); Carbon Dioxide 20 mmol/L (22-30); Chloride 108 mmol/L (98-107); Estimated CRCL calculation 24 ml/min; Estimated Glomerular Filt Rate 39; Glucose 91 mg/dL (65-110); Potassium 3.9 mmol/L (3.4-5.0); Sodium 136 mmol/L (137-145)
--- NOTE | 2023-03-30 07:36 | PCPTNOTE ---
Pt to be seen for physical therapy after surgery (scheduled for today). Will follow
--- NOTE | 2023-03-30 09:26 | PM.IMPN ---
Progress Note: A&P Assessment and Plan (1) 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: Code(s): T84.022A - Instability of internal right knee prosthesis, initial encounter Status: Acute Assessment and Plan: 03/29/23: Dr. Can has been consulted and reducing the dislocation in the OR today PT/OT to evaluate post surgery when appropriate 03/30/23: Patient is post op day from reduction of right knee dislocation under general ansethesia. She will need to keep knee immobilizer on at all times PT and OT ordered Case coordination working on rehab placement. Orthopedics following Continue with pain control (2) Hypertension: Code(s): I10 - Essential (primary) hypertension Status: Chronic Assessment and Plan: 03/29/23: continue home meds 03/30/23: Blood pressure ranging 148/57 to 178/62 Continue home medication (3) Chronic kidney disease, stage 3: Code(s): N18.30 - Chronic kidney disease, stage 3 unspecified Status: Chronic Assessment and Plan: 03/29/23: creatinine stable on admission continue home meds as appropriate 03/30/23: BUN 17, creatinine 1.3, creatinine clearance 24, EGFR 39, potassium 3.9, sodium 136 Continue to trend labs (4) Chronic obstructive pulmonary disease: Code(s): J44.9 - Chronic obstructive pulmonary disease, unspecified Status: Chronic Assessment and Plan: 03/29/23: No acute issues with regards to her COPD 03/30/23: noted Time Spent With Patient Time with patient: 25 - 35 minutes Subjective Date/time seen: 03/30/23 09:26 Interval history: 03/29/23: (copied from chart) Patient is an 82 YO female status post right total knee arthroplasty in March 2022 with history of multiple dislocations over the past several months related to falls who presented to the emergency department via EMS from home for evaluation of right knee dislocation. The patient provides the following history. She is followed by Dr. Can and is supposed to wear a knee immobilizer at all times however there are concerns that she may not be compliant with that. She sustained another fall yesterday and reports that the knee once again became dislocated. The patient thinks that the knee dislocated which her to fall. She could not tell me a specific action that triggers her dislocations. Radiographs done on arrival confirmed dislocation versus subluxation. Dr. Can to reduce in OR today. She reports discomfort but is not in acute distress or severe pain. She is NPO and awaiting surgery. Will await surgery recommendations for d/c. PT/OT ordered for when appropriate. Still awaiting home medications to be verified as the patient is poor historian and son believes they are the same from last admission. 03/30/23: On examination today patient is awake and alert, lying in the bed. Vital signs are stable, she is afebrile, she is on room air. She reports pain in her right leg 3/10 on the pain scale. She denies any nausea, vomiting, diarrhea, fever, chills, shortness of breath, chest pain, abdominal pain. Labs today reveal WBC 5.5, Hgb 11.4, Hct 36.7, Na+ 136, K+ 3.9, Chloride 108, Bicarb 20, BUN 17, creatinine 1.30, eGFR 39, BG ranging 91-97. Patient is post op day 1 of closed reduction right TKA dislocation with orthopedic surgery. She is to keep her knee immobilizer on at all times per Orthopedic surgery recommendation. Case management working on rehab placement. Review of Systems Review of Systems: All systems reviewed & are unremarkable except as noted in HPI and below Constitutional: Constitutional: Reports as per HPI and Reports no additional constitutional complaints Eyes: Eyes: Reports as per HPI and Reports no additional eye complaints ENT: Reports system reviewed and no additional complaints, except as documented and Reports as per HPI Cardiovascular: Cardiovascular: Reports as per HPI and Reports no additional cardiova
[2023-03-30] MEDS: SODIUM CHLORIDE 0.9% IV 1,000 ML 75 ML IV CONT (09:31)
--- NOTE | 2023-03-30 13:29 | PCOTNOTE ---
Pt to be seen for occupational therapy after surgery (scheduled for today). Will follow
--- NOTE | 2023-03-30 14:39 | WPDANESEPPF ---
Anes - Initial Pre Proc Eval Procedure: Operation Date: 03/29/23 15:00 Proposed Procedures p Closed Reduction of Right Total Knee - Pj Can MD Operation Date: 03/30/23 14:30 Proposed Procedures p Closed Reduction of Right Total Knee - Pj Can MD Date/Time: 03/30/23 14:39 Surgeon: Tremaine Abbott MD Pre Op Diagnosis: Knee Dislocation Patient Data Age: 82 Gender: F Height: 1.57 m Weight: 64 kg Last Vital Signs Temp 36.8 C 03/30/23 13:47 Pulse 87 03/30/23 13:47 Resp 18 03/30/23 13:47 BP 144/43 H 03/30/23 13:47 Pulse Ox 97 03/30/23 13:47 O2 Del Method Room Air 03/29/23 20:00 O2 Flow Rate 2 03/28/23 14:05 Allergies Allergy/AdvReac Type Severity Reaction Status Date / Time iodine Allergy Unknown Rash Verified 03/18/23 09:28 Iodine and Iodide Containing Allergy Unknown Rash Verified 03/18/23 09:28 Produc [id number] Allergy Unknown Rash Uncoded 03/18/23 09:28 Home Medications Medication Instructions Recorded Confirmed Type clopidogrel 75 mg tablet (Plavix) 75 mg PO DAILY #90 tabs 03/11/22 03/29/23 Rx pantoprazole 20 mg tablet,delayed 20 mg PO QAM #90 tabs 03/11/22 03/29/23 Rx release (Protonix) acetaminophen 500 mg tablet 1,000 mg PO BID PRN Pain 03/15/22 03/29/23 History cetirizine 10 mg tablet (Zyrtec) 10 mg PO DAILY PRN allergy 04/15/22 03/29/23 Rx symptoms #90 tabs felodipine 10 mg tablet,extended 10 mg PO DAILY #90 tabs 04/15/22 03/29/23 Rx release 24 hr lisinopril 40 mg tablet 40 mg PO DAILY #90 tabs 04/15/22 03/29/23 Rx albuterol sulfate 90 mcg/actuation 1 inh inhalation Q4-6H PRN copd 02/10/23 03/29/23 Rx aerosol inhaler #8.5 grams diazepam 5 mg tablet (Valium) 5 mg PO BID PRN muscle spasm #30 03/11/23 03/29/23 Rx tabs hydrocodone 5 mg-acetaminophen 325 1 tablet PO Q8H PRN pain #30 tabs 03/11/23 03/29/23 Rx mg tablet tolterodine 4 mg capsule,extended 4 mg PO DAILY 03/29/23 03/29/23 History release 24 hr Laboratory Tests 03/30/23 06:46 WBC 5.5 K/mm3 (4.5-10.0) RBC 4.04 L M/mm3 (4.2-5.4) Hgb 11.4 L g/dL (12.0-15.0) Hct 36.7 L % (37.0-47.0) MCV 90.8 fl (80-100) MCH 28.2 pg (26-34) MCHC 31.1 L g/dl (32-36) RDW 15.4 H % (11.5-14.5) Plt Count 275 k/mm3 (150-375) MPV 9.7 fl (7.4-10.4) Sodium 136 L mmol/L (137-145) Potassium 3.9 mmol/L (3.4-5.0) Chloride 108 H mmol/L (98-107) Carbon Dioxide 20 L mmol/L (22-30) Anion Gap 8 mmol/L (8-16) BUN 17 mg/dL (7-17) Creatinine 1.30 H mg/dL (0.7-1.0) Estim Creat Clear Calc 24 ml/min Estimated GFR 39 L (59 - ) Glucose 91 mg/dL (65-110) Calcium 9.0 mg/dL (8.4-10.2) Patient hx anesthesia problems: none Family hx anesthesia problems: none Results Review: All pre-operative results and documents have been reviewed as part of the pre-operative evaluation. [facility] Past Medical History Medical History Arthritis Asthma Basal cell carcinoma Cerebrovascular accident (1995) With mild right-sided weakness. Chronic kidney disease, stage 3 Baseline creatinine between 1.6 and 1.70. Chronic low back pain Chronic obstructive pulmonary disease Gastroesophageal reflux disease History of vaginal delivery x 2. Hyperlipidemia Hypertension Mild obstructive sleep apnea On sleep study in March 2008. 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 History of bilateral breast biopsy (09/2006) With benign pathology. History of cataract extraction History of dilation and curettage History of
--- NOTE | 2023-03-30 15:31 | W.PM.PROC2 ---
Procedure Note - Detailed Date of Procedure 03/30/23 Pre-op Diagnosis Knee Dislocation Post-op Diagnosis Same Procedure Performed CLOSED REDUCTION RIGHT TKA Surgeon Pj Can MD Anesthesia General Indications RIGHT TKA CHRONIC DISLOCATION Description of Procedure THE PATIENT WAS TAKEN TO THE OPERATING ROOM. GENERAL ANESTHESIA WAS INDUCED. THE RIGHT KNEE WAS IDENTIFIED. THE RIGHT KNEE WAS MANIPULATED IN FLEXION AND EXTENSION UNTIL REDUCTION WAS ACCOMPLISHED. C ARM XRAYS WERE PREFORMED DEMONSTRATING R TKA REDUCTION AND NO EVIDENCE OF PERIPROSTHETIC FRACTURE. KNEE BRACE PLACED AND LOCKED IN FULL EXTENSION. THE PATIENT WAS EXTUBATED AND SENT TO RECOVERY ROOM. Estimated Blood Loss 0 Complications No immediate complications Disposition PACU
[2023-03-30] MEDS: LACTATED RINGERS 1,000 ML 30 ML IV CONT (15:34)
[2023-03-30] MEDS: HYDROcodone/acetaminophen (*CRX) 5-325 MG TABLET 1 TAB PO (16:50)
[2023-03-31 01:12] VITALS: BP 146/69; PULSE 86; RESP 17; TEMP 36.6; O2SAT 97
[2023-03-31 05:16] VITALS: BP 133/44; PULSE 76; RESP 16; TEMP 36.6; O2SAT 96
[2023-03-31 06:59] LABS: Hematocrit 35.7 % (37.0-47.0); Hemoglobin 11.3 g/dL (12.0-15.0); Mean Corpuscular HGB Conc 31.7 g/dl (32-36); Mean Corpuscular Hemoglobin 28.8 pg (26-34); Mean Corpuscular Volume 90.8 fl (80-100); Mean Platelet Volume 9.9 fl (7.4-10.4); Platelet Count Result 274 k/mm3 (150-375); Red Blood Count 3.93 M/mm3 (4.2-5.4); Red Cell Distribution Width 14.9 % (11.5-14.5); White Blood Count 5.3 K/mm3 (4.5-10.0)
[2023-03-31 07:13] LABS: Alanine Aminotransferase 10 U/L (6-35); Alkaline Phosphatase 71 U/L (38-126); Anion Gap 9 mmol/L (8-16); Aspartate Amino Transferase 23 U/L (14-36); Bilirubin,Total 0.5 mg/dL (0.2-1.3); Blood Urea Nitrogen 22 mg/dL (7-17); Calcium 9.1 mg/dL (8.4-10.2); Carbon Dioxide 20 mmol/L (22-30); Chloride 106 mmol/L (98-107); Estimated CRCL calculation 24 ml/min; Estimated Glomerular Filt Rate 39; Glucose 127 mg/dL (65-110); Potassium 4.5 mmol/L (3.4-5.0); Sodium 135 mmol/L (137-145)
--- NOTE | 2023-03-31 09:30 | PM.PNORT ---
Progress Note: A&P Assessment and Plan (1) Dislocation, knee: Qualifiers: Encounter type: initial encounter Laterality: right Qualified Code(s): S83.104A - Unspecified dislocation of right knee, initial encounter Code(s): S83.106A - Unspecified dislocation of unspecified knee, initial encounter Status: Acute Assessment and Plan: Postoperative day 1, closed reduction right total knee arthroplasty dislocation. Continue knee immobilizer with hinged knee brace locked out at 0?. PT and OT for ambulation. Patient would benefit from placement to an acute rehab facility given multiple falls and limited mobility. Ultimately, patient will require revision of her right total knee arthroplasty to prevent recurrent dislocations. This will be arranged pending improvement in patient's overall mobility and health. She will continue the knee immobilizer x6 weeks. She will follow up in the outpatient orthopedic clinic. Dispo: [facility] vs. SNF pending medical clearnace. Subjective Subjective Date/Time Seen: 03/31/23 09:30 Post Op day: 1 Interval history: POD #1: Closed Reduction Right TKA Patient awake, alert. Answers most questions appropriately but somewhat confused. Complains of right knee pain/swelling. Review of Systems Review of Systems: All systems reviewed & are unremarkable except as noted in HPI and below Exam Const: General: comfortable and no acute distress Resp: Effort & Inspection: normal respiratory effort Cardio: Rate: regular rate Rhythm: regular rhythm GI: GI Palp: Yes Soft to palpation Auscultation: normal bowel sounds Extrem: Right lower extremity: knee Details: swelling Location: of the patella and abnormal ROM (held in extension- knee immobilizer in place ); no lacerations, no ecchymosis, no crepitus, no deformity and no unusual warmth Objective Data Vital Signs Vital Signs: Vital Signs - 24 hr 03/30/23 13:47 03/30/23 15:34 03/30/23 15:45 Temperature 36.8 C 37.1 C Pulse Rate 87 81 78 Respiratory Rate 18 22 H 20 Blood Pressure 144/43 H 142/57 H 159/56 H Pulse Oximetry 97 100 100 Oxygen Delivery Simple Face Mask Simple Face Mask Oxygen Flow Rate 8 8 03/30/23 15:50 03/30/23 16:00 03/30/23 16:15 Temperature Pulse Rate 83 87 Respiratory Rate 18 16 Blood Pressure 163/57 H 178/62 H Pulse Oximetry 97 99 95 Oxygen Delivery Room Air Room Air Room Air Oxygen Flow Rate 03/30/23 16:35 03/30/23 16:50 03/30/23 18:20 Temperature 36.9 C 36.9 C 36.8 C Pulse Rate 85 96 90 Respiratory Rate 18 18 18 Blood Pressure 163/50 H 148/57 H 121/40 L Pulse Oximetry 95 93 93 Oxygen Delivery Oxygen Flow Rate 03/30/23 19:39 03/30/23 20:22 03/31/23 01:12 Temperature 36.9 C 36.6 C Pulse Rate 88 86 Respiratory Rate 16 17 Blood Pressure 122/40 L 146/69 H Pulse Oximetry 93 95 97 Oxygen Delivery Room Air Oxygen Flow Rate 03/31/23 05:16 Temperature 36.6 C Pulse Rate 76 Respiratory Rate 16 Blood Pressure 133/44 L Pulse Oximetry 96 Oxygen Delivery Oxygen Flow Rate Intake/Output Intake/Output: Intake & Output 03/28/23 03/29/23 03/30/23 03/31/23 23:59 23:59 23:59 23:59 Intake Total 3465 195 5936 Output Total 300 975 150 Balance 1000 -60 815 -150 Meds/Results Medications: Active Medications Generic Name Dose Route Start Last Admin Trade Name Freq PRN Reason Stop Dose Admin Acetaminophen 1,000 mg 03/30/23 16:24 Acetaminophen 500 Mg Tablet PO BID PRN Pain Rated 1-3 Hydrocodone Bitart/Acetaminophen 1 tab 03/30/23 16:24 03/30/23 16:50 Hydrocodone/Acetaminophen (*Crx) 5-325 Mg Tablet PO 1 tab Q8H PRN Administration Pain Rated 4-6 Albuterol 1 puff 03/30/23 16:24 Albuterol Sulfate (*Sp) Aerosol 1 Puff INHALATION Q4-6H PRN copd Clopidogrel Bisulfate 75 mg 03/31/23 09:00 Clopidogrel Bisulfate 75 Mg Tablet PO DAILY KELVIN Diazepam 5 mg 03/30/23 16:24 Diazepam (*Cr
[2023-03-31] MEDS: TOLTERODINE TARTRATE LA 4 MG CAP.ER.24H PO (09:53)
[2023-03-31] MEDS: PANTOPRAZOLE SOD SESQUIHYDRATE 20 MG TAB PO (09:53)
[2023-03-31] MEDS: HYDROcodone/acetaminophen (*CRX) 5-325 MG TABLET 1 TAB PO (09:53)
[2023-03-31] MEDS: lisinopriL 20 MG TABLET 40 MG PO (09:53)
[2023-03-31] MEDS: FELODIPINE 5 MG TAB CR 10 MG PO (09:53)
[2023-03-31] MEDS: CLOPIDOGREL BISULFATE 75 MG TABLET PO (09:54)
[2023-03-31 10:24] VITALS: BP 128/57; PULSE 70; RESP 16; TEMP 36.7; O2SAT 98
--- NOTE | 2023-03-31 11:13 | WPDANESPN ---
Anes - Prog Note Post-Op Date/Time: 03/31/23 11:13 Cardiovascular status: normal Respiratory status: normal Airway patency: baseline Mental status: baseline Post-Op hydration status: normal Vital Signs: Last Vital Signs Temp 36.7 C 03/31/23 10:24 Pulse 70 03/31/23 10:24 Resp 16 03/31/23 10:24 BP 128/57 L 03/31/23 10:24 Pulse Ox 98 03/31/23 10:24 O2 Del Method Room Air 03/31/23 09:53 O2 Flow Rate 8 03/30/23 15:45 Pain Score (VAS): 06/25 I/O: Intake & Output 03/30/23 03/31/23 03/31/23 23:59 07:59 15:59 Intake Total 290 120 Output Total 125 150 Balance 165 -150 120 Laboratory Tests 03/31/23 06:29 03/31/23 06:29 03/31/23 06:29 WBC 5.3 RBC 3.93 L Hgb 11.3 L Hct 35.7 L MCV 90.8 MCH 28.8 MCHC 31.7 L RDW 14.9 H Plt Count 274 MPV 9.9 Sodium 135 L Potassium 4.5 Chloride 106 Carbon Dioxide 20 L Anion Gap 9 BUN 22 H Creatinine 1.30 H Estim Creat Clear Calc 24 Estimated GFR 39 L Glucose 127 H Calcium 9.1 Total Bilirubin 0.5 AST 23 ALT 10 Alkaline Phosphatase 71 Total Protein 6.0 L Albumin 3.0 L Post-procedural complaints: none Patient Feedback: Patient satisfied with anesthetic care.
--- NOTE | 2023-03-31 11:53 | P.PNIM_ITS ---
Progress Note: A&P Assessment and Plan (1) 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: Code(s): T84.022A - Instability of internal right knee prosthesis, initial encounter Status: Acute Assessment and Plan: 03/29/23: * Dr. Can has been consulted and reducing the dislocation in the OR today * PT/OT to evaluate post surgery when appropriate 03/30/23: * Patient is post op day 0 from reduction of right knee dislocation under general anesthesia. * She will need to keep knee immobilizer on at all times * PT and OT ordered * Case coordination working on rehab placement. * Orthopedics following * Continue with pain control 03/31/23: * Postop day 1 from closed reduction of the right knee under general anesthesia * Keep knee elevated with ice while dependent in the bed * Continue with PT and OT * Case coordination working on acute rehab versus SNF * Orthopedics following * Continue with pain control * Keep knee immobilizer on at all times (2) Hypertension: Code(s): I10 - Essential (primary) hypertension Status: Chronic Assessment and Plan: 03/29/23: * continue home meds 03/30/23: * Blood pressure ranging 148/57 to 178/62 * Continue home medication 03/31/23: * Blood pressure ranging 128/57 to 146/69 * No change to current treatment plan (3) Chronic kidney disease, stage 3: Code(s): N18.30 - Chronic kidney disease, stage 3 unspecified Status: Chronic Assessment and Plan: 03/29/23: * creatinine stable on admission * continue home meds as appropriate 03/30/23: * BUN 17, creatinine 1.3, creatinine clearance 24, EGFR 39, potassium 3.9, sodium 136 * Continue to trend labs 03/31/23: * BUN 22, creatinine 1.3, creatinine clearance 24, EGFR 39, potassium 4.5, sodium 1 5 * Continue to trend labs (4) Chronic obstructive pulmonary disease: Code(s): J44.9 - Chronic obstructive pulmonary disease, unspecified Status: Chronic Assessment and Plan: 03/29/23: * No acute issues with regards to her COPD 03/30/23: * noted Time Spent With Patient Time with patient: 25 - 35 minutes Subjective Date/time seen: 03/31/23 11:53 Interval history: 03/29/23: (copied from chart) Patient is an 82 YO female status post right total knee arthroplasty in March 2022 with history of multiple dislocations over the past several months related to falls who presented to the emergency department via EMS from home for evaluation of right knee dislocation. The patient provides the following history. She is followed by Dr. Can and is supposed to wear a knee immobilizer at all times however there are concerns that she may not be compliant with that. She sustained another fall yesterday and reports that the knee once again became dislocated. The patient thinks that the knee dislocated which her to fall. She could not tell me a specific action that triggers her dislocations. Radiographs done on arrival confirmed dislocation versus subluxation. Dr. Can to reduce in OR today. She reports discomfort but is not in acute distress or severe pain. She is NPO and awaiting surgery. Will await surgery recommendations for d/c. PT/OT ordered for when appropriate. Still awaiting home medications to be verified as the patient is poor historian and son believes they are the same from last admission. 03/30/23: On examination today patient is awake and alert, lying in the bed. Vital signs are stable, she is afebrile, she is on room air. She reports pain in her right leg 3/10 on the pain scale. She
--- NOTE | 2023-03-31 11:53 | PM.IMPN ---
Progress Note: A&P Assessment and Plan (1) 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: Code(s): T84.022A - Instability of internal right knee prosthesis, initial encounter Status: Acute Assessment and Plan: 03/29/23: Dr. Can has been consulted and reducing the dislocation in the OR today PT/OT to evaluate post surgery when appropriate 03/30/23: Patient is post op day 0 from reduction of right knee dislocation under general anesthesia. She will need to keep knee immobilizer on at all times PT and OT ordered Case coordination working on rehab placement. Orthopedics following Continue with pain control 03/31/23: Postop day 1 from closed reduction of the right knee under general anesthesia Keep knee elevated with ice while dependent in the bed Continue with PT and OT Case coordination working on acute rehab versus SNF Orthopedics following Continue with pain control Keep knee immobilizer on at all times (2) Hypertension: Code(s): I10 - Essential (primary) hypertension Status: Chronic Assessment and Plan: 03/29/23: continue home meds 03/30/23: Blood pressure ranging 148/57 to 178/62 Continue home medication 03/31/23: Blood pressure ranging 128/57 to 146/69 No change to current treatment plan (3) Chronic kidney disease, stage 3: Code(s): N18.30 - Chronic kidney disease, stage 3 unspecified Status: Chronic Assessment and Plan: 03/29/23: creatinine stable on admission continue home meds as appropriate 03/30/23: BUN 17, creatinine 1.3, creatinine clearance 24, EGFR 39, potassium 3.9, sodium 136 Continue to trend labs 03/31/23: BUN 22, creatinine 1.3, creatinine clearance 24, EGFR 39, potassium 4.5, sodium 1 5 Continue to trend labs (4) Chronic obstructive pulmonary disease: Code(s): J44.9 - Chronic obstructive pulmonary disease, unspecified Status: Chronic Assessment and Plan: 03/29/23: No acute issues with regards to her COPD 03/30/23: noted Time Spent With Patient Time with patient: 25 - 35 minutes Subjective Date/time seen: 03/31/23 11:53 Interval history: 03/29/23: (copied from chart) Patient is an 82 YO female status post right total knee arthroplasty in March 2022 with history of multiple dislocations over the past several months related to falls who presented to the emergency department via EMS from home for evaluation of right knee dislocation. The patient provides the following history. She is followed by Dr. Can and is supposed to wear a knee immobilizer at all times however there are concerns that she may not be compliant with that. She sustained another fall yesterday and reports that the knee once again became dislocated. The patient thinks that the knee dislocated which her to fall. She could not tell me a specific action that triggers her dislocations. Radiographs done on arrival confirmed dislocation versus subluxation. Dr. Can to reduce in OR today. She reports discomfort but is not in acute distress or severe pain. She is NPO and awaiting surgery. Will await surgery recommendations for d/c. PT/OT ordered for when appropriate. Still awaiting home medications to be verified as the patient is poor historian and son believes they are the same from last admission. 03/30/23: On examination today patient is awake and alert, lying in the bed. Vital signs are stable, she is afebrile, she is on room air. She reports pain in her right leg 3/10 on the pain scale. She denies any nausea, vomiting, diarrhea, fever, chills, shortness of breath, chest pain, abdominal pain. Labs today reveal WBC 5.5, Hgb 11.4, Hct 36.7, Na+ 136, K+ 3.9, Chloride 108, Bicarb 20, BUN 17, creatinine 1.30, eGFR 39, BG ranging 91-97. Patient is post op day 1 of closed reduction right TKA dislocation with orthopedic surgery. She is to keep her knee immobilizer on at all times per Orthopedic surgery recommendation.
--- NOTE | 2023-03-31 12:48 | PCNFU ---
Nutrition Follow-Up Complete: Inadequate energy intake related to NPO status as evidenced by diet order Goal:Diet order PO intake 50% or greater for meals and supplements Pt current nutrition is Regular, Ensure compact BID. Nutrition recommendation: continue with current plan of care. Last recorded weight is 64.1 kg. Bowel Motility: +BM 03/31 Labs Reviewed: NA:136, GFR:36, Cr:1.4 Meds Noted: lovenox, protonix Skin: no skin issues noted Additional Notes: Pt is now on a regular diet, intake varied but good overall at 50-100% most meals. Pt reports a good appetite and intake. Drinking the Ensure shakes. Continue to encourage good po intake of meals and supplements. Monitor intake, wt, labs. Follow up in 5 days.
[2023-03-31 14:24] VITALS: BP 131/63; PULSE 68; RESP 16; TEMP 36.9; O2SAT 99
[2023-03-31 23:35] VITALS: BP 138/56; PULSE 81; RESP 14; TEMP 36.3; O2SAT 96
[2023-04-01 07:08] VITALS: BP 139/45; PULSE 78; RESP 14; TEMP 36.7; O2SAT 97
[2023-04-01 07:14] LABS: Hematocrit 32.5 % (37.0-47.0); Hemoglobin 10.3 g/dL (12.0-15.0); Mean Corpuscular HGB Conc 31.7 g/dl (32-36); Mean Corpuscular Hemoglobin 28.1 pg (26-34); Mean Corpuscular Volume 88.8 fl (80-100); Mean Platelet Volume 10.1 fl (7.4-10.4); Platelet Count Result 267 k/mm3 (150-375); Red Blood Count 3.66 M/mm3 (4.2-5.4); Red Cell Distribution Width 15.4 % (11.5-14.5); White Blood Count 8.2 K/mm3 (4.5-10.0)
[2023-04-01 07:23] LABS: Alanine Aminotransferase 10 U/L (6-35); Albumin Level 2.7 g/dL (3.5-5.1); Alkaline Phosphatase 63 U/L (38-126); Anion Gap 5 mmol/L (8-16); Aspartate Amino Transferase 23 U/L (14-36); Bilirubin,Total 0.4 mg/dL (0.2-1.3); Blood Urea Nitrogen 27 mg/dL (7-17); Calcium 8.8 mg/dL (8.4-10.2); Carbon Dioxide 23 mmol/L (22-30); Chloride 107 mmol/L (98-107); Estimated CRCL calculation 21 ml/min; Estimated Glomerular Filt Rate 33; Glucose 95 mg/dL (65-110); Potassium 3.9 mmol/L (3.4-5.0); Sodium 135 mmol/L (137-145)
[2023-04-01] MEDS: CLOPIDOGREL BISULFATE 75 MG TABLET PO (08:26)
[2023-04-01] MEDS: diazePAM (*CRX) 5 MG TABLET PO (08:26)
[2023-04-01] MEDS: ENOXAPARIN 30 MG/0.3 ML SYRINGE SUB-Q (08:26)
[2023-04-01] MEDS: PANTOPRAZOLE SOD SESQUIHYDRATE 20 MG TAB PO (08:26)
[2023-04-01] MEDS: TOLTERODINE TARTRATE LA 4 MG CAP.ER.24H PO (08:26)
[2023-04-01] MEDS: FELODIPINE 5 MG TAB CR 10 MG PO (08:26)
[2023-04-01] MEDS: LORATADINE 10 MG TABLET PO (08:26)
[2023-04-01] MEDS: lisinopriL 20 MG TABLET 40 MG PO (08:26)
[2023-04-01] MEDS: ACETAMINOPHEN 500 MG TABLET 1000 MG PO (08:26)
--- NOTE | 2023-04-01 09:34 | PM.PNORT ---
Progress Note: A&P Assessment and Plan (1) Dislocation, knee: Qualifiers: Encounter type: initial encounter Laterality: right Qualified Code(s): S83.104A - Unspecified dislocation of right knee, initial encounter Code(s): S83.106A - Unspecified dislocation of unspecified knee, initial encounter Status: Acute Assessment and Plan: POD #2: Closed reduction right total knee arthroplasty dislocation. Concern on exam today for redislocation of the right TKA. Repeat radiographs ordered. Continue knee immobilizer with hinged knee brace locked out at 0?. PT and OT for ambulation, okay to resume pending radiographs. Patient would benefit from placement to an acute rehab facility given multiple falls and limited mobility. Subjective Subjective Date/Time Seen: 04/01/23 09:34 Post Op day: 2 Interval history: POD #2: Closed Reduction Right TKA Patient awake, alert. Complains of right knee pain/swelling. Review of Systems Review of Systems: All systems reviewed & are unremarkable except as noted in HPI and below Exam Const: General: comfortable and no acute distress Resp: Effort & Inspection: normal respiratory effort Cardio: Rate: regular rate Rhythm: regular rhythm GI: GI Palp: Yes Soft to palpation Auscultation: normal bowel sounds Extrem: Right lower extremity: knee Details: abnormal to inspection Details: knee obviously dislocated, swelling Location: of the patella and abnormal ROM (held in extension- knee immobilizer in place ); no lacerations, no ecchymosis, no crepitus, no deformity and no unusual warmth Objective Data Vital Signs Vital Signs: Vital Signs - 24 hr 03/31/23 09:47 03/31/23 09:53 03/31/23 10:24 Temperature 36.7 C Pulse Rate 70 Respiratory Rate 16 Blood Pressure 128/57 L Pulse Oximetry 98 Oxygen Delivery Room Air Room Air 03/31/23 14:24 03/31/23 23:35 04/01/23 07:08 Temperature 36.9 C 36.3 C L 36.7 C Pulse Rate 68 81 78 Respiratory Rate 16 14 14 Blood Pressure 131/63 138/56 L 139/45 L Pulse Oximetry 99 96 97 Oxygen Delivery Intake/Output Intake/Output: Intake & Output 03/29/23 03/30/23 03/31/23 04/01/23 23:59 23:59 23:59 23:59 Intake Total 240 1790 480 Output Total 300 975 150 Balance -60 815 330 Meds/Results Medications: Active Medications Generic Name Dose Route Start Last Admin Trade Name Freq PRN Reason Stop Dose Admin Acetaminophen 1,000 mg 03/30/23 16:24 04/01/23 08:26 Acetaminophen 500 Mg Tablet PO 1,000 mg BID PRN Administration Pain Rated 1-3 Hydrocodone Bitart/Acetaminophen 1 tab 03/30/23 16:24 03/31/23 09:53 Hydrocodone/Acetaminophen (*Crx) 5-325 Mg Tablet PO 1 tab Q8H PRN Administration Pain Rated 4-6 Albuterol 1 puff 03/30/23 16:24 Albuterol Sulfate (*Sp) Aerosol 1 Puff INHALATION Q4-6H PRN copd Clopidogrel Bisulfate 75 mg 03/31/23 09:00 04/01/23 08:26 Clopidogrel Bisulfate 75 Mg Tablet PO 75 mg DAILY KELVIN Administration Diazepam 5 mg 03/30/23 16:24 04/01/23 08:26 Diazepam (*Crx) 5 Mg Tablet PO 5 mg BID PRN Administration muscle spasm Enoxaparin Sodium 30 mg 04/01/23 09:00 04/01/23 08:26 Enoxaparin 30 Mg/0.3 Ml Syringe SUB-Q 30 mg DAILY KELVIN Administration Felodipine 10 mg 03/31/23 09:00 04/01/23 08:26 Felodipine 5 Mg Tab Cr PO 10 mg QAM KELVIN Administration Lisinopril 40 mg 03/31/23 09:00 04/01/23 08:26 Lisinopril 20 Mg Tablet PO 40 mg DAILY KELVIN Administration Loratadine 10 mg 03/30/23 16:34 04/01/23 08:26 Loratadine 10 Mg Tablet PO 10 mg QAM PRN Administration Allergic Symptoms Pantoprazole Sodium 20 mg 03/31/23 09:00 04/01/23 08:26 Pantoprazole Sod Sesquihydrate 20 Mg Tab PO 20 mg QAM KELVIN Administration Tolterodine Tartrate 4 mg 03/31/23 09:00 04/01/23 08:26 Tolterodine Tartrate La 4 Mg Cap.Er.24h PO 4 mg DAILY KELVIN Administration
[2023-04-01] MEDS: HYDROcodone/acetaminophen (*CRX) 5-325 MG TABLET 1 TAB PO (09:58)
--- NOTE | 2023-04-01 10:40 | PCOTNOTE ---
Per RN, hold off therapy services at this time per RN due to updated x-ray report. Will check back at a later time.
--- NOTE | 2023-04-01 14:08 | PM.DS ---
DS: Admitting Diagnosis Discharge Date 04/01/23 Admitting Diagnosis 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 Hypertension Chronic kidney disease, stage 3 COPD DS: Discharge Diagnosis Discharge Diagnosis (1) 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: Code(s): T84.022A - Instability of internal right knee prosthesis, initial encounter Status: Acute (2) Hypertension: Code(s): I10 - Essential (primary) hypertension Status: Chronic (3) Chronic kidney disease, stage 3: Code(s): N18.30 - Chronic kidney disease, stage 3 unspecified Status: Chronic (4) Chronic obstructive pulmonary disease: Code(s): J44.9 - Chronic obstructive pulmonary disease, unspecified Status: Chronic DS: Summary Hospital Course Reason for hospitalization: 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 Hospital Course: This is an 82 year old female who presented to the hospital with right knee dislocation. Patient has had multiple dislocations over the past several months related to falls. She is followed by Dr. Can on an outpatient basis. Patient was to wear her knee immobilizer at all times but not sure if patient has been compliant with that as she presented again with another knee dislocation. Patient was taken to the OR on 03/30/23 for closed reduction under anaesthesia which was successful. However, todays right knee film revealed a posterior dislocation. Dr. Can is fine with discharging today and will refer patient out to [facility] for further management of this dislocation. On examination today patient is alert and oriented x4, lying in the bed. She states that her pain has been well controlled. Labs today reveal WBC 8.2, hemoglobin 10.3, hematocrit 32.5, sodium 135, potassium 3.9, carbon dioxide 23, BUN 20, creatinine 1.5. Patient is stable for discharge. Patient will remain non-weight bearing to [facility] but can participate with PT/OT with knee immobilizer in place. Dr. Can will be setting up [facility] referral and will contact patient with that information. Patient will need further surgical consultation once referral is placed. Status at Discharge Cognitive/behavioral status at discharge: alert and oriented x3 Functional status at discharge: uses cane/walker Overall status at discharge: patient is not back to baseline Time Spent with Patient Time attestation: Total time spent providing and/or coordinating discharge services: Exam Narrative: General: In no acute distress, well nourished, pleasant Head: atraumatic, no encephalopathy Eyes: EOMI, PERRLA, sclera clear ENT: moist mucous membranes, nasal passages clear Neck: supple, no JVD, no adenopathy, trachea midline Cardiac: Normal S1 and S2. No murmur, gallops or friction rubs, peripheral pulses intact. Respiratory: Lungs clear to auscultation, no adventitious lung sounds Gastrointestinal: soft, non-distended, non-tender, normoactive bowel sounds. : voiding without difficulty. Extremities: right knee immobilizer in place, moderate swelling to right knee in the brace. moves all other extremities well Skin: clean, dry, intact. No wounds or lesions. Neuro: Alert and oriented x4, cranial nerves intact, no neuro deficits. Psych: normal mood, normal affect, interactive DS: Data Data Completed and Pending Completed studies during hospitalization: multiple knee x-rays Pending studies at discharge: none Labs on day of discharge: Labs from last 24 hours 04/01/23 06:48 WBC 8.2 RBC 3.66 L Hgb 10.3 L Hct 32.5 L MCV 88.8 MCH 28.1 MCHC 31.7 L RDW 15.4 H Plt Count 267 MPV 10.1 Sodium 135 L Potassium 3.9 Chloride 107 Carbon Dioxide 23 Anion Gap 5 L BUN 27 H Creatinine 1.50 H Estim Creat Clear Calc 21 Estimated GFR 33 L Glucose 95 Calcium 8.8 Total Bilirubin 0.4 AST 23 ALT 10 Alkaline Phosphatase 63 Total Protein 5.0 L Albumin 2.7 L Discharge Plan Discharge
--- NOTE | 2023-04-01 14:17 | PCOTNOTE ---
Per RN, Patient is to have a different immobilizer placed. Patient currently having PT services at this time is unavailable. Per Patient she is supposed to be discharged to another facility for additional therapy services.
--- NOTE | 2023-04-01 17:02 | PCPTNOTE ---
Spoke to RN to clarify patient's weight bearing status with Dr. Can before discharge to rehab.
== END 2023-04-01 18:16 | DRG 560 ==
LOC: ANHED 11:51 → ANH3MEDSUR 17:21
PROVIDERS: Nurse Practitioner; Orthopaedic Surgery; Physician Assistant; Admitting Provider Internal Medicine; Emergency Provider Emergency Medicine; PCP Family Medicine; Visit Provider Nurse Practitioner Acute Care
PROC: 0SWCXJZ Revision of Synthetic Substitute in Right Knee Joint, External Approach (ICD-10-PCS; principal; 2023-03-30 14:30)
DX: T84.022A Instability of internal right knee prosthesis, initial encounter (principal); I69.351 Hemiplegia and hemiparesis following cerebral infarction affecting right dominant side; I12.9 Hypertensive chronic kidney disease with stage 1 through stage 4 chronic kidney disease, or unspecified chronic kidney disease; N18.30 Chronic kidney disease, stage 3 unspecified; J44.9 Chronic obstructive pulmonary disease, unspecified; K21.9 Gastro-esophageal reflux disease without esophagitis; E78.5 Hyperlipidemia, unspecified; M19.90 Unspecified osteoarthritis, unspecified site; M54.50 Low back pain, unspecified; G89.29 Other chronic pain; G47.33 Obstructive sleep apnea (adult) (pediatric); R29.6 Repeated falls; Z96.651 Presence of right artificial knee joint; W19.XXXA Unspecified fall, initial encounter; Z87.891 Personal history of nicotine dependence
CPT/HCPCS: 27560; 36415; 73560; 73562; 80048; 80053; 81001; 83735; 85025; 85027; 85610; 85730; 96374; 97161; 97165; 97530; 99199; 99285; A9270; G0378; J0330; J1100; J1650; J2405; J2704; J3010; J7030; J7120; L1830

== ENCOUNTER 2023-04-05 01:33 | Inpatient (IN) | payer MEDICARE, OTHER, SELFPAY ==
[2023-04-05] VITALS (12 sets, daily range): BP systolic 134–154; BP diastolic 43–69; PULSE 74–101; RESP 16–20; TEMP 36.4–37.2; O2SAT 91–96; BMI 20.2
--- NOTE | 2023-04-05 | ECHO_ITS ---
Patient Info Name: Radha Palacios Age: 82 years : 1940 Gender: Female Ht: 63 in Wt: 114 lbs BSA: 1.51 m2 HR: 97 bpm BP: 154 / 57 mmHg Heart Rhythm: Sinus Rhythm Technical Quality: Fair Exam Date: 04/05/2023 11:05 AM Exam Location: Echo Lab Patient Status: Outpatient Admit Date: 04/05/2023 Staff Ordering Physician: Asim Santillan MD (marcia/vane) Inspector Raw [place]: Elyssa Hadley RDCS Attending Provider: Mainor Barber MD Referring Physician: Tryell PUENTES; Exam Type: CA echo doppler color flow Study Info Indications R94.31 - Abnormal electrocardiogram ECG EKG Complete two-dimensional, color flow and Doppler transthoracic echocardiogram is performed. Summary 1. Technically difficult study with limited views. 2. Left ventricular chamber dimension is normal. 3. Left ventricular systolic function is normal, estimated at 60-65%. 4. The left ventricular diastolic function is grade I diastolic dysfunction. 5. Right ventricular systolic function is normal. 6. Left atrial chamber dimension is mildly enlarged. 7. There is moderate aortic valve calcification. 8. There is mild to moderate aortic valve stenosis with a peak velocity of 240 cm/s, mean gradient of 12 mmHg, and aortic valve area of 1.1 cm2. 9. There is mild aortic valve regurgitation. 10. There is small anterior pericardial effusion. Left Ventricle Left ventricular chamber dimension is normal. Left ventricular systolic function is normal, estimated at 60-65%. There is no increased left ventricular wall thickness. The left ventricular diastolic function is grade I diastolic dysfunction. Right Ventricle Right ventricular chamber dimension is normal. Right ventricular systolic function is normal. Left Atria Left atrial chamber dimension is mildly enlarged. Right Atria Right atrial chamber dimension is normal. Atrial Septum Intact interatrial septum visualized by color flow imaging. Aortic Valve The aortic valve is probable trileaflet. There is mild to moderate aortic valve stenosis with a peak velocity of 240 cm/s, mean gradient of 12 mmHg, and aortic valve area of 1.1 cm2. There is mild aortic valve regurgitation. There is moderate aortic valve calcification. Pulmonic Valve The pulmonic valve is not well visualized. Mitral Valve There is trace mitral valve regurgitation. The mitral valve annulus is mildly calcified. Tricuspid Valve There is trace tricuspid valve regurgitation. Pericardium/Pleural There is small anterior pericardial effusion. Inferior Vena Cava Normal inferior vena cava with >50% collapse upon inspiration consistent with normal right atrial pressure, 3 mmHg. Aorta The aortic root size at the sinus of Valsalva is normal. Left Ventricular Outflow Tract Name Value Normal LVOT 2D LVOT Diameter 2.0 cm LVOT Doppler LVOT Peak Gradient 3 mmHg LVOT Mean Gradient 1 mmHg LVOT VTI 15 cm LVOT VTI/AV VTI Ratio 0.4 LVOT Stroke Volume 46 ml LVOT CO 3.8 l/min LVOT CI 2.5 l/min/m2 Pulmonic Valve
--- NOTE | ~2023-04-05 | XR_ITS ---
EXAMINATION: XR knee RT 3V DATE: 04/05/2023 02:16 INDICATION: Right knee injury. TECHNIQUE: 3 views of right knee were obtained. COMPARISON: Right knee radiographs 04/01/2023 FINDINGS: There is a total right knee arthroplasty without patellar resurfacing. There is posterior d islocation of the tibial component with respect to the femoral component. No fracture. No periprosthe tic lucency to suggest loosening or infection. No knee joint effusion. IMPRESSION: 1. Dislocated total right knee arthroplasty. Reviewed, dictated and finalized at location E. EEPER
--- NOTE | ~2023-04-05 | XR_ITS ---
EXAMINATION: [id number]_[id number]_CR DATE: 04/08/2023 11:01 INDICATION: Postreduction dislocated right total knee arthroplasty TECHNIQUE: AP and lateral views of the right knee were obtained. COMPARISON: 04/05/2023 FINDINGS: Interval reduction of the previously posteriorly dislocated right total knee arthroplasty which is no w in essentially anatomic alignment. There is no associated patellar resurfacing. No fracture or sherrell prosthetic lucency to suggest loosening. Small right knee joint effusion. There is a brace about the knee with vertical supports extending craniocaudally along the lateral side. IMPRESSION: 1. Successful reduction of a previously posterior dislocated right total knee arthroplasties which is now in essentially anatomic alignment. No acute osseous abnormality. Reviewed, dictated and finalized at location A. /HOSTESS IMPRESSION: 1. Successful reduction of a previously posterior dislocated right total knee a rthroplasties which is now in essentially anatomic alignment. No acute osseous abnormality.
--- NOTE | 2023-04-05 02:00 | ED.FALL ---
HPI - Fall General Chief Complaint: Fall Stated Complaint: r. knee pain s/p fall Time Seen by Provider: 04/05/23 01:40 History of Present Illness HPI Narrative: Patient brought to the emergency department by EMS. She is currently living at a rehab facility. Has had recurrent dislocations of the right knee after knee replacement a couple months ago. She is now chronically dislocated and wears a knee immobilizer at all times. However tonight she fell because the right leg gave out on her. Denies injuries. Related Data Home Medications Medication Instructions Recorded Confirmed acetaminophen 500 mg tablet 1,000 mg PO BID PRN Pain 03/15/22 04/01/23 tolterodine 4 mg capsule,extended 4 mg PO DAILY 03/29/23 04/01/23 release 24 hr Allergies Allergy/AdvReac Type Severity Reaction Status Date / Time iodine Allergy Unknown Rash Verified 04/05/23 02:17 Iodine and Iodide Containing Allergy Unknown Rash Verified 04/05/23 02:17 Produc [id number] Allergy Unknown Rash Uncoded 03/18/23 09:28 Review of Systems Review of Systems: Negative except for what is documented to the [facility] Past Medical History Medical History Arthritis Asthma Basal cell carcinoma Cerebrovascular accident (1995) With mild right-sided weakness. Chronic kidney disease, stage 3 Baseline creatinine between 1.6 and 1.70. Chronic low back pain Chronic obstructive pulmonary disease Gastroesophageal reflux disease History of vaginal delivery x 2. Hyperlipidemia Hypertension Mild obstructive sleep apnea On sleep study in March 2008. Noncompliance with CPAP Osteoarthritis Pelvic fracture Prolapse of female pelvic organs Transient ischemic attack Urge incontinence Urinary frequency Surgical History Surgical History History of arthroplasty of right knee (03/31/22) History of basal cell carcinoma excision (2016) From the nose and brow. History of bilateral breast biopsy (09/2006) With benign pathology. History of cataract extraction History of dilation and curettage History of tubal ligation Status post debridement (2017) Debridement of traumatic hematoma of the left medial leg. Rison teeth removed Family History Family History Mother Hypertension Family history of malignant neoplasm of breast in first degree relative Other Cerebrovascular accident Diabetes mellitus HLD (hyperlipidemia) Heart disease Skin cancer Social History Social History Social History: Surrogate decision maker: Ronal Palacios, . Code status: Full code. Smoking packs per day: 1 Smoking cigarettes per day: 20.0 Years smoked: 30 Smoking pack-years: 30.00 Smoking status: Former smoker Tobacco type: cigarettes Second hand tobacco smoke exposure: No Smoking end date: 05/16/89 Alcohol intake: never Substance use: never Substance use type: does not use Lack of Transportation: No Lack of Food: Never True Current Housing: I Have Housing Concerned About Future Housing: No Difficulty Paying Gas/Electric Bills: No Difficulty Paying for Meds: No Currently Unemployed: No Education: Decline to Answer Difficulty w/ Childcare or Family Care: No Living arrangements: with family Additional living arrangements comments: Resides in [place] with her . Occupation/Education: retired Additional occupation/education comments: Retired. Spiritual care concerns: No Exam Narrative: GENERAL: Well-appearing, well-nourished, and in no acute distress. HEAD: Normocephalic, atraumatic. EYES: PERRLA and EOMI. ENT: Nares clear, no rhinorrhea or epistaxis. Mucous membranes moist. NECK: Supple. CHEST: Clear to auscultation. No respiratory distress. HEART: Regular rate
[2023-04-05 02:42] LABS: Basophils Percent Auto 0.4 % (0.2-1.2); Eosinophils Absolute Auto 0.1 K/mm3 (0-0.3); Eosinophils Percent Auto 0.9 % (0-4.4); Hematocrit 36.3 % (37.0-47.0); Hemoglobin 11.7 g/dL (12.0-15.0); Immature Granulocyte Absolute 0.04 K/mm3 (0.00-0.031); Immature Granulocyte Percent A 0.4 % (0-0.5); Lymphocytes Absolute Auto 1.89 K/mm3 (0.9-3.2); Lymphocytes Percent Auto 21.2 % (18.3-44.2); Mean Corpuscular HGB Conc 32.2 g/dl (32-36); Mean Corpuscular Hemoglobin 28.1 pg (26-34); Mean Corpuscular Volume 87.1 fl (80-100); Monocytes Percent Auto 11.2 % (2.6-8.5); Neutrophils Absolute Auto 5.9 K/mm3 (1.3-6.7); Neutrophils Percent Auto 65.9 % (45.5-73.1); Platelet Count Result 366 k/mm3 (150-375); Red Blood Count 4.17 M/mm3 (4.2-5.4); Red Cell Distribution Width 15.6 % (11.5-14.5); White Blood Count 8.9 K/mm3 (4.5-10.0)
[2023-04-05 02:49] LABS: Appearance Urine Turbid (Clear); Bacteria Urine 4+ /hpf; Bilirubin Urine Negative (Negative); Blood Urine 1+ (Negative); Color Urine Yellow (Yellow); Glucose Urine UA Negative (Negative); Ketones Urine Negative (Negative); Leukocyte Esterase Ur 3+ LEU/UL (Negative); Nitrate Urine Positive (Negative); Non Pathogenic Casts 0-2; Protein Urine 1+ mg/dL (Negative); RBC Urine 0-2 /hpf (0-2); Specific Grav Ur 1.017 (1.001-1.035); Squamous Epithelial Cell Urine None seen /hpf (Few); Urobilinogen Urine 0.2 mg/dL (<2.0); WBC Urine >100 /hpf; pH Urine 6.5 (5.0-9.0)
[2023-04-05 02:53] LABS: Alanine Aminotransferase 14 U/L (6-35); Albumin Level 3.5 g/dL (3.5-5.1); Alkaline Phosphatase 76 U/L (38-126); Anion Gap 7 mmol/L (8-16); Aspartate Amino Transferase 31 U/L (14-36); Blood Urea Nitrogen 26 mg/dL (7-17); Calcium 9.4 mg/dL (8.4-10.2); Carbon Dioxide 23 mmol/L (22-30); Chloride 102 mmol/L (98-107); Estimated CRCL calculation 21 ml/min; Estimated Glomerular Filt Rate 31; Glucose 119 mg/dL (65-110); Potassium 4.7 mmol/L (3.4-5.0); Sodium 132 mmol/L (137-145)
[2023-04-05 03:08] LABS: Troponin I 0.037 ng/mL (0.000-0.034)
[2023-04-05 03:11] LABS: Add Urine Microscopic? YES
[2023-04-05] MEDS: ACETAMINOPHEN 325 MG TABLET 650 MG PO (03:11)
--- NOTE | 2023-04-05 03:18 | ECG_ITS ---
Measurements Intervals [place] Rate: 96 P: 49 FL: 145 QRS: -24 QRSD: 102 T: 153 QT: 357 QTc: 453 Interpretive Statements SINUS RHYTHM ST-T WAVE ABNORMALITY IN ANTEROLAT/HIGH LAT LEADS- CONSIDER ISCHEMIA BASELINE ARTIFACT- I, AVR, V1, V3 ABNORMAL ECG COMPARED TO ECG 01/05/2023 15:44:[address] NOW PRESENT ST-T WAVE ABNORMALITY NOW PRESENT Electronically Signed On 04-05-2023 6:20:19 MENTAL HEALTH WORKER by Gus Baez D.O.
--- NOTE | 2023-04-05 04:12 | ADMGEN ---
This patient, Radha Palacios, was admitted to Medical Room 254-01. Patient/family oriented to hospital policies and general routines including ID bracelet, bed and alarms, visiting hours, pain management, procedures, bathroom and other care routines, personal items, smoking policy, room service/diet, and visiting hours. Information on how to activate the Rapid Response Team has been discussed. Patient/Family are encouraged to report perceived risks to care and to ask questions if they do not understand what they are told or what they should do.
[2023-04-05 06:12] LABS: Troponin I 0.039 ng/mL (0.000-0.034)
--- NOTE | 2023-04-05 09:06 | ECG_ITS ---
Measurements Intervals [place] Rate: 85 P: 44 [place]: 136 QRS: -20 QRSD: 95 T: 134 QT: 368 QTc: 438 Interpretive Statements SINUS RHYTHM ST-T WAVE ABNORMALITY IN ANTEROLAT/HIGH LAT LEADS- CONSIDER ISCHEMIA ABNORMAL ECG COMPARED TO ECG 04/05/2023 03:28:33 NO SIGNIFICANT CHANGES Electronically Signed On 04-05-2023 11:01:20 [employer] by Gus Baez D.O.
--- NOTE | 2023-04-05 09:34 | PM.CNCAR ---
Assessment and Plan Assessment and plan (1) Elevated troponin: Code(s): R79.89 - Other specified abnormal findings of blood chemistry Status: Acute Assessment and Plan: EKG was personally reviewed and shows sinus rhythm with T-wave inversions in the anterolateral leads, which is new compared to prior EKG. Troponins of 0.037, 0.039. Patient denies any history of chest pain. States she is currently feeling well at rest. Last echocardiogram from 01/07/2023 shows LVEF 60-65%, grade 1 diastolic dysfunction, severe aortic valve sclerosis with mild-moderate stenosis, mild pulmonary hypertension. Will obtain a repeat EKG this morning. Obtain TTE to evaluate for any changes compared to prior echo. Third troponin level is pending. Troponin levels are flat and not indicative of an acute coronary syndrome. History of Present Illness History of Present Illness Consult date/time: 04/05/23 09:34 Requesting physician: Pilar Renner MD Consult reason: Other (Elevated troponin) Reason For Visit: Weakness Narrative: We are consulted for elevated troponin. 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 Patient states she felt her knee giving out on her. No lightheadedness or dizziness prior to falling. She did not lose consciousness. ER workup showed UA concerning for UTI. EKG was personally reviewed and shows sinus rhythm with T-wave inversions in the anterolateral leads, which is new compared to prior EKG. Troponins of 0.037, 0.039. Patient denies any history of chest pain. States she is currently feeling well at rest. Last echocardiogram from 01/07/2023 shows LVEF 60-65%, grade 1 diastolic dysfunction, severe aortic valve sclerosis with mild-moderate stenosis, mild pulmonary hypertension Review of Systems Review of Systems: All systems reviewed & are unremarkable except as noted in HPI and below (HPI) [facility] Past Medical History Medical History Arthritis Asthma Basal cell carcinoma Cerebrovascular accident (1995) With mild right-sided weakness. Chronic kidney disease, stage 3 Baseline creatinine between 1.6 and 1.70. Chronic low back pain Chronic obstructive pulmonary disease Gastroesophageal reflux disease History of vaginal delivery x 2. Hyperlipidemia Hypertension Mild obstructive sleep apnea On sleep study in March 2008. Noncompliance with CPAP Osteoarthritis Pelvic fracture Prolapse of female pelvic organs Transient ischemic attack Urge incontinence Urinary frequency Surgical History Surgical History History of arthroplasty of right knee (03/31/22) History of basal cell carcinoma excision (2016) From the nose and brow. History of bilateral breast biopsy (09/2006) With benign pathology. History of cataract extraction History of dilation and curettage History of tubal ligation Status post debridement (2017) Debridement of traumatic hematoma of the left medial leg. [place] teeth removed Family History Family History Mother Hypertension Family history of malignant neoplasm of breast in first degree relative Other Cerebrovascular accident Diabetes mellitus HLD (hyperlipidemia) Heart disease Skin cancer Social History Social History Social History: Surrogate decision maker: Ronal Palacios, . Code status: Full code. Smoking packs per day: 1 Smoking cigarettes per day: 20.0 Years smoked: 30 Smoking pack-years: 30.00 Smoking status: Former smoker Second hand tobacco smoke exposure: No Alcohol intake: never Substance use: never Substance use type: prescription drug Lack of Transportation: No Lack of Food: N
[2023-04-05 09:38] LABS: Phosphorus 3.4 mg/dL (2.5-4.5)
--- NOTE | 2023-04-05 13:14 | PM.CNOR ---
Assessment and Plan Assessment and plan (1) Dislocated knee: Qualifiers: Encounter type: subsequent encounter Laterality: right Qualified Code(s): S83.104D - Unspecified dislocation of right knee, subsequent encounter Code(s): S83.106A - Unspecified dislocation of unspecified knee, initial encounter Status: Acute Assessment and Plan: History, exam and radiographs reviewed with the patient. Patient has a chronic right TKA dislocation. Previous TKA performed by Dr. Can. Several reductions have been attempted and patient has been susceptible to recurrent dislocations. Dr. Can has spoke with a colleague at [facility], Dr. Gallardo, who has agreed to accept the patient. We are waiting an appointment which is likely to be next week. There is possibility of the patient could be transferred from hospital to hospital to undergo surgery: However, and evaluation is currently planned for an outpatient basis. Awaiting appointment time at this time. Patient is to continue nonweightbearing the right lower extremity. Knee immobilizer. May be removed for bathing. Pain control. Continue to monitor neurovascular status. Patient is currently neurovascularly intact despite knee dislocation. We will continue to follow. (2) Urinary tract infection: Qualifiers: Hematuria presence: without hematuria Urinary tract infection type: site unspecified Qualified Code(s): N39.0 - Urinary tract infection, site not specified Code(s): N39.0 - Urinary tract infection, site not specified Status: Acute (3) Elevated troponin: Code(s): R79.89 - Other specified abnormal findings of blood chemistry Status: Acute Plan Dr. Can notified of patient's readmission, exam, radiographs and current plan of care. No further recommendations at this time. As mentioned above, Dr. Can is currently in discussion with Dr. Gallardo at [facility] for surgical revision for the patient. History of Present Illness HPI Consult date: 04/05/23 Chief complaint: Weakness Narrative: 82-year-old female readmitted from [facility] due to a UTI and weakness with concerns for cardiac involvement. Patient also has a recurrent right TKA dislocation. This was present prior to her discharge to [facility] as she had a failed reduction. Patient has had several duction of the right TKA which have been unsuccessful. Patient is currently pending evaluation for surgical revision at [facility]. Orthopedic consult requested during this hospitalization for chronic right TKA dislocation. Review of Systems Review of Systems: All systems reviewed & are unremarkable except as noted in HPI and below PMFSH Past Medical History Medical History Arthritis Asthma Basal cell carcinoma Cerebrovascular accident (1995) With mild right-sided weakness. Chronic kidney disease, stage 3 Baseline creatinine between 1.6 and 1.70. Chronic low back pain Chronic obstructive pulmonary disease Gastroesophageal reflux disease History of vaginal delivery x 2. Hyperlipidemia Hypertension Mild obstructive sleep apnea On sleep study in March 2008. Noncompliance with CPAP Osteoarthritis Pelvic fracture Prolapse of female pelvic organs Transient ischemic attack Urge incontinence Urinary frequency Surgical History Surgical History History of arthroplasty of right knee (03/31/22) History of basal cell carcinoma excision (2016) From the nose and brow. History of bilateral breast biopsy (09/2006) With benign pathology. History of cataract extraction History of dilation and curettage History of tubal ligation Status post debridement (2017) Debridement of traumatic hematoma of the left medial leg. [place] teeth removed Family History Family History (Re
--- NOTE | 2023-04-05 16:34 | PM.IMHP ---
H&P: HPI History of Present Illness Date/Time: 04/05/23 16:34 Chief Complaint: Patient transferred from the rehab facility for evaluation after a fall Narrative: She is an unfortunate 82 years old white female who has had a prior right knee replacement surgery 1 year ago. Since then she has recurrent dislocations of the right knee. She lives in a rehab facility, is chronically dislocated on the right knee and wears immobilizer at all times. She had a fall episode in the rehab and was sent to the ER for evaluation. Workup was done which showed UTI and borderline elevated troponins without any chest pain. She was started on IV antibiotics and is being admitted for medical management, Cardiology and orthopedic evaluations. Review of Systems Review of Systems: she denies any chest pain, palpitations, fever rigor chills, nausea vomiting. All systems reviewed & are unremarkable except as noted in HPI and below PMFSH Past Medical History Medical History Arthritis Asthma Basal cell carcinoma Cerebrovascular accident (1995) With mild right-sided weakness. Chronic kidney disease, stage 3 Baseline creatinine between 1.6 and 1.70. Chronic low back pain Chronic obstructive pulmonary disease Gastroesophageal reflux disease History of vaginal delivery x 2. Hyperlipidemia Hypertension Mild obstructive sleep apnea On sleep study in March 2008. Noncompliance with CPAP Osteoarthritis Pelvic fracture Prolapse of female pelvic organs Transient ischemic attack Urge incontinence Urinary frequency Surgical History Surgical History History of arthroplasty of right knee (03/31/22) History of basal cell carcinoma excision (2016) From the nose and brow. History of bilateral breast biopsy (09/2006) With benign pathology. History of cataract extraction History of dilation and curettage History of tubal ligation Status post debridement (2018) Debridement of traumatic hematoma of the left medial leg. [place] teeth removed Family History Family History Mother Hypertension Family history of malignant neoplasm of breast in first degree relative Other Cerebrovascular accident Diabetes mellitus HLD (hyperlipidemia) Heart disease Skin cancer Social History Social History Social History: Surrogate decision maker: Ronal Palacios, . Code status: Full code. Smoking packs per day: 1 Smoking cigarettes per day: 20.0 Years smoked: 30 Smoking pack-years: 30.00 Smoking status: Former smoker Second hand tobacco smoke exposure: No Alcohol intake: never Substance use: never Substance use type: prescription drug Lack of Transportation: No Lack of Food: Never True Current Housing: I Have Housing Concerned About Future Housing: No Difficulty Paying Gas/Electric Bills: No Difficulty Paying for Meds: No Currently Unemployed: No Education: High School Diploma/GED Difficulty w/ Childcare or Family Care: No Living arrangements: with family Additional living arrangements comments: Resides in [place] with her . Occupation/Education: retired Additional occupation/education comments: Retired. Spiritual care concerns: No Meds Home Medications and Allergies Home Medications Medication Instructions Recorded Confirmed Type clopidogrel 75 mg tablet (Plavix) 75 mg PO DAILY #90 tabs 03/11/22 04/05/23 Rx pantoprazole 20 mg tablet,delayed 20 mg PO QAM #90 tabs 03/11/22 04/05/23 Rx release (Protonix) acetaminophen 500 mg tablet 1,000 mg PO BID PRN Pain (Scale 03/15/22 04/05/23 History Score 1-3) cetirizine 10 mg tablet (Zyrtec) 10 mg PO DAILY PRN allergy 04/15/22 04/05/23 Rx symptoms #90 tabs felodipine 10 mg tablet,extended 10 mg PO DAILY #90 ta
[2023-04-05 16:56] LABS: Troponin I 0.028 ng/mL (0.000-0.034)
[2023-04-05] MEDS: ACETAMINOPHEN 500 MG TABLET 1000 MG PO (17:12)
[2023-04-05] MEDS: SODIUM CHLORIDE 0.9% IV 1,000 ML 75 ML IV CONT (17:18)
[2023-04-06] VITALS (17 sets, daily range): BP systolic 103–143; BP diastolic 38–89; PULSE 74–109; RESP 14–24; TEMP 36.4–37.2; O2SAT 92–100
[2023-04-06 06:13] LABS: Hematocrit 33.7 % (37.0-47.0); Hemoglobin 10.6 g/dL (12.0-15.0); Mean Corpuscular HGB Conc 31.5 g/dl (32-36); Mean Corpuscular Hemoglobin 27.8 pg (26-34); Mean Corpuscular Volume 88.5 fl (80-100); Mean Platelet Volume 9.8 fl (7.4-10.4); Platelet Count Result 372 k/mm3 (150-375); Red Blood Count 3.81 M/mm3 (4.2-5.4); Red Cell Distribution Width 15.5 % (11.5-14.5); White Blood Count 7.6 K/mm3 (4.5-10.0)
[2023-04-06 06:32] LABS: Anion Gap 9 mmol/L (8-16); Blood Urea Nitrogen 20 mg/dL (7-17); Carbon Dioxide 22 mmol/L (22-30); Chloride 105 mmol/L (98-107); Estimated CRCL calculation 22 ml/min; Estimated Glomerular Filt Rate 33; Glucose 95 mg/dL (65-110); Potassium 3.7 mmol/L (3.4-5.0); Sodium 136 mmol/L (137-145)
[2023-04-06] MEDS: CLOPIDOGREL BISULFATE 75 MG TABLET PO (09:36)
[2023-04-06] MEDS: lisinopriL 20 MG TABLET 40 MG PO (09:36)
[2023-04-06] MEDS: PANTOPRAZOLE SOD SESQUIHYDRATE 20 MG TAB PO (09:37)
[2023-04-06] MEDS: FELODIPINE 5 MG TAB CR 10 MG PO (09:37)
[2023-04-06] MEDS: TOLTERODINE TARTRATE LA 4 MG CAP.ER.24H PO (09:37)
[2023-04-06] MEDS: ENOXAPARIN 30 MG/0.3 ML SYRINGE SUB-Q (09:41)
[2023-04-06] MEDS: ACETAMINOPHEN 500 MG TABLET 1000 MG PO ×2 (09:49→17:49)
--- NOTE | 2023-04-06 11:45 | PM.PNORT ---
Progress Note: A&P Assessment and Plan (1) 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: Code(s): T84.022A - Instability of internal right knee prosthesis, initial encounter Status: Acute Assessment and Plan: R TKA CHRONIC DISLOCATION WITH MULTIPLE ATTEMPTS AT RELOCATION AND MULTIPLE FALLS RESULTING IN DISLOCATION. WE WILL ATTEMPT ANOTHER CLOSED REDUCTION. PATIENT WILL BE TRANSFERRED TO ACUTE REHAB. PT ORDERS ARE LIMITED TO BED TO CHAIR TRANSFERS ONLY. I HAVE DISCUSSED DEFINITIVE CARE WITH [facility] WHO WILL SEE THE PATIENT NEXT WEEK Subjective Subjective Date/Time Seen: 04/06/23 11:45 Interval history: VIVIAN WAS TRANSFERRED BACK TO [facility] FROM REHAB BECAUSE SHE FELL IN REHAB AND DISLOCATED HER RIGHT TKA AGAIN. SHE IS COMFORTABLE AND DENIES ANY MODERATE OR SEVERE KNEE PAIN. Exam Extrem: Other: RIGHT TKA OBVIOUS DISLOCATION. CALF AND THIGH ARE SOFT. SHE IS [place] INTACT, DP AND PT PULSES ARE 2 + Objective Data Vital Signs Vital Signs: Vital Signs - 24 hr 04/05/23 13:51 04/05/23 12:27 04/05/23 16:27 Temperature 36.4 C L Pulse Rate 88 92 95 Respiratory Rate 18 Blood Pressure 143/43 H Pulse Oximetry 94 Oxygen Delivery 04/05/23 20:35 04/05/23 20:01 04/05/23 22:00 Temperature 36.6 C Pulse Rate 95 74 79 Respiratory Rate 18 16 Blood Pressure 137/59 L Pulse Oximetry 94 92 Oxygen Delivery Room Air 04/06/23 00:04 04/06/23 04:01 04/06/23 06:00 Temperature 36.5 C Pulse Rate 74 82 96 Respiratory Rate 14 Blood Pressure 142/59 H Pulse Oximetry 93 Oxygen Delivery 04/06/23 09:35 Temperature Pulse Rate 90 Respiratory Rate 14 Blood Pressure 127/46 L Pulse Oximetry 94 Oxygen Delivery Intake/Output Intake/Output: Intake & Output 04/03/23 04/04/23 04/05/23 04/06/23 23:59 23:59 23:59 23:59 Intake Total 630 1510 Output Total 350 Balance 630 1160 Meds/Results Medications: Active Medications Generic Name Dose Route Start Last Admin Trade Name Freq PRN Reason Stop Dose Admin Acetaminophen 1,000 mg 04/05/23 16:53 04/06/23 09:49 Acetaminophen 500 Mg Tablet PO 1,000 mg BID PRN Administration Pain (Scale Score 1-3) Hydrocodone Bitart/Acetaminophen 1 tab 04/05/23 16:53 Hydrocodone/Acetaminophen (*Crx) 5-325 Mg Tablet PO Q8H PRN Pain (Scale Score 4-6) Albuterol 1 puff 04/05/23 16:53 Albuterol Sulfate (*Sp) Aerosol 1 Puff INHALATION Q4-6H PRN copd Clopidogrel Bisulfate 75 mg 04/06/23 09:00 04/06/23 09:36 Clopidogrel Bisulfate 75 Mg Tablet PO 75 mg DAILY KELVIN Administration Diazepam 5 mg 04/05/23 16:53 Diazepam (*Crx) 5 Mg Tablet PO BID PRN muscle spasm Enoxaparin Sodium 30 mg 04/06/23 09:00 04/06/23 09:41 Enoxaparin 30 Mg/0.3 Ml Syringe SUB-Q 30 mg DAILY KELVIN Administration Felodipine 10 mg 04/06/23 09:00 04/06/23 09:37 Felodipine 5 Mg Tab Cr PO 10 mg DAILY KELVIN Administration Ceftriaxone Sodium 1 gm in 50 mls @ 100 mls/hr 04/06/23 18:00 Rocephin 1 Gm/Ns 50 Ml IVPB Q24H KELVIN Lisinopril 40 mg 04/06/23 09:00 04/06/23 09:36 Lisinopril 20 Mg Tablet PO 40 mg DAILY KELVIN Administration Loratadine 10 mg 04/05/23 17:01 Loratadine 10 Mg Tablet PO DAILY PRN allergy symptoms Pantoprazole Sodium 20 mg 04/06/23 09:00 04/06/23 09:37 Pantoprazole Sod Sesquihydrate 20 Mg Tab PO 20 mg QAM KELVIN Administration Perflutren Lipid Microsphere 0 ml 04/05/23 09:18 Perflutren Lipid Microspheres 1.5 Ml Vial Diluted To 10 Ml Total Volume IV PUSH 04/08/23 09:18 ONCE PRN adequate visualization Protocol Tolterodine Tartrate 4 mg 04/06/23 09:00 04/06/23 09:37 Tolterodine Tartrate La 4 Mg Cap.Er.24h PO 4 mg DAILY KELVIN Administration Radiology Results: ITS Impressions Knee X-Ray 04/05/23 05:07 IMPRESSION: 1. Dislocated total right knee arthroplasty. La
[2023-04-06] MEDS: LACTATED RINGERS 1,000 ML 30 ML IV CONT (12:19)
--- NOTE | 2023-04-06 12:23 | WPDANESEPPF ---
Anes - Initial Pre Proc Eval Procedure: Operation Date: 04/06/23 12:30 Proposed Procedures p Closed Reduction Right knee - Pj Can MD Date/Time: 04/06/23 12:23 Surgeon: Mainor Barber MD Pre Op Diagnosis: Weakness Patient Data Age: 82 Gender: F Height: 1.6 m Weight: 52 kg Last Vital Signs Temp 36.5 C 04/06/23 06:00 Pulse 90 04/06/23 09:35 Resp 14 04/06/23 09:35 BP 127/46 L 04/06/23 09:35 Pulse Ox 94 04/06/23 09:35 O2 Del Method Room Air 04/05/23 20:35 Allergies Allergy/AdvReac Type Severity Reaction Status Date / Time iodine Allergy Unknown Rash Verified 04/05/23 02:17 Iodine and Iodide Containing Allergy Unknown Rash Verified 04/05/23 02:17 Produc [id number] Allergy Unknown Rash Uncoded 03/18/23 09:28 Home Medications Medication Instructions Recorded Confirmed Type clopidogrel 75 mg tablet (Plavix) 75 mg PO DAILY #90 tabs 03/11/22 04/05/23 Rx pantoprazole 20 mg tablet,delayed 20 mg PO QAM #90 tabs 03/11/22 04/05/23 Rx release (Protonix) acetaminophen 500 mg tablet 1,000 mg PO BID PRN Pain (Scale 03/15/22 04/05/23 History Score 1-3) cetirizine 10 mg tablet (Zyrtec) 10 mg PO DAILY PRN allergy 04/15/22 04/05/23 Rx symptoms #90 tabs felodipine 10 mg tablet,extended 10 mg PO DAILY #90 tabs 04/15/22 04/05/23 Rx release 24 hr lisinopril 40 mg tablet 40 mg PO DAILY #90 tabs 04/15/22 04/05/23 Rx albuterol sulfate 90 mcg/actuation 1 inh inhalation Q4-6H PRN copd 02/10/23 04/05/23 Rx aerosol inhaler #8.5 grams diazepam 5 mg tablet (Valium) 5 mg PO BID PRN muscle spasm #30 03/11/23 04/05/23 Rx tabs tolterodine 4 mg capsule,extended 4 mg PO DAILY 03/29/23 04/05/23 History release 24 hr hydrocodone 5 mg-acetaminophen 325 1 tablet PO Q8H PRN Pain (Scale 04/05/23 04/05/23 History mg tablet Score 4-6) Laboratory Tests 04/05/23 04/06/23 16:16 05:41 WBC 7.6 K/mm3 (4.5-10.0) RBC 3.81 L M/mm3 (4.2-5.4) Hgb 10.6 L g/dL (12.0-15.0) Hct 33.7 L % (37.0-47.0) MCV 88.5 fl (80-100) MCH 27.8 pg (26-34) MCHC 31.5 L g/dl (32-36) RDW 15.5 H % (11.5-14.5) Plt Count 372 k/mm3 (150-375) MPV 9.8 fl (7.4-10.4) Sodium 136 L mmol/L (137-145) Potassium 3.7 mmol/L (3.4-5.0) Chloride 105 mmol/L (98-107) Carbon Dioxide 22 mmol/L (22-30) Anion Gap 9 mmol/L (8-16) BUN 20 H mg/dL (7-17) Creatinine 1.50 H mg/dL (0.7-1.0) Estim Creat Clear Calc 22 ml/min Estimated GFR 33 L (59 - ) Glucose 95 mg/dL (65-110) Calcium 9.0 mg/dL (8.4-10.2) Troponin I 0.028 D ng/mL (0.000-0.034) Patient hx anesthesia problems: none Family hx anesthesia problems: none Results Review: All pre-operative results and documents have been reviewed as part of the pre-operative evaluation. [facility] Past Medical History Medical History Arthritis Asthma Basal cell carcinoma Cerebrovascular accident (1995) With mild right-sided weakness. Chronic kidney disease, stage 3 Baseline creatinine between 1.6 and 1.70. Chronic low back pain Chronic obstructive pulmonary disease Gastroesophageal reflux disease History of vaginal delivery x 2. Hyperlipidemia Hypertension Mild obstructive sleep apnea On sleep study in March 2008. 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 History of bilateral breast biopsy (09/2006) With benign pathology. History of cataract extraction History of dilation and curettage History of tubal ligation St
[2023-04-06] MEDS: fentaNYL CITRATE INJ (*CRX) 100 MCG/2 ML VIAL 25 MCG IV PUSH ×8 (12:39→13:00)
[2023-04-06] MEDS: HYDROmorphone HCL INJ (*CRX) 1 MG/ML SYR 0.25 MG IV PUSH ×4 (13:12→13:28)
--- NOTE | 2023-04-06 15:13 | PM.IMPN ---
Progress Note: A&P Assessment and Plan (1) Urinary tract infection: Qualifiers: Hematuria presence: without hematuria Urinary tract infection type: site unspecified Qualified Code(s): N39.0 - Urinary tract infection, site not specified Code(s): N39.0 - Urinary tract infection, site not specified Status: Acute Assessment and Plan: Rocephin 1 gm q 24 hrs Await urine culture and sensitivity (2) Dislocated knee: Qualifiers: Encounter type: subsequent encounter Laterality: right Qualified Code(s): S83.104D - Unspecified dislocation of right knee, subsequent encounter Code(s): S83.106A - Unspecified dislocation of unspecified knee, initial encounter Status: Acute (3) Elevated troponin: Code(s): R79.89 - Other specified abnormal findings of blood chemistry Status: Acute (4) Chronic kidney disease, stage 3: Code(s): N18.30 - Chronic kidney disease, stage 3 unspecified Status: Chronic Assessment and Plan: Avoid nephrotoxic medications Monitor lab work (5) Hypertension: Code(s): I10 - Essential (primary) hypertension Status: Chronic Assessment and Plan: Stable continue home medication (6) Chronic obstructive pulmonary disease: Code(s): J44.9 - Chronic obstructive pulmonary disease, unspecified Status: Chronic Assessment and Plan: Not in exacerbation Continue home medication (7) Orthopedic aftercare: Code(s): Z47.89 - Encounter for other orthopedic aftercare Status: Acute (8) 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: Code(s): T84.022A - Instability of internal right knee prosthesis, initial encounter Status: Acute Assessment and Plan: Ortho consult (9) Secondary renal hyperparathyroidism: Code(s): N25.81 - Secondary hyperparathyroidism of renal origin Status: Acute (10) S/P total knee arthroplasty: Code(s): Z96.659 - Presence of unspecified artificial knee joint Status: Acute Assessment and Plan: Consult orthopedics Plan Follow up urine and blood cultures Continue IV rocephine Patient started on gentle IV hydration with normal saline at 75 cc/hour Strict input and output monitoring Patient has borderline elevated troponins ranging from 0.037-0.040, without any chest pain, with mild anterolateral T-wave inversions Cardiology consult ordered who followed up on troponins and progression of the EKG, both of which remained flat and stable Continue with the cardiopulmonary tele monitoring Orthopedic consult given for evaluation for right knee chronic dislocations Her orthopedist has already spoken with Dr. Gallardo in [facility] who plan to follow up with her as an outpatient Patient may be considered for revision the right knee in [facility] Follow-up closely as per Cardiology and Orthopedics DC planning back to rehab facility on oral antibiotic once she is stable Subjective Date/time seen: 04/06/23 0930 Review of Systems Review of Systems: All systems reviewed & are unremarkable except as noted in HPI and below Constitutional: Constitutional: Reports no additional constitutional complaints Exam Const: General: comfortable and no acute distress HENMT: Face/Nose/Sinus: Normal nares present Mouth: Yes moist mucous membranes Eyes: General: appearance normal, both eyes and all related structures Sclera: sclerae normal Pupils: Equal, round and reactive pupils present EOM: EOMs intact bilaterally Neck: Neck: supple and no JVD Resp: Effort & Inspection: normal respiratory effort Auscultation: clear to auscultation bilaterally Cardio: Rate: regular rate Rhythm: regular rhythm Other: S1S2 and without murmur, gallop, or rub GI: GI Palp: Yes Soft to palpation Auscultation: normal bowel sounds Skin: General skin exam: normal color and no rashes or l
[2023-04-06] MEDS: HYDROcodone/acetaminophen (*CRX) 5-325 MG TABLET 1 TAB PO (21:02)
[2023-04-07] VITALS (12 sets, daily range): BP systolic 132–153; BP diastolic 47–54; PULSE 68–99; RESP 16–18; TEMP 36.5–36.7; O2SAT 90–97
[2023-04-07 06:03] LABS: Hematocrit 37.2 % (37.0-47.0); Hemoglobin 11.3 g/dL (12.0-15.0); Mean Corpuscular HGB Conc 30.4 g/dl (32-36); Mean Corpuscular Hemoglobin 27.7 pg (26-34); Mean Corpuscular Volume 91.2 fl (80-100); Mean Platelet Volume 9.5 fl (7.4-10.4); Platelet Count Result 419 k/mm3 (150-375); Red Blood Count 4.08 M/mm3 (4.2-5.4); Red Cell Distribution Width 15.3 % (11.5-14.5); White Blood Count 7.1 K/mm3 (4.5-10.0)
[2023-04-07 06:12] LABS: Anion Gap 12 mmol/L (8-16); Blood Urea Nitrogen 18 mg/dL (7-17); Calcium 9.2 mg/dL (8.4-10.2); Carbon Dioxide 17 mmol/L (22-30); Chloride 105 mmol/L (98-107); Estimated CRCL calculation 23 ml/min; Estimated Glomerular Filt Rate 36; Glucose 97 mg/dL (65-110); Potassium 3.8 mmol/L (3.4-5.0); Sodium 134 mmol/L (137-145)
[2023-04-07] MEDS: CLOPIDOGREL BISULFATE 75 MG TABLET PO (09:01)
[2023-04-07] MEDS: TOLTERODINE TARTRATE LA 4 MG CAP.ER.24H PO (09:01)
[2023-04-07] MEDS: lisinopriL 20 MG TABLET 40 MG PO (09:01)
[2023-04-07] MEDS: PANTOPRAZOLE SOD SESQUIHYDRATE 20 MG TAB PO (09:01)
[2023-04-07] MEDS: ENOXAPARIN 30 MG/0.3 ML SYRINGE SUB-Q (09:02)
[2023-04-07] MEDS: FELODIPINE 5 MG TAB CR 10 MG PO (09:02)
--- NOTE | 2023-04-07 09:15 | PM.PNORT ---
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 Comfortable today. Awaiting placement. Urine culture with Citrobacter. Blood cultures negative to date. Subjective Subjective Date/Time Seen: 04/07/23 09:15 Post Op day: 1 Principal diagnosis: Right knee dislocation Interval history: status post closed reduction yesterday Exam Const: General: comfortable; No acute distress Resp: Effort & Inspection: normal respiratory effort and no audible wheezes Extrem: Right lower extremity: knee ( appears reduced) Details: no swelling and no deformity, lower leg ( Negative Homans sign), ankle Details: normal ROM ( dorsiflexion and plantar flexion intact) and foot Details: vascular exam Details: dorsalis pedis pulse present and normal capillary refill, tendon exam Details: active flexion normal and active extension normal and motor-sensory exam Details: light-touch normal Location: in all toes; no edema Left lower extremity: normal to inspection, ankle Details: normal ROM and foot Details: vascular exam Details: dorsalis pedis pulse present and normal capillary refill and motor-sensory exam light-touch normal in all toes; no edema Objective Data Vital Signs Vital Signs: Vital Signs - 24 hr 04/06/23 09:35 04/06/23 12:19 04/06/23 12:30 Temperature 99.0 F Pulse Rate 90 94 100 Respiratory Rate 14 20 20 Blood Pressure 127/46 L 114/47 L 108/69 Pulse Oximetry 94 93 100 Oxygen Delivery Simple Face Mask Simple Face Mask Oxygen Flow Rate 10 10 04/06/23 12:45 04/06/23 13:00 04/06/23 13:15 Temperature Pulse Rate 99 105 H 109 H Respiratory Rate 20 20 24 H Blood Pressure 113/80 103/89 129/55 L Pulse Oximetry 97 96 96 Oxygen Delivery Simple Face Mask Room Air Room Air Oxygen Flow Rate 10 04/06/23 13:30 04/06/23 13:42 04/06/23 14:45 Temperature 97.6 F Pulse Rate 103 H 101 H 99 Respiratory Rate 20 22 H 18 Blood Pressure 129/47 L 135/56 L 143/50 H Pulse Oximetry 98 98 94 Oxygen Delivery Room Air Room Air Oxygen Flow Rate 04/06/23 15:00 04/06/23 09:40 04/06/23 16:00 Temperature 97.8 F Pulse Rate 92 97 Respiratory Rate 18 Blood Pressure 140/56 L Pulse Oximetry 94 Oxygen Delivery Room Air Oxygen Flow Rate 04/06/23 19:28 04/06/23 20:00 04/07/23 05:14 Temperature 97.5 F L 97.8 F Pulse Rate 87 87 96 Respiratory Rate 18 18 18 Blood Pressure 112/38 L 153/48 H Pulse Oximetry 92 92 96 Oxygen Delivery Room Air Oxygen Flow Rate 04/06/23 20:00 04/07/23 00:00 04/07/23 04:00 Temperature Pulse Rate 83 92 88 Respiratory Rate Blood Pressure Pulse Oximetry Oxygen Delivery Oxygen Flow Rate 04/07/23 08:54 04/07/23 09:00 Temperature Pulse Rate 98 Respiratory Rate Blood Pressure 134/53 L Pulse Oximetry 90 97 Oxygen Delivery Room Air Oxygen Flow Rate Intake/Output Intake/Output: Intake & Output 04/04/23 04/05/23 04/06/23 04/07/23 23:59 23:59 23:59 23:59 Intake Total 630 2180 Output Total 850 850 Balance 630 1330 -850 Meds/Results Medications: Active Medications Generic Name Dose Route Start Last Admin Trade Name Freq PRN Reason Stop Dose Admin Acetaminophen 1,000 mg 04/05/23 16:53 04/06/23 17:49 Acetaminophen 500 Mg Tablet PO 1,000 mg BID PRN Administration Pain (Scale Score 1-3) Hydrocodone Bitart/Acetaminophen 1 tab 04/05/23 16:53 04/06/23 21:02 Hydrocodone/Acetaminophen (*Crx) 5-325 Mg Tablet PO 1 tab Q8H PRN Administration Pain (Scale Score 4-6) Albuterol 1 puff 04/05/23 16:53 Albuterol Sulfate (*Sp) Aerosol 1 Puff INHALATION Q4-6H PRN copd Clopidogrel Bisulfate 75 mg 04/06/23 09:00 04/07/23 09:01 Clopidogrel Bisulfate 75 Mg Tablet PO 75 mg DAILY KELVIN Ad
--- NOTE | 2023-04-07 12:52 | PM.IMPN ---
Progress Note: A&P Assessment and Plan (1) Urinary tract infection: Qualifiers: Hematuria presence: without hematuria Urinary tract infection type: site unspecified Qualified Code(s): N39.0 - Urinary tract infection, site not specified Code(s): N39.0 - Urinary tract infection, site not specified Status: Acute Assessment and Plan: urine culture positive for Citrobacter koseri, pansensitive Completed 2 days of Rocephin, now on Augmentin (2) Dislocated knee: Qualifiers: Encounter type: subsequent encounter Laterality: right Qualified Code(s): S83.104D - Unspecified dislocation of right knee, subsequent encounter Code(s): S83.106A - Unspecified dislocation of unspecified knee, initial encounter Status: Acute (3) Elevated troponin: Code(s): R79.89 - Other specified abnormal findings of blood chemistry Status: Acute (4) Chronic kidney disease, stage 3: Code(s): N18.30 - Chronic kidney disease, stage 3 unspecified Status: Chronic Assessment and Plan: Avoid nephrotoxic medications Monitor lab work (5) Hypertension: Code(s): I10 - Essential (primary) hypertension Status: Chronic Assessment and Plan: Stable continue home medication (6) Chronic obstructive pulmonary disease: Code(s): J44.9 - Chronic obstructive pulmonary disease, unspecified Status: Chronic Assessment and Plan: Not in exacerbation Continue home medication (7) Orthopedic aftercare: Code(s): Z47.89 - Encounter for other orthopedic aftercare Status: Acute (8) 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: Code(s): T84.022A - Instability of internal right knee prosthesis, initial encounter Status: Acute Assessment and Plan: Ortho consult (9) Secondary renal hyperparathyroidism: Code(s): N25.81 - Secondary hyperparathyroidism of renal origin Status: Acute (10) S/P total knee arthroplasty: Code(s): Z96.659 - Presence of unspecified artificial knee joint Status: Acute Assessment and Plan: Consult orthopedics Plan Follow up urine and blood cultures Continue IV rocephine Patient started on gentle IV hydration with normal saline at 75 cc/hour Strict input and output monitoring Patient has borderline elevated troponins ranging from 0.037-0.040, without any chest pain, with mild anterolateral T-wave inversions Cardiology consult ordered who followed up on troponins and progression of the EKG, both of which remained flat and stable Continue with the cardiopulmonary tele monitoring Orthopedic consult given for evaluation for right knee chronic dislocations Her orthopedist has already spoken with Dr. Gallardo in [facility] who plan to follow up with her as an outpatient Patient may be considered for revision the right knee in [facility] Follow-up closely as per Cardiology and Orthopedics DC planning back to rehab facility Subjective Date/time seen: 04/07/23 12:52 Interval history: status post closed reduction awaiting placement Review of Systems Review of Systems: All systems reviewed & are unremarkable except as noted in HPI and below Constitutional: Constitutional: Reports no additional constitutional complaints Exam Narrative: PHYSICAL EXAMINATION: Vital signs: Please see the chart General physical exam: patient lying in bed, appears to be tired and fatigued Head/eyes: Atraumatic, EOMI, PERRLA ENT: Moist mucous membranes, nasal passages clear Neck: Supple, full range of motion, trachea midline CVS: S1 + S2, regular rate and rhythm, no murmurs Respiratory: Bilaterally fair air entry in both lung prabhakar, mild B/L crackles, symmetric chest expansion, no distress Abdomen: Soft, non-tender, bowel sounds +ve, no organomegaly Extremities: No clubbing, no cyanosis, no edema, no calf tenderness Musculoske
[2023-04-08] VITALS (11 sets, daily range): BP systolic 100–142; BP diastolic 40–50; PULSE 77–111; RESP 14–18; TEMP 36.5–36.8; O2SAT 94–100
[2023-04-08 06:07] LABS: Basophils Absolute Auto 0.1 K/mm3 (0.0-0.1); Basophils Percent Auto 0.8 % (0.2-1.2); Eosinophils Absolute Auto 0.2 K/mm3 (0-0.3); Eosinophils Percent Auto 2.9 % (0-4.4); Hematocrit 31.1 % (37.0-47.0); Immature Granulocyte Absolute 0.04 K/mm3 (0.00-0.031); Immature Granulocyte Percent A 0.7 % (0-0.5); Lymphocytes Absolute Auto 1.92 K/mm3 (0.9-3.2); Lymphocytes Percent Auto 31.3 % (18.3-44.2); Mean Corpuscular HGB Conc 32.2 g/dl (32-36); Mean Corpuscular Hemoglobin 28.1 pg (26-34); Mean Corpuscular Volume 87.4 fl (80-100); Mean Platelet Volume 9.5 fl (7.4-10.4); Monocytes Absolute Auto 0.8 K/mm3 (0.1-0.6); Monocytes Percent Auto 12.7 % (2.6-8.5); Neutrophils Absolute Auto 3.2 K/mm3 (1.3-6.7); Neutrophils Percent Auto 51.6 % (45.5-73.1); Platelet Count Result 407 k/mm3 (150-375); Red Blood Count 3.56 M/mm3 (4.2-5.4); Red Cell Distribution Width 15.3 % (11.5-14.5); White Blood Count 6.1 K/mm3 (4.5-10.0)
[2023-04-08 06:14] LABS: Lactic Acid Reflex 0.8 mmol/L (0.7-2.0)
[2023-04-08 06:17] LABS: Alanine Aminotransferase 11 U/L (6-35); Albumin Level 2.9 g/dL (3.5-5.1); Alkaline Phosphatase 87 U/L (38-126); Anion Gap 8 mmol/L (8-16); Aspartate Amino Transferase 23 U/L (14-36); Bilirubin,Total 0.5 mg/dL (0.2-1.3); Blood Urea Nitrogen 17 mg/dL (7-17); Carbon Dioxide 22 mmol/L (22-30); Chloride 104 mmol/L (98-107); Estimated CRCL calculation 25 ml/min; Estimated Glomerular Filt Rate 39; Glucose 104 mg/dL (65-110); Potassium 3.9 mmol/L (3.4-5.0); Sodium 134 mmol/L (137-145)
[2023-04-08] MEDS: lisinopriL 20 MG TABLET 40 MG PO (09:11)
[2023-04-08] MEDS: PANTOPRAZOLE SOD SESQUIHYDRATE 20 MG TAB PO (09:11)
[2023-04-08] MEDS: TOLTERODINE TARTRATE LA 4 MG CAP.ER.24H PO (09:11)
[2023-04-08] MEDS: CLOPIDOGREL BISULFATE 75 MG TABLET PO (09:11)
[2023-04-08] MEDS: ENOXAPARIN 30 MG/0.3 ML SYRINGE SUB-Q (09:11)
--- NOTE | 2023-04-08 09:15 | PCOTNOTE ---
Patient just layed down from sitting up in the chair at this time. Patient declined to participate at this time. Will check back later.
[2023-04-08] MEDS: ACETAMINOPHEN 500 MG TABLET 1000 MG PO (10:22)
--- NOTE | 2023-04-08 11:45 | PCOTNOTE ---
Patient unavailable at this time for OT treatment session. Patient is getting ready to be seen by PT. OT will attempt again at a later time.
--- NOTE | 2023-04-08 15:33 | PM.IMPN ---
Progress Note: A&P Assessment and Plan (1) Urinary tract infection: Qualifiers: Hematuria presence: without hematuria Urinary tract infection type: site unspecified Qualified Code(s): N39.0 - Urinary tract infection, site not specified Code(s): N39.0 - Urinary tract infection, site not specified Status: Acute Assessment and Plan: urine culture positive for Citrobacter koseri, pansensitive Completed 2 days of Rocephin, now on Augmentin (2) Dislocated knee: Qualifiers: Encounter type: subsequent encounter Laterality: right Qualified Code(s): S83.104D - Unspecified dislocation of right knee, subsequent encounter Code(s): S83.106A - Unspecified dislocation of unspecified knee, initial encounter Status: Acute (3) Elevated troponin: Code(s): R79.89 - Other specified abnormal findings of blood chemistry Status: Acute (4) Chronic kidney disease, stage 3: Code(s): N18.30 - Chronic kidney disease, stage 3 unspecified Status: Chronic Assessment and Plan: Avoid nephrotoxic medications Monitor lab work (5) Hypertension: Code(s): I10 - Essential (primary) hypertension Status: Chronic Assessment and Plan: Stable continue home medication (6) Chronic obstructive pulmonary disease: Code(s): J44.9 - Chronic obstructive pulmonary disease, unspecified Status: Chronic Assessment and Plan: Not in exacerbation Continue home medication (7) Orthopedic aftercare: Code(s): Z47.89 - Encounter for other orthopedic aftercare Status: Acute (8) 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: Code(s): T84.022A - Instability of internal right knee prosthesis, initial encounter Status: Acute Assessment and Plan: Ortho consult (9) Secondary renal hyperparathyroidism: Code(s): N25.81 - Secondary hyperparathyroidism of renal origin Status: Acute (10) S/P total knee arthroplasty: Code(s): Z96.659 - Presence of unspecified artificial knee joint Status: Acute Assessment and Plan: Consult orthopedics (11) Anemia: Code(s): D64.9 - Anemia, unspecified Status: Acute Assessment and Plan: hb 10, and iron panel and occult blood culture Plan urine culture positive for Citrobacter koseri pans sensitive Day 3 on Abx, stop after today (Abx adjusted per culture) iron panel and FOBT pending Strict input and output monitoring Patient has borderline elevated troponins ranging from 0.037-0.040, without any chest pain, with mild anterolateral T-wave inversions Cardiology consult ordered who followed up on troponins and progression of the EKG, both of which remained flat and stable Continue with the cardiopulmonary tele monitoring Orthopedic consult given for evaluation for right knee chronic dislocations Her orthopedist has already spoken with Dr. Gallardo in [facility] who plan to follow up with her as an outpatient Patient may be considered for revision the right knee in [facility] Follow-up closely as per Cardiology and Orthopedics Awaiting placement Subjective Date/time seen: 04/08/23 15:33 Interval history: Status post closed reduction Awaiting placement Review of Systems Review of Systems: All systems reviewed & are unremarkable except as noted in HPI and below Constitutional: Constitutional: Reports no additional constitutional complaints Exam Narrative: PHYSICAL EXAMINATION: Vital signs: Please see the chart General physical exam: patient lying in bed, appears to be tired and fatigued Head/eyes: Atraumatic, EOMI, PERRLA ENT: Moist mucous membranes, nasal passages clear Neck: Supple, full range of motion, trachea midline CVS: S1 + S2, regular rate and rhythm, no murmurs Respiratory: Bilaterally fair air entry in both lung prabhakar, mild B/L crackles, symmetric chest expan
[2023-04-08] MEDS: AMOXICILLIN/CLAVULANATE K 500-125 MG TAB 1 TABLET PO (17:06)
[2023-04-08 20:46] LABS: Iron 33 ug/dL (37-170)
[2023-04-08 20:56] LABS: Percent Iron Saturation 19 % (20-50)
[2023-04-09] VITALS (8 sets, daily range): BP systolic 112–138; BP diastolic 30–56; PULSE 72–99; RESP 16; TEMP 36.4; O2SAT 96–97
[2023-04-09] MEDS: ENOXAPARIN 30 MG/0.3 ML SYRINGE SUB-Q (08:58)
[2023-04-09] MEDS: AMOXICILLIN/CLAVULANATE K 500-125 MG TAB 1 TABLET PO (08:58)
[2023-04-09] MEDS: PANTOPRAZOLE SOD SESQUIHYDRATE 20 MG TAB PO (08:58)
[2023-04-09] MEDS: CLOPIDOGREL BISULFATE 75 MG TABLET PO (08:58)
[2023-04-09] MEDS: lisinopriL 20 MG TABLET 40 MG PO (11:14)
[2023-04-09] MEDS: TOLTERODINE TARTRATE LA 4 MG CAP.ER.24H PO (11:15)
--- NOTE | 2023-04-09 13:13 | PCPTNOTE ---
Was getting ready to see patient, but case management come out and PT found out hospitialist has okayed transfer back to [facility]. Will check on patient if still here tomorrow.
--- NOTE | 2023-04-09 14:28 | PM.DS ---
DS: Admitting Diagnosis Discharge Date 04/09/23 Admitting Diagnosis right knee dislocation, falls DS: Discharge Diagnosis Discharge Diagnosis (1) Urinary tract infection: Qualifiers: Hematuria presence: without hematuria Urinary tract infection type: site unspecified Qualified Code(s): N39.0 - Urinary tract infection, site not specified Code(s): N39.0 - Urinary tract infection, site not specified Status: Acute Assessment and Plan: urine culture positive for Citrobacter koseri, pansensitive d/c with final 2 doses of Augmentin (2) Elevated troponin: Code(s): R79.89 - Other specified abnormal findings of blood chemistry Status: Acute Assessment and Plan: Patient has borderline elevated troponins ranging from 0.037-0.040, without any chest pain, with mild anterolateral T-wave inversions Cardiology consult ordered who followed up on troponins and progression of the EKG, both of which remained flat and stable (3) Chronic kidney disease, stage 3: Code(s): N18.30 - Chronic kidney disease, stage 3 unspecified Status: Chronic (4) Hypertension: Code(s): I10 - Essential (primary) hypertension Status: Chronic Assessment and Plan: Stable continue home medication (5) Chronic obstructive pulmonary disease: Code(s): J44.9 - Chronic obstructive pulmonary disease, unspecified Status: Chronic Assessment and Plan: Not in exacerbation Continue home medication (6) 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 Abernathy 04/06 follow up with [facility] placement at [facility] (7) Anemia: Code(s): D64.9 - Anemia, unspecified Status: Acute Assessment and Plan: iron panel TIBC, SAT low, ferritin high H&H stable, but at 10 DS: Summary Hospital Course Hospital Course: Patient is an 82 YO female status post right total knee arthroplasty in March 2022 with history of multiple dislocations over the past several months related to falls. Reduction performed by Dr. Can on 04/06 and has been awaiting placement. She will be discharged to [facility] today for continued rehab and strengthening. She was also treated for a UTI, transitioned to PO Augmentin in which she only has 2 more doses to complete outpatient. Will resume home medications. Cardiology has cleared her for d/c without further evaluation. Plan to follow up outpatient with [facility] and orthopedist there if needed for further knee surgical intervention. Status at Discharge Functional status at discharge: uses cane/walker Overall status at discharge: patient is not back to baseline Time Spent with Patient Time attestation: Total time spent providing and/or coordinating discharge services: Exam Narrative: General physical exam: Well-nourished; No acute distress, sitting up in chair Head/eyes: EOMI, PERRLA ENT: Moist mucous membranes, nasal passages clear Neck: Supple CVS: RRR S1 + S2, no murmurs Respiratory: Lung sounds clear to auscultation, mild B/L crackles, symmetric chest expansion, no distress Abdomen: Soft, non-tender, bowel sounds +ve, no organomegaly Extremities: No clubbing, no cyanosis, no edema, no calf tenderness Musculoskeletal: unable to move right knee secondary to chronic dislocation, adequate range of motion of other extremities Skin: Warm, dry, no jaundice, no cyanosis Neurological: Awake, alert, cranial nerves II-XII intact, no focal neurological deficits Psychiatric: Normal mood, non suicidal DS: Data Data Completed and Pending Labs on day of discharge: Labs from last 24 hours 04/08/23 18:28 Iron 33 L TIBC 170 L % Saturation 19 L Ferritin 819.00 H Preliminary micro results at discharge 04/05/23 03:46 Blood Culture - Preliminary Blood 04/05/23 03:46 Danay
--- NOTE | 2023-05-03 14:18 | P.OP_ITS ---
Procedure Note - Detailed Date of Procedure 05/03/23 Pre-op Diagnosis CHRONIC RIGHT TKA DISLOCATION Post-op Diagnosis Same Procedure Performed CLOSED REDUCTION RIGHT TKA Surgeon Pj Can MD Anesthesia MAC Description of Procedure THE PATIENT WAS GIVEN IV SEDATION UNTIL SHE WAS COMFORTABLE AND WELL SEDATED. SHE WAS MONITORED FOR CARDIO RESPIRATORY STATUS THROUGHOUT. THE RIGHT TKA WAS MANIPULATED UNTIL IT WAS WELL REDUCED. SHE WAS PLACED BACK INTO HER IMMOBILIZER. HER SEDATION WAS REVERSED. SHE REMAINED IN THE RECOVERY ROOM UNTIL SHE WAS STABLE AND DISCHARGED BACK TO THE [facility] FLOOR. THERE WERE NO COMPLICATIONS. Estimated Blood Loss 0 Urine Output 300 Complications No immediate complications Condition Stable Disposition PACU
== END 2023-04-09 15:35 | DRG 560 ==
LOC: ANHED 03:18 → ANH2MED 03:49
PROVIDERS: Internal Medicine; Orthopaedic Surgery; Admitting Provider Family Medicine; Emergency Provider Emergency Medicine; PCP Family Medicine; Visit Provider Nurse Practitioner
PROC: 0SWCXJZ Revision of Synthetic Substitute in Right Knee Joint, External Approach (ICD-10-PCS; principal; 2023-04-06 12:30)
DX: T84.022A Instability of internal right knee prosthesis, initial encounter (principal); N25.81 Secondary hyperparathyroidism of renal origin; N39.0 Urinary tract infection, site not specified; B96.89 Other specified bacterial agents as the cause of diseases classified elsewhere; R79.89 Other specified abnormal findings of blood chemistry; Z96.651 Presence of right artificial knee joint; W19.XXXA Unspecified fall, initial encounter; D63.1 Anemia in chronic kidney disease; E78.5 Hyperlipidemia, unspecified; G89.29 Other chronic pain; G47.33 Obstructive sleep apnea (adult) (pediatric); I12.9 Hypertensive chronic kidney disease with stage 1 through stage 4 chronic kidney disease, or unspecified chronic kidney disease; J44.9 Chronic obstructive pulmonary disease, unspecified; K21.9 Gastro-esophageal reflux disease without esophagitis; M19.90 Unspecified osteoarthritis, unspecified site; M54.9 Dorsalgia, unspecified; N18.30 Chronic kidney disease, stage 3 unspecified; Z85.828 Personal history of other malignant neoplasm of skin; Z86.73 Personal history of transient ischemic attack (TIA), and cerebral infarction without residual deficits; Z87.891 Personal history of nicotine dependence; Z79.02 Long term (current) use of antithrombotics/antiplatelets
CPT/HCPCS: 36415; 73560; 73562; 80048; 80053; 81001; 82728; 83540; 83550; 83605; 83735; 84100; 84484; 85025; 85027; 87040; 87077; 87086; 87186; 93005; 93306; 96365; 97110; 97162; 97165; 97530; 97535; 99285; A9270; J0696; J1170; J1650; J2250; J3010; J7030; J7120

== ENCOUNTER 2023-06-02 10:02 | Outpatient (CLI) | payer MEDICARE, OTHER, SELFPAY ==
[2023-06-02 10:32] LABS: Estimated Glomerular Filt Rate 27
== END 2023-06-02 10:03 | disposition home or self-care (01) ==
LOC: ANHIMG 10:04
PROVIDERS: PCP Family Medicine; Visit Provider Physician Assistant
DX: I26.99 Other pulmonary embolism without acute cor pulmonale (principal)
CPT/HCPCS: 99199

== ENCOUNTER 2023-06-13 14:11 | Outpatient (CLI) | payer MEDICARE, OTHER, SELFPAY ==
[2023-06-13 14:39] LABS: Estimated Glomerular Filt Rate 29
== END 2023-06-13 14:12 | disposition home or self-care (01) ==
LOC: ANHIMG 14:17
PROVIDERS: PCP Family Medicine; Visit Provider Physician Assistant
DX: I26.99 Other pulmonary embolism without acute cor pulmonale (principal)
CPT/HCPCS: 99199

== ENCOUNTER 2023-06-22 09:23 | Outpatient (CLI) | payer MEDICARE, OTHER, SELFPAY ==
--- NOTE | ~2023-06-22 | CT_ITS ---
Clinical Indication: Pulmonary embolus CT Scan of the Chest with Contrast: Technique: Contiguous sections were acquired throughout the chest after intravenous administration of 100 cc of Omnipaque 350. Dose reduction technique was used on this scan by utilizing automated expos ure control and iterative reconstruction technique. The dose-length product (DLP) was 205.87 mGy-cm. 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 There is no evidence of any significant mediastinal, hilar or axillary lymphadenopathy. There is no f illing defect in the pulmonary arterial tree to suggest pulmonary embolus. There is no evidence of ao rtic dissection or aneurysm. There are atherosclerotic calcifications of the aorta There is no evidence of pleural or pericardial effusion. The lungs are clear. No pulmonary nodules or infiltrates are noted. There is advanced emphysema. Images through the upper abdomen reveal hepatic and renal cysts. Impression: No evidence of pulmonary embolus, aortic dissection, or aortic aneurysm. Advanced emphysema. 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 Reviewed, dictated and finalized at [facility]. ACE OPERATOR Impression: No evidence of pulmonary embolus, aortic dissection, or aortic aneurysm. Advanced emphysema. 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
== END 2023-06-22 09:24 | disposition home or self-care (01) ==
PROVIDERS: PCP Family Medicine; Visit Provider Physician Assistant
DX: J43.9 Emphysema, unspecified (principal); E04.9 Nontoxic goiter, unspecified; I26.99 Other pulmonary embolism without acute cor pulmonale
CPT/HCPCS: 71275; Q9967

== ENCOUNTER 2023-07-22 08:01 | Outpatient (CLI) | payer MEDICARE, OTHER, SELFPAY ==
--- NOTE | ~2023-07-22 | NM_ITS ---
EXAMINATION: NM missy stress w perfusion DATE: 07/22/2023 10:44 INDICATION: Other forms of dyspnea TECHNIQUE: Rest images were obtained following intravenous administration of 9.98 mCi Tc99m tetrofosm in (Myoview). The patient was infused intravenously with Lexiscan (Regadenoson). Then, 32.7 mCi Tc99m tetrofosmin (Myoview) was administered intravenously, and stress images were obtained. Data was rick nstructed into short axis and horizontal and vertical long axis SPECT images. Gated SPECT images were also obtained. COMPARISON: None. FINDINGS: There is no definite reversible or fixed perfusion abnormality to suggest ischemia or infar ction. There is normal left ventricular chamber size, wall motion and ejection fraction. Left ventr icular ejection fraction measures 70%. IMPRESSION: 1. Normal myocardial perfusion at rest and during stress. 2. Left ventricular ejection fraction measuring 70%. Reviewed, dictated and finalized at location A. ITURE DESIGNER
--- NOTE | 2023-07-22 08:29 | EST_ITS ---
Patient Info Name: Radha Palacios Age: 83 years : 1940 Gender: Female Ht: 63 in Wt: 136 lbs BSA: 1.67 m2 HR: 75 bpm BP: 156 / 58 mmHg Heart Rhythm: Sinus Rhythm Exam Date: 07/22/2023 9:04 AM Exam Location: Echo Lab Patient Status: Outpatient Admit Date: 07/22/2023 Staff Ordering Physician: Gus Baez DO Attending Provider: Gus Baez DO Exercise Technologist: Lorrie Alanis CT Exercise Physician: Gus Baez DO Exam Type: CA stress missy w NM Study Info Indications R06.09 - Other forms of dyspnea A regadenoson stress test was performed. Summary 1. 1. Negative lexiscan stress test for ischemic ST changes by ECG criteria. 2. 2. Baseline hypertension. 3. 3. Nuclear scan to follow and will be reported separately. Please correlate with it. 4. 4. Patient informed of the above results. Protocol: Lexiscan Stress ECG Details Stage: REST Duration (min): 2 min : 13 sec HR (bpm): 75 SBP (mmHg): 160 DBP (mmHg): 57 Stage: REST Duration (min): 4 min : 7 sec HR (bpm): 72 SBP (mmHg): 156 DBP (mmHg): 58 Stage: REST Duration (min): 9 min : 43 sec HR (bpm): 79 SBP (mmHg): 156 DBP (mmHg): 58 Stage: STAGE 1 Duration (min): 0 min : 59 sec HR (bpm): 98 SBP (mmHg): 161 DBP (mmHg): 48 Stage: RECOVERY Duration (min): 1 min : 0 sec HR (bpm): 101 SBP (mmHg): 161 DBP (mmHg): 48 Stage: RECOVERY Duration (min): 2 min : 0 sec HR (bpm): 92 SBP (mmHg): 161 DBP (mmHg): 48 Stage: RECOVERY Duration (min): 3 min : 0 sec HR (bpm): 90 SBP (mmHg): 151 DBP (mmHg): 55 Stage: RECOVERY Duration (min): 3 min : 17 sec HR (bpm): 93 SBP (mmHg): 151 DBP (mmHg): 55 Rest HR: 79 bpm Peak HR: 101 bpm Rest Sys BP: 156 mmHg Peak Sys BP: 161 mmHg Max Pred HR: 138 bpm % Max Pred HR: 73 % Target HR: 117 bpm Max RPP: 16,261 bpm*mmHg Termination Reason: Completed protocol Cardiac Symptoms: Shortness of breath Total Time: 1 min : 0 sec Rest Baker BP: 58 mmHg Peak Baker BP: 48 mmHg Total Dose: 0.4 mg Resting ECG Sinus rhythm, BRWP, borderline ST-T wave in high lateral leads. Stress ECG No ST changes. Arrhythmias None. Report Signatures
== END 2023-07-22 08:02 | disposition home or self-care (01) ==
LOC: ANHCARD 08:04
PROVIDERS: PCP Family Medicine; Visit Provider Internal Medicine Cardiovascular Disease
DX: R06.09 Other forms of dyspnea (principal)
CPT/HCPCS: 78452; 93017; A9502; J2785

== ENCOUNTER 2024-12-27 09:58 | Outpatient (CLI) | payer MEDICARE, OTHER, SELFPAY ==
--- NOTE | ~2024-12-27 | DEXA_ITS ---
Bone Density Report Name: VIVIAN LITTLEJOHN Age: 84 Sex: Female Ethnicity: White Date of : 1940 Indication: osteopenia; prior fracture; Referring Provider: HUGH OSHEA Study: Bone densitometry was performed. Exam Date: December 27, 2024 Accession number: [id number] Bone Density: Region BMD T-score Z-score Classification AP Spine(L1-L4) 1.075 0.3 3.1 Normal Femoral Neck (Left) 0.561 -2.6 -0.1 Osteoporosis Total Hip (Left) 0.728 -1.8 0.5 Osteopenia World Health Organization criteria for BMD impression classify patients as: Normal (T-score at or above -1.0), Osteopenia (T-score between -1.0 and -2.5), or Osteoporosis (T-score at or below -2.5). 10-year Fracture Risk: FRAX not reported because: Some T-score for Spine Total or Hip Total or Femoral Neck at or below -2.5 Prior hip or vertebral fracture Previous Exams: -- Region Exam Age BMD T-score BMD Change BMD Change Date g/cm2 vs Baseline vs Previous -- Total Hip(Left) 12/27/2024 84 0.728 -1.8 -8.8%* -8.8%* 12/14/2021 81 0.798 -1.2 -- *Denotes significance at 95% confidence level, LSC for Total Hip = 0.027 g/cm2 Clinical Information Provided by Patient: Have had a previous hip or vertebral fracture Has had a low trauma fracture Has used the following medications: Vitamin D Patient maximum height was 63 Menopause Age: 51 No regular weight bearing exercise Does not regularly consume dairy products Drinks caffeinated beverages Onset of menses at age 14 Number of children 2 Impression: The patient has established osteoporosis, based on the Left Femoral Neck T-score and the existence of a prior fracture. The patient has risk factors, including: previous fracture. The BMD for the Total Hip(Left) decreased, changing by -8.8% since the last DXA exam. Discussion: HIGH RISK OF FRACTURE. BONE DENSITY IS UNDESIRABLY LOW AT ONE OR MORE SKELETAL SITES, CONSISTENT WITH POSTMENOPAUSAL OSTEOPOROSIS. This patient's lowest T-score, in a patient who has previously fractured, meets the World Health Organization's (WHO) criteria for severe osteoporosis. In untreated patients, the risk of osteoporotic fracture increases approximately two-fold for each 1.0 SD decrease in T-score. Low bone density is not the only risk factor for fracture; also consider factors such as patient's age, frailty or poor health, risk of falling, risk of injury, previous osteoporotic fracture, family history of osteoporosis, cigarette smoking, low body weight, etc. Not everyone with low bone mineral density has osteoporosis; osteomalacia and other metabolic bone disorders should also be considered. Patients who have osteoporosis should be evaluated for specific diseases and conditions (secondary causes) that may cause or contribute to bone loss. The [place] Association of Clinical Endocrinologists (AACE) and National Osteoporosis Foundation (NOF) recommend pharmacologic intervention for all postmenopausal women with a previous hip or vertebral fracture and a T-score in this range. The patient should follow a healthful lifestyle (good nutrition with adequate calcium and vitamin D, and appropriate weight-bearing exercise). Follow-Up: Consider a repeat BMD and Vertebral Fracture Assessment (VFA) exam in 2 years or sooner if medically necessary, to reassess this patient's status. Reported by: BERTA on 12/27/2024 10:29:00 AM. Reviewed, dictated and finalized at location A.
== END 2024-12-27 09:59 | disposition home or self-care (01) ==
LOC: MICIMG 10:00
PROVIDERS: PCP Family Medicine; Visit Provider Physician Assistant
DX: M81.0 Age-related osteoporosis without current pathological fracture (principal); Z78.0 Asymptomatic menopausal state
CPT/HCPCS: 77080

== ENCOUNTER 2024-12-27 11:09 | Outpatient (CLI) | payer MEDICARE, OTHER, SELFPAY ==
--- OUTSIDE RECORDS SUMMARY | 2024-12-27 11:18 | XMS_ITS | Encounter Summary ---
Author Organization [facility] Address [address] [place] [address] Care Team Providers Care Bleach Boiler Packer Name Role Phone Eber Acuña MD Primary Care Provider [phone] Encounter Details Date Type Department Care Team (Late Contact Info) Description 08/25/2017 Lab Requisition [facility] [address] [place] [id number] Navi Yee MD [address] [place], [place] [id number] Social History Tobacco Use Types Packs/Day Years Used Date Smoking Tobacco: Former Cigarettes Q uit: 09/14/1995 Smokeless Tobacco: Never Alcohol Use Standard Drinks/Week Comments No 0 (1 standard drink = 0.6 oz pur e alcohol) Comments Unknown Sex and Gender Information Value Date Recorded Sex Assigned at Not on file 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 Gender Identity Not on file Sexual Orientation Not on file documented as of this encounter Plan of Treatment Upcoming Encounters Date Type Department Care Team (Late Contact Info) Description 01/09/2025 10:00 AM CDT Office Visit [facility] - Orthopedic Surgery [address] [place] [phone] Anders Gallardo MD [address] [address] documented as of this encounter Procedures Procedure Name Priority Date/Time Associated Diagnosis Comments DERMATOPATHOLOGY Routine 08/24/2017 12:0 0 AM CDT documented in this encounter Results * DERMATOPATHOLOGY (08/24/2017 12:00 AM CDT) Case Report Dermatopathology Report Case: [id number] Authorizing Provider: Navi Yee MD Collected: 08/24/2017 12:00 AM Pathologist: Jann Rubio MD Received: 08/25/2017 11:33 AM Specimens: A) - Skin, left mid anterior medial pretibia B) - Skin, right superior midline benedict C) - Skin, right midline benedict 6:38 PM CDT DERMATOPATHOLOGY LABORATORY Final Diagnosis Specimen A. SKIN, left mid anterior medial pretibia: BENIGN VERRUCOUS KERATOSIS, INFLAMED (L82.1) NOT PRESENT AT SAMPLED MARGIN Specimen B. SKIN, right superior midline benedict: BASAL CELL CARCINOMA, INFILTRATIVE PATTERN (C44.712) NOT PRESENT AT SAMPLED MARGIN Specimen C. SKIN, right midline benedict: ACTINIC KERATOSIS (L57.0) NOT PRESENT AT SAMPLED MARGIN 8 6:38 PM CDT DERMATOPATHOLOGY LABORATORY at 1838 CDT Clinical History A-C: R/O SCC. Check margins. 6:38 PM CDT DERMATOPATHOLOGY LABORATORY Gross Description Specimen: A: Received is one formalin filled container labeled with the patient's name and designated left mid anterior medial pretibia. The specimen consists of a shave removal measuring [id number].The margin is inked green. Jar 0. Specimen: B: Received is one formalin filled container labeled with the patient's name and designated right superior midline benedict. The specimen consists of a shave removal measuring [id number]. The margin is inked green. Jar 0. Specimen: C: Received is one formalin filled container labeled with the patient's name and designated right midline benedict. The specimen consists of a shave removal measuring [id number]. The margin is inked green. Jar 0. 8 6:38 PM CDT DERMATOPATHOLOGY LABORATORY Microscopic Description Specimen A. SKIN, left mid anterior medial pretibia: Sections show hyperkeratosis, papillomatosis, hypergranulosis, and acanthosis. Inflammatory cells are present within the dermis. These histological findings can be seen in a verruca vulgaris or a seborrheic keratosis. This lesion is not present at the sampled margin of the specimen. Specimen B. SKIN, right superior midline benedict: Within the dermis there are nodular aggregates of basaloid cells associated with fibromyxoid stroma and epithelial-stromal clefts. At the advancing margin of the neoplasm, there are smaller angulated nests that infiltrate the dermis. This lesion is not present at the sampled margin of the specimen. Specimen C. SKIN, right midline benedict: There is focal parakeratosis. The lower half of the epidermis shows disorderly maturation of keratinocytes with nuclear pleomorphism. This lesion is not present at the sampled margin of the specimen. 8 6:38 PM CDT DERMATOPATHOLOGY LABORATORY Disclaimer An external and internal positive and negative controls are appropriate for the histochemical, immunohistochemical and immunofluorescence stain(s) in this case (if any), except where stated explicitly. The performance characteristics of the stain(s) cited in this report were developed and its performance characteristic determined by the Dermatopathology Laboratory at [facility]. These tests need not be, and therefore are not, approved by the [place] Food and Drug Administration. The tests are used for clinical purposes. Billing Codes Specimen Charges Stain Charges 83535 99768 07822 1 1 1 8 6:38 PM CDT DERMATOPATHOLOGY LABORATORY Embedded Images 8 6:38 PM CDT DERMATOPATHOLOGY LABORATORY Pathology/Cytology TISSUE SPECIMEN FROM SKIN / Unknown 08/24/2017 08/25/2017 11:33 AM CDT Miscellaneous samples (specimen) TISSUE SPECIMEN FROM SKIN / Unknown 08/24/2017 08/25/2017 11:33 AM CDT Miscellaneous samples (specimen) TISSUE SPECIMEN FROM SKIN / Unknown 08/24/2017 08/25/2017 11:33 AM CDT Navi Yee MD LAB - PATHOLOGY/CYTOLOGY ORD ERABLES Final Result DERMATOPATHOLOGY LABORATORY [facility] - Department of Dermatology [address] [place] [address], [address] Lab [address] [place], [place] [address] [phone] documented in this encounter Visit Diagnoses Not on filedocumented in this encounter Care Teams Bleach Boiler Packer Relationship Specialty Start Date End Date Eber Acuña MD [address] [place] [address] PCP - General 04/09/15 documented as of this encounter
--- OUTSIDE RECORDS SUMMARY | 2024-12-27 11:18 | XMS_ITS | Clinical Summary ---
Author Organization [facility] Address [address] [place] [address] Care Team Providers Care Manager Drug Name Role Phone Eber Acuña MD Primary Care Provider [phone] Allergies Active Allergy Reactions Criticality Noted Date Comments Dye Hives High 09/27/2018 Iodinated Contrast Media Hives High 09/27/2018 Medications clopidogrel (PLAVIX) 75 mg Tablet Take 75 mg by mouth. Active felodipine (PLENDIL) 10 mg Extended Release 24 hour tablet Take 10 mg by mouth daily. Active lisinopril (PRINIVIL) 40 mg tablet Take 40 mg by mouth daily. Active atorvastatin (LIPITOR) 10 mg tablet Take 10 mg by mouth daily with supper. Active cetirizine (ZyrTEC) 10 mg tablet Take 10 mg by mouth daily. Active pantoprazole (PROTONIX) 20 mg Tablet, Delayed Release (E.C.) Take 20 mg by mouth daily. Active tolterodine (DETROL LA) 4 mg Extended Release 24 hour capsule Take 4 mg by mouth daily. Active meclizine (ANTIVERT) 25 mg tablet Take 25 mg by mouth 3 times daily as needed for Dizziness. Active aspirin (ECOTRIN EC) 81 mg Tablet, Delayed Release (E.C.) Take 81 mg by mouth daily. Active cholecalciferol, Vitamin D3, 5,000 unit Capsule Take 5,000 Units by mouth daily. Active acetaminophen (TYLENOL) 500 mg tablet Take 500 mg by mouth every 6 hours as needed. Active Active Problems Problem Noted Date Diagnosed Date Chronic kidney disease, stage 3 (moderate) 07/13 Family History Relation Name Status Comments Father Mother Social History Tobacco Use Types Packs/Day Years Used Date Smoking Tobacco: Former Cigarettes 1 30 0 09/28/1959 - 09/27/1989 Smokeless Tobacco: Never Alcohol Use Standard Drinks/Week Comments Not Currently 0 (1 standard drink = 0.6 oz pur e alcohol) Comments No Sex and Gender Information Value Date Recorded Sex Assigned at Not on file Legal Sex Female 12:59 PM CDT Gender Identity Not on file Sexual Orientation Not on file Last Filed Vital Signs Vital Sign Reading Time Taken Comments Blood Pressure 217/69 07/13/2019 10:49 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 CAKE MAKER Pulse 63 07/13/2019 10:49 AM FISH CAKE MAKER Temperature 36.4 C (97.6 F) 07/13/2019 10:49 AM FISH CAKE MAKER Respiratory Rate - - Oxygen Saturation 95% 07/13/2019 10: 49 AM FISH CAKE MAKER Inhaled Oxygen Concentration - - Weight 77.9 kg (171 lb 11.2 oz) 020 10:49 AM FISH CAKE MAKER Height 160 cm (5' 3) 07/13/2019 10:49 AM FISH CAKE MAKER Body Mass Index 30.42 07/13/2019 10:49 AM FISH CAKE MAKER Plan of Treatment Health Maintenance Due Date Last Done Comments DTAP/TDAP/TD VACCINES (1 - Tdap) 1960 ZOSTER VACCINE (1 of 2) 07/17/1991 RSV VACCINE (60+ or ) (1 - 1-dose 75+ series) 2016 PNEUMOCOCCAL VACCINE 50+ YEA RS (2 of 2 - PCV20 or PCV21) 04/05/2017 04/05/2016, 07/02/2015 OSTEOPOROSIS SCREENING 11/29/2023 11/28/2018, 2015 INFLUENZA VACCINE (#1) 2024 6, 01/30/2016, 07/02/2015, Additional history exists Insurance MEDICARE PART A AND B [facility] Care Teams Manager Drug Relationship Specialty Start Date End Date Eber Acuña MD [address] [facility] [address] [place] [id number] PCP - General Family Practice 09/14/18
--- OUTSIDE RECORDS SUMMARY | 2024-12-27 11:18 | XMS_ITS | Continuity of Care Document ---
Author Name [facility] Organization [facility] Care Team Providers Care Telesales Specialist Name Role Phone [facility] Unavailable Unavailable Problems Combined list of problems from Department of Defense and Veterans Affairs facilities. It does not include entries that were removed or entered in error. Problem Status Onset Date Problem Type Date of Resolution Comments Source Administrative Evaluation Services Inactive Condition DoD OSTEOARTHRITIS Active Condition DoD HYPERLIPIDEMIA Active Condition DoD ESSENTIAL HYPERTENSION Active Condition DoD visit for: issue repeat prescription for medication Inactive Condition DoD PERSONAL HISTORY PRESENTING HAZARDS TO HEALTH Active Condition DoD CERVICAL DYSPLASIA Active Condition C onsulted with Dr. Edwards. Recommends doing pap with HPV testing. If negative results, then pap Q6 months until have 4 negative results. If positive, then colpo with MDs. DoD Abnormal Pap Smear Of Cervix Active Condition d/w pt the results from surgery showing LGSIL. Recommend she f/u for repeat pap / colpo / ECC in early to mid Nov. Rec f/u q 4 mos until nl pap x 4. DoD ATYPICAL CHEST PAIN Active Condition DoD visit for: screening exam cardiovascular disorders Inactive Condition DoD Abnormal Pap Smear Of Cervix Active Condition DoD URGE AND STRESS INCONTINENCE Active Condition Patient brought her bladder diary for an evaluation today. The diary reveals the patient to be voiding every 1 1/2 to two hours. She frequently has urinary urgency present but seldom has significant urinary leakage. The in's and outs do not match up. DoD difficulty breathing (dyspnea) Active Condition The patient has a significant history of tobacco abuse, hyperlipidemia, and a significant family history of her son having coronary artery disease in his 30s. Prior to taking this patient to surgery, I will have her to have a treadmill stress test perfor DoD visit for: administrative purpose Inactive Condition DoD visit for: screening exam for malignant neoplasm cervix Inactive Condition DoD Vaccines Prophylactic Need Against Influenza Active Condition DoD Cervix Sample Taken For Pap Smear Active Condition DoD visit for: screening exam thyroid disorders Inactive Condition DoD visit for: screening exam diabetes mellitus Inactive Condition DoD visit for: screening malignant neoplasm colon Inactive Condition DoD HYPERTENSION (SYSTEMIC) Active Condition 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 Medication Details Route Status Patient Instructions Prescription Expires Prescription Number Last Dispense Date Ordering Provider Order Date Order Qty Source cetirizine 10 mg tablet See Instruct ions, # 90 EA, 1 total refill(s ), Acute Complet ed 04/14/2023 3 2022 90.0 Ambulat ory Pharmac y clopidogrel 75 mg tablet = 1 tab(s), Oral, Daily, # 90 EA, 3 total refill(s ), Soft Stop Oral (given by mouth) Ordered 5 2024 90.0 Ambulat ory Pharmac y clopidogrel 75 mg tablet See Instruct ions, # 90 EA, 1 total refill(s ), Acute Complet ed 03/10/2023 3 2022 90.0 Ambulat ory Pharmac y felodipine ER 10 mg/24 hour tablet 10 mg, Oral, Daily, # 90 EA, 2 total refill(s ), Hard Stop Oral (given by mouth) Complet ed 06/02/2024 4 2024 90.0 Ambulat ory Pharmac y felodipine ER 10 mg/24 hour tablet = 1 tab(s), Oral, Daily, # 90 EA, 3 total refill(s ), Soft Stop Oral (given by mouth) Ordered 5 2024 90.0 Ambulat ory Pharmac y felodipine ER 10 mg/24 hour tablet See Instruct ions, # 90 EA, 1 total refill(s ), Acute Complet ed 04/14/2023 3 2022 90.0 Ambulat ory Pharmac y HYDROCODONE -ACETAMINOP HEN (HYDROCODON E/ACETAMINO PHEN), 5MG-325MG, TABLET, ORAL, MALLINCKROD T PH, 500 ea. BOTTLE Cancele d [id number] : 2023 0 Pharmac y Data Transac tion Service Facilit y HYDROcodone -acetaminop hen 5 mg-325 mg tablet = 1 tab(s), Oral, every 8 hr, # 30 EA, 0 total refill(s ), Hard Stop Oral (given by mouth) Complet ed 09/07/2023 3 2023 30.0 Ambulat ory Pharmac y lisinopril 40 mg tablet See Instruct ions, # 90 EA, 2 total refill(s ), Acute Complet ed 04/14/2023 3 2022 90.0 Ambulat ory Pharmac y lisinopril 40 mg tablet = 1 tab(s), Oral, Daily, # 90 EA, 3 total refill(s ), Soft Stop Oral (given by mouth) Ordered 5 2024 90.0 Ambulat ory Pharmac y lisinopril 40 mg tablet 40 mg, Oral, Daily, # 90 EA, 3 total refill(s ), Hard Stop Oral (given by mouth) Complet ed 06/02/2024 4 2024 90.0 Ambulat ory Pharmac y nitrofurant oin macrocrysta ls-monohydr ate 100 mg oral capsule TAKE ONE CAPSULE BY MOUTH EVERY TWELVE HOURS FOR 5 DAYS *MUST TAKE WITH A MEAL/MARY D*, # 10 EA, 0 total refill(s ), Acute Complet ed 06/22/20232023 10.0 Ambulat ory Pharmac y pantoprazol e EC 20 mg tablet See Instruct ions, # 90 EA, 1 total refill(s ), Acute Complet ed 03/10/2023 3 2022 90.0 Ambulat ory Pharmac y pantoprazol e EC 20 mg tablet = 1 tab(s), Oral, every morning, # 90 EA, 3 total refill(s ), Soft Stop Oral (given by mouth) Ordered 5 2024 90.0 Ambulat ory Pharmac y PANTOPRAZOL E SODIUM (PANTOPRAZO LE SODIUM), 40 MG, TABLET DR, ORAL, YEMI, 90 ea. BOTTLE Cancele d [id number] : 2023 0 Pharmac y Data Transac tion Service Facilit y tolterodine ER 4 mg/24 hour capsule See dose instruct ions in comments , # 90 EA, 1 total refill(s ), Acute Complet ed 03/10/2023 3 2022 90.0 Ambulat ory Pharmac y Allergies, Adverse Reactions, Alerts Combined list of allergies from Department of Defense and Veterans Affairs facilities. It does not include entries that were removed or entered in error. Substance Category Reaction Severity Reaction type Status Date Reported Comments Source NO OUTPUT FOR NCID [id number] Drug allergy (disorder) active 10/02/2007 [facility] [place] [place] Immunizations Combined list of available immunizations from the Department of Defense and Veterans Affairs facilities. 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 Status Comments Source influenza, high-dose, quadrivalent 2020 [facility], () Not Given influenza , high-dose , quadrival ent DoD influenza, high-dose, quadrivalent 2019 [facility], () Not Given influenza , high-dose , quadrival ent DoD influenza, seasonal,high dose-pf 2018 135 sanofi pasteur complet ed influenza , seasonal, high dose-pf 01/26/19 Given Ambulat ory Pharmac y influenza, seasonal,high dose-pf 2017 135 sanofi pasteur complet ed influenza , seasonal, high dose-pf 01/17/18 Given Ambulat ory Pharmac y Influenza, high dose seasonal 2016 [facility], () Not Given Influenza , high dose seasonal DoD Influenza, high dose seasonal 2015 [facility], () Not Given Influenza , high dose seasonal DoD influenza, seasonal,high dose-pf 2014 135 sanofi pasteur complet ed influenza , seasonal, high dose-pf 02/20/15 Given Ambulat ory Pharmac y zoster live 2014 [facility], () Not Given zoster live DoD pneumococcal polysaccharid e, 23 valent 2013 33 [employer]ck [employer] Inc complet ed pneumococ minda polysacch aride, 23 valent 03/13/14 Given Ambulat ory Pharmac y influenza virus vaccine,split 2006 zzLef t Arm [id number] 15 GlaxoSmithKli ne complet ed influenza virus vaccine,s plit 05/18/06 Given Ambulat ory Pharmac y influenza virus vaccine, split virus (incl. purified surface antigen)-reti red CODE 1 2006 Unknown, Provider [id number] 15 Smith[employer] Repatine (SKB) complet ed influenza virus vaccine, split virus (incl. purified surface antigen)- retired CODE DoD influenza virus vaccine,split 2005 zzLef t Arm [id number] sanofi pasteur complet ed influenza virus vaccine,s plit 05/19/05 Given Ambulat ory Pharmac y influenza virus vaccine, split virus (incl. purified surface antigen)-reti red CODE 1 2005 Unknown, Provider [id number] Sanofi Pasteur (PMC) complet ed influenza virus vaccine, split virus (incl. purified surface antigen)- retired CODE DoD influenza virus vaccine, whole virus 2001 Sara t Arm [id number] 16 Mediaspectrum complet ed influenza virus vaccine, whole virus 04/07/02 Given Ambulat ory Pharmac y influenza virus vaccine, whole virus 1 2001 Unknown, Provider [id number] influenza virus vaccine, whole virus DoD Encounters Combined list of: 1) Encounters from Department of Veterans Affairs facilities going backup to the last 18 months, not all VA inpatient encounters are included; 2) Encounters from the Department of Defense facilities going backup to 280 months. Location Location Details Encounter Type Encounter Number Reason For Visit Attending Provider ADM Date DC Date Status Disposition Source [address] [place] [address] [place] [facility] [place]Roldan rology[place] OUTPATIENT [id number] right leg qamarnes ELISEO Zuleta 07/09 Released w/o Limitations [address] [place] [address] [place] [facility]N eurolog y[place] [address] [place] [address] [place] [facility] [place]Roldan rology) TELE CONSULT [id number] ELISEO ARRIOLA 07/[address] [place] [address] [place] [facility] [place] eurolog [place] [address] [place] [address] [place] [facility] [place]Roldan rology) TELE CONSULT [id number] ELISEO ARRIOLA 08/[address] [place] [address] [place] [facility] [place]N eurolog y[place] [address] [place] [address] [place] [facility] [place] Non-GME FHI1) TELE CONSULT [id number] med DIOR Dee 01/[address] [place] [address] [place] [place]F amily Practic [place] Non-GME FHI1) [employer] [place] [place]Fam kane Practice Non-GME FHI1) OUTPATIENT [id number] med renewal /pt of JHONNY Orellana 02/02 Released w/o Limitations [facility] [employer] [place] [place]F amily Practic e Non-GME FHI1) [facility] [employer] [place] [place] tt Internal Medicine Tm) OUTPATIENT [id number] annual pap ALBFARHANA Grajeda SHEFALI 05/19 Released w/o Limitations [facility] [employer] [place] [place]S cott Interna l Medicin e Tm) [employer] [place] [place] tt Internal Medicine Tm) TELE CONSULT [id number] pap result FARHANA CANTRELL SHEFALI 05/[address] [place] [address] [employer] [place] [place]S cott Interna l Medicin e Tm) [facility] Medical [facility] [employer] [facility] [place] ecology) OUTPATIENT [id number] abnorma l pap smear ARAMIS EDWARDS 07/02 Released w/o Limitations [facility] [employer] [facility] [place]G ynecolo gy) [facility] Medical [facility] [employer] [facility] ecology) TELE CONSULT [id number] Lab results ARAMIS EDWARDS 07/[address] [place] [address] [employer] [place] [place]G ynecolo gy) [facility] Medical [facility] [employer] [place] [place] ecology) TELE CONSULT [id number] ARAMIS EDWARDS 08/[address] [place] [address] [employer] [facility]G ynecolo gy) [facility] Medical [facility] [employer] [place] [place] ecology) TELE CONSULT [id number] Returni ng you call ARAMIS EDWARDS 08/[address] [place] [address] [employer] [facility]G ynecolo gy) [facility] Medical [facility] [employer] [facility] [place] ecology) OUTPATIENT [id number] 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 Released w/o Limitations [address] [place] [address] [employer] [place] [place]G ynecolo gy) [address] [place] [address] [employer] [place] [place] ecology[place] OUTPATIENT [id number] pre-op LUIS LEGER 11/11 Released w/o Limitations [facility])(G ynecolo gy) [facility])(Azo tt Internal Medicine Tm) OUTPATIENT [id number] f/u htn/louis FARHANA Erickson 11/17 Released w/o Limitations [facility] [place] [facility])(S cott Interna l Medicin e Tm) [address] [place] [address] [place] [facility])(Car diologyPr ocedure Schedules ) OUTPATIENT [id number] difficu lty breathi indio (dyspne a) ULYSSES BEVERLY 11/23 Released w/o Limitations [facility] [place] [place]C ardiolo gyProce dure Schedul es) [address] [place] [address])(Car diologyPr ocedure Schedules ) OUTPATIENT [id number] chemica l nuclear VEENA Lima 11/25 Released w/o Limitations [facility] [place] [facility])(C ardiolo gyProce dure Schedul es) [address] [place] [address] [place] [facility])([employer] ecology) OUTPATIENT [id number] f/u surgery LUIS LEGER 01/18 Released w/o Limitations [facility] [place] [facility])(G ynecolo gy) [address] [place] [address] [place] [facility])([employer] ecology) OUTPATIENT [id number] F/U JUDIT Conn 04/12 Released w/o Limitations [facility] [place] [facility])(G ynecolo gy) [address] [place] [address] [place] [facility])(Azo tt Internal Medicine Tm) TELE CONSULT [id number] Rx Refill HUGH MCMULLEN 05/[address] [place] [address] [place] [facility])(S cott Interna l Medicin e Tm) [address] [place] [address] [place] [facility])(Azo tt Internal Medicine Tm) OUTPATIENT [id number] follow up GEGE DIAL 06/06 Released w/o Limitations [facility])(S cott Interna l Medicin e Tm) [employer] [facility])(Sco tt Internal Medicine Tm) TELE CONSULT [id number] mammogr am additio FLAQUITA Coreas Lázaro 08/29 [employer] [facility])(S cott Interna l Medicin e Tm) [employer] [facility])(Azo tt Internal Medicine Tm) TELE CONSULT [id number] mammogr am GEGE DIAL Jana 09/09 [employer] [facility])(S cott Interna l Medicin e Tm) Procedures Combined list of: 1) Procedures from Department of Veterans Affairs facilities [facility], not all [facility] non-surgical procedures are included; 2) All procedures from the Department of Defense facilities. Procedure Procedure Type Code Date Perfomer Comments Sourc e No data available for this section Ambulatory Pharmacy PERCUTANEOUS (NEEDLE) BIOPSY OF BREAST 99 [facility] OTHER MAMMOGRAPHY 995 DoD OTHER BIOPSY OF BREAST 02/01 995 DoD SCREENING PAPANICOLAOU SMEAR; OBTAINING, PREPARING AND CONVEYANCE OF CERVICAL OR VAGINAL SMEAR TO LABORATORY 006 DoD UNLISTED SPECIAL SERVICE, PROCEDURE OR REPORT 006 DoD CARDIOVASCULAR STRESS TEST USING MAXIMAL OR SUBMAXIMAL TREADMILL OR BICYCLE EXERCISE,CONTINUOUS ELECTROCARDIOGRAPHIC MONITORING,AND/OR PHARMACOLOGICAL STRESS;W SUPERVISION,INTERPRETATI ON AND REPORT 006 DoD CARDIOVASCULAR STRESS TEST USING MAXIMAL OR SUBMAXIMAL TREADMILL OR BICYCLE EXERCISE,CONTINUOUS ELECTROCARDIOGRAPHIC MONITORING,AND/OR PHARMACOLOGICAL STRESS;W SUPERVISION,INTERPRETATI ON AND REPORT 006 DoD CYTOPATHOLOGY, SMEARS, CERVICAL OR VAGINAL, UP TO THREE SMEARS; SCREENING BY RAM PRESS OPERATOR UNDER PHYSICIAN SUPERVISION 006 DoD COLPOSCOPY OF THE CERVIX INCLUDING UPPER/ADJACENT VAGINA; WITH BIOPSY(S) OF THE CERVIX AND ENDOCERVICAL CURETTAGE 006 DoD SCREENING PAPANICOLAOU SMEAR; OBTAINING, PREPARING AND CONVEYANCE OF CERVICAL OR VAGINAL SMEAR TO LABORATORY 006 DoD SCREENING PAPANICOLAOU SMEAR; OBTAINING, PREPARING AND CONVEYANCE OF CERVICAL OR VAGINAL SMEAR TO LABORATORY 004 DoD DESTRUCTION (EG, LASER SURGERY, ELECTROSURGERY, CRYOSURGERY, CHEMOSURGERY, SURGICAL CURETTEMENT), OF BENIGN LESIONS OTHER THAN SKIN TAGS OR CUTANEOUS VASCULAR PROLIFERATIVE LESIONS; UP TO 14 LESIONS 002 [facility] Screening papanicolaou smear; obtaining, preparing and conveyance of cervical or vaginal smear to laboratory 006 JUDIT LORENZO [facility] Cardiac Stre Test, Phys. Supervision, Interp. And Report Cardiac Stress Test, Phys. Supervision, Interp. And Report [id number] 006 VEENA SEGAL [facility] Cardiac Stre Test, Phys. Supervision, Interp. And Report Cardiac Stress Test, Phys. Supervision, Interp. And Report [id number] 006 ULYSSES BEVERLY [facility] Cervical Pap Smear Cervical Pap Smear 54226 006 LUIS LEGER [facility] Colposcopy Colposcopy 76338 006 ARAMIS EDWARDS Biopsy Endometrial, Without Cervical Dilation Biopsy Endometrial, Without Cervical Dilation 76174 006 ARAMIS EDWARDS Colposcopy Cervix With Biopsy(s) Colposcopy Cervix With Biopsy(s) 46339 006 ARAMIS EDWARDS Colposcopy Cervix With Biopsy(s) With Endocervical Curettage Colposcopy Cervix With Biopsy(s) With Endocervical Curettage 51136 006 ARAMIS EDWARDS Screening papanicolaou smear; obtaining, preparing and conveyance of cervical or vaginal smear to laboratory 006 ANGELICA ROCA Influenza Split Virus Vaccine Age 3+ Years Intramuscular 006 ANGELICA ROCA [facility] Social History Combined list of available smoking, tobacco, and other social history from Department of Defense and Veterans Affairs facilities. Social History Type Response Date Comment Sour e This section is an empty social history section. DoD Assessment and Plan Combined list of future care activities from Department of Defense and Veterans Affairs facilities (e.g., assessment and plan notes, appointments, orders, and referrals). Additional future care activities may be listed in the Plan of Care section. Result Assessment and Plan Date Source Assessment and Plan No data available for this section 12/27/2024 Ambulatory Pharmacy Functional Status Combined list of recent functional and cognitive assessments recorded at Department of Defense and Veterans Affairs (VA).VA Functional Mcdermitt Measurement (FIM) Scale: 1 = Total Assistance (Subject = 0% +), 2 = Maximal Assistance (Subject = 25% +), 3 = Moderate Assistance (Subject = 50% +), 4 = Minimal Assistance (Subject = 75% +), 5 = Supervision, 6 = Modified Mcdermitt (Device), 7 = Complete Mcdermitt (Timely, Safely). Assessment Date/Time Source Assessment Type Assessment Skill Assessment Score Assessment Details No data available for this section
--- OUTSIDE RECORDS SUMMARY | 2024-12-27 11:18 | XMS_ITS | Clinical Summary ---
Author Organization [facility] Address [address] [place] [address] Care Team Providers Care Manager Reimbursement Name Role Phone Eber Acuña MD Primary Care Provider [phone] Source Comments [facility] Affiliates and Associated Physician Practices is amultiple site organization consisting of ambulatory clinics and hospital sitesin [place], [place], [place] and [place]. This disclosure is being madepursuant to the Care Everywhere program and may not contain all information available regarding this patient. Last updated 18.[facility] Allergies Active Allergy Reactions Criticality Noted Date Comments Povidone Iodine Itching Low 04/06/2016 Medications * Be aware that medications may not be up to date on this document. Alwaysverify current medications with the patient. raNITIdine (ZANTAC) 150 MG tablet Take 40 mg by mouth DAILY. 6 Active clopidogrel (PLAVIX) 75 MG tablet Take 1 (one) tablet by mouth DAILY 6 Active cetirizine (ZyrTEC) 10 MG tablet Take 1 (one) tablet by mouth as needed 3 Active vitamin D3 (Cholecalcifer ol) 125 MCG (5000 UT) capsule Take 1 (one) capsule by mouth once daily Active felodipine CR 24hr (Plendil) 10 MG tablet Take 1 (one) tablet by mouth once daily 3 Active tolterodine ER 24hr (Detrol LA) 4 MG capsule 3 Active atorvastatin (Lipitor) 80 MG tablet Take 1 (one) tablet by mouth once daily 4 Active lisinopril (Prinivil; Zestril) 40 MG tablet Take 1 (one) tablet by mouth once daily Active acetaminophen (Tylenol) 500 MG tabletIndicati ons:Instabilit y of internal right knee prosthesis, initial encounter Take 1 (one) tablet by mouth every 6 hours as needed for Fever or Pain Maximum allowable Acetaminophen amount = 4 Grams (4000 mg) / 24 hours. 4 Active aspirin (Aspirin) 81 MG chew tabletIndicati ons:Instabilit y of internal right knee prosthesis, initial encounter Take 1 (one) tablet by mouth 2 times daily 60 tablet 4 Active HYDROcodone-ac etaminophen (Arcade) 5-325 MG tabletIndicati ons:Instabilit y of internal right knee prosthesis, initial encounter Take 1 (one) tablet by mouth every 6 hours as needed for Pain 42 tablet 4 Active pregabalin (Lyrica) 50 MG capsuleIndicat ions:Instabili ty of internal right knee prosthesis, initial encounter Take 1 (one) capsule by mouth 2 times daily 4 Active docusate sodium (Colace) 100 MG capsuleIndicat ions:Instabili ty of internal right knee prosthesis, initial encounter Take 1 (one) capsule by mouth 2 times daily 4 Active polyethylene glycol 3350 (Miralax) 17 g packetIndicati ons:Instabilit y of internal right knee prosthesis, initial encounter Take 17 (seventeen) g by mouth once daily 4 Active famotidine (Pepcid) 20 MG tabletIndicati ons:Instabilit y of internal right knee prosthesis, initial encounter Take 1 (one) tablet by mouth 2 times daily 4 Active Active Problems Problem Noted Date Diagnosed Date 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, 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/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/2015 Chronic kidney disease, stage III (moderate) Gastro-esophageal reflux disease without esophag itis 08/01/2013 Essential (primary) hypertension 02/07/2013 Pure hypercholesterolemia 02/07/2013 Nontoxic single thyroid nodule 02/07/2013 Encounters Date Type Department Care Team Description 12/11/2024 Orders Only [facility] - Orthopedic Surgery [address] [place] [address] Anders Gallardo MD Status post revision of total replacement of right knee ; History of arthroplasty of right knee; Right knee pain, unspecified chronicity from Last 3 Months Immunizations Immunization Administration Dates Next Due INFLUENZA VACCINE, TRIV. (AF LURIA, FLUZONE TRIVALENT; 6MO+) (IIV3) 01/30/2016 Family History Medical History Relation Name Comments None Known Father Status: d Heart Disease Maternal Grandfather Heart Disease Maternal Grandmother Heart Disease Maternal Uncle Cancer Mother Heart Disease Mother Hypertension Mother Heart Disease Paternal Grandfather Heart Disease Paternal Grandmother Heart Disease Son Diabetes Neg Hx Elevated Lipids Neg Hx Kidney Disease Neg Hx Thyroid Disease Neg Hx Relation Name Status Comments Father Maternal Grandfather Maternal Grandmother Maternal Uncle Mother Paternal Grandfather Paternal Grandmother Son Social History Tobacco Use Types Packs/Day Years Used Date Smoking Tobacco: Former Cigarettes Q uit: 09/14/1995 Smokeless Tobacco: Never Tobacco Cessation:Counseling Given: Not Answered Alcohol Use Standard Drinks/Week Comments No 0 (1 standard drink = 0.6 oz pur e alcohol) PHQ-2 Answer Date Recorded Patient Health Questionnaire-2 Score 0 10/11/2023 Comments Unknown Sex and Gender Information Value Date Recorded Sex Assigned at Not on file Legal Sex Female 5:24 PM COUNTER PROFESSIONAL Gender Identity Not on file Sexual Orientation Not on file Last Filed Vital Signs Vital Sign Reading Time Taken Comments Blood Pressure 117/55 09/21/2023 11:16 AM CDT Pulse 85 09/21/2023 11:16 AM CDT Temperature 36.3 C (97.3 F) 09/21/2023 11:16 AM CDT Respiratory Rate 21 09/21/2023 11:16 AM CDT Oxygen Saturation 90% 09/21/2023 11:16 AM CDT Inhaled Oxygen Concentration 21% 09/29/2023 8 :12 AM CDT Weight 53.5 kg (118 lb) 01/11/2024 9:04 AM CDT Height 157.5 cm (5' 2) 01/11/2024 9:04 AM CDT Body Mass Index 21.58 01/11/2024 9:04 AM CDT Plan of Treatment Upcoming Encounters Date Type Department Care Team (Late st Contact Info) Description 01/09/2025 10:00 AM CDT Office Visit [facility] - Orthopedic Surgery [address] [place] [address] Anders Gallardo MD [address] [facility] [address] [place] [address] Health Maintenance Due Date Last Done Comments BONE DENSITY TESTING 1940 MEDICARE AWV 12 MONTHS 1940 DTAP/TDAP/TD VACCINES (1 - Tdap) 1960 PNEUMOCOCCAL VACCINE 50+ (1 of 1 - PCV) 07/17/1991 ZOSTER VACCINE (1 of 2) 07/17/1991 Respiratory Syncytial Virus (RSV) Vaccine Pt: or over 60 yrs (1 - 1-dose 75+ series) 2016 COVID-19 VACCINE (2 - season) 2024 08/22/2020 DEPRESSION SCREENING 05/16/2024 10/04/2023 INFLUENZA VACCINE (#1) 2025 , 01/18/2020, 02/13/2019, Additional history exists HEPATITIS B VACCINE Aged Out No longe r eligible based on patient's age to complete this topic HIB VACCINE Aged Out No longer eligi ble based on patient's age to complete this topic HPV VACCINE Aged Out No longer eligi ble based on patient's age to complete this topic MENINGOCOCCAL (Group B) VACCINE SHARED DECISION-MAKING Aged Out No longer eligible based on patient's age to complete this topic MENINGOCOCCAL GROUPS A/C/Y/W VACCINE Aged Out No longer eligible based on patient's age to complete this topic Medical Devices Implanted Type Area Roll Coverer Device Identifier Shelf Expiration Date Model / Serial / Lot Vangaurd 360 Posterior Augment Implanted:Qty : 1 on 09/19/2023 by Anders Gallardo MD at [facility] Right: [employer] [id number] 12/06/2026 [id number] / / [id number] Cmpnt Fem Kn Rt Vngrd 360 Por 70mm Rev Implanted:Qty : 1 on 09/19/2023 by Anders Gallardo MD at [facility] Right: [employer]ur [employer] 05/26/2031 [id number] / / [id number] Block Aug Vngrd 360 Unv [id number] Kn Fem Implanted:Qty : 1 on 09/19/2023 by Anders Gallardo MD at [facility] Right: [employer]ur [employer] 01/18/2030 [id number] / / [id number] Stem Tib 80mm 14mm Vngrd 360 Kn Spline Implanted:Qty : 1 on 09/19/2023 by Anders Gallardo MD at [facility] Right: [employer] 05/28/2031 [id number] / / [id number] Hv Ab Bone Cement Implanted:Qty : 1 on 09/19/2023 by Anders Gallardo MD at [facility] Right: [employer] [id number] 07/14/2027 [id number] / / [id number] Hv Ab Bone Cement Implanted:Qty : 1 on 09/19/2023 by Anders Gallardo MD at [facility] Right: [employer] [id number] 07/14/2027 [id number] / / [id number] Brng [id number] Vngrd 360 Pe Kn Post Implanted:Qty : 1 on 09/19/2023 by Anders Gallardo MD at [facility] Right: [employer] 08/07/2028 [id number] / / [id number] Cmpnt Tibtry Kn Prm Lck Bar Bmt As Mx Implanted:Qty : 1 on 09/19/2023 by Anders Gallardo MD at [facility] Right: [employer] 02/10/2032 [id number] / / [id number] Insurance MEDICARE [facility] MEDICARE Advance Directives Documents on File Type Date Recorded Patient Gas Specialist Expl anation Adv Directive/Living Will/POA 09/22/2023 9:42 PM * Full Code (Latest Code Status on File) Date Activated Date Inactivated Comments 09/21/2023 6:06 PM 09/30/2023 9:35 AM * Full Code Date Activated Date Inactivated Comments 09/19/2023 2:06 PM 09/21/2023 5:50 PM Care Teams Manager Reimbursement Relationship Specialty Start Date End Date Eber Acuña MD [address] [place] [address] PCP - General 04/09/15
--- OUTSIDE RECORDS SUMMARY | 2024-12-27 11:18 | XMS_ITS | Clinical Summary ---
Author Organization [facility] Address [address] [place] [address] Care Team Providers Care Scale Operator Name Role Phone Unavailable Primary Care Provider Unavailabl e Allergies Active Allergy Reactions Criticality Noted Date Comments Iodine Hives High 09/21/2023 Medications cetirizine (ZyrTEC) 10 MG tablet Take 1 tablet (10 mg total) by mouth daily as needed for allergies. Active felodipine (PLENDIL) 10 MG 24 hr tablet Take 1 tablet (10 mg total) by mouth in the morning. Active tolterodine LA (DETROL LA) 4 MG 24 hr capsule Take 1 capsule (4 mg total) by mouth in the morning. Active cholecalciferol (VITAMIN D3) 125 MCG (5000 UT) capsule Take 1 capsule (5,000 Units total) by mouth in the morning. Active atorvastatin (LIPITOR) 80 MG tablet Take 1 tablet (80 mg total) by mouth in the morning. 4 Active folic acid (FOLVITE) 1 MG tablet Take 1 tablet (1 mg total) by mouth in the morning. 4 Active pantoprazole (PROTONIX) 40 MG EC/DR tablet Take 1 tablet (40 mg total) by mouth Daily at 6am. 30 tablet 4 Active pregabalin (LYRICA) 50 MG capsule Take 1 capsule (50 mg total) by mouth in the morning and 1 capsule (50 mg total) before bedtime. 4 Active polyethylene glycol (MIRALAX) 17 g packet Take 17 g by mouth in the morning. 4 Active clopidogrel (PLAVIX) 75 MG tabletIndication s:Cerebrovascula r Accident Prophylaxis Take 1 tablet (75 mg total) by mouth in the morning. Indications: Treatment to Prevent Stroke. 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 09/21/2023 Immunizations Immunization Administration Dates Next Due Influenza, Unspecified 07/02/2023 Pfizer SARS-CoV-2 Vaccination 08/22/2020 Social History Tobacco Use Types Packs/Day Years Used Date Smoking Tobacco: Former Cigarettes 1 30.3 0 05/16/1959 - 09/13/1989 Smokeless Tobacco: Never Tobacco Cessation:Counseling Given: No Alcohol Use Standard Drinks/Week Comments Not Currently 0 (1 standard drink = 0.6 oz pur e alcohol) [facility] Utilities Answer Date Recorded In the past 12 months has e electric, gas, oil, or water company threatened to shut off services in your home? No 09/22/2023 Social Connection and Isolat ion Panel [NHANES] Answer Date Recorded In a typical week, how many times do you talk on the phone with family, friends, or neighbors? More than three times a week 09/22/2023 How often do you get togethe r with friends or relatives? More than three times a week 09/22/2023 How often do you attend chur ch or adventism services? Patient declined 09/22/2023 Do you belong to any clubs o r organizations such as sikhism groups, unions, fraternal or athletic groups, or school groups? Patient declined 09/22/2023 How often do you attend meet ings of the clubs or organizations you belong to? Patient declined 09/22/2023 Are you , , di vorced, , never , or living with a partner? 09/22/2023 Overall Financial Resource Strain (CARDIA) Answe r Date Recorded How hard is it for you to pa y for the very basics like food, housing, medical care, and heating? Not hard at all 09/22/2023 [facility] Occupat ional Health - Occupational Stress Questionnaire Answer Date Recorded Do you feel stress - tense, restless, nervous, or anxious, or unable to sleep at night because your mind is troubled all the time - these days? Only a little 09/30/2023 Hunger Vital Sign Answer Date Recorded Within the past 12 months, y ou worried that your food would run out before you got the money to buy more. Never true 09/22/19 24 Within the past 12 months, t he food you bought just didn't last and you didn't have money to get more. Never true 09/22/2023 Housing Stability Vital Sign Answer Sonu e Recorded In the last 12 months, was t here a time when you were not able to pay the mortgage or rent on time? No 09/22/2023 Number of Times Moved in the Last Year Not on fi le 09/22/2023 Homeless in the Last Year Not on file 2023 Domestic Abuse Assessment Answer Date R ecorded Do you feel safe in your relationships at home? Yes 09/21/2023 Physical Abuse Denies 09/21/2023 HRSN Domestic Abuse - Type of Abuse Not on file 09/21/2023 HRSN Domestic Abuse - Time Frame Not on file 09/21/2023 HRSN Domestic Abuse - Signs and Symptoms Not on file 09/21/2023 Verbal Abuse Denies 09/21/2023 HRSN Domestic Abuse - Reported To Not on file 09/21/2023 SM SDOH Transportation Source Answer Da te Recorded Has lack of transportation k ept you from medical appointments or from getting medications? No 09/29/2023 Has lack of transportation k ept you from meetings, work, or from getting things needed for daily living? No 09/29/2023 HRSN Depression PHQ-2 Answer Date Recor ded Feeling down, depressed, or hopeless 00 09/30/2023 Little interest or pleasure in doing things 00 09/30/2023 Comments Unknown Sex and Gender Information Value Date Recorded Sex Assigned at Female 09/22/2023 11:25 AM EDT Legal Sex Female 2:21 PM EDT Gender Identity Female 09/22/2023 11:25 AM EDT Sexual Orientation Straight 09/22/2023 11 :25 AM EDT Last Filed Vital Signs Vital Sign Reading Time Taken Comments Blood Pressure 132/57 09/30/2023 8:12 AM CDT Pulse 81 09/30/2023 8:12 AM CDT Temperature 36.7 C (98.1 F) 09/30/2023 8:12 AM CDT Respiratory Rate 18 09/30/2023 8:12 AM CDT Oxygen Saturation 95% 09/30/2023 8:12 AM CDT Inhaled Oxygen Concentration - - Weight 57.2 kg (126 lb) 09/28/2023 4:00 AM CDT Height 160 cm (5' 3) 09/28/2023 4:00 AM CDT Body Mass Index 22.32 09/28/2023 4:00 AM CDT Plan of Treatment Health Maintenance Due Date Last Done Comments Annual Visit Topic 1941 DTaP/Tdap/Td Vaccines (1 - Tdap) 1960 Pneumococcal Vaccine: 65+ Ye ars (1 of 2 - PCV) 07/17/1991 HIB Vaccines Aged Out No longer eligi ble based on patient's age to complete this topic HPV Vaccines Aged Out No longer eligi ble based on patient's age to complete this topic Hepatitis A Vaccines Aged Out No long er eligible based on patient's age to complete this topic Hepatitis B Vaccines Aged Out No long er eligible based on patient's age to complete this topic IPV Vaccines Aged Out No longer eligi ble based on patient's age to complete this topic Meningococcal Vaccine Aged Out No mariella joycelyn eligible based on patient's age to complete this topic Medical Devices Implanted Type Area Audit Analyst Device Identifier Shelf Expiration Date Model / Serial / Lot Patella Patella Knee Advance Directives * Full Resuscitation (Latest Code Status on File) Date Activated Date Inactivated Comments 09/21/2023 6:12 PM 09/30/2023 11:44 AM Question Answer Comments I have discussed this order with the patient or his/her surrogate and have received informed consent. Yes
--- OUTSIDE RECORDS SUMMARY | 2024-12-27 11:18 | XMS_ITS | Clinical Summary ---
Author Organization [facility] Address [address] [place] [id number] Care Team Providers Care Gas Compressor Operator Name Role Phone Unavailable Primary Care Provider Unavailabl e Social History Tobacco Use Types Packs/Day Years Used Date Smoking Tobacco: Never Assessed Comments Unknown Sex and Gender Information Value Date Recorded Sex Assigned at Not on file Legal Sex Female 4:36 PM CDT Gender Identity Not on file Sexual Orientation Not on file Plan of Treatment Health Maintenance Due Date Last Done Comments DTaP, Tdap and Td Vaccines ( 1 - Tdap) 1960 Pneumococcal Vaccine: 50+ Ye ars (1 of 1 - PCV) 07/17/1991 Zoster Vaccines (1 of 2) 07/17/1991 Dexa Scan (General) 2006 RSV Immunization or 60+ Years (1 - 1-dose 75+ series) 2016 COVID-19 Vaccine (2023-2 5 season) 2024 Meningococcal B Vaccine Aged Out No l onger eligible based on patient's age to complete this topic Meningococcal Vaccine Aged Out No mariella joycelyn eligible based on patient's age to complete this topic RSV Immunizations Under 20 Months Aged Out No longer eligible based on patient's age to complete this topic
--- OUTSIDE RECORDS SUMMARY | 2024-12-27 11:18 | XMS_ITS | Clinical Summary ---
Author Organization [facility] Address [address] [place] [address] Phone Care Team Providers Care Civil Rights Representative Name Role Phone Eber Acuña MD Primary Care Provider [phone] Allergies Active Allergy Reactions Criticality Noted Date Comments Iodinated Contrast Media Hives 09/27/2018 Povidone Iodine Itching Low 04/06/2016 Medications felodipine (PLENDIL) 10 MG 24 hr tablet 1 tab/cap qday 03/09/2014 Active tolterodine LA (DETROL LA) 4 MG 24 hr capsule 1 tab/cap qday 03/09/2014 Active cetirizine (ZyrTEC ALLERGY) 10 MG tablet 1 tab/cap qday 03/09/2014 Active clopidogrel (PLAVIX) 75 MG tablet 1 tab/cap qday 07/02/2015 Active aspirin 325 MG EC tablet 1 tab/cap qday 03/09/2014 Active lisinopril (PRINIVIL,ZESTRI L) 40 MG tablet 1 qday 0 07/26/2018 Act ronny pantoprazole (PROTONIX) 20 MG EC tablet Take 20 mg by mouth daily Active cholecalciferol (D-3-5) 5000 units capsule Take 5,000 Units by mouth daily Active atorvastatin (LIPITOR) 40 MG tablet 06/21/2019 Active TRELEGY ELLIPTA 100-62.5-25 MCG/INH aerosol powder INHALE 1 PUFF BY MOUTH EVERY 24 HOURS 05/20/2019 Active Active Problems Problem Noted Date Diagnosed Date Hypertensive chronic kidney disease with stage 1 through stage 4 chronic kidney disease, or unspecified chronic kidney disease 02/26/2015 Chronic kidney disease, stage 3 (moderate) 04/22 Essential (primary) hypertension 03/09/2014 Sleep apnea 03/09/2014 Other hyperlipidemia 03/09/2014 Overview (07/29/2018): Converted unresolved ICD9, potential mismatch. 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 Osteoarthritis 03/09/2014 Gastro-esophageal reflux disease without esophag itis 03/09/2014 Pure hypercholesterolemia 02/07/2013 Immunizations Immunization Administration Dates Next Due Influenza TIV (IM) 04/05/2016, 6,07/02/2015, 015,03/11/2014 Influenza, Injectable, Quadrivalent 01/18/2020,1 Pneumococcal Conjugate 13-Valent 04/05/2016,06/16 Sars-cov-2, Unspecified 08/22/2020,07/22/2020 Family History Medical History Relation Comments Kidney disease Neg Hx Kidney stone Neg Hx Social History Tobacco Use Types Packs/Day Years Used Date Smoking Tobacco: Former Smokeless Tobacco: Never Comments:Smoking History Pac ks/day: quit - in 1995 Alcohol Use Standard Drinks/Week Comments No 0 (1 standard drink = 0.6 oz pur e alcohol) Comments Unknown Sex and Gender Information Value Date Recorded Sex Assigned at Not on file Legal Sex Female 8:56 AM [facility] Gender Identity Not on file Sexual Orientation Not on file Last Filed Vital Signs Vital Sign Reading Time Taken Comments Blood Pressure 136/70 01/27/2022 10:53 AM CDT Pulse - - Temperature 35.7 C (96.2 F) 01/27/2022 10:53 AM CDT Respiratory Rate 18 01/27/2022 10:53 AM CDT Oxygen Saturation - - Inhaled Oxygen Concentration - - Weight 74.8 kg (165 lb) 01/27/2022 10:53 AM CDT Height 157.5 cm (5' 2) 01/27/2022 10:53 AM CDT Body Mass Index 30.18 01/27/2022 10:53 AM CDT Plan of Treatment Health Maintenance Due Date Last Done Comments Pneumococcal PPSV23/PCV13 65 + Years / Low and Medium Risk (2 of 3 - PCV20 or PCV21) 04/05/2017 04/05/2016, 07/02/2015 Influenza Vaccine (#1) 2025 6, 01/30/2016, 07/02/2015, Additional history exists Insurance MEDICARE [facility] Care Teams Civil Rights Representative Relationship Specialty Start Date End Date Eber Acuña MD [address] [facility] [address] [place] [id number] PCP - General Internal Medicine 01/23/19
--- OUTSIDE RECORDS SUMMARY | 2024-12-27 11:28 | XMS_ITS | Continuity of Care Document ---
Author Name [facility] Organization [facility] Care Team Providers Care Scientific Glass Blower Name Role Phone [facility] Unavailable Unavailable Problems [...] T PH, 500 ea. BOTTLE Cancele d [id number] : 2023 0 Pharmac y Data Transac [...] ORAL, YEMI, 90 ea. BOTTLE Cancele d [id number] : 2023 0 Pharmac y Data Transac [...] Reported Comments Source NO OUTPUT FOR NCID 381201 Drug allergy (disorder) active 10/02/2007 [facility] [place] [facility] ([facility]) Immunizations Combined list of available immunizations from the Department of Defense and Veterans Affairs facilities. 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 purified surface antigen)- retired CODE DoD influenza virus vaccine,split 2005 zzLef t Arm [id number] 15 sanofi pasteur complet ed influenza virus vaccine,s plit 05/19/05 Given Ambulat ory Pharmac y influenza virus vaccine, split virus (incl. purified surface antigen)-reti red CODE 1 2005 Unknown, Provider [id number] 15 Sanofi Pasteur (PMC) complet ed influenza virus vaccine, split virus (incl. purified surface antigen)- retired [employer] influenza virus vaccine, whole virus 2001 Sara t Arm [id number] Spotted complet ed influenza virus vaccine, whole virus 04/07/02 Given Ambulat ory Pharmac y influenza virus vaccine, whole virus 1 2001 Unknown, Provider [id number] 16 [facility] complet ed influenza virus vaccine, whole [...] ADM Date DC Date Status Disposition Source [address] [place] [address] [facility]Roldan rology) OUTPATIENT [id number] right leg qamarnes ELISEO Zuleta 07/09 Released w/o Limitations [address] [place] [address] [facility]N eurolog y) [address] [place] [address] [facility]Roldan rology) TELE CONSULT [id number] ELISEO ARRIOLA 07/[address] [place] [address] [facility]N eurolog y) [address] [place] [address] [facility])(Roldan rology) TELE CONSULT [id number] ELISEO ARRIOLA 08/[address] [place] [address] [facility]N eurolog y) [address] [place] [address] [facility])([facility] Non-GME FHI1) TELE CONSULT [id number] med DIOR Dee 01/[address] [place] [address] [facility] [employer] ([facility]F amily Practic e Non-GME FHI1) [employer] ([facility])(Fam kane Practice Non-GME FHI1) OUTPATIENT [id number] med renewal /pt of JHONNY Orellana 02/02 Released w/o Limitations [facility] [employer] ([facility])(F amily Practic e Non-GME FHI1) [employer] ([facility])([facility] tt Internal Medicine Tm) OUTPATIENT [id number] annual pap ALBFARHANA Grajeda SHEFALI 05/19 Released w/o Limitations [facility] [employer] ([facility])(S cott Interna l Medicin e Tm) [employer] ([facility])([facility] tt Internal Medicine Tm) TELE CONSULT [id number] pap result FARHANA CANTRELL SHEFALI 05/[address] [place] [address] [employer] ([facility])(S cott Interna l Medicin e Tm) [facility] Medical [facility] [employer] [facility]Clam Picker ecology) OUTPATIENT [id number] abnorma l pap smear ARAMIS EDWARDS 07/02 Released w/o Limitations [employer] [facility]G ynecolo gy) [facility] Medical [facility] [employer] [facility])(Clam Picker ecology) TELE CONSULT [id number] Lab results ARAMIS EDWARDS 07/[address] [place] [address] [employer] ([facility])(G ynecolo gy) [facility] Medical [facility] [employer] ([facility])(Clam Picker ecology) TELE CONSULT [id number] ARAMIS EDWARDS 08/[address] [place] [address] [employer] [facility])(G ynecolo gy) [facility] Medical [facility] [employer] ([facility])(Clam Picker ecology) TELE CONSULT [id number] Returni ng you call ARAMIS EDWARDS 08/[address] [place] [address] [employer] [facility])(G ynecolo gy) [facility] Medical [facility] [employer] [facility])(Clam Picker ecology) OUTPATIENT 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 (Per LUIS Whitney 10/14 Released w/o Limitations [address] [place] [address] [employer] ([facility])(G ynecolo gy) [address] [place] [address] [employer] ([facility])(Clam Picker ecology) OUTPATIENT [id number] pre-op LUIS LEGER 11/11 Released w/o Limitations [employer] [facility])(G ynecolo gy) [employer] [facility])([employer] tt Internal Medicine Tm) OUTPATIENT [id number] f/u htn/louis FARHANA Erickson 11/17 Released w/o Limitations [employer] [facility])(S cott Interna l Medicin e Tm) [address] [place] [address] [facility])(Car diologyPr ocedure Schedules ) OUTPATIENT [id number] difficu lty breathi indio (dyspne a) ULYSSES BEVERLY 11/23 Released w/o Limitations [employer] [facility] ([facility])(C ardiolo gyProce dure Schedul es) [address] [place] [address])(Car diologyPr ocedure Schedules ) OUTPATIENT [id number] chemica l nuclear VEENA Lima 11/25 Released w/o Limitations [employer] [facility])(C ardiolo gyProce dure Schedul es) [address] [place] [address] [facility])(Clam Picker ecology) OUTPATIENT [id number] f/u surgery LUIS LEGER 01/18 Released w/o Limitations [employer] [facility])(G ynecolo gy) [address] [place] [address] [facility])(Clam Picker ecology) OUTPATIENT [id number] F/U JUDIT Conn 04/12 Released w/o Limitations [employer] [facility])(G ynecolo gy) [address] [place] [address] [facility])(Ako tt Internal Medicine Tm) TELE CONSULT [id number] Rx Refill HUGH MCMULLEN 05/[address] [place] [address] [facility])(S cott Interna l Medicin e Tm) [address] [place] [address] [facility])(Ako tt Internal Medicine Tm) OUTPATIENT [id number] follow up GEGE DIAL 06/06 Released w/o Limitations [employer] [facility])(S cott Interna l Medicin e Tm) [employer] [facility] [place])(Sco tt Internal Medicine Tm) TELE CONSULT [id number] mammogr am additio FLAQUITA Coreas Lázaro 08/29 [employer] [facility] [place])(S cott Interna l Medicin e Tm) [employer] [facility] [place])(Ako tt Internal Medicine Tm) TELE CONSULT [id number] mammogr am GEGE DIAL Jana 09/09 [employer] [facility] [place])(S cott Interna l Medicin e Tm) Procedures Combined list of: 1) Procedures from Department of Veterans Affairs facilities going back [facility], not all [place] non-surgical procedures are included; 2) All procedures from the Department of Defense facilities. Procedure Procedure Type Code Date Perfomer Comments Sourc e No data available for this section Ambulatory Pharmacy PERCUTANEOUS (NEEDLE) BIOPSY OF BREAST 99 [facility] OTHER MAMMOGRAPHY 995 DoD OTHER BIOPSY OF [...] VAGINAL, UP TO THREE SMEARS; SCREENING BY STERILE TECH UNDER PHYSICIAN SUPERVISION 006 DoD COLPOSCOPY OF [...] PROLIFERATIVE LESIONS; UP TO 14 LESIONS 002 [facility] Screening papanicolaou smear; obtaining, preparing and conveyance of cervical or vaginal smear to laboratory 006 JUDIT LORENZO [facility] Cardiac Stre Test, Phys. Supervision, Interp. And Report Cardiac Stress Test, Phys. Supervision, Interp. And Report 19285 006 VEENA SEGAL [facility] Cardiac Stre Test, Phys. Supervision, Interp. And Report Cardiac Stress Test, Phys. Supervision, Interp. And Report 64071 006 ULYSSES BEVERLY [facility] Cervical Pap Smear Cervical Pap Smear 59255 006 LUIS LEGER [facility] Colposcopy Colposcopy 96210 006 ARAMIS EDWARDS Biopsy Endometrial, Without Cervical Dilation Biopsy Endometrial, Without Cervical Dilation 92990 006 ARAMIS EDWARDS Colposcopy Cervix With Biopsy(s) Colposcopy Cervix With Biopsy(s) 37084 006 ARAMIS EDWARDS Colposcopy Cervix With Biopsy(s) With Endocervical Curettage Colposcopy Cervix With Biopsy(s) With Endocervical Curettage 29070 006 ARAMIS EDWARDS Screening papanicolaou smear; obtaining, preparing and conveyance of cervical or vaginal smear to laboratory 006 ANGELICA ROCA Influenza Split Virus Vaccine Age 3+ Years Intramuscular 006 ANGELICA ROCA [facility] Social History Combined list of available smoking, [...] of Defense and Veterans Affairs (VA).VA Functional [place] Measurement (FIM) Scale: 1 = Total Assistance (Subject = 0% +), 2 = Maximal Assistance (Subject = 25% +), 3 = Moderate Assistance (Subject = 50% +), 4 = Minimal Assistance (Subject = 75% +), 5 = Supervision, 6 = Modified [place] (Device), 7 = Complete [place] (Timely, Safely). Assessment Date/Time Source Assessment Type Assessment Skill Assessment Score Assessment Details No data available for this section
[2024-12-27 14:38] LABS: Vitamin B12 320.0 pg/mL (239-931)
[2025-01-01 09:08] LABS: Vit. B1, Whole Blood 95.3 nmol/L (66.5-200.0)
[2025-01-09 03:07] LABS: A -- Beta-amyloid 42/40 Ratio 0.094 (>0.102); Beta-amyloid 40 246.60 pg/mL (.); Beta-amyloid 42 23.18 pg/mL (.); N -- NfL, Plasma 14.40 pg/mL (0.00-9.13); T -- p-tau181 6.39 pg/mL (0.00-0.97)
== END 2024-12-27 11:10 | disposition home or self-care (01) ==
PROVIDERS: PCP Family Medicine; Visit Provider Psychiatry & Neurology Neurology
DX: G30.9 Alzheimer's disease, unspecified (principal); F02.80 Dementia in other diseases classified elsewhere, unspecified severity, without behavioral disturbance, psychotic disturbance, mood disturbance, and anxiety; I63.9 Cerebral infarction, unspecified; R26.9 Unspecified abnormalities of gait and mobility; J44.9 Chronic obstructive pulmonary disease, unspecified; E55.9 Vitamin D deficiency, unspecified
CPT/HCPCS: 36415; 82306; 82607; 82746; 83090; 83520; 84207; 84425

== ENCOUNTER 2025-01-31 12:37 | Outpatient (CLI) | payer MEDICARE, OTHER, SELFPAY ==
--- NOTE | ~2025-01-31 | MR_ITS ---
EXAMINATION: MR brain/brain stem wo con DATE: 01/31/2025 13:03 INDICATION: Disorientation, unspecified. TECHNIQUE: Magnetic resonance imaging (MRI) of the brain and brainstem was performed without intravenous contrast. COMPARISON: None. FINDINGS: There are small infarcts in the cerebellum bilaterally. There is an old infarct involving the left basal ganglia, left internal capsule, and left frontal lobe bragg radiata. There are scattered areas of nonspecific increased T2-weighted signal intensity in the cerebral white matter and maikol. There is ex vacuo dilatation of left lateral ventricle. There are likely changes of ocular lens replacement surgeries. There is mucosal thickening in the ethmoid sinuses. The mastoid air cells are normal. IMPRESSION: 1. Old infarcts involving the cerebellum, left basal ganglia, left internal capsule, and left frontal lobe bragg radiata. 2. Moderate nonspecific cerebral white matter disease and pontine disease, which likely represents chronic small vessel ischemic disease. Reviewed, dictated and finalized at location E. IMPRESSION: 1. Old infarcts involving the cerebellum, left basal ganglia, left internal cap lolis, and left frontal lobe bragg radiata. 2. Moderate nonspecific cerebral white matter disease and pontine disease, whic h likely represents chronic small vessel ischemic disease.
== END 2025-01-31 12:38 | disposition home or self-care (01) ==
LOC: MICIMG 12:39
PROVIDERS: PCP Family Medicine; Visit Provider Physician Assistant
DX: R41.0 Disorientation, unspecified (principal); R41.3 Other amnesia; Z86.73 Personal history of transient ischemic attack (TIA), and cerebral infarction without residual deficits
CPT/HCPCS: 70551

== ENCOUNTER 2025-02-05 14:11 | Outpatient (CLI) | payer MEDICARE, OTHER, SELFPAY ==
--- NOTE | ~2025-02-05 | US_ITS ---
EXAMINATION: US carotid duplex BI DATE: 02/05/2025 14:48 INDICATION: Transient ischemic attack TECHNIQUE: Grayscale, color Doppler, and pulsed Doppler images of the cervical carotid arteries were obtained. The degree of vessel stenosis is placed in one of the following categories: normal, <50%, 50-69%, >=70% but less than near- occlusion, near-occlusion, or total occlusion. Note that percent stenosis relative to normal distal artery lumen diameter is indirectly measured from velocity measurements as described by Canelo, et al. Radiology 2003; 229:340-346. COMPARISON: 04/12/2018 FINDINGS: RIGHT: The right common carotid artery (CCA) peak systolic velocity (PSV) is 86 cm/s. The right internal carotid artery (ICA) PSV is 86 cm/s. The right ICA end- diastolic velocity (EDV) is 36 cm/s. The right ICA/CCA PSV ratio is 1.0. Grayscale and color Doppler images yield an estimate of <50% diameter reduction from plaque in the ICA. The external carotid artery (ECA) PSV is 62 cm/s. There is antegrade flow in the right vertebral artery. LEFT: The left CCA PSV is 104 cm/s. The left ICA PSV is 94 cm/s. The left ICA EDV is 16 cm/s. The left ICA/CCA PSV ratio is 0.9. Grayscale and color Doppler images yield an estimate of <50% diameter reduction from plaque in the ICA. The ECA PSV is 111 cm/s. There is antegrade flow in the left vertebral artery. IMPRESSION: 1. <50% stenosis in the right internal carotid artery. 2. <50% stenosis in the left internal carotid artery. Reviewed, dictated and finalized at location A.
--- OUTSIDE RECORDS SUMMARY | 2025-02-05 14:28 | XMS_ITS | Clinical Summary ---
Author Organization [facility] Address [address] [place] [address] Care Team Providers Care Air Pumper Name Role Phone Unavailable Primary Care Provider [...] series) 2016 COVID-19 Vaccine (2023-2 5 season) 2025 Meningococcal B Vaccine Aged Out No l onger eligible based on patient's age to complete this topic Meningococcal Vaccine Aged Out No mariella joycelyn eligible based on patient's age to complete this topic RSV Immunizations Under 20 Months Aged Out No longer eligible based on patient's age to complete this topic
--- OUTSIDE RECORDS SUMMARY | 2025-02-05 14:28 | XMS_ITS | Clinical Summary ---
Author Organization [facility] Address [address] [place] [address] Phone Care Team Providers Care Offender Employment Specialist Name Role Phone Eber Acuña MD Primary Care Provider [phone] Allergies Active Allergy Reactions Criticality Noted Date [...] on file Legal Sex Female 8:56 AM [facility] Gender Identity Not on file Sexual Orientation [...] 01/30/2016, 07/02/2015, Additional history exists Insurance MEDICARE [facility] Care Teams Offender Employment Specialist Relationship Specialty Start Date End Date Eber Acuña MD [address] [facility] [address] [place] [id number] PCP - General Internal Medicine 01/23/19
--- OUTSIDE RECORDS SUMMARY | 2025-02-05 14:28 | XMS_ITS | Encounter Summary ---
Author Organization [facility] Address [address] [place] [address] Care Team Providers Care Faith Healer Name Role Phone Eber Acuña MD Primary Care Provider [phone] Encounter Details Date Type Department Care Team (Late st Contact Info) Description 08/25/2017 Lab Requisition [facility] [address] [place] [id number] Navi Yee MD [address] [place] [address] Social History Tobacco Use Types Packs/Day Years Used Date Smoking Tobacco: Former Cigarettes Q uit: 09/14/1995 Smokeless Tobacco: Never Alcohol Use Standard Drinks/Week Comments No 0 (1 standard drink = 0.6 oz pur e alcohol) Comments Unknown Sex and Gender Information Value Date Recorded Sex Assigned at Not on file Legal Sex Female 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 Gender Identity Not on file Sexual Orientation Not on file documented as of this encounter Plan of Treatment Not on file documented as of this encounter Procedures Procedure Name Priority Date/Time Associated Diagnosis Comments DERMATOPATHOLOGY Routine 08/24/2017 12:0 0 AM CDT documented in this encounter Results * DERMATOPATHOLOGY (08/24/2017 12:00 AM CDT) Case Report Dermatopathology Report Case: [id number] Authorizing Provider: Navi Yee MD Collected: 08/24/2017 12:00 AM Pathologist: Jann Rubio MD Received: 08/25/2017 11:33 AM Specimens: A) - Skin, left mid anterior medial pretibia B) - Skin, right superior midline benedict C) - Skin, right midline benedict 6:38 PM [facility] DERMATOPATH[facility]Y [facility]OR[facility] Final Diagnosis Specimen A. SKIN, left mid anterior medial pretibia: BENIGN VERRUCOUS KERATOSIS, INFLAMED (L82.1) NOT PRESENT AT SAMPLED MARGIN Specimen B. SKIN, right superior midline benedict: BASAL CELL CARCINOMA, INFILTRATIVE PATTERN (C44.712) NOT PRESENT AT SAMPLED MARGIN Specimen C. SKIN, right midline benedict: ACTINIC KERATOSIS (L57.0) NOT PRESENT AT SAMPLED MARGIN 6:38 PM [facility] DERMATOPATHOLOGY [facility]ORAT[facility] at 1838 CDT Clinical History A-C: R/O SCC. Check margins. 6:38 PM [facility] DERMATOPATHOLOGY [facility] Gross Description Specimen: A: Received is one formalin filled container labeled with the patient's name and designated left mid anterior medial pretibia. The specimen consists of a shave removal measuring [id number].The margin is inked green. Jar 0. Specimen: B: Received is one formalin filled container labeled with the patient's name and designated right superior midline benedict. The specimen consists of a shave removal measuring [id number]. The margin is inked green. Jar 0. Specimen: C: Received is one formalin filled container labeled with the patient's name and designated right midline benedict. The specimen consists of a shave removal measuring [id number]. The margin is inked green. Jar 0. 6:38 PM [facility] DERMATOPATHOLOGY [facility] Microscopic Description Specimen A. SKIN, [...] characteristic determined by the Dermatopathology Laboratory at [facility]. These tests need not be, and therefore are not, approved by the [place] Food and Drug Administration. The tests are used for clinical purposes. Billing Codes Specimen Charges Stain Charges 25103 76426 47144 1 1 1 8 6:38 PM CDT [...] PATHOLOGY/CYTOLOGY ORD ERABLES Final Result DERMATOPATHOLOGY LABORATORY [facility] - Department of Dermatology [address] [facility], 5th Floor Lab B [address] [phone] documented in this encounter Visit Diagnoses Not on filedocumented in this encounter Care Teams Faith Healer Relationship Specialty Start Date End Date Eber Acuña MD [address] [place] [address] PCP - General 04/09/15 documented as of this encounter
--- OUTSIDE RECORDS SUMMARY | 2025-02-05 14:28 | XMS_ITS | Clinical Summary ---
Author Organization [facility] Address [address] [facility] [place] [address] Care Team Providers Care Telephony Engineer Name Role Phone Eber Acuña MD Primary Care Provider [phone] Source Comments [facility] Affiliates and Associated Physician Practices is amultiple site organization consisting of ambulatory clinics and hospital sitesin [place], [place], [place] and [place]. This disclosure is being madepursuant to the Care Everywhere program and may not contain all information available regarding this patient. Last updated 18.[facility] Allergies Active Allergy Reactions Criticality Noted Date [...] (4000 mg) / 24 hours. 4 Active Additional Information Patient not taking.Reported on 01/09/2025 aspirin (Aspirin) 81 MG chew tabletIndicati ons:Instabilit y of internal right knee prosthesis, initial encounter Take 1 (one) tablet by mouth 2 times daily 60 tablet 4 Active Additional Information Patient not taking.Reported on 01/09/2025 HYDROcodone-ac etaminophen ([place]) 5-325 MG tabletIndicati ons:Instabilit y of internal right knee prosthesis, initial encounter Take 1 (one) tablet by mouth every 6 hours as needed for Pain 42 tablet 4 Active pregabalin (Lyrica) 50 MG capsuleIndicat ions:Instabili ty of internal right knee prosthesis, initial encounter Take 1 (one) capsule by mouth 2 times daily 4 Active Additional Information Patient not taking.Reported on 01/09/2025 docusate sodium (Colace) 100 MG capsuleIndicat ions:Instabili ty of internal right knee prosthesis, initial encounter Take 1 (one) capsule by mouth 2 times daily 4 Active Additional Information Patient not taking.Reported on 01/09/2025 polyethylene glycol 3350 (Miralax) 17 g packetIndicati ons:Instabilit y of internal right knee prosthesis, initial encounter Take 17 (seventeen) g by mouth once daily 4 Active Additional Information Patient not taking.Reported on 01/09/2025 famotidine (Pepcid) 20 MG tabletIndicati ons:Instabilit y of internal right knee prosthesis, initial encounter Take 1 (one) tablet by mouth 2 times daily 4 Active Additional Information Patient not taking.Reported on 01/09/2025 pantoprazole EC (Protonix) 20 MG tablet 5 Active Active Problems Problem Noted Date Diagnosed Date 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, 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/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/2015 Chronic kidney disease, stage III (moderate) Gastro-esophageal reflux disease without esophag itis 08/01/2013 Essential (primary) hypertension 02/07/2013 Pure hypercholesterolemia 02/07/2013 Nontoxic single thyroid nodule 02/07/2013 Encounters Date Type Department Care Team Description 01/09/2025 10:00 AM CDT Office Visit [facility] - Orthopedic Surgery [address] [place] [address] Anders Gallardo MD 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) 01/09/2025 9:50 AM CDT - 01/09/2025 11:59 PM CDT Hospital Encounter [facility] - [facility] [place] [address] Anders Gallardo MD Discharge Disposition: Home or Self Care 01/09/2025 Travel 12/11/2024 Orders Only [facility] - Orthopedic Surgery [address] [place] [id number] Anders Gallardo MD Status post revision of [...] Answer Date Recorded Patient Health Questionnaire-2 Score 3 01/09/2025 Comments Unknown Sex and Gender Information Value Date Recorded Sex Assigned at Not on file Legal Sex 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 Gender Identity Not on file Sexual Orientation [...] 01/11/2024 9:04 AM CDT Plan of Treatment Health Maintenance Due Date Last Done Comments BONE DENSITY TESTING 1940 MEDICARE AWV 12 MONTHS 1940 DTAP/TDAP/TD VACCINES (1 - Tdap) 1960 PNEUMOCOCCAL VACCINE 50+ (1 of 1 - PCV) 07/17/1991 ZOSTER VACCINE (1 of 2) 07/17/1991 Respiratory Syncytial Virus (RSV) Vaccine Pt: or over 60 yrs (1 - 1-dose 75+ series) 2016 DEPRESSION SCREENING 05/16/2024 10/04/2023 COVID-19 VACCINE ( season) 2025 01/25/2022, 02/08/2021, 08/22/2020, Additional history exists INFLUENZA VACCINE (#1) 2025 , 01/18/2020, 02/13/2019, [...] this topic Medical Devices Implanted Type Area Post Partum Nurse Device Identifier Shelf Expiration Date Model / Serial / Lot Vangaurd 360 Posterior Augment Implanted:Qty : 1 on 09/19/2023 by Anders Gallardo MD at [facility] Right: [employer] [id number] 12/06/2026 [id number] / / [id number] Cmpnt Fem Kn Rt Vngrd 360 Por 70mm Rev Implanted:Qty : 1 on 09/19/2023 by Anders Gallardo MD at [facility] Right: Femur [employer] 05/26/2031 [id number] / / [id number] Block Aug Vngrd 360 Unv [id number] Kn Fem Implanted:Qty : 1 on 09/19/2023 by Anders Gallardo MD at [facility] Right: Femur [employer] 01/18/2030 [id number] / / [id number] Stem Tib 80mm 14mm Vngrd 360 Kn Spline Implanted:Qty : 1 on 09/19/2023 by Anders Gallardo MD at [facility] Right: [employer] 05/28/2031 [id number] / / [id number] Hv Ab Bone Cement Implanted:Qty : 1 on 09/19/2023 by Anders Gallardo MD at [facility] Right: [employer] [id number] 07/14/2027 [id number] / / [id number] Hv Ab Bone Cement Implanted:Qty : 1 on 09/19/2023 by Anders Gallardo MD at [facility] Right: [employer] [id number] 07/14/2027 [id number] / / [id number] Brng 71/[id number] Vngrd 360 Pe Kn Post Implanted:Qty : 1 on 09/19/2023 by Anders Gallardo MD at [facility] Right: [employer] 08/07/2028 [id number] / / [id number] Cmpnt Tibtry Kn Prm Lck Bar Bmt As Mx Implanted:Qty : 1 on 09/19/2023 by Anders Gallardo MD at 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 Indication: Z96.651: Status post revision of total replacement of right knee Z96.651: History of arthroplasty of right knee M25.561: Right knee pain, unspecified chronicity Additional History: Weightbearing COMPARISON: Plain films from 01/11/2024 FINDINGS: The right total knee arthroplasty is unchanged in position or alignment. No evidence of hardware failure or loosening. No joint effusion. Soft tissues are unremarkable. Procedure Note Chelo Cruz MD - 01/09/2025 PROCEDURE: XR KNEE RIGHT 4VW OR MORE DATE/TIME OF EXAM: 01/09/2025 10:03 AM CLINICAL INFORMATION: None relevant/not provided if blank. Indication: Z96.651: Status post revision of total replacement of right knee Z96.651: History of arthroplasty of right knee M25.561: Right knee pain, unspecified chronicity Additional History: Weightbearing COMPARISON: Plain films from 01/11/2024 FINDINGS: The right total knee arthroplasty is unchanged in position or alignment. No evidence of hardware failure or loosening. No joint effusion. Soft tissues are unremarkable. IMPRESSION: No change, intact right knee arthroplasty > Interpreting Provider: Chelo Cruz MD on 01/09/2025 10:34 AM Anders Gallardo MD DIAGNOSTIC IMAGING ORDERABL ES Final Result from Last 3 Months Insurance MEDICARE MEDICARE Advance Directives Documents on File Type Date Recorded Patient [employer] Expl anation Adv Directive/Living Will/POA 09/22/2023 9:42 PM * Full Code (Latest Code Status on File) Date Activated Date Inactivated Comments 09/21/2023 6:06 PM 09/30/2023 9:35 AM * Full Code Date Activated Date Inactivated Comments 09/19/2023 2:06 PM 09/21/2023 5:50 PM Care Teams Telephony Engineer Relationship Specialty Start Date End Date Eber Acuña MD [address] [place] [address] PCP - General 04/09/15
--- OUTSIDE RECORDS SUMMARY | 2025-02-05 14:28 | XMS_ITS | Clinical Summary ---
Author Organization [facility] Address [address] [place] [address] Care Team Providers Care Bin Worker Name Role Phone Eber Acuña MD Primary Care Provider [phone] Allergies Active Allergy Reactions Criticality Noted Date [...] Comments Blood Pressure 217/69 07/13/2019 10:49 AM HEAD SETTER Pulse 63 07/13/2019 10:49 AM HEAD SETTER Temperature 36.4 C (97.6 F) 07/13/2019 10:49 AM HEAD SETTER Respiratory Rate - - Oxygen Saturation 95% 07/13/2019 10: 49 AM HEAD SETTER Inhaled Oxygen Concentration - - Weight 77.9 kg (171 lb 11.2 oz) 020 10:49 AM HEAD SETTER Height 160 cm (5' 3) 07/13/2019 10:49 AM HEAD SETTER Body Mass Index 30.42 07/13/2019 10:49 AM HEAD SETTER Plan of Treatment Health Maintenance Due Date [...] exists Insurance MEDICARE PART A AND B [facility] Care Teams Bin Worker Relationship Specialty Start Date End Date Eber Acuña MD [address] [facility] [address] [place] [id number] PCP - General Family Practice 09/14/18
--- OUTSIDE RECORDS SUMMARY | 2025-02-05 14:28 | XMS_ITS | Clinical Summary ---
Author Organization [facility] Address [address] [place] [address] Care Team Providers Care Door Repairer Bus Name Role Phone Unavailable Primary Care Provider [...] drink = 0.6 oz pur e alcohol) [facility] Utilities Answer Date Recorded In the past [...] often do you attend chur ch or oriental orthodox services? Patient declined 09/22/2023 Do you belong to any clubs o r organizations such as baptism groups, unions, fraternal or athletic groups, or [...] and heating? Not hard at all 09/22/2023 [facility] [place] of Occupat ional Health - Occupational Stress [...] this topic Medical Devices Implanted Type Area Boat Rigger Device Identifier Shelf Expiration Date Model / Serial / Lot Patella Patella Knee Advance Directives * Full Resuscitation (Latest Code Status on File) Date Activated Date Inactivated Comments 09/21/2023 6:12 PM 09/30/2023 11:44 AM Question Answer Comments I have discussed this order with the patient or his/her surrogate and have received informed consent. Yes
== END 2025-02-05 14:12 | disposition home or self-care (01) ==
PROVIDERS: PCP Family Medicine; Visit Provider Psychiatry & Neurology Neurology
DX: I65.23 Occlusion and stenosis of bilateral carotid arteries (principal); Z86.73 Personal history of transient ischemic attack (TIA), and cerebral infarction without residual deficits
CPT/HCPCS: 93880

== ENCOUNTER 2025-03-08 09:04 | Outpatient (CLI) | payer MEDICARE, OTHER, SELFPAY ==
--- OUTSIDE RECORDS SUMMARY | 2025-03-08 09:15 | XMS_ITS | Clinical Summary ---
Author Organization [facility] Address [address] [place] [phone] Phone Care Team Providers Care Electrical Systems Designer Name Role Phone Eber Acuña MD Primary Care Provider [phone] Allergies Active Allergy Reactions Criticality Noted Date [...] on file Legal Sex Female 8:56 AM [facility] Gender Identity Not on file [...] 01/30/2016, 07/02/2015, Additional history exists Insurance MEDICARE [facility] Care Teams Electrical Systems Designer Relationship Specialty Start Date End Date Eber Acuña MD [address] [facility] [address] [place] [id number] PCP - General Internal Medicine 01/23/19
--- OUTSIDE RECORDS SUMMARY | 2025-03-08 09:15 | XMS_ITS | Clinical Summary ---
Author Organization [facility] Address [address] [place] [address] Care Team Providers Care Stone Operator Name Role Phone Unavailable Primary Care [...] drink = 0.6 oz pur e alcohol) [facility] Utilities Answer Date Recorded In the past [...] often do you attend chur ch or jewish services? Patient declined 09/22/2023 Do you belong to any clubs o r organizations such as temple groups, unions, fraternal or athletic groups, or [...] and heating? Not hard at all 09/22/2023 [facility] [place] of Occupat ional Health - Occupational Stress [...] (1 - Tdap) 1960 Pneumococcal Vaccine: 65+ Years (2 of 3 - PCV20 or PCV21) 04/05/2017 04/05/2016, 07/02/2015 HIB Vaccines Aged Out No longer eligi [...] this topic Medical Devices Implanted Type Area Binder Lockstitch Device Identifier Shelf Expiration Date Model / Serial / Lot Patella Patella Knee Advance Directives * Full Resuscitation (Latest Code Status on File) Date Activated Date Inactivated Comments 09/21/2023 6:12 PM 09/30/2023 11:44 AM Question Answer Comments I have discussed this order with the patient or his/her surrogate and have received informed consent. Yes
--- OUTSIDE RECORDS SUMMARY | 2025-03-08 09:15 | XMS_ITS | Clinical Summary ---
Author Organization [facility] Address [facility] [place] [address] Care Team Providers Care Candy Polisher Name Role Phone Anibal Padron Primary Care Provider [phone] Allergies Active Allergy Reactions Criticality Noted Date Comments Iodinated Contrast Media Hives High 09/27/2018 Povidone Iodine Hives 02/23/2025 Medications HYDROcodone-acet aminophen (NORCO) 5-325 MG tabletIndication s:Acute Pain < 3 Day Supply Take 1 tablet by mouth every 6 (six) hours as needed for Pain. Indications : Acute Pain < 3 Day Supply 10 tablet 02/23/2025 Active Encounters Date Type Department Care Team Description 02/23/2025 6:25 AM CDT - 02/23/2025 8:45 AM CDT Emergency [facility] [place] [address] Catarina Ortiz MD Fall; Arm Injury Discharge Disposition: Home or Self Care (Routine Discharge) 02/23/2025 Travel from Last 3 Months Social History Tobacco Use Types Packs/Day Years Used Date Smoking Tobacco: Former Cigarettes Passive Smoke Exposure: Past Smokeless Tobacco: Never Alcohol Use Standard Drinks/Week Comments Not Currently 0 (1 standard drink = 0.6 oz pur e alcohol) Comments Unknown Sex and Gender Information Value Date Recorded Sex Assigned at Female 02/23/2025 6:32 AM CDT Legal Sex Female 4:36 PM CDT Gender Identity Not on file Sexual Orientation Not on file Last Filed Vital Signs Vital Sign Reading Time Taken Comments Blood Pressure 151/55 02/23/2025 8:00 AM CDT Pulse 71 02/23/2025 8:00 AM CDT Temperature 37.3 C (99.1 F) 02/23/2025 5:59 AM CDT Respiratory Rate 16 02/23/2025 8:00 AM CDT Oxygen Saturation 92% 02/23/2025 8:00 AM CDT Inhaled Oxygen Concentration - - Weight 65.3 kg (144 lb) 02/23/2025 5:59 AM CDT Height 160 cm (5' 3) 02/23/2025 5:59 AM CDT Body Mass Index 25.51 02/23/2025 5:59 AM CDT Plan of Treatment Health Maintenance Due Date Last Done Comments Annual Medicare Wellness Visit 2006 Dexa Scan (General) 2006 Zoster Vaccines (2 of 3) 04/17/2015 02/20/2015 COVID-19 Vaccine ( season) 2025 02/21/2025, 01/24/2024, 03/02/2023, Additional history exists DTaP, Tdap and Td Vaccines (2 - Td or Tdap) 12/20/2032 12/20/2022 Pneumococcal Vaccine: 50+ Years Completed 12/24/2022, 02/07/2017, 04/05/2016, Additional history exists RSV Immunization or 60+ Years Completed 06/29/2023 Influenza Adult Completed 02/21/2025, 01/14, 07/02/2023, Additional history exists Hepatitis A Vaccines Aged Out No long er eligible based on patient's age to complete this topic Meningococcal B Vaccine Aged Out No l onger eligible based on patient's age to complete this topic Meningococcal Vaccine Aged Out No mariella joycelyn eligible based on patient's age to complete this topic RSV Immunizations Under 20 Months Aged Out No longer eligible based on patient's age to complete this topic Procedures Procedure Name Priority Date/Time Associated Diagnosis Comments XR WRIST LT MIN 3V STAT 02/23/2025 7: 11 AM CDT from Last 3 Months Results * XR WRIST LT MIN 3V (02/23/2025 7:11 AM CDT) Anatomical Region Laterality Modality Wrist Radiographic Mami ging 02/23/2025 7:12 AM CDT Impressions 02/23/2025 7:14 AM CDT IMPRESSION: 1. Nondisplaced distal radius metaphysis fracture extends to the radiocarpal joint space. 2. Widening of the scapholunate interval, possible underlying ligament injury. 3. Joint space loss predominantly of the triscaphe and trapeziometacarpal articulations, but affecting all joint spaces of the wrist. Lack of significant hypertrophic bone suggestive of possible inflammatory arthritis. Associated erosion of the distal pole scaphoid as well. Referred By: Interpreted By: Vidal Bhatia MD, 02/23/2025 7:12 AM Narrative 02/23/2025 7:14 AM CDT [place] [address] EXAMINATION: Left wrist EXAM DATE: 02/23/2025 6:39 AM REASON FOR EXAM: fall COMPARISON: None TECHNIQUE: 3 views FINDINGS: Soft tissue swelling. Joint space loss predominantly of the triscaphe and trapeziometacarpal articulations, but affecting all joint spaces of the wrist. Lack of significant hypertrophic bone suggestive possibly inflammatory arthritis. Associated erosion of the distal pole scaphoid as well. Widening of the scapholunate interval, possible underlying ligament injury. Nondisplaced distal radius metaphysis fracture extends to the radiocarpal joint space. Ulnar styloid intact. Procedure Note Vidal Bhatia MD - 02/23/[address] [address] EXAMINATION: Left wrist EXAM DATE: 02/23/2025 6:39 AM REASON FOR EXAM: fall COMPARISON: None TECHNIQUE: 3 views FINDINGS: Soft tissue swelling. Joint space loss predominantly of the triscaphe andtrapeziometacarpal articulations, but affecting all joint spaces of thewrist. Lack of significant hypertrophic bone suggestive possiblyinflammatory arthritis. Associated erosion of the distal pole scaphoid aswell. Widening of the scapholunate interval, possible underlying ligamentinjury. Nondisplaced distal radius metaphysis fracture extends to the radiocarpaljoint space. Ulnar styloid intact. IMPRESSION: 1. Nondisplaced distal radius metaphysis fracture extends to theradiocarpal joint space. 2. Widening of the scapholunate interval, possible underlying ligamentinjury. 3. Joint space loss predominantly of the triscaphe and trapeziometacarpalarticulations, but affecting all joint spaces of the wrist. Lack ofsignificant hypertrophic bone suggestive of possible inflammatoryarthritis. Associated erosion of the distal pole scaphoid as well. Referred By: Interpreted By: Vidal Bhatia MD, 02/23/2025 7:12 AM us Catarina Ortiz MD GENERAL IMAGING Final Result from Last 3 Months Insurance MEDICARE [facility] Care Teams Candy Polisher Relationship Specialty Start Date End Date Anibal Padron [place] [address] [address] PCP - General PHYSICIAN LICENSE REGISTRATION EXAMINER 02/23/25
[2025-03-08 09:53] LABS: Albumin Level 4.1 g/dL (3.5-5.1); Anion Gap 10 mmol/L (4-12); Blood Urea Nitrogen 13 mg/dL (7-17); Calcium 9.5 mg/dL (8.4-10.2); Carbon Dioxide 23 mmol/L (22-30); Chloride 103 mmol/L (98-107); Estimated Glomerular Filt Rate 31; Glucose 110 mg/dL (65-110); Potassium 4.3 mmol/L (3.4-5.0); Sodium 136 mmol/L (137-145)
[2025-03-08 11:03] LABS: Total Protein Urine Random 12 mg/dL; Ur Ttl Prot Creatinine Ratio 0.10 mg/mg (0-0.20)
== END 2025-03-08 09:05 | disposition home or self-care (01) ==
LOC: ANHLAB 09:05
PROVIDERS: Visit Provider Internal Medicine Nephrology
DX: I12.9 Hypertensive chronic kidney disease with stage 1 through stage 4 chronic kidney disease, or unspecified chronic kidney disease (principal); N18.32 Chronic kidney disease, stage 3b
CPT/HCPCS: 36415; 80069; 82570; 84156

== ENCOUNTER 2025-03-28 02:36 | Inpatient (IN) | payer MEDICARE, OTHER, SELFPAY ==
[2025-03-28] VITALS (7 sets, daily range): BP systolic 130–158; BP diastolic 46–62; PULSE 74–86; RESP 16–20; TEMP 36.5–36.6; O2SAT 92–97; BMI 25.4
--- NOTE | ~2025-03-28 | XR_ITS ---
Examination: XR elbow RT min 3V, XR shoulder RT min 2V, XR humerus RT Clinical History: Fall Comparison: None Technique: 2 views right shoulder, 2 views right humerus, 3 views right elbow Findings/impression: Right shoulder: 1. Transverse fracture proximal humerus with displacement of distal shaft. Right humerus: 1. Transverse fracture proximal humerus with displacement of distal shaft Right elbow: 1. No fracture or dislocation. Reviewed, dictated and finalized at location R. ONAL SALES ASSOCIATE
--- NOTE | ~2025-03-28 | CT_ITS ---
EXAMINATION:CT diagnostic chest w con DATE: 04/01/2025 07:23 INDICATION: Pulmonary nodule. Abnormal chest radiograph. TECHNIQUE: Computed tomography (CT) of the chest was performed with 75 mL Omnipaque 350 intravenous contrast. Automated exposure control and iterative reconstruction technique were employed. The dose-length product (DLP) was 216.81 mGy-cm. COMPARISON: Chest CT 06/22/2023 FINDINGS: There is severe emphysema. There is mild atelectasis bilaterally. No pleural effusion. The heart size is normal. There are coronary artery calcifications. There are calcifications of the aortic valve. No pericardial effusion. There is a multinodular goiter extending into the superior mediastinum with leftward displacement of the trachea. There is a 3.3 cm cyst in the liver. There are is cortical thinning of the kidneys. There are cysts in the kidneys measuring up to 3.5 cm on the left. There is a moderate-sized sliding hiatal hernia. There is a comminuted fracture of proximal right humerus with internal fixation. There is severe cervical spondylosis, mild thoracic spondylosis, and severe lumbar spondylosis. IMPRESSION: 1. No abnormal correlate for the chest radiograph finding. 2. Severe emphysema. 3. Moderate-sized sliding hiatal hernia. 4. Multinodular goiter. Reviewed, dictated and finalized at location E. ER LICENSE EXAMINER
--- NOTE | ~2025-03-28 | XR_ITS ---
EXAMINATION: XR forearm LT 2V, 04/01/2025 15:37 SPINE SURGEON HISTORY: reassess prior radial fracture COMPARISON: No comparisons available. Findings: There is a healing fracture of the distal radius. No significant degenerative changes. Soft tissues unremarkable. Impression: Healing fracture Reviewed, dictated and finalized at location P. E SURGEON Impression: Healing fracture
--- NOTE | ~2025-03-28 | XR_ITS ---
Examination: XR hip RT min 2V, XR knee RT 3V Clinical History: fall Comparison: Right knee radiographs 04/05/2023 Technique: 2 views right hip, 3 views right knee Findings/impression: Right hip: 1. Arthroplasty intact without associated fracture or dislocation. 2. Chronic fractures right pubic rami. Right knee: 1. Arthroplasty intact without associated fracture or dislocation. 2. No joint effusion. Reviewed, dictated and finalized at location R. STRY FOREMAN
--- NOTE | ~2025-03-28 | XR_ITS ---
EXAMINATION: X-ray surgery or focal no charge INDICATION: ORIF right proximal humerus. Fracture. COMPARISON: March 28 TECHNIQUE: 4 fluoroscopic images of the right shoulder were obtained during ORIF. Fluoroscopy exposure time was 1 minute and 30 seconds. Air Kerma 6.0460 mGy. DAP 1.1986 mGym2. FINDINGS/IMPRESSION: No radiologist was present or involved at the time of the procedure. Static images were submitted for interpretation. Fluoroscopic documentation of ORIF of the right proximal humerus. Please refer to the operative note for complete procedural details Reviewed, dictated and finalized at location A. NE ANIMAL TRAINER
--- NOTE | ~2025-03-28 | CT_ITS ---
EXAM/PROCEDURE: CT shoulder RT wo con HISTORY: fx COMPARISON: None available. TECHNIQUE: Right shoulder CT FINDINGS: Mildly comminuted proximal humerus metaphyseal fracture present with approximately 2.5 cm anterior displacement and a 2 cm of foreshortening. No pathologic lesion is seen. The humeral head appears intact and the glenohumeral joint remains in gross alignment. No other fracture seen. Soft tissue swelling and probable small hematoma about the right shoulder fracture site noted. Visualized portions of the right lung appear clear with advanced emphysematous appearing changes. IMPRESSION: Mildly comminuted displaced and foreshortened proximal humerus metaphyseal fracture. The glenohumeral articulation remains intact. Other findings as above. NOTE: Preliminary radiologist/physician report provided by [facility] radiologist. Reviewed, dictated and finalized at location A. R ENGINEER IMPRESSION: Mildly comminuted displaced and foreshortened proximal humerus metaphyseal frac ture. The glenohumeral articulation remains intact. Other findings as above. NOTE: Preliminary radiologist/physician report provided by [facility] radiologist .
--- NOTE | ~2025-03-28 | XR_ITS ---
Examination: XR chest 1V portable Clinical History: oxygen demand Comparison: Chest x-ray 01/11/2023 CTA chest 01/10/2023 Technique: Portable AP Findings: Heart size normal. Emphysema and scattered scarring. No acute bony abnormality. IMPRESSION: 1. No acute cardiopulmonary findings given portable technique. Reviewed, dictated and finalized at location R. BUTTER HAND
[2025-03-28] MEDS: HYDROcodone/acetaminophen (*CRX) 5-325 MG TABLET 1 TAB PO (03:15)
--- NOTE | 2025-03-28 03:49 | ED_ITS ---
HPI - Fall General Chief Complaint: Fall Stated Complaint: fall, arm pain Time Seen by Provider: 03/28/25 03:03 Source: patient, family (Daughter) and RN notes reviewed Mode of arrival: EMS Limitations: no limitations History of Present Illness HPI Narrative: [id number] 84-year-old female with history CVA and hypertension presents with right arm pain after falling at home. She lives . She reports losing balance trying to use the bathroom. She recently broke her left wrsit (distal radius fracture) in which the extremity was splinted but the splint of initially fell/came off and she was transition to a hand brace but she did not follow-up orthopedic surgery for this. Plan was follow-up imaging in the next few weeks through her primary care physician. History of right hip surgery in approx 2021. She is on Plavix. She reports numbness along her right forearm and is initially holding her forearm/elbow. EMS applied simple makeshift sling Complaining of pain to RN at elbow and R hip. 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 Tells me R knee. Related Data Home Medications ?Medication ?Instructions ?Recorded ?Confirmed ?Last Taken ?Type cholecalciferol (vitamin D3) 25 25 mcg PO DAILY 03/28/25 03/27/25 History mcg (1,000 unit) capsule mecobalamin (vitamin B12) 1,000 1,000 mcg PO DAILY 03/28/25 03/27/25 History mcg chewable tablet Allergies Allergy/AdvReac Type Severity Reaction Status Date / Time iodine Allergy Unknown Rash Verified 03/28/25 10:05 Iodine and Iodide Containing Allergy Unknown Rash Verified 03/28/25 10:05 Produc acetaminophen (From [place]) AdvReac vomiting Verified 03/28/25 13:52 hydrocodone (From [place]) AdvReac vomiting Verified 03/28/25 13:52 [id number] Allergy Unknown Rash Uncoded 03/25/25 10:24 [facility] Past Medical History Medical History (Updated 03/28/25 @ 17:31 by Gunjan Cortez MD) Right hand dominant Right carotid bruit Left-sided cerebrovascular accident (CVA) Dementia of the Alzheimer's type Stage 3b chronic kidney disease Anemia Elevated troponin Urinary tract infection Respiratory failure Postoperative anemia Acute blood loss anemia Acute respiratory failure with hypoxia Acute metabolic encephalopathy Urinary frequency Arthritis Pelvic fracture Prolapse of female pelvic organs Osteoarthritis Mild obstructive sleep apnea On sleep study in March 2008. Noncompliance with CPAP Basal cell carcinoma Hyperlipidemia Cerebrovascular accident (1995) With mild right-sided weakness. Transient ischemic attack Gastroesophageal reflux disease Chronic low back pain Urge incontinence History of vaginal delivery x 2. Asthma Surgical History Surgical History History of arthroplasty of right knee (03/31/22) revision 2023 History of basal cell carcinoma excision (2016) From the nose and brow. Status post debridement (2018) Debridement of traumatic hematoma of the left medial leg. History of dilation and curettage History of cataract extraction History of bilateral breast biopsy (09/2006) With benign pathology. History of tubal ligation [place] teeth removed Family History Family History Mother Family history of malignant neoplasm of breast in first degree relative Hypertension Cerebrovascular accident Diabetes mellitus Other HLD (hyperlipidemia) Heart disease Skin cancer Social History Social History Social History: Lives with and 2 cats. Surrogate decision maker: Ronal Palacios, . Code status: Full code. Smoking packs per day: 1 Smoking cigarettes per day: 20.0 Years smoked: 30 Smoking pack-years: 30.00 Smoking status: Former smoker Tobacco type: cigarettes Second hand tobacco smoke exposure: No Smoking end date: 09/13/89 Alcohol intake: never Substance use: never Substance use type: does not use Lack of Transportation: No Lack of Food: Never True Current Housing: I Have Housing Concerned About Future Housing: No Difficulty Paying Gas/Electric Bills: No Difficulty Paying for Meds: No Currently Unemployed: No Education: Don't Know Difficulty w/ Childcare or Family Care: No Living arrangements: with family Additional living arrangements comments: Resides in [place] with her . Occupation/Education: retired Additional occupation/education comments: Retired. Spiritual care concerns: No Exam 2 Narrative: GENERAL: Well-appearing, well-nourished, and in no acute distress. HEAD: Normocephalic, atraumatic. EYES: Non injected, non icteric ENT: Nares clear, no rhinorrhea or epistaxis. Gross auditory acuity intact. NECK: Supple. No meningismus. CHEST: Speaking in full sentences. No respiratory distress. HEART: Regular rate and rhythm. . ABDOMEN: Soft, nondistended. No rigidity or guarding. Not peritoneal EXTREMITIES: Holding R arm at the elbow with her left hand. Able to show some movement at the right wrist and fingers and minimal movement at the R elbow. Tender to palpation everywhere including at R proximal humerus, R elbow, R hip, and R knee. SKIN: Warm, dry, no rash. NEURO: Alert and oriented. Answering questions. Following commands. Normal speech without aphasia or dysarthria. Diminished sensation reported along dorsal aspect of right forearm. PSYCH: Normal mood and affect. Course Vital Signs Vital signs: Vital Signs Temperature 98 F 03/28/25 02:37 Pulse Rate 76 03/28/25 02:37 Respiratory Rate 16 03/28/25 02:37 Blood Pressure 156/49 H 03/28/25 02:37 Pulse Oximetry 97 03/28/25 02:37 Oxygen Delivery Room Air 03/28/25 02:37 Temperature 97.7 F 03/28/25 14:00 Pulse Rate 79 03/28/25 14:00 Respiratory Rate 16 03/28/25 14:00 Blood Pressure 130/56 L 03/28/25 14:00 Pulse Oximetry 97 03/28/25 14:00 Oxygen Delivery Room Air 03/28/25 15:45 MDM - Fall MDM Narrative Medical decision making narrative: 84-year-old [id number] female with past medical history CVA and hypertension who presents after losing her falling at home. She has complaint of pain throughout right side of body and in particular throughout right right hip and right knee. History R hip replacement and recently sustained L distal radius fracture, non operative. In the emergency department she is afebrile with vital signs notable for hypertension. Leukocytosis. Obvious deformity of proximal humerus. Discussed with Dr Carbajal who will review images. He calls back at 05:35; requests additional shoulder plain film imaging to review. Creatinine appears to be at baseline, consistent with CKD. Dr. Carbajal requesting CT for further planning. Recommends shoulder immobilizer be applied and patient to be admitted to the hospitalist. Will discuss options with patient based on CT images. Patient and daughter updated at bedside. Verifies understanding. Patient discussed with on-call hospitalist Dr Raygoza. Differential Diagnosis Differential diagnosis: Likely dislocation of shoulder region and other (considered multiple fractures/dislocations) Medical Records Attestation: I reviewed the patient's medical records. Medical records narrative: History of R TKA followed by dislocation requiring operative reduction Lab Data Attestation: I reviewed the patient's lab results. 03/28/25 04:43 03/28/25 05:36 Labs: Lab Results 03/28/25 03/28/25 Range/Units 04:43 05:36 WBC 13.2 H (4.5-10.0) K/mm3 RBC 4.43 (4.2-5.4) M/mm3 Hgb 13.2 (12.0-15.0) g/dL Hct 41.0 (37.0-47.0) % MCV 92.6 (80-100) fl MCH 29.8 (26-34) pg MCHC 32.2 (32-36) g/dl RDW 14.7 H (11.5-14.5) % Plt Count 294 (150-375) k/mm3 MPV 9.8 (7.4-10.4) fl Immature Gran % (Auto) 0.7 H (0-0.5) % Neut % (Auto) 84.1 H (45.5-73.1) % Lymph % (Auto) 8.8 L (18.3-44.2) % [place] % (Auto) 5.8 (2.6-8.5) % Eos % (Auto) 0.3 (0-4.4) % Baso % (Auto) 0.3 (0.2-1.2) % Lymph # (Auto) 1.16 (0.9-3.2) K/mm3 [place] # (Auto) 0.8 H (0.1-0.6) K/mm3 Eos # (Auto) 0.0 (0-0.3) K/mm3 Baso # (Auto) 0.0 (0.0-0.1) K/mm3 Abs Immat Gran (auto) 0.09 H (0.00-0.031) K/mm3 Absolute Neuts (auto) 11.1 H (1.3-6.7) K/mm3 Absolute Nucleated RBC 0.000 (0.0-0.012) K/mm3 Nucleated RBC % 0.0 (0.0-0.2) % PT 14.4 (11.1-14.7) Seconds INR 1.1 APTT 30.6 (22.3-36.8) Seconds Sodium 134 L (137-145) mmol/L Potassium 3.9 (3.4-5.0) mmol/L Chloride 109 H (98-107) mmol/L Carbon Dioxide 19 L (22-30) mmol/L Anion Gap 6 (4-12) mmol/L BUN 15 (7-17) mg/dL Creatinine 1.33 H (0.7-1.0) mg/dL Estim Creat Clear Calc 25 ml/min Estimated GFR 38 L (59 - ) Glucose 120 H (65-110) mg/dL Calcium 8.3 L (8.4-10.2) mg/dL Imaging Data Attestation: I personally reviewed and interpreted this imaging study as follows: My impression: Elbow w/o acute fx/dislocation on my independent interpretation Hip with intact hardware on my independent interpretation Extremely comminuted and displaced R proximal humeral head on my independent interpretation Knee hardware appears intact on my independent interpretation Radiologist's impression: XR R Hip Stat Rad: No acute fracture dislocation. Incidental findings: Old healed fractures of the right superior and inferior pubic rami. XR R humerus Stat rad: Acute fracture of the proximal humerus. Superior/anterior displacement of the distal fracture fragment. No incidental findings. XR R elbow stat rad: No acute fracture dislocation. No incidental findings. XR R knee stat rad: No acute fracture or dislocation. Non incidental findings. CT Stat Rad R Shoulder: Acute comminuted fracture of the proximal humerus. Anterior superior displacement of the distal fracture fragment. No dislocation. Incidental findings: Emphysema. Discharge Plan Discharge Clinical Impression: Fall, Leukocytosis, Displaced fracture of proximal end of right humerus, CKD (chronic kidney disease) Patient Disposition: Still a Patient Condition: Stable
[2025-03-28 04:51] LABS: Hematocrit 41.0 % (37.0-47.0); Hemoglobin 13.2 g/dL (12.0-15.0); Immature Granulocyte Percent A 0.7 % (0-0.5); Lymphocytes Absolute Auto 1.16 K/mm3 (0.9-3.2); Mean Corpuscular HGB Conc 32.2 g/dl (32-36); Mean Corpuscular Hemoglobin 29.8 pg (26-34); Mean Corpuscular Volume 92.6 fl (80-100); Nucleated Red Blood Cells Absolute Auto 0.000 K/mm3 (0.0-0.012); Nucleated Red Blood Cells Perc 0.0 % (0.0-0.2); Platelet Count Result 294 k/mm3 (150-375); Red Blood Count 4.43 M/mm3 (4.2-5.4); White Blood Count 13.2 K/mm3 (4.5-10.0)
[2025-03-28 05:07] LABS: INR 1.1; Prothrombin Time 14.4 Seconds (11.1-14.7)
[2025-03-28 05:08] LABS: Partial Thromboplastin Time 30.6 Seconds (22.3-36.8)
[2025-03-28] MEDS: MORPHINE SULFATE (*CRX) 4 MG/ML INJ 2 MG IV PUSH (05:20)
[2025-03-28 06:02] LABS: Anion Gap 6 mmol/L (4-12); Blood Urea Nitrogen 15 mg/dL (7-17); Calcium 8.3 mg/dL (8.4-10.2); Carbon Dioxide 19 mmol/L (22-30); Chloride 109 mmol/L (98-107); Estimated CRCL calculation 25 ml/min; Estimated Glomerular Filt Rate 38; Glucose 120 mg/dL (65-110); Potassium 3.9 mmol/L (3.4-5.0); Sodium 134 mmol/L (137-145)
--- NOTE | 2025-03-28 08:06 | PM.IMHP ---
H&P: HPI History of Present Illness Date/Time: 03/28/25 08:06 Chief Complaint: fall with arm pain Narrative: 84 year old female with past medical history of CVA with mild right sided deficits, BARBIE with noncompliance of CPAP, dementia, HTN, HLD, GERD, CKD, chronic LBP, h/o PE no longer on a/c, and presents to the hospital following a ground level fall at her home. Patient is unsure what precipitated the fall but believes she may have tripped over her carpet when attempting to ambulate to her walker. She denies any dizziness or lightheadedness prior to the fall. She denies any loss of consciousness or head strike. She states she was on the ground for 2 hours before her found her and called EMS. She continues to endorse pain to the right arm and leg. She denies any tingling/numbness to the extremities. Patient had a recent fall approximately 1 month ago that resulted in a left distal radial fracture. Per daughter this occurred when the patients fell and she was attempting to help him up when she too fell. She has been wearing a splint and working with PT/OT outpatient. Patient denies any recent illnesses, chest pain, palpitations, shortness of breath, nausea/vomiting and abdominal pain. Per daughter patient does have early signs of dementia however at baseline she is AOx3 but does ask repetitive questions and is a bit forgetful. Discussed code status with patient, daughter present and she wishes to remain full code. ED workup: CBC with WBC 13.2, H/H 13.2/41, PLT 294. CMP with Na 134, K 3.9, Cl 108, CO2 19, BUN/Cr 15/1.33 with GFR 38. Glucose 120. Right Hip and knee XR: Arthroplasty intact without associated fracture or dislocation. Chronic fractures right pubic rami. No joint effusion. Elbow XR: No fracture or dislocation Humerus/ shoulder XR: transverse fracture of proximal humerus with displacement of distal shaft Shoulder CT: Mildly comminuted displaced and foreshortened proximal humerus metaphyseal fracture. The glenohumeral articulation remains intact. Review of Systems Review of Systems: All systems reviewed & are unremarkable except as noted in HPI and below PMFSH Past Medical History Medical History Right carotid bruit Left-sided cerebrovascular accident (CVA) Dementia of the Alzheimer's type Stage 3b chronic kidney disease Anemia Elevated troponin Urinary tract infection Respiratory failure Postoperative anemia Acute blood loss anemia Acute respiratory failure with hypoxia Acute metabolic encephalopathy Urinary frequency Arthritis Pelvic fracture Prolapse of female pelvic organs Osteoarthritis Mild obstructive sleep apnea On sleep study in March 2008. Noncompliance with CPAP Basal cell carcinoma Hyperlipidemia Cerebrovascular accident (1995) With mild right-sided weakness. Transient ischemic attack Gastroesophageal reflux disease Chronic low back pain Urge incontinence History of vaginal delivery x 2. Asthma Surgical History Surgical History History of arthroplasty of right knee (03/31/22) revision 2023 History of basal cell carcinoma excision (2016) From the nose and brow. Status post debridement (2017) Debridement of traumatic hematoma of the left medial leg. History of dilation and curettage History of cataract extraction History of bilateral breast biopsy (09/2006) With benign pathology. History of tubal ligation [place] teeth removed Family History Family History Mother Family history of malignant neoplasm of breast in first degree relative Hypertension Cerebrovascular accident Diabetes mellitus Other HLD (hyperlipidemia) Heart disease Skin cancer Social History Social History (Updated 03/28/25 @ 12:53 by Rebecca Rader PA-C) Social History: Lives with and 2 cats. Surrogate decision maker: Ronal Palacios, . Code status: Full code. Smoking packs per day: 1 Smoking cigarettes per day: 20.0 Years smoked: 30 Smoking pack-years: 30.00 Smoking status: Former smoker Tobacco type: cigarettes Second hand tobacco smoke exposure: No Smoking end date: 09/13/89 Alcohol intake: never Substance use: never Substance use type: does not use Lack of Transportation: No Lack of Food: Never True Current Housing: I Have Housing Concerned About Future Housing: No Difficulty Paying Gas/Electric Bills: No Difficulty Paying for Meds: No Currently Unemployed: No Education: Don't Know Difficulty w/ Childcare or Family Care: No Living arrangements: with family Additional living arrangements comments: Resides in [place] with her . Occupation/Education: retired Additional occupation/education comments: Retired. Spiritual care concerns: No Meds Home Medications and Allergies Home Medications ?Medication ?Instructions ?Recorded ?Confirmed ?Type atorvastatin 80 mg tablet 80 mg PO DAILY #30 tabs 10/12/24 03/28/25 Rx clopidogrel 75 mg tablet (Plavix) 75 mg PO DAILY #90 tabs 11/22/24 03/28/25 Rx felodipine 10 mg tablet,extended 10 mg PO DAILY #90 tabs 11/22/24 03/28/25 Rx release 24 hr lisinopril 40 mg tablet 40 mg PO DAILY #90 tabs 11/22/24 03/28/25 Rx pantoprazole 20 mg tablet,delayed 20 mg PO QAM #90 tabs 11/22/24 03/28/25 Rx release (Protonix) cholecalciferol (vitamin D3) 25 25 mcg PO DAILY 02/11/25 03/28/25 History mcg (1,000 unit) capsule mecobalamin (vitamin B12) 1,000 1,000 mcg PO DAILY 02/11/25 03/28/25 History mcg chewable tablet memantine 10 mg tablet 10 mg PO BID #180 tabs 03/18/25 03/28/25 Rx memantine 5 mg-10 mg tablets in a See Rx Instructions PO PER PKG DIR 03/18/25 03/28/25 Rx dose pack (Namenda Titration [place]) #49 ea Allergies Allergy/AdvReac Type Severity Reaction Status Date / Time iodine Allergy Unknown Rash Verified 03/28/25 10:05 Iodine and Iodide Containing Allergy Unknown Rash Verified 03/28/25 10:05 Produc acetaminophen (From [place]) AdvReac vomiting Verified 03/28/25 13:52 hydrocodone (From [place]) AdvReac vomiting Verified 03/28/25 13:52 [id number] Allergy Unknown Rash Uncoded 03/25/25 10:24 Vital Signs Vital Signs - 24 hr 03/28/25 02:37 03/28/25 06:19 03/28/25 07:29 Temperature 98 F Pulse Rate 76 74 81 Respiratory Rate 16 16 16 Blood Pressure 156/49 H 136/48 L 158/62 H Pulse Oximetry 97 93 97 Oxygen Delivery Room Air Exam Narrative: AF HR 76 RR 16 SpO2 95 BP 151/52 General: female in no acute respiratory distress who is nontoxic appearing, sitting up in bed HEENT: Normocephalic. Atraumatic. Extraocular movement intact. Sclera clear and anicteric. No facial asymmetry. Neck: Neck was supple. No dominant adenopathy, thyromegaly or masses Chest: Lungs are clear to auscultation bilaterally. No wheezes or crackles. CV: Heart was regular rate and rhythm. S1-S2. No murmurs, gallops, or rubs. Abd: Abdomen was soft. Nontender. Nondistended. Positive bowel sounds. No organomegaly or masses. Ext: Right upper extremity in immobilizer. Sensation to the fingers intact and able to move. Radial pulses intact. No clubbing, cyanosis. DP pulses bilaterally. Neuro: Patient is alert and oriented x3. Cranial nerves 2-12 are intact. Speech is clear. Psych: Normal mood and affect. Patient is pleasant and cooperative. Skin: Warm and dry. No rashes noted. H&P: Results Labs Labs: Short CBC 03/28/25 Range/Units 04:43 WBC 13.2 H (4.5-10.0) K/mm3 Hgb 13.2 (12.0-15.0) g/dL Hct 41.0 (37.0-47.0) % Plt Count 294 (150-375) k/mm3 [facility] 03/28/25 05:36 Sodium 134 L Potassium 3.9 Chloride 109 H Carbon Dioxide 19 L BUN 15 Creatinine 1.33 H Glucose 120 H Calcium 8.3 L Assessment and Plan Assessment and plan (1) Fall: Code(s): W19.XXXA - Unspecified fall, initial encounter Status: Acute Assessment and Plan: Recurrent falls Denies any dizziness or lightheadedness prior to the fall. She denies any loss of consciousness or head strike. Right Hip and knee XR: Arthroplasty intact without associated fracture or dislocation. Chronic fractures right pubic rami. No joint effusion. Elbow XR: No fracture or dislocation Humerus/ shoulder XR: transverse fracture of proximal humerus with displacement of distal shaft Shoulder CT: Mildly comminuted displaced and foreshortened proximal humerus metaphyseal fracture. The glenohumeral articulation remains intact. PT/OT per ortho following surgery on 03/29 (2) Displaced fracture of proximal end of right humerus: Code(s): S42.201A - Unspecified fracture of upper end of right humerus, initial encounter for closed fracture Status: Acute Assessment and Plan: Humerus/ shoulder XR: transverse fracture of proximal humerus with displacement of distal shaft Shoulder CT: Mildly comminuted displaced and foreshortened proximal humerus metaphyseal fracture. The glenohumeral articulation remains intact. - use IS - neurovasc checks - see order for intervals - SCDs/TEDs, DVT ppx per ortho - analgesics morphine 2 mg IV q2h, transition to oral when appropriate - monitor labs in AM - CBC and BMP - bowel regimen: polyethylene glycol - PT/OT per ortho following surgery - Ortho consulted plan for ORIF right proximal humerus fracture with IM nail on 03/[address] Carbajal (3) HTN (hypertension): Qualifiers: Hypertension type: primary hypertension Qualified Code(s): I10 - Essential (primary) hypertension Code(s): I10 - Essential (primary) hypertension Status: Chronic Assessment and Plan: Chronic, continue home medications - lisinopril 40 mg daily and felodipine 10 mg daily - blood pressures reviewed and remain stable (4) CKD (chronic kidney disease): Code(s): N18.9 - Chronic kidney disease, unspecified Status: Acute Assessment and Plan: Chronic, baseline Cr 1.3-1.9 Cr remains at baseline, continue to monitor with daily labs Renally dose medications Avoid nephrotoxic medications Monitor I/O (5) History of CVA (cerebrovascular accident): Code(s): Z86.73 - Personal history of transient ischemic attack (TIA), and cerebral infarction without residual deficits Status: Acute Assessment and Plan: Chronic, right sided lower extremity deficits Continue atorvastatin 80 mg daily Currently holding Plavix 75 mg daily for plan of surgery, resume as appropriate (6) Aortic stenosis: Code(s): I35.0 - Nonrheumatic aortic (valve) stenosis Status: Acute Assessment and Plan: Known history, echo 04/05/23 showed mod Recently referred on 03/25 to cardiology by PCP Quality VTE Prophylaxis VTE prophylaxis: mechanical ordered Hospitalist [facility] Advance Care Plan I have confirmed that the patient's Advanced Care Plan is present, code status is documented, or surrogate decision maker is listed in patient medical record.: Yes Medication Reconciliation I have utilized all available resources to obtain, update and review the patients current medications (includes all prescriptions, OTC, herbals, cannabis, and nutritional supplements).: Yes
--- NOTE | 2025-03-28 08:40 | PC.NURSE ---
This patient, Radha Palacios, was admitted to [facility] Surg Room 314-01 at 0840. Patient/family oriented to hospital policies and general routines including ID bracelet, bed and alarms, visiting hours, pain management, procedures, bathroom and other care routines, personal items, smoking policy, room service/diet, and visiting hours. Information on how to activate the Rapid Response Team has been discussed. Patient/Family are encouraged to report perceived risks to care and to ask questions if they do not understand what they are told or what they should do.
--- NOTE | 2025-03-28 10:49 | PM.CNOR ---
Assessment and Plan Assessment and plan (1) Displaced fracture of proximal end of right humerus: Code(s): S42.201A - Unspecified fracture of upper end of right humerus, initial encounter for closed fracture <BUTCH Benítez - Last Filed: 03/28/25 10:49> Status: Acute <BUTCH Benítez - Last Filed: 03/28/25 10:49> Assessment and Plan: 100% displaced right surgical neck proximal humerus fracture. High risk for nonunion and or malunion. Despite comorbidities, I recommend ORIF of the right proximal humerus fracture with an intramedullary nail. I reviewed the risks benefits and alternatives at length with the patient and her daughter. I recommend care home rehab for at least 4-6 weeks. Long-term living situation should be considered given the patient's medical issues and her having frequent falls as well. Proceed with ORIF right proximal humerus surgical neck fracture with intramedullary nail. Surgery planned for tomorrow afternoon. <Lambert Carbajal MD - Last Filed: 03/28/25 15:21> History of Present Illness HPI Consult date: 03/28/25 <BUTCH Benítez - Last Filed: 03/28/25 10:49> 03/28/25 <Lambert Carbajal MD - Last Filed: 03/28/25 15:21> Chief complaint: Prox Rt Humerus Fx & Disloc After Fall <BUTCH Benítez - Last Filed: 03/28/25 10:49> Narrative: Pleasant 84-year-old female with early dementia is alert oriented. Gives a good history today. She is here with her daughter. She fell at home. Landing on the right shoulder. Admitted through the emergency department for definitive management. Complains of intermittent numbness in the hand. Recent nondisplaced distal radius fracture on the left is healing well. She was recovering from a revision of her right knee replacement. <Lambert Carbajal MD - Last Filed: 03/28/25 15:21> Review of Systems Review of Systems: All systems reviewed & are unremarkable except as noted in HPI and below <Lambert Carbajal MD - Last Filed: 03/28/25 15:21> PMF Past Medical History Medical History: Medical History Right carotid bruit Left-sided cerebrovascular accident (CVA) Dementia of the Alzheimer's type Stage 3b chronic kidney disease Anemia Elevated troponin Urinary tract infection Respiratory failure Postoperative anemia Acute blood loss anemia Acute respiratory failure with hypoxia Acute metabolic encephalopathy Urinary frequency Arthritis Pelvic fracture Prolapse of female pelvic organs Osteoarthritis Mild obstructive sleep apnea On sleep study in March 2008. Noncompliance with CPAP Basal cell carcinoma Hyperlipidemia Cerebrovascular accident (1995) With mild right-sided weakness. Transient ischemic attack Gastroesophageal reflux disease Chronic low back pain Urge incontinence History of vaginal delivery x 2. Asthma <BUTCH Benítez - Last Filed: 03/28/25 10:49> Surgical History Surgical History: Surgical History History of arthroplasty of right knee (03/31/22) revision 2023 History of basal cell carcinoma excision (2016) From the nose and brow. Status post debridement (2017) Debridement of traumatic hematoma of the left medial leg. History of dilation and curettage History of cataract extraction History of bilateral breast biopsy (09/2006) With benign pathology. History of tubal ligation [place] teeth removed <BUTCH Bneítez - Last Filed: 03/28/25 10:49> Family History Family History: Family History Mother Family history of malignant neoplasm of breast in first degree relative Hypertension Cerebrovascular accident Diabetes mellitus Other HLD (hyperlipidemia) Heart disease Skin cancer <BUTCH Benítez - Last Filed: 03/28/25 10:49> Social History Social History: Social History Social History: Lives with and 2 cats. Surrogate decision maker: Ronal Palacios, . Code status: Full code. Smoking packs per day: 1 Smoking cigarettes per day: 20.0 Years smoked: 30 Smoking pack-years: 30.00 Smoking status: Former smoker Tobacco type: cigarettes Second hand tobacco smoke exposure: No Smoking end date: 09/13/89 Alcohol intake: never Substance use: never Substance use type: does not use Lack of Transportation: No Lack of Food: Never True Current Housing: I Have Housing Concerned About Future Housing: No Difficulty Paying Gas/Electric Bills: No Difficulty Paying for Meds: No Currently Unemployed: No Education: Don't Know Difficulty w/ Childcare or Family Care: No Living arrangements: with family Additional living arrangements comments: Resides in [place] with her . Occupation/Education: retired Additional occupation/education comments: Retired. Spiritual care concerns: No <BUTCH Benítez - Last Filed: 03/28/25 10:49> Meds Home Medications and Allergies Home medications: Home Medications ?Medication ?Instructions ?Recorded ?Confirmed ?Type atorvastatin 80 mg tablet 80 mg PO DAILY #30 tabs 10/12/24 03/28/25 Rx clopidogrel 75 mg tablet (Plavix) 75 mg PO DAILY #90 tabs 11/22/24 03/28/25 Rx felodipine 10 mg tablet,extended 10 mg PO DAILY #90 tabs 11/22/24 03/28/25 Rx release 24 hr lisinopril 40 mg tablet 40 mg PO DAILY #90 tabs 11/22/24 03/28/25 Rx pantoprazole 20 mg tablet,delayed 20 mg PO QAM #90 tabs 11/22/24 03/28/25 Rx release (Protonix) cholecalciferol (vitamin D3) 25 25 mcg PO DAILY 02/11/25 03/28/25 History mcg (1,000 unit) capsule mecobalamin (vitamin B12) 1,000 1,000 mcg PO DAILY 02/11/25 03/28/25 History mcg chewable tablet memantine 10 mg tablet 10 mg PO BID #180 tabs 03/18/25 03/28/25 Rx memantine 5 mg-10 mg tablets in a See Rx Instructions PO PER PKG DIR 03/18/25 03/28/25 Rx dose pack (Namenda Titration [place]) #49 ea <BUTCH Benítez - Last Filed: 03/28/25 10:49> Allergies/Adverse reactions: Allergies Allergy/AdvReac Type Severity Reaction Status Date / Time iodine Allergy Unknown Rash Verified 03/28/25 10:05 Iodine and Iodide Containing Allergy Unknown Rash Verified 03/28/25 10:05 Produc acetaminophen (From [facility]) AdvReac vomiting Verified 03/28/25 13:52 hydrocodone (From [facility]) AdvReac vomiting Verified 03/28/25 13:52 [id number] Allergy Unknown Rash Uncoded 03/25/25 10:24 <BUTCH Benítez - Last Filed: 03/28/25 10:49> Vital Signs Vital Signs - 24 hr 03/28/25 02:37 03/28/25 06:19 03/28/25 07:29 Temperature 98 F Pulse Rate 76 74 81 Respiratory Rate 16 16 16 Blood Pressure 156/49 H 136/48 L 158/62 H Pulse Oximetry 97 93 97 Oxygen Delivery Room Air 03/28/25 08:45 Temperature 97.8 F Pulse Rate 76 Respiratory Rate 16 Blood Pressure 151/52 H Pulse Oximetry 95 Oxygen Delivery <BUTCH Benítez - Last Filed: 03/28/25 10:49> Exam Narrative: Alert. Responsive. Right shoulder moderate swelling and deformity. All movement is painful. Skin without rash or lesion. Deltoid appears intact and fires with good strength. Hand and wrist normal. Good heating engineer strength. Light touch sensation intact. <Lambert Carbajal MD - Last Filed: 03/28/25 15:21> Results Labs Result Diagrams: 03/28/25 04:43 03/28/25 05:36 <BUTCH Benítez - Last Filed: 03/28/25 10:49> Labs: Abnormal lab results 03/28/25 03/28/25 Range/Units 04:43 05:36 WBC 13.2 H (4.5-10.0) K/mm3 RDW 14.7 H (11.5-14.5) % Immature Gran % (Auto) 0.7 H (0-0.5) % Neut % (Auto) 84.1 H (45.5-73.1) % Lymph % (Auto) 8.8 L (18.3-44.2) % [place] # (Auto) 0.8 H (0.1-0.6) K/mm3 Abs Immat Gran (auto) 0.09 H (0.00-0.031) K/mm3 Absolute Neuts (auto) 11.1 H (1.3-6.7) K/mm3 Sodium 134 L (137-145) mmol/L Chloride 109 H (98-107) mmol/L Carbon Dioxide 19 L (22-30) mmol/L Creatinine 1.33 H (0.7-1.0) mg/dL Estimated GFR 38 L (59 - ) Glucose 120 H (65-110) mg/dL Calcium 8.3 L (8.4-10.2) mg/dL H & H 03/28/25 Range/Units 04:43 Hgb 13.2 (12.0-15.0) g/dL Hct 41.0 (37.0-47.0) % Coagulation 03/28/25 Range/Units 04:43 INR 1.1 All other labs normal. <BUTCH Benítez - Last Filed: 03/28/25 10:49>
[2025-03-28] MEDS: PANTOPRAZOLE SOD SESQUIHYDRATE 20 MG TAB PO (13:47)
[2025-03-28] MEDS: FELODIPINE ER 5 MG TAB 10 MG PO (13:47)
[2025-03-28] MEDS: ATORVASTATIN 40 MG TABLET 80 MG PO (13:47)
[2025-03-28] MEDS: MEMANTINE 10 MG TABLET PO (20:12)
[2025-03-29] VITALS (14 sets, daily range): BP systolic 124–184; BP diastolic 48–82; PULSE 85–101; RESP 16–22; TEMP 36.1–37.3; O2SAT 90–97
[2025-03-29 06:08] LABS: Hematocrit 39.1 % (37.0-47.0); Hemoglobin 12.4 g/dL (12.0-15.0); Immature Granulocyte Percent A 0.5 % (0-0.5); Lymphocytes Absolute Auto 1.59 K/mm3 (0.9-3.2); Mean Corpuscular HGB Conc 31.7 g/dl (32-36); Mean Corpuscular Hemoglobin 29.7 pg (26-34); Mean Corpuscular Volume 93.8 fl (80-100); Nucleated Red Blood Cells Absolute Auto 0.000 K/mm3 (0.0-0.012); Nucleated Red Blood Cells Perc 0.0 % (0.0-0.2); Platelet Count Result 263 k/mm3 (150-375); Red Blood Count 4.17 M/mm3 (4.2-5.4); White Blood Count 6.4 K/mm3 (4.5-10.0)
[2025-03-29 06:29] LABS: Anion Gap 8 mmol/L (4-12); Blood Urea Nitrogen 15 mg/dL (7-17); Calcium 8.1 mg/dL (8.4-10.2); Carbon Dioxide 19 mmol/L (22-30); Chloride 107 mmol/L (98-107); Estimated CRCL calculation 26 ml/min; Estimated Glomerular Filt Rate 43; Glucose 107 mg/dL (65-110); Potassium 3.8 mmol/L (3.4-5.0); Sodium 134 mmol/L (137-145)
[2025-03-29] MEDS: ATORVASTATIN 40 MG TABLET 80 MG PO (08:45)
[2025-03-29] MEDS: MEMANTINE 10 MG TABLET PO ×2 (08:45→20:24)
[2025-03-29] MEDS: FELODIPINE ER 5 MG TAB 10 MG PO (08:46)
[2025-03-29] MEDS: PANTOPRAZOLE SOD SESQUIHYDRATE 20 MG TAB PO (08:46)
--- NOTE | 2025-03-29 09:22 | PM.IMPN ---
Progress Note: A&P Assessment and Plan (1) Fall: Code(s): W19.XXXA - Unspecified fall, initial encounter Status: Acute Assessment and Plan: Recurrent falls Denies any dizziness or lightheadedness prior to the fall. She denies any loss of consciousness or head strike. Right Hip and knee XR: Arthroplasty intact without associated fracture or dislocation. Chronic fractures right pubic rami. No joint effusion. Endorsing continued right knee pain. Range of motion intact. Lidocaine patch ordered. Elbow XR: No fracture or dislocation Humerus/ shoulder XR: transverse fracture of proximal humerus with displacement of distal shaft Shoulder CT: Mildly comminuted displaced and foreshortened proximal humerus metaphyseal fracture. The glenohumeral articulation remains intact. PT/OT per ortho following surgery on 03/29 (2) Displaced fracture of proximal end of right humerus: Code(s): S42.201A - Unspecified fracture of upper end of right humerus, initial encounter for closed fracture Status: Acute Assessment and Plan: Humerus/ shoulder XR: transverse fracture of proximal humerus with displacement of distal shaft Shoulder CT: Mildly comminuted displaced and foreshortened proximal humerus metaphyseal fracture. The glenohumeral articulation remains intact. - use IS - neurovasc checks - see order for intervals - SCDs/TEDs, DVT ppx per ortho - analgesics morphine 2 mg IV q2h, transition to oral when appropriate - monitor labs in AM - CBC and BMP - bowel regimen: polyethylene glycol - PT/OT per ortho following surgery - Ortho consulted plan for ORIF right proximal humerus fracture with IM nail on 03/[address] Carbajal Pain remains well controlled. Remains in immobilizer with sensation and finger movement intact. Radial pulses present. Plan for surgery today. (3) HTN (hypertension): Qualifiers: Hypertension type: primary hypertension Qualified Code(s): I10 - Essential (primary) hypertension Code(s): I10 - Essential (primary) hypertension Status: Chronic Assessment and Plan: Chronic, continue home medications - lisinopril 40 mg daily and felodipine 10 mg daily - blood pressures reviewed and remain stable (4) CKD (chronic kidney disease): Code(s): N18.9 - Chronic kidney disease, unspecified Status: Acute Assessment and Plan: Chronic, baseline Cr 1.3-1.9 Cr remains at baseline, continue to monitor with daily labs Renally dose medications Avoid nephrotoxic medications Monitor I/O (5) History of CVA (cerebrovascular accident): Code(s): Z86.73 - Personal history of transient ischemic attack (TIA), and cerebral infarction without residual deficits Status: Acute Assessment and Plan: Chronic, right sided lower extremity deficits Continue atorvastatin 80 mg daily Currently holding Plavix 75 mg daily for plan of surgery, resume as appropriate (6) Aortic stenosis: Code(s): I35.0 - Nonrheumatic aortic (valve) stenosis Status: Acute Assessment and Plan: Known history, echo 04/05/23 showed mod Recently referred on 03/25 to cardiology by PCP Time Spent With Patient Time with patient: 25 - 35 minutes Subjective Date/time seen: 03/29/25 09:22 Interval history: 84 year old female with past medical history of CVA with mild right sided deficits, BARBIE with noncompliance of CPAP, dementia, HTN, HLD, GERD, CKD, chronic LBP, h/o PE no longer on a/c, and presents to the hospital following a ground level fall at her home. Patient is pleasant lying comfortably in bed. She continues to endorse slight pain to the right upper extremity with states that is well controlled on the current regimen. She denies any tingling and numbness, continues to be able to move fingers. She is also endorsing slight right knee pain but range of motion remains intact and denies any tingling/numbness. She has no other complaints denying chest pain, shortness a breath, palpitations, nausea/vomiting, and abdominal pain. Review of Systems Review of Systems: All systems reviewed & are unremarkable except as noted in HPI and below Exam Narrative: AF HR 91 RR 16 Spo2 96 BP 157/76 General: female in no acute respiratory distress who is nontoxic appearing, sitting up in bed HEENT: Extraocular movement intact. Sclera clear and anicteric. No facial asymmetry. Chest: Lungs are clear to auscultation bilaterally. No wheezes or crackles. CV: Heart was regular rate and rhythm. Abd: Abdomen was soft. Nontender. Nondistended. Positive bowel sounds. Ext: Right upper extremity in immobilizer. Sensation to the fingers intact and able to move. Radial pulses intact. No clubbing, cyanosis. DP pulses bilaterally. Neuro: Patient is alert and oriented x3. Cranial nerves 2-12 are intact. Speech is clear. Objective Data Vital Signs Vital Signs: Vital Signs - 24 hr 03/28/25 14:00 03/28/25 15:45 03/28/25 20:00 Temperature 97.7 F Pulse Rate 79 86 Respiratory Rate 16 20 Blood Pressure 130/56 L Pulse Oximetry 97 92 Oxygen Delivery Room Air Room Air 03/28/25 20:25 03/29/25 05:25 Temperature 97.7 F 97.2 F L Pulse Rate 86 90 Respiratory Rate 20 16 Blood Pressure 148/46 H 169/60 H Pulse Oximetry 92 96 Oxygen Delivery Intake/Output Intake/Output: Intake & Output 03/26/25 03/27/25 03/28/25 03/29/25 23:59 23:59 23:59 23:59 Intake Total 462 200 Output Total 25 300 Balance 437 -100 Meds/Results Medications: Active Medications Generic Name Dose Route Start Last Admin Trade Name Freq PRN Reason Stop Dose Admin Acetaminophen 650 mg 03/28/25 06:16 Acetaminophen 325 Mg Tablet PO Q4H PRN Mild Pain (1-3) or Fever Atorvastatin Calcium 80 mg 03/28/25 13:05 03/29/25 08:45 Atorvastatin 40 Mg Tablet PO 80 mg DAILY KELVIN Administration Felodipine 10 mg 03/28/25 13:10 03/29/25 08:46 Felodipine Er 5 Mg Tab PO 10 mg DAILY KELVIN Administration Tranexamic Acid/Sodium Chloride 1,000 mg in 100 mls @ 200 mls/hr 03/29/25 12:30 Tranexamic Acid 1,000mg/[id number] IVPB 03/29/25 12:59 ONCE ONE Cefazolin Sodium 2 gm/ Sodium 50 mls @ 100 mls/hr 03/29/25 12:30 Chloride IVPB 03/29/25 12:59 ONCE ONE Lisinopril 40 mg 03/28/25 13:05 03/29/25 08:46 Lisinopril 20 Mg Tablet PO 40 mg DAILY KELVIN Administration Memantine 10 mg 03/28/25 21:00 03/29/25 08:45 Memantine 10 Mg Tablet PO 10 mg Q12HR KELVIN Administration Morphine Sulfate 2 mg 03/28/25 06:16 Morphine Sulfate (*Crx) 4 Mg/Ml Inj IV PUSH Q2H PRN Pain Rated 7-10 Ondansetron HCl 4 mg 03/28/25 06:16 Ondansetron Inj 4 Mg/2 Ml Vial IV PUSH Q4H PRN Nausea Pantoprazole Sodium 20 mg 03/28/25 13:05 03/29/25 08:46 Pantoprazole Sod Sesquihydrate 20 Mg Tab PO 20 mg QAM KELVIN Administration Polyethylene Glycol 17 gm 03/29/25 09:00 03/29/25 08:46 Polyethylene Glycol 3350 17 Gm Powd.Pack PO Not Given QAM KELVIN Radiology Results: ITS Impressions Shoulder CT 03/28/25 07:56 IMPRESSION: Mildly comminuted displaced and foreshortened proximal humerus metaphyseal fracture. The glenohumeral articulation remains intact. Other findings as above. NOTE: Preliminary radiologist/physician report provided by [facility] radiologist. Labs Labs: Laboratory Results - last 24 hr 03/28/25 03/29/25 14:51 05:15 WBC 6.4 RBC 4.17 L Hgb 12.4 Hct 39.1 MCV 93.8 MCH 29.7 MCHC 31.7 L RDW 14.9 H Plt Count 263 MPV 9.9 Immature Gran % (Auto) 0.5 Neut % (Auto) 60.0 Lymph % (Auto) 24.8 [place] % (Auto) 13.4 H Eos % (Auto) 0.8 Baso % (Auto) 0.5 Lymph # (Auto) 1.59 [place] # (Auto) 0.9 H Eos # (Auto) 0.1 Baso # (Auto) 0.0 Abs Immat Gran (auto) 0.03 Absolute Neuts (auto) 3.9 Absolute Nucleated RBC 0.000 Nucleated RBC % 0.0 Sodium 134 L Potassium 3.8 Chloride 107 Carbon Dioxide 19 L Anion Gap 8 BUN 15 Creatinine 1.19 H Estim Creat Clear Calc 26 Estimated GFR 43 L Glucose 107 Calcium 8.1 L Blood Type B Positive Antibody Screen Negative Quality VTE Prophylaxis VTE prophylaxis: mechanical ordered
--- NOTE | 2025-03-29 12:06 | WPDHPUPDATE1 ---
History and Physical Update Update Date/Time: 03/29/25 12:06 History and Physical has been reviewed, including an updated exam of the patient. There are NO changes in the patient's condition. Risks, benefits, and alternatives have been discussed and questions answered. Patient agrees to proceed with procedure.
--- NOTE | 2025-03-29 13:05 | WPDANESEPPF ---
Anes - Initial Pre Proc Eval Procedure: Operation Date: 03/29/25 13:15 Proposed Procedures p Open Reduction Internal Fixation Right Proximal Humerus Fracture with Intramedullary Nail - Lambert Carbajal MD Date/Time: 03/29/25 13:05 Surgeon: Dyan Raygoza MD Pre Op Diagnosis: Prox Rt Humerus Fx & Disloc After Fall Patient Data Age: 84 Gender: F Height: 1.6 m Weight: 65.3 kg Last Vital Signs Temp 36.2 C L 03/29/25 05:25 Pulse 90 03/29/25 05:25 Resp 16 03/29/25 05:25 BP 169/60 H 03/29/25 05:25 Pulse Ox 96 03/29/25 05:25 O2 Del Method Room Air 03/29/25 08:00 Allergies Allergy/AdvReac Type Severity Reaction Status Date / Time iodine Allergy Unknown Rash Verified 03/29/25 13:03 Iodine and Iodide Containing Allergy Unknown Rash Verified 03/29/25 13:03 Produc acetaminophen (From [place]) AdvReac vomiting Verified 03/29/25 13:03 hydrocodone (From [place]) AdvReac vomiting Verified 03/29/25 13:03 [id number] Allergy Unknown Rash Uncoded 03/25/25 10:24 Home Medications ?Medication ?Instructions ?Recorded ?Confirmed ?Type atorvastatin 80 mg tablet 80 mg PO DAILY #30 tabs 10/12/24 03/28/25 Rx clopidogrel 75 mg tablet (Plavix) 75 mg PO DAILY #90 tabs 11/22/24 03/28/25 Rx felodipine 10 mg tablet,extended 10 mg PO DAILY #90 tabs 11/22/24 03/28/25 Rx release 24 hr lisinopril 40 mg tablet 40 mg PO DAILY #90 tabs 11/22/24 03/28/25 Rx pantoprazole 20 mg tablet,delayed 20 mg PO QAM #90 tabs 11/22/24 03/28/25 Rx release (Protonix) cholecalciferol (vitamin D3) 25 25 mcg PO DAILY 02/11/25 03/28/25 History mcg (1,000 unit) capsule mecobalamin (vitamin B12) 1,000 1,000 mcg PO DAILY 02/11/25 03/28/25 History mcg chewable tablet memantine 10 mg tablet 10 mg PO BID #180 tabs 03/18/25 03/28/25 Rx memantine 5 mg-10 mg tablets in a See Rx Instructions PO PER PKG DIR 03/18/25 03/28/25 Rx dose pack (Homer Mustafa) #49 ea Laboratory Tests 03/28/25 03/29/25 14:51 05:15 WBC 6.4 K/mm3 (4.5-10.0) RBC 4.17 L M/mm3 (4.2-5.4) Hgb 12.4 g/dL (12.0-15.0) Hct 39.1 % (37.0-47.0) MCV 93.8 fl (80-100) MCH 29.7 pg (26-34) MCHC 31.7 L g/dl (32-36) RDW 14.9 H % (11.5-14.5) Plt Count 263 k/mm3 (150-375) MPV 9.9 fl (7.4-10.4) Immature Gran % (Auto) 0.5 % (0-0.5) Neut % (Auto) 60.0 % (45.5-73.1) Lymph % (Auto) 24.8 % (18.3-44.2) [place] % (Auto) 13.4 H % (2.6-8.5) Eos % (Auto) 0.8 % (0-4.4) Baso % (Auto) 0.5 % (0.2-1.2) Lymph # (Auto) 1.59 K/mm3 (0.9-3.2) [place] # (Auto) 0.9 H K/mm3 (0.1-0.6) Eos # (Auto) 0.1 K/mm3 (0-0.3) Baso # (Auto) 0.0 K/mm3 (0.0-0.1) Abs Immat Gran (auto) 0.03 K/mm3 (0.00-0.031) Absolute Neuts (auto) 3.9 K/mm3 (1.3-6.7) Absolute Nucleated RBC 0.000 K/mm3 (0.0-0.012) Nucleated RBC % 0.0 % (0.0-0.2) Sodium 134 L mmol/L (137-145) Potassium 3.8 mmol/L (3.4-5.0) Chloride 107 mmol/L (98-107) Carbon Dioxide 19 L mmol/L (22-30) Anion Gap 8 mmol/L (4-12) BUN 15 mg/dL (7-17) Creatinine 1.19 H mg/dL (0.7-1.0) Estim Creat Clear Calc 26 ml/min Estimated GFR 43 L (59 - ) Glucose 107 mg/dL (65-110) Calcium 8.1 L mg/dL (8.4-10.2) Blood Type B Positive Antibody Screen Negative Patient hx anesthesia problems: none Family hx anesthesia problems: none Results Review: All pre-operative results and documents have been reviewed as part of the pre-operative evaluation. [facility] Past Medical History Medical History Right hand dominant Right carotid bruit Left-sided cerebrovascular accident (CVA) Dementia of the Alzheimer's type Stage 3b chronic kidney disease Anemia Elevated troponin Urinary tract infection Respiratory failure Postoperative anemia Acute blood loss anemia Acute respiratory failure with hypoxia Acute metabolic encephalopathy Urinary frequency Arthritis Pelvic fracture Prolapse of female pelvic organs Osteoarthritis Mild obstructive sleep apnea On sleep study in March 2008. Noncompliance with CPAP Basal cell carcinoma Hyperlipidemia Cerebrovascular accident (1995) With mild right-sided weakness. Transient ischemic attack Gastroesophageal reflux disease Chronic low back pain Urge incontinence History of vaginal delivery x 2. Asthma Surgical History Surgical History History of arthroplasty of right knee (03/31/22) revision 2023 History of basal cell carcinoma excision (2016) From the nose and brow. Status post debridement (2018) Debridement of traumatic hematoma of the left medial leg. History of dilation and curettage History of cataract extraction History of bilateral breast biopsy (09/2006) With benign pathology. History of tubal ligation [place] teeth removed Family History Family History Mother Family history of malignant neoplasm of breast in first degree relative Hypertension Cerebrovascular accident Diabetes mellitus Other HLD (hyperlipidemia) Heart disease Skin cancer Social History Social History Social History: Lives with and 2 cats. Surrogate decision maker: Ronal Suzanne, . Code status: Full code. Smoking packs per day: 1 Smoking cigarettes per day: 20.0 Years smoked: 30 Smoking pack-years: 30.00 Smoking status: Former smoker Tobacco type: cigarettes Second hand tobacco smoke exposure: No Smoking end date: 09/13/89 Alcohol intake: never Substance use: never Substance use type: does not use Lack of Transportation: No Lack of Food: Never True Current Housing: I Have Housing Concerned About Future Housing: No Difficulty Paying Gas/Electric Bills: No Difficulty Paying for Meds: No Currently Unemployed: No Education: Don't Know Difficulty w/ Childcare or Family Care: No Living arrangements: with family Additional living arrangements comments: Resides in [place] with her . Occupation/Education: retired Additional occupation/education comments: Retired. Spiritual care concerns: No Anes - Eval Final PreProcedure Day of Procedure 03/29/25 13:05 Patient weight: normal Heart: regular rate and rhythm Lungs: clear to auscultation Airway: Mallampati scale class II Last oral intake: >/= 8 hours ASA classification: IV Emergent: no Anesthetic plan: proceed Anesthesia type and monitoring: general ETT and standard monitoring Results Review: All pre-operative results and documents have been reviewed as part of the pre-operative evaluation. Informed Consent: The patient's anesthetic plan and its attendant risks and benefits were discussed with the patient/family/POA. Questions were solicited and answers provided to the satisfaction of the patient/family/POA.
[2025-03-29] MEDS: LACTATED RINGERS 1,000 ML 30 ML IV CONT (13:17)
[2025-03-29] MEDS: TRANEXAMIC ACID 1,000MG/ISO100 1,000 MG/100 ML BAG 200 MG IVPB (13:18)
[2025-03-29] MEDS: ceFAZolin 2 GM in SODIUM CHLORIDE 0.9% IV 50 ML 100 ML IVPB ×2 (13:32→20:24)
[2025-03-29] MEDS: BUPIVACAINE/EPINEPHRINE 0.5% 50 ML VIAL 30 ML INFILTRATE (14:25)
[2025-03-29] MEDS: fentaNYL CITRATE INJ (*CRX) 100 MCG/2 ML VIAL 25 MCG IV PUSH ×3 (15:48→16:42)
--- NOTE | 2025-03-29 16:23 | P.OP_ITS ---
Procedure Note - Detailed Date of Procedure 03/29/25 Pre-op Diagnosis Displaced right proximal humerus surgical neck fracture Post-op Diagnosis Same Procedure Performed ORIF right displaced proximal surgical neck fracture with intramedullary nail. Surgeon Lambert Carbajal MD Anesthesia General Indications 100% displaced fracture. Findings Significant comminution. Anterolateral deltoid split. The fracture was manipulated into position manually. Good stability with the short locked proximal intramedullary nail. Description of Procedure Preoperative antibiotics were given. A general anesthetic was administered. The patient was carefully placed in beach chair position. Right shoulder was prepped and draped in the usual sterile fashion. Prior to prep and drape biplanar fluoroscopy images were tested and confirmed. A longitudinal incision was created over the anterolateral acromion. Deltoid was split in line with its fibers at the anterior rough a. The self-retaining retractor was placed. Rot ator cuff was identified superiorly. The fracture was 100% displaced and required manipulation with significant abduction and flexion and prying the fracture free. A guide pin was then centered at the top of the femoral head. Biplanar fluoroscopy was again used throughout the procedure to confirm accurate placement of implants and anatomic reduction. Once the location was confirmed a split was created in the superior rotator cuff. The guidewire was over reamed proximally. The nail was inserted across the fracture. Good stability in anatomic alignment of the fracture was confirmed. Care was taken to assess that the nail was countersunk the level of the humeral head. Two locking screws were placed through the jig apparatus proximally and the 3rd screw placed distally in the dynamic compression hole. Guide sleeves were used to carefully protect the neurovascular structures. The jig was removed and the wound irrigated. The supraspinatus split was repaired with 1. Vicryl suture. The deltoid was similarly repaired the acromion and to itself. The subcutaneous tissues were closed with 3-0 Monocryl suture followed 4-0 running Monocryl suture and Steri- Strips. A sterile dressing was applied. The shoulder immobilizer was replaced. The patient was brought to the recovery room in stable condition. There were no complications. Implants Dorian T2 nail. Estimated Blood Loss 50 Drains No Packing No Pathology None sent Complications No immediate complications Condition Stable Disposition PACU [facility] Billing Surgery - Charge Forward: Surgery Billing
[2025-03-29] MEDS: ACETAMINOPHEN 325 MG TABLET 650 MG PO (17:34)
[2025-03-29] MEDS: LIDOCAINE 5% PATCH 1 PATCH TRANSDERM (17:34)
[2025-03-29] MEDS: SENNA/DOCUSATE SODIUM TABLET 2 TAB PO (17:35)
[2025-03-29] MEDS: ASPIRIN 81 MG ENTERIC TABLET PO (17:35)
[2025-03-30] VITALS (9 sets, daily range): BP systolic 121–160; BP diastolic 47–84; PULSE 71–87; RESP 16–22; TEMP 36.4–36.8; O2SAT 93–99
[2025-03-30] MEDS: ACETAMINOPHEN 325 MG TABLET 650 MG PO ×4 (00:20→17:05)
[2025-03-30] MEDS: ceFAZolin 2 GM in SODIUM CHLORIDE 0.9% IV 50 ML 100 ML IVPB ×2 (05:21→13:09)
[2025-03-30 06:14] LABS: Hematocrit 40.8 % (37.0-47.0); Hemoglobin 12.7 g/dL (12.0-15.0); Immature Granulocyte Percent A 0.2 % (0-0.5); Lymphocytes Absolute Auto 1.43 K/mm3 (0.9-3.2); Mean Corpuscular HGB Conc 31.1 g/dl (32-36); Mean Corpuscular Hemoglobin 30.2 pg (26-34); Mean Corpuscular Volume 97.1 fl (80-100); Nucleated Red Blood Cells Absolute Auto 0.000 K/mm3 (0.0-0.012); Nucleated Red Blood Cells Perc 0.0 % (0.0-0.2); Platelet Count Result 246 k/mm3 (150-375); Red Blood Count 4.20 M/mm3 (4.2-5.4); White Blood Count 8.6 K/mm3 (4.5-10.0)
[2025-03-30 06:36] LABS: Anion Gap 8 mmol/L (4-12); Blood Urea Nitrogen 15 mg/dL (7-17); Calcium 7.9 mg/dL (8.4-10.2); Carbon Dioxide 16 mmol/L (22-30); Chloride 109 mmol/L (98-107); Estimated CRCL calculation 28 ml/min; Estimated Glomerular Filt Rate 46; Glucose 121 mg/dL (65-110); Potassium 4.6 mmol/L (3.4-5.0); Sodium 133 mmol/L (137-145)
[2025-03-30] MEDS: oxyCODONE HCL (*CRX) 5 MG TAB IR PO (08:24)
[2025-03-30] MEDS: MEMANTINE 10 MG TABLET PO ×2 (09:13→20:47)
[2025-03-30] MEDS: FELODIPINE ER 5 MG TAB 10 MG PO (09:13)
[2025-03-30] MEDS: PANTOPRAZOLE SOD SESQUIHYDRATE 20 MG TAB PO (09:13)
[2025-03-30] MEDS: ASPIRIN 81 MG ENTERIC TABLET PO ×2 (09:13→17:05)
[2025-03-30] MEDS: SENNA/DOCUSATE SODIUM TABLET 2 TAB PO ×2 (09:13→17:05)
[2025-03-30] MEDS: ATORVASTATIN 40 MG TABLET 80 MG PO (09:13)
[2025-03-30] MEDS: LIDOCAINE 5% PATCH 1 PATCH TRANSDERM (09:18)
--- NOTE | 2025-03-30 13:08 | PM.IMPN ---
Progress Note: A&P Assessment and Plan (1) Fall: Code(s): W19.XXXA - Unspecified fall, initial encounter Status: Acute Assessment and Plan: Recurrent falls Denies any dizziness or lightheadedness prior to the fall. She denies any loss of consciousness or head strike. Right Hip and knee XR: Arthroplasty intact without associated fracture or dislocation. Chronic fractures right pubic rami. No joint effusion. Endorsing continued right knee pain. Range of motion intact. Lidocaine patch ordered. Elbow XR: No fracture or dislocation Humerus/ shoulder XR: transverse fracture of proximal humerus with displacement of distal shaft Shoulder CT: Mildly comminuted displaced and foreshortened proximal humerus metaphyseal fracture. The glenohumeral articulation remains intact. PT/OT per ortho following surgery on 03/29 care coordination following for placement continue pain control, IS, ambualtion/pt/ot (2) Displaced fracture of proximal end of right humerus: Code(s): S42.201A - Unspecified fracture of upper end of right humerus, initial encounter for closed fracture Status: Acute Assessment and Plan: Humerus/ shoulder XR: transverse fracture of proximal humerus with displacement of distal shaft Shoulder CT: Mildly comminuted displaced and foreshortened proximal humerus metaphyseal fracture. The glenohumeral articulation remains intact. - use IS - neurovasc checks - see order for intervals - SCDs/TEDs, DVT ppx per ortho - analgesics morphine 2 mg IV q2h, transition to oral when appropriate - monitor labs in AM - CBC and BMP - bowel regimen: polyethylene glycol - PT/OT per ortho following surgery - Ortho consulted plan for ORIF right proximal humerus fracture with IM nail on 03/[address] Carbajal ---- (3) HTN (hypertension): Qualifiers: Hypertension type: primary hypertension Qualified Code(s): I10 - Essential (primary) hypertension Code(s): I10 - Essential (primary) hypertension Status: Chronic Assessment and Plan: Chronic, continue home medications - lisinopril 40 mg daily and felodipine 10 mg daily - blood pressures reviewed and remain stable (4) CKD (chronic kidney disease): Code(s): N18.9 - Chronic kidney disease, unspecified Status: Acute Assessment and Plan: Chronic, baseline Cr 1.3-1.9 Cr remains at baseline, continue to monitor with daily labs Renally dose medications Avoid nephrotoxic medications Monitor I/O 03/30 cr/bun 1.04/29 today continue to monitor (5) History of CVA (cerebrovascular accident): Code(s): Z86.73 - Personal history of transient ischemic attack (TIA), and cerebral infarction without residual deficits Status: Acute Assessment and Plan: Chronic, right sided lower extremity deficits Continue atorvastatin 80 mg daily Currently holding Plavix 75 mg daily for plan of surgery, resume as appropriate (6) Aortic stenosis: Code(s): I35.0 - Nonrheumatic aortic (valve) stenosis Status: Acute Assessment and Plan: Known history, echo 04/05/23 showed mod Recently referred on 03/25 to cardiology by PCP Time Spent With Patient Time with patient: 25 - 35 minutes Subjective Date/time seen: 03/30/25 13:08 Interval history: 84 year old female with past medical history of CVA with mild right sided deficits, BARBIE with noncompliance of CPAP, dementia, HTN, HLD, GERD, CKD, chronic LBP, h/o PE no longer on a/c, and presents to the hospital following a ground level fall at her home. Patient is hang nd examined. ORIF right displaced proximal surgical neck fracture with intramedullary nail on 03/29. Pain is controlled on the current regimen, working with PT/OT. She denies any tingling and numbness, continues to be able to move fingers. She has no other complaints: no chest pain, shortness a breath, palpitations, nausea/vomiting, and abdominal pain. Review of Systems Review of Systems: All systems reviewed & are unremarkable except as noted in HPI and below Exam Narrative: General: female in no acute respiratory distress who is nontoxic appearing, sitting up in bed HEENT: Extraocular movement intact. Sclera clear and anicteric. No facial asymmetry. Chest: Lungs are clear to auscultation bilaterally. No wheezes or crackles. CV: Heart was regular rate and rhythm. Abd: Abdomen was soft. Nontender. Nondistended. Positive bowel sounds. Ext: Right upper extremity in immobilizer. Sensation to the fingers intact and able to move. Radial pulses intact. No clubbing, cyanosis. DP pulses bilaterally. Neuro: Patient is alert and oriented x3. Cranial nerves 2-12 are intact. Speech is clear. Const: General: comfortable Objective Data Vital Signs Vital Signs: Vital Signs - 24 hr 03/29/25 15:42 03/29/25 15:55 03/29/25 16:10 Temperature 96.9 F L Pulse Rate 92 85 86 Respiratory Rate 16 16 16 Blood Pressure 153/77 H 149/58 H 126/82 Pulse Oximetry 97 96 95 Oxygen Delivery Nasal Cannula Nasal Cannula Nasal Cannula Oxygen Flow Rate 2 2 2 03/29/25 16:25 03/29/25 16:40 03/29/25 16:55 Temperature Pulse Rate 91 94 96 Respiratory Rate 18 18 18 Blood Pressure 139/78 180/74 H 150/78 H Pulse Oximetry 92 94 94 Oxygen Delivery Nasal Cannula Nasal Cannula Nasal Cannula Oxygen Flow Rate 2 2 2 03/29/25 17:15 03/29/25 17:30 03/29/25 18:00 Temperature 98.1 F 98.1 F 98.2 F Pulse Rate 98 97 101 H Respiratory Rate 20 20 22 H Blood Pressure 172/73 H 172/60 H 153/56 H Pulse Oximetry 96 96 94 Oxygen Delivery Oxygen Flow Rate 03/29/25 19:45 03/29/25 20:00 03/29/25 22:48 Temperature 98.4 F 98.8 F Pulse Rate 87 87 99 Respiratory Rate 16 16 18 Blood Pressure 124/48 L 184/70 H Pulse Oximetry 94 94 90 Oxygen Delivery Nasal Cannula Oxygen Flow Rate 2 03/30/25 01:45 03/30/25 06:00 03/30/25 07:30 Temperature 97.7 F 98.0 F Pulse Rate 87 84 Respiratory Rate 18 16 Blood Pressure 142/60 H 160/58 H 159/67 H Pulse Oximetry 99 95 Oxygen Delivery Oxygen Flow Rate 03/30/25 08:00 03/30/25 08:07 03/30/25 09:19 Temperature Pulse Rate Respiratory Rate Blood Pressure Pulse Oximetry 95 Oxygen Delivery Room Air Room Air Room Air Oxygen Flow Rate Intake/Output Intake/Output: Intake & Output 03/27/25 03/28/25 03/29/25 03/30/25 23:59 23:59 23:59 23:59 Intake Total 462 700 390 Output Total 25 750 Balance 437 -50 390 Meds/Results Medications: Active Medications Generic Name Dose Route Start Last Admin Trade Name Freq PRN Reason Stop Dose Admin Acetaminophen 650 mg 03/29/25 18:00 03/30/25 05:22 Acetaminophen 325 Mg Tablet PO 650 mg Q6HR KELVIN Administration Aspirin 81 mg 03/29/25 17:03 03/30/25 09:13 Aspirin 81 Mg Enteric Tablet PO 04/01/25 06:00 81 mg BID KELVIN Administration Atorvastatin Calcium 80 mg 03/28/25 13:05 03/30/25 09:13 Atorvastatin 40 Mg Tablet PO 80 mg DAILY KELVIN Administration Diphenhydramine HCl 25 mg 03/29/25 17:03 Diphenhydramine Hcl Inj 50 Mg/Ml Vial IV PUSH Q6H PRN Itching Felodipine 10 mg 03/28/25 13:10 03/30/25 09:13 Felodipine Er 5 Mg Tab PO 10 mg DAILY KELVIN Administration Cefazolin Sodium 2 gm/ Sodium 50 mls @ 100 mls/hr 03/29/25 21:00 03/30/25 05:21 Chloride IVPB 03/30/25 13:29 100 mls/hr Q8H KELVIN Administration Lidocaine 1 patch 03/29/25 13:45 03/30/25 09:18 Lidocaine 5% Patch TRANSDERM 1 patch DAILY [facility] Administration Lisinopril 40 mg 03/28/25 13:05 03/30/25 09:13 Lisinopril 20 Mg Tablet PO 40 mg DAILY KELVIN Administration Memantine 10 mg 03/28/25 21:00 03/30/25 09:13 Memantine 10 Mg Tablet PO 10 mg Q12HR KELVIN Administration Morphine Sulfate 2 mg 03/28/25 06:16 Morphine Sulfate (*Crx) 4 Mg/Ml Inj IV PUSH Q2H PRN Pain Rated 7-10 Naloxone HCl 0.1 mg 03/29/25 17:03 Naloxone Hcl 0.4 Mg/Ml Vial IV PUSH Q2M PRN Opiate Reversal Ondansetron HCl 4 mg 03/28/25 06:16 Ondansetron Inj 4 Mg/2 Ml Vial IV PUSH Q4H PRN Nausea Oxycodone HCl 5 mg 03/29/25 17:03 03/30/25 08:24 Oxycodone Hcl (*Crx) 5 Mg Tab Ir PO 5 mg Q4H PRN Administration Pain Rated 7-10 Oxycodone HCl 2.5 mg 03/29/25 17:03 Oxycodone Hcl (*Crx) 2.5 Mg Tab Ir PO Q4H PRN Pain Rated 4-6 Pantoprazole Sodium 20 mg 03/28/25 13:05 03/30/25 09:13 Pantoprazole Sod Sesquihydrate 20 Mg Tab PO 20 mg QAM KELVIN Administration Polyethylene Glycol 17 gm 03/29/25 09:00 03/30/25 09:14 Polyethylene Glycol 3350 17 Gm Powd.Pack PO Not Given QAM KELVIN Senna/Docusate Sodium 2 tab 03/29/25 17:03 03/30/25 09:13 Senna/Docusate Sodium Tablet PO 2 tab BID KELVIN Administration Radiology Results: ITS Impressions Shoulder CT 03/28/25 07:56 IMPRESSION: Mildly comminuted displaced and foreshortened proximal humerus metaphyseal fracture. The glenohumeral articulation remains intact. Other findings as above. NOTE: Preliminary radiologist/physician report provided by [facility] radiologist. Labs Labs: Laboratory Results - last 24 hr 03/30/25 05:59 WBC 8.6 RBC 4.20 Hgb 12.7 Hct 40.8 MCV 97.1 MCH 30.2 MCHC 31.1 L RDW 14.6 H Plt Count 246 MPV 9.9 Immature Gran % (Auto) 0.2 Neut % (Auto) 67.2 Lymph % (Auto) 16.6 L [place] % (Auto) 15.2 H Eos % (Auto) 0.3 Baso % (Auto) 0.5 Lymph # (Auto) 1.43 [place] # (Auto) 1.3 H Eos # (Auto) 0.0 Baso # (Auto) 0.0 Abs Immat Gran (auto) 0.02 Absolute Neuts (auto) 5.8 Absolute Nucleated RBC 0.000 Nucleated RBC % 0.0 Sodium 133 L Potassium 4.6 Chloride 109 H Carbon Dioxide 16 L Anion Gap 8 BUN 15 Creatinine 1.12 H Estim Creat Clear Calc 28 Estimated GFR 46 L Glucose 121 H Calcium 7.9 L Quality VTE Prophylaxis VTE prophylaxis: mechanical ordered
[2025-03-31] MEDS: ACETAMINOPHEN 325 MG TABLET 650 MG PO ×5 (00:32→23:24)
[2025-03-31 05:43] VITALS: BP 148/117; PULSE 84; RESP 18; TEMP 28.8; O2SAT 96
[2025-03-31 06:44] LABS: Hematocrit 37.2 % (37.0-47.0); Hemoglobin 11.6 g/dL (12.0-15.0); Immature Granulocyte Percent A 0.4 % (0-0.5); Lymphocytes Absolute Auto 1.53 K/mm3 (0.9-3.2); Mean Corpuscular HGB Conc 31.2 g/dl (32-36); Mean Corpuscular Hemoglobin 29.8 pg (26-34); Mean Corpuscular Volume 95.6 fl (80-100); Nucleated Red Blood Cells Absolute Auto 0.000 K/mm3 (0.0-0.012); Nucleated Red Blood Cells Perc 0.0 % (0.0-0.2); Platelet Count Result 256 k/mm3 (150-375); Red Blood Count 3.89 M/mm3 (4.2-5.4); White Blood Count 8.2 K/mm3 (4.5-10.0)
[2025-03-31 07:17] LABS: Anion Gap 6 mmol/L (4-12); Blood Urea Nitrogen 20 mg/dL (7-17); Calcium 7.9 mg/dL (8.4-10.2); Carbon Dioxide 22 mmol/L (22-30); Chloride 104 mmol/L (98-107); Estimated CRCL calculation 25 ml/min; Estimated Glomerular Filt Rate 40; Glucose 103 mg/dL (65-110); Potassium 4.5 mmol/L (3.4-5.0); Sodium 132 mmol/L (137-145)
--- NOTE | 2025-03-31 08:29 | PM.IMPN ---
Progress Note: A&P Assessment and Plan (1) Acute respiratory failure with hypoxia: Code(s): J96.01 - Acute respiratory failure with hypoxia Status: Acute Assessment and Plan: Denies shortness of breath and cough with clear lungs on auscultation - Oxygen supplementation: 2L NC, wean as tolerated to maintain spo2 > 90% - Chest XR: small nodule overlying inferiour right scapula not excluded but no acute cardiopulmonary process seen - Chest CT ordered, hx of IV contrast allergy which will be pretreated per guidelines (2) Fall: Code(s): W19.XXXA - Unspecified fall, initial encounter Status: Acute Assessment and Plan: Recurrent falls Denies any dizziness or lightheadedness prior to the fall. She denies any loss of consciousness or head strike. Right Hip and knee XR: Arthroplasty intact without associated fracture or dislocation. Chronic fractures right pubic rami. No joint effusion. Endorsing continued right knee pain. Range of motion intact. Lidocaine patch ordered. Elbow XR: No fracture or dislocation Humerus/ shoulder XR: transverse fracture of proximal humerus with displacement of distal shaft Shoulder CT: Mildly comminuted displaced and foreshortened proximal humerus metaphyseal fracture. The glenohumeral articulation remains intact. PT/OT Hx of radial fracture, left from prior fall in 02/2025 that patient has been placed in a splint and receiving PT/OT per PCP recommendations. Will order a request of records from [facility] as this is where the fracture was diagnosed to better confirm a weight bearing status of the extremity. (3) Displaced fracture of proximal end of right humerus: Code(s): S42.201A - Unspecified fracture of upper end of right humerus, initial encounter for closed fracture Status: Acute Assessment and Plan: Humerus/ shoulder XR: transverse fracture of proximal humerus with displacement of distal shaft Shoulder CT: Mildly comminuted displaced and foreshortened proximal humerus metaphyseal fracture. The glenohumeral articulation remains intact. - use IS - neurovasc checks - see order for intervals - SCDs/TEDs and plavix per ortho - analgesics oxycodone 2.5 and 5 mg PRN, morphine 2 mg IV q2h no longer requiring IV pain management - monitor labs in AM - CBC and BMP - bowel regimen: polyethylene glycol - PT/OT - Ortho consulted s/p ORIF right displaced proximal surgical neck fracture with intramedullary nail on 03/[address] Carbajal Follow up in office with xrays in 4 weeks. Wound Care: Remove Mepilex dressing at 7 days post op. Remove steristrips at 14 days post op. May shower. No soaking. PT: Patient may remove wrist from immobilizer sling while at rest. Non weight bearing on the operative arm. remains in immobilizer with sensation and mobility intact. care coordination following for placement. (4) HTN (hypertension): Qualifiers: Hypertension type: primary hypertension Qualified Code(s): I10 - Essential (primary) hypertension Code(s): I10 - Essential (primary) hypertension Status: Chronic Assessment and Plan: Chronic, continue home medications - lisinopril 40 mg daily and felodipine 10 mg daily - blood pressures reviewed and remain stable (5) CKD (chronic kidney disease): Code(s): N18.9 - Chronic kidney disease, unspecified Status: Acute Assessment and Plan: Chronic, baseline Cr 1.3-1.9 Cr remains at baseline, continue to monitor with daily labs Renally dose medications Avoid nephrotoxic medications Monitor I/O (6) History of CVA (cerebrovascular accident): Code(s): Z86.73 - Personal history of transient ischemic attack (TIA), and cerebral infarction without residual deficits Status: Acute Assessment and Plan: Chronic, right sided lower extremity deficits Continue atorvastatin 80 mg daily and plavix 75 mg daily (7) Aortic stenosis: Code(s): I35.0 - Nonrheumatic aortic (valve) stenosis Status: Acute Assessment and Plan: Known history, echo 04/05/23 showed mod Recently referred on 03/25 to cardiology by PCP Time Spent With Patient Time with patient: 25 - 35 minutes Subjective Date/time seen: 03/31/25 08:29 Interval history: 84 year old female with past medical history of CVA with mild right sided deficits, BARBIE with noncompliance of CPAP, dementia, HTN, HLD, GERD, CKD, chronic LBP, h/o PE no longer on a/c, and presents to the hospital following a ground level fall at her home. Patient is pleasant sitting up comfortably in bed. During assessment was able to wean patient back to room air with stable saturations. She denies any shortness of breath or cough. She has no complaints denying chest pain, palpitations, nausea/vomiting, abdominal pain. Received call from RN that patient was having desaturations on room air. Returned to patients room and she again denies any shortness of breath, chest pain, cough and palpitations. Vitals showing spo2 in the upper 80s. Lungs clear on auscultation. She is speaking full sentences. Placed on 2L with stable saturations. Continue to monitor. Review of Systems Review of Systems: All systems reviewed & are unremarkable except as noted in HPI and below Exam Narrative: AF HR 81 RR 18 SpO2 95% RA BP 122/62 General: female in no acute respiratory distress who is nontoxic appearing, sitting up in bed HEENT: Extraocular movement intact. Sclera clear and anicteric. No facial asymmetry. Chest: Lungs are clear to auscultation bilaterally. No wheezes or crackles. Speaking full sentences. CV: Heart was regular rate and rhythm. Abd: Abdomen was soft. Nontender. Nondistended. Positive bowel sounds. Ext: Right upper extremity in immobilizer. Sensation to the fingers intact and able to move. Radial pulses intact. No clubbing, cyanosis. DP pulses bilaterally. Neuro: Patient is alert and oriented x3. Speech is clear. Objective Data Vital Signs Vital Signs: Vital Signs - 24 hr 03/30/25 09:19 03/30/25 12:00 03/30/25 14:48 Temperature 98.2 F 97.5 F L Pulse Rate 77 84 Respiratory Rate 22 H 22 H Blood Pressure 121/47 L 124/84 Pulse Oximetry 96 93 Oxygen Delivery Room Air 03/30/25 18:48 03/30/25 20:00 03/30/25 21:46 Temperature 98.0 F 97.5 F L Pulse Rate 71 78 78 Respiratory Rate 20 17 17 Blood Pressure 124/47 L 131/49 L Pulse Oximetry 94 98 98 Oxygen Delivery Room Air 03/31/25 05:43 Temperature 84 F L Pulse Rate 84 Respiratory Rate 18 Blood Pressure 148/117 H Pulse Oximetry 96 Oxygen Delivery Intake/Output Intake/Output: Intake & Output 03/28/25 03/29/25 03/30/25 03/31/25 23:59 23:59 23:59 23:59 Intake Total 462 700 560 Output Total 25 750 Balance 437 -50 560 Meds/Results Medications: Active Medications Generic Name Dose Route Start Last Admin Trade Name Freq PRN Reason Stop Dose Admin Acetaminophen 650 mg 03/29/25 18:00 03/31/25 05:22 Acetaminophen 325 Mg Tablet PO 650 mg Q6HR KELVIN Administration Aspirin 81 mg 03/29/25 17:03 03/30/25 17:05 Aspirin 81 Mg Enteric Tablet PO 04/01/25 06:00 81 mg BID KELVIN Administration Atorvastatin Calcium 80 mg 03/28/25 13:05 03/30/25 09:13 Atorvastatin 40 Mg Tablet PO 80 mg DAILY KELVIN Administration Diphenhydramine HCl 25 mg 03/29/25 17:03 Diphenhydramine Hcl Inj 50 Mg/Ml Vial IV PUSH Q6H PRN Itching Felodipine 10 mg 03/28/25 13:10 03/30/25 09:13 Felodipine Er 5 Mg Tab PO 10 mg DAILY [facility] Administration Lidocaine 1 patch 03/29/25 13:45 03/30/25 09:18 Lidocaine 5% Patch TRANSDERM 1 patch DAILY KELVIN Administration Lisinopril 40 mg 03/28/25 13:05 03/30/25 09:13 Lisinopril 20 Mg Tablet PO 40 mg DAILY [facility] Administration Memantine 10 mg 03/28/25 21:00 03/30/25 20:47 Memantine 10 Mg Tablet PO 10 mg Q12HR [facility] Administration Morphine Sulfate 2 mg 03/28/25 06:16 Morphine Sulfate (*Crx) 4 Mg/Ml Inj IV PUSH Q2H PRN Pain Rated 7-10 Naloxone HCl 0.1 mg 03/29/25 17:03 Naloxone Hcl 0.4 Mg/Ml Vial IV PUSH Q2M PRN Opiate Reversal Ondansetron HCl 4 mg 03/28/25 06:16 Ondansetron Inj 4 Mg/2 Ml Vial IV PUSH Q4H PRN Nausea Oxycodone HCl 5 mg 03/29/25 17:03 03/30/25 08:24 Oxycodone Hcl (*Crx) 5 Mg Tab Ir PO 5 mg Q4H PRN Administration Pain Rated 7-10 Oxycodone HCl 2.5 mg 03/29/25 17:03 Oxycodone Hcl (*Crx) 2.5 Mg Tab Ir PO Q4H PRN Pain Rated 4-6 Pantoprazole Sodium 20 mg 03/28/25 13:05 03/30/25 09:13 Pantoprazole Sod Sesquihydrate 20 Mg Tab PO 20 mg QAM KELVIN Administration Polyethylene Glycol 17 gm 03/29/25 09:00 03/30/25 09:14 Polyethylene Glycol 3350 17 Gm Powd.Pack PO Not Given QAM KELVIN Senna/Docusate Sodium 2 tab 03/29/25 17:03 03/30/25 17:05 Senna/Docusate Sodium Tablet PO 2 tab BID KELVIN Administration Radiology Results: ITS Impressions Shoulder CT 03/28/25 07:56 IMPRESSION: Mildly comminuted displaced and foreshortened proximal humerus metaphyseal fracture. The glenohumeral articulation remains intact. Other findings as above. NOTE: Preliminary radiologist/physician report provided by [facility] radiologist. Labs Labs: Laboratory Results - last 24 hr 03/31/25 06:06 WBC 8.2 RBC 3.89 L Hgb 11.6 L Hct 37.2 MCV 95.6 MCH 29.8 MCHC 31.2 L RDW 14.7 H Plt Count 256 MPV 10.4 Immature Gran % (Auto) 0.4 Neut % (Auto) 63.9 Lymph % (Auto) 18.6 [place] % (Auto) 11.6 H Eos % (Auto) 5.0 H Baso % (Auto) 0.5 Lymph # (Auto) 1.53 [place] # (Auto) 1.0 H Eos # (Auto) 0.4 H Baso # (Auto) 0.0 Abs Immat Gran (auto) 0.03 Absolute Neuts (auto) 5.3 Absolute Nucleated RBC 0.000 Nucleated RBC % 0.0 Sodium 132 L Potassium 4.5 Chloride 104 Carbon Dioxide 22 Anion Gap 6 BUN 20 H Creatinine 1.28 H Estim Creat Clear Calc 25 Estimated GFR 40 L Glucose 103 Calcium 7.9 L Quality VTE Prophylaxis VTE prophylaxis: mechanical ordered
[2025-03-31 08:30] VITALS: BP 122/62; PULSE 84; RESP 16; TEMP 36.5; O2SAT 100
[2025-03-31] MEDS: ATORVASTATIN 40 MG TABLET 80 MG PO (08:32)
[2025-03-31] MEDS: SENNA/DOCUSATE SODIUM TABLET 2 TAB PO ×2 (08:32→17:16)
[2025-03-31] MEDS: MEMANTINE 10 MG TABLET PO ×2 (08:32→20:06)
[2025-03-31] MEDS: ASPIRIN 81 MG ENTERIC TABLET PO ×2 (08:32→17:16)
[2025-03-31] MEDS: FELODIPINE ER 5 MG TAB 10 MG PO (08:32)
[2025-03-31] MEDS: PANTOPRAZOLE SOD SESQUIHYDRATE 20 MG TAB PO (08:32)
[2025-03-31] MEDS: LIDOCAINE 5% PATCH 1 PATCH TRANSDERM (08:34)
[2025-03-31] MEDS: CLOPIDOGREL BISULFATE 75 MG TABLET PO (09:06)
[2025-03-31 11:00] VITALS: PULSE 81; O2SAT 95
[2025-03-31 14:00] VITALS: BP 136/94; PULSE 82; RESP 12; TEMP 36.2; O2SAT 90
[2025-03-31] MEDS: predniSONE 40 MG, predniSONE 10 MG 50 MG PO ×2 (17:58→23:24)
[2025-03-31 20:00] VITALS: BP 120/48; PULSE 82; RESP 12; O2SAT 90
[2025-03-31 21:57] VITALS: BP 128/39; PULSE 81; RESP 17; TEMP 36.2; O2SAT 90
[2025-04-01 05:54] VITALS: BP 149/59; PULSE 90; RESP 17; TEMP 35.8; O2SAT 95
[2025-04-01 05:56] LABS: Hematocrit 36.4 % (37.0-47.0); Hemoglobin 11.3 g/dL (12.0-15.0); Immature Granulocyte Percent A 0.4 % (0-0.5); Immature Platelet Fraction Pct 2.7 % (0.9-11.2); Lymphocytes Absolute Auto 0.51 K/mm3 (0.9-3.2); Mean Corpuscular HGB Conc 31.0 g/dl (32-36); Mean Corpuscular Hemoglobin 29.9 pg (26-34); Mean Corpuscular Volume 96.3 fl (80-100); Nucleated Red Blood Cells Absolute Auto 0.000 K/mm3 (0.0-0.012); Nucleated Red Blood Cells Perc 0.0 % (0.0-0.2); Platelet Count Result 277 k/mm3 (150-375); Red Blood Count 3.78 M/mm3 (4.2-5.4); White Blood Count 5.3 K/mm3 (4.5-10.0)
[2025-04-01] MEDS: predniSONE 40 MG, predniSONE 10 MG 50 MG PO (06:02)
[2025-04-01] MEDS: ACETAMINOPHEN 325 MG TABLET 650 MG PO ×3 (06:02→18:00)
[2025-04-01] MEDS: diphenhydrAMINE HCl CAP 25 MG CAPSULE 50 MG PO (06:03)
[2025-04-01 06:13] LABS: Anion Gap 6 mmol/L (4-12); Blood Urea Nitrogen 23 mg/dL (7-17); Calcium 8.0 mg/dL (8.4-10.2); Carbon Dioxide 19 mmol/L (22-30); Chloride 106 mmol/L (98-107); Estimated CRCL calculation 26 ml/min; Estimated Glomerular Filt Rate 43; Glucose 157 mg/dL (65-110); Potassium 4.8 mmol/L (3.4-5.0); Sodium 131 mmol/L (137-145)
--- NOTE | 2025-04-01 07:20 | PM.IMPN ---
Progress Note: A&P Assessment and Plan (1) Acute respiratory failure with hypoxia: Code(s): J96.01 - Acute respiratory failure with hypoxia Status: Acute Assessment and Plan: Denies shortness of breath and cough with clear lungs on auscultation - Oxygen supplementation: RA with stable saturations - Chest XR: small nodule overlying inferiour right scapula not excluded but no acute cardiopulmonary process seen - Chest CT ordered, hx of IV contrast allergy which will be pretreated per guidelines No acute abnormalities, severe emphysema, mod sized sliding hiatal hernia, multinodular goiter Per daughter patient does have a history of COPD previously requiring O2 supplementation about 2-3 years ago however she was able to wean back to room air. Does not appear in acute exacerbation as no noted wheezing on exam and patient asymptomatic. Resolved. Remains on room air with stable saturations. (2) Fall: Code(s): W19.XXXA - Unspecified fall, initial encounter Status: Acute Assessment and Plan: Recurrent falls Denies any dizziness or lightheadedness prior to the fall. She denies any loss of consciousness or head strike. Right Hip and knee XR: Arthroplasty intact without associated fracture or dislocation. Chronic fractures right pubic rami. No joint effusion. Endorsing continued right knee pain. Range of motion intact. Lidocaine patch ordered. Elbow XR: No fracture or dislocation Humerus/ shoulder XR: transverse fracture of proximal humerus with displacement of distal shaft Shoulder CT: Mildly comminuted displaced and foreshortened proximal humerus metaphyseal fracture. The glenohumeral articulation remains intact. PT/OT Hx of radial fracture, left from prior fall in 02/2025 that patient has been placed in a splint and receiving PT/OT per PCP recommendations. Per daughter no known weight restrictions. Ordered a request of records from [facility] as this is where the fracture was diagnosed to better confirm a weight bearing status of the extremity, however this has not been received. Will order a radial XR to reassess radial fracture. (3) Displaced fracture of proximal end of right humerus: Code(s): S42.201A - Unspecified fracture of upper end of right humerus, initial encounter for closed fracture Status: Acute Assessment and Plan: Humerus/ shoulder XR: transverse fracture of proximal humerus with displacement of distal shaft Shoulder CT: Mildly comminuted displaced and foreshortened proximal humerus metaphyseal fracture. The glenohumeral articulation remains intact. - use IS - neurovasc checks - see order for intervals - SCDs/TEDs and plavix per ortho - analgesics oxycodone 2.5 and 5 mg PRN, morphine 2 mg IV q2h no longer requiring IV pain management - monitor labs in AM - CBC and BMP - bowel regimen: polyethylene glycol - PT/OT - Ortho consulted s/p ORIF right displaced proximal surgical neck fracture with intramedullary nail on 03/[address] Carbajal Follow up in office with xrays in 4 weeks. Wound Care: Remove Mepilex dressing at 7 days post op. Remove steristrips at 14 days post op. May shower. No soaking. PT: Patient may remove wrist from immobilizer sling while at rest. Non weight bearing on the operative arm. rRemains in immobilizer with sensation and mobility intact. Care coordination following for placement. (4) HTN (hypertension): Qualifiers: Hypertension type: primary hypertension Qualified Code(s): I10 - Essential (primary) hypertension Code(s): I10 - Essential (primary) hypertension Status: Chronic Assessment and Plan: Chronic, continue home medications - lisinopril 40 mg daily and felodipine 10 mg daily - blood pressures reviewed and remain stable (5) CKD (chronic kidney disease): Code(s): N18.9 - Chronic kidney disease, unspecified Status: Acute Assessment and Plan: Chronic, baseline Cr 1.3-1.9 Cr remains at baseline, continue to monitor with daily labs Renally dose medications Avoid nephrotoxic medications Monitor I/O (6) History of CVA (cerebrovascular accident): Code(s): Z86.73 - Personal history of transient ischemic attack (TIA), and cerebral infarction without residual deficits Status: Acute Assessment and Plan: Chronic, right sided lower extremity deficits Continue atorvastatin 80 mg daily and plavix 75 mg daily (7) Aortic stenosis: Code(s): I35.0 - Nonrheumatic aortic (valve) stenosis Status: Acute Assessment and Plan: Known history, echo 04/05/23 showed mod Recently referred on 03/25 to cardiology by PCP Time Spent With Patient Time with patient: 25 - 35 minutes Subjective Date/time seen: 04/01/25 07:20 Interval history: 84 year old female with past medical history of CVA with mild right sided deficits, BARBIE with noncompliance of CPAP, dementia, HTN, HLD, GERD, CKD, chronic LBP, h/o PE no longer on a/c, and presents to the hospital following a ground level fall at her home. Patient is pleasant sitting up comfortably in her chair with family at bedside. Discussed CT findings with family and they state that patient does have a history of COPD previously requiring O2 supplementation about 2-3 years ago however she was able to wean back to room air. She has no complaints denying chest pain, palpitations, shortness of breath, nausea/vomiting and abdominal pain. SHe notes that pain is well controlled on the current regimen. Review of Systems Review of Systems: All systems reviewed & are unremarkable except as noted in HPI and below Exam Narrative: AF HR 70 RR 16 SpO2 95 BP 98/38 General: female in no acute respiratory distress who is nontoxic appearing, sitting up in chair HEENT: Extraocular movement intact. Sclera clear and anicteric. No facial asymmetry. Chest: Lungs are clear to auscultation bilaterally. No wheezes or crackles. Speaking full sentences. CV: Heart was regular rate and rhythm. Abd: Abdomen was soft. Nontender. Nondistended. Positive bowel sounds. Ext: Right upper extremity in immobilizer, sensation to the fingers intact and able to move, dressing clean/dry/intact with surrounding ecchymosis. Full ROM to left upper extremity. Radial pulses intact. No clubbing, cyanosis. DP pulses bilaterally. Neuro: Patient is alert and oriented x3. Speech is clear. Objective Data Vital Signs Vital Signs: Vital Signs - 24 hr 03/31/25 08:30 03/31/25 08:30 03/31/25 11:00 Temperature 97.7 F Pulse Rate 84 81 Respiratory Rate 16 Blood Pressure 122/62 Pulse Oximetry 100 100 95 Oxygen Delivery Room Air Oxygen Flow Rate 03/31/25 14:00 03/31/25 20:00 03/31/25 20:00 Temperature 97.2 F L Pulse Rate 82 82 Respiratory Rate 12 12 Blood Pressure 136/94 H 120/48 L Pulse Oximetry 90 90 Oxygen Delivery Nasal Cannula Oxygen Flow Rate 2 03/31/25 21:57 04/01/25 05:54 Temperature 97.1 F L 96.5 F L Pulse Rate 81 90 Respiratory Rate 17 17 Blood Pressure 128/39 L 149/59 H Pulse Oximetry 90 95 Oxygen Delivery Oxygen Flow Rate Intake/Output Intake/Output: Intake & Output 03/29/25 03/30/25 03/31/25 04/01/25 23:59 23:59 23:59 23:59 Intake Total 700 560 740 Output Total 750 Balance -50 560 740 Meds/Results Medications: Active Medications Generic Name Dose Route Start Last Admin Trade Name Freq PRN Reason Stop Dose Admin Acetaminophen 650 mg 03/29/25 18:00 04/01/25 06:02 Acetaminophen 325 Mg Tablet PO 650 mg Q6HR KELVIN Administration Atorvastatin Calcium 80 mg 03/28/25 13:05 03/31/25 08:32 Atorvastatin 40 Mg Tablet PO 80 mg DAILY KELVIN Administration Clopidogrel Bisulfate 75 mg 03/31/25 09:00 03/31/25 09:06 Clopidogrel Bisulfate 75 Mg Tablet PO 75 mg DAILY KELVIN Administration Diphenhydramine HCl 25 mg 03/29/25 17:03 Diphenhydramine Hcl Inj 50 Mg/Ml Vial IV PUSH Q6H PRN Itching Felodipine 10 mg 03/28/25 13:10 03/31/25 08:32 Felodipine Er 5 Mg Tab PO 10 mg DAILY [facility] Administration Lidocaine 1 patch 03/29/25 13:45 03/31/25 08:34 Lidocaine 5% Patch TRANSDERM 1 patch DAILY [facility] Administration Lisinopril 40 mg 03/28/25 13:05 03/31/25 08:32 Lisinopril 20 Mg Tablet PO 40 mg DAILY KELVIN Administration Memantine 10 mg 03/28/25 21:00 03/31/25 20:06 Memantine 10 Mg Tablet PO 10 mg Q12HR KELVIN Administration Morphine Sulfate 2 mg 03/28/25 06:16 Morphine Sulfate (*Crx) 4 Mg/Ml Inj IV PUSH Q2H PRN Pain Rated 7-10 Naloxone HCl 0.1 mg 03/29/25 17:03 Naloxone Hcl 0.4 Mg/Ml Vial IV PUSH Q2M PRN Opiate Reversal Ondansetron HCl 4 mg 03/28/25 06:16 Ondansetron Inj 4 Mg/2 Ml Vial IV PUSH Q4H PRN Nausea Oxycodone HCl 5 mg 03/29/25 17:03 03/30/25 08:24 Oxycodone Hcl (*Crx) 5 Mg Tab Ir PO 5 mg Q4H PRN Administration Pain Rated 7-10 Oxycodone HCl 2.5 mg 03/29/25 17:03 Oxycodone Hcl (*Crx) 2.5 Mg Tab Ir PO Q4H PRN Pain Rated 4-6 Pantoprazole Sodium 20 mg 03/28/25 13:05 03/31/25 08:32 Pantoprazole Sod Sesquihydrate 20 Mg Tab PO 20 mg QAM KELVIN Administration Polyethylene Glycol 17 gm 03/29/25 09:00 03/31/25 08:32 Polyethylene Glycol 3350 17 Gm Powd.Pack PO 17 gm QAM KELVIN Administration Senna/Docusate Sodium 2 tab 03/29/25 17:03 03/31/25 17:16 Senna/Docusate Sodium Tablet PO 2 tab BID KELVIN Administration Radiology Results: ITS Impressions Shoulder CT 03/28/25 07:56 IMPRESSION: Mildly comminuted displaced and foreshortened proximal humerus metaphyseal fracture. The glenohumeral articulation remains intact. Other findings as above. NOTE: Preliminary radiologist/physician report provided by [facility] radiologist. Chest X-Ray 03/31/25 12:36 IMPRESSION: 1. No acute cardiopulmonary findings given portable technique. ADDENDUM: 03/31/25 1301 Small nodule overlying inferior right scapula not excluded. Recommend CT chest. Labs Labs: Laboratory Results - last 24 hr 04/01/25 05:15 WBC 5.3 RBC 3.78 L Hgb 11.3 L Hct 36.4 L MCV 96.3 MCH 29.9 MCHC 31.0 L RDW 14.4 Plt Count 277 MPV 10.0 Immature Gran % (Auto) 0.4 Neut % (Auto) 87.2 H Lymph % (Auto) 9.7 L [place] % (Auto) 2.3 L Eos % (Auto) 0.2 Baso % (Auto) 0.2 Lymph # (Auto) 0.51 L [place] # (Auto) 0.1 Eos # (Auto) 0.0 Baso # (Auto) 0.0 Abs Immat Gran (auto) 0.02 Absolute Neuts (auto) 4.6 Absolute Nucleated RBC 0.000 Nucleated RBC % 0.0 % Immature Plt Fraction 2.7 Sodium 131 L Potassium 4.8 Chloride 106 Carbon Dioxide 19 L Anion Gap 6 BUN 23 H Creatinine 1.19 H Estim Creat Clear Calc 26 Estimated GFR 43 L Glucose 157 H Calcium 8.0 L Quality VTE Prophylaxis VTE prophylaxis: mechanical ordered
--- NOTE | 2025-04-01 07:43 | PM.PNORT ---
Progress Note: A&P Assessment and Plan (1) Displaced fracture of proximal end of right humerus: Code(s): S42.201A - Unspecified fracture of upper end of right humerus, initial encounter for closed fracture Status: Acute Plan Postop day 3:ORIF right displaced proximal surgical neck fracture with intramedullary nail. Patient tolerated procedure well. Pain manageable. No numbness or tingling. We had a nice discussion regarding postoperative wound care, limitations, expectations, and exercises. Patient shows good understanding. Ortho instructions: D/C to SNF/rehab Follow up in office with xrays in 4 weeks. Wound Care: Remove Mepilex dressing at 7 days post op. Remove steristrips at 14 days post op. May shower. No soaking. PT: Patient may remove wrist from immobilizer sling while at rest. Non weight bearing on the operative arm. Ice as needed to decrease pain and swelling. Elevate fingers to decrease swelling. DVT prophylaxis:Resume Clopidogrel. Compression socks Subjective Subjective Date/Time Seen: 04/01/25 07:43 Interval history: Patient resting comfortably in bed at the time of my visit this morning. No complaints. Pain with any motion of the shoulder. No numbness or tingling in the fingers. Review of Systems Review of Systems: All systems reviewed & are unremarkable except as noted in HPI and below Exam Narrative: Overweight 84 y/o female. No acute distress. Wearing immobilizer sling. Dressing intact with minimal drainage. Changed dressing to a Mepilex. Moderate swelling. Moderate ecchymosis down the arm and into the elbow. No erythema. Good finger and wrist motion. Pain with passive elbow motion. Unable to fully assess the deltoid given the patient's pain with motion, however it seems to be firing. Calf nontender. Neurologic status intact. No varicosities. Distal pulses palpable. Objective Data Vital Signs Vital Signs: Vital Signs - 24 hr 03/31/25 08:30 03/31/25 08:30 03/31/25 11:00 Temperature 97.7 F Pulse Rate 84 81 Respiratory Rate 16 Blood Pressure 122/62 Pulse Oximetry 100 100 95 Oxygen Delivery Room Air Oxygen Flow Rate 03/31/25 14:00 03/31/25 20:00 03/31/25 20:00 Temperature 97.2 F L Pulse Rate 82 82 Respiratory Rate 12 12 Blood Pressure 136/94 H 120/48 L Pulse Oximetry 90 90 Oxygen Delivery Nasal Cannula Oxygen Flow Rate 2 03/31/25 21:57 04/01/25 05:54 Temperature 97.1 F L 96.5 F L Pulse Rate 81 90 Respiratory Rate 17 17 Blood Pressure 128/39 L 149/59 H Pulse Oximetry 90 95 Oxygen Delivery Oxygen Flow Rate Intake/Output Intake/Output: Intake & Output 03/29/25 03/30/25 03/31/25 04/01/25 23:59 23:59 23:59 23:59 Intake Total 700 560 740 Output Total 750 Balance -50 560 740 Meds/Results Medications: Active Medications Generic Name Dose Route Start Last Admin Trade Name Freq PRN Reason Stop Dose Admin Acetaminophen 650 mg 03/29/25 18:00 04/01/25 06:02 Acetaminophen 325 Mg Tablet PO 650 mg Q6HR KELVIN Administration Atorvastatin Calcium 80 mg 03/28/25 13:05 03/31/25 08:32 Atorvastatin 40 Mg Tablet PO 80 mg DAILY KELVIN Administration Clopidogrel Bisulfate 75 mg 03/31/25 09:00 03/31/25 09:06 Clopidogrel Bisulfate 75 Mg Tablet PO 75 mg DAILY KELVIN Administration Diphenhydramine HCl 25 mg 03/29/25 17:03 Diphenhydramine Hcl Inj 50 Mg/Ml Vial IV PUSH Q6H PRN Itching Felodipine 10 mg 03/28/25 13:10 03/31/25 08:32 Felodipine Er 5 Mg Tab PO 10 mg DAILY KELVIN Administration Lidocaine 1 patch 03/29/25 13:45 03/31/25 08:34 Lidocaine 5% Patch TRANSDERM 1 patch DAILY [facility] Administration Lisinopril 40 mg 03/28/25 13:05 03/31/25 08:32 Lisinopril 20 Mg Tablet PO 40 mg DAILY KELVIN Administration Memantine 10 mg 03/28/25 21:00 03/31/25 20:06 Memantine 10 Mg Tablet PO 10 mg Q12HR KELVIN Administration Morphine Sulfate 2 mg 03/28/25 06:16 Morphine Sulfate (*Crx) 4 Mg/Ml Inj IV PUSH Q2H PRN Pain Rated 7-10 Naloxone HCl 0.1 mg 03/29/25 17:03 Naloxone Hcl 0.4 Mg/Ml Vial IV PUSH Q2M PRN Opiate Reversal Ondansetron HCl 4 mg 03/28/25 06:16 Ondansetron Inj 4 Mg/2 Ml Vial IV PUSH Q4H PRN Nausea Oxycodone HCl 5 mg 03/29/25 17:03 03/30/25 08:24 Oxycodone Hcl (*Crx) 5 Mg Tab Ir PO 5 mg Q4H PRN Administration Pain Rated 7-10 Oxycodone HCl 2.5 mg 03/29/25 17:03 Oxycodone Hcl (*Crx) 2.5 Mg Tab Ir PO Q4H PRN Pain Rated 4-6 Pantoprazole Sodium 20 mg 03/28/25 13:05 03/31/25 08:32 Pantoprazole Sod Sesquihydrate 20 Mg Tab PO 20 mg QAM KELVIN Administration Polyethylene Glycol 17 gm 03/29/25 09:00 03/31/25 08:32 Polyethylene Glycol 3350 17 Gm Powd.Pack PO 17 gm QAM KELVIN Administration Senna/Docusate Sodium 2 tab 03/29/25 17:03 03/31/25 17:16 Senna/Docusate Sodium Tablet PO 2 tab BID KELVIN Administration Radiology Results: ITS Impressions Shoulder CT 03/28/25 07:56 IMPRESSION: Mildly comminuted displaced and foreshortened proximal humerus metaphyseal fracture. The glenohumeral articulation remains intact. Other findings as above. NOTE: Preliminary radiologist/physician report provided by [facility] radiologist. Chest X-Ray 03/31/25 12:36 IMPRESSION: 1. No acute cardiopulmonary findings given portable technique. ADDENDUM: 03/31/25 1301 Small nodule overlying inferior right scapula not excluded. Recommend CT chest. Labs Labs: Laboratory Results - last 24 hr 04/01/25 05:15 WBC 5.3 RBC 3.78 L Hgb 11.3 L Hct 36.4 L MCV 96.3 MCH 29.9 MCHC 31.0 L RDW 14.4 Plt Count 277 MPV 10.0 Immature Gran % (Auto) 0.4 Neut % (Auto) 87.2 H Lymph % (Auto) 9.7 L [place] % (Auto) 2.3 L Eos % (Auto) 0.2 Baso % (Auto) 0.2 Lymph # (Auto) 0.51 L [place] # (Auto) 0.1 Eos # (Auto) 0.0 Baso # (Auto) 0.0 Abs Immat Gran (auto) 0.02 Absolute Neuts (auto) 4.6 Absolute Nucleated RBC 0.000 Nucleated RBC % 0.0 % Immature Plt Fraction 2.7 Sodium 131 L Potassium 4.8 Chloride 106 Carbon Dioxide 19 L Anion Gap 6 BUN 23 H Creatinine 1.19 H Estim Creat Clear Calc 26 Estimated GFR 43 L Glucose 157 H Calcium 8.0 L
[2025-04-01 08:20] VITALS: PULSE 88; RESP 18; O2SAT 94
[2025-04-01] MEDS: oxyCODONE HCL (*CRX) 5 MG TAB IR PO (08:26)
[2025-04-01] MEDS: SENNA/DOCUSATE SODIUM TABLET 2 TAB PO ×2 (08:27→18:00)
[2025-04-01] MEDS: PANTOPRAZOLE SOD SESQUIHYDRATE 20 MG TAB PO (08:27)
[2025-04-01] MEDS: FELODIPINE ER 5 MG TAB 10 MG PO (08:27)
[2025-04-01] MEDS: LIDOCAINE 5% PATCH 1 PATCH TRANSDERM (08:28)
[2025-04-01] MEDS: ATORVASTATIN 40 MG TABLET 80 MG PO (08:28)
[2025-04-01] MEDS: CLOPIDOGREL BISULFATE 75 MG TABLET PO (08:28)
[2025-04-01] MEDS: MEMANTINE 10 MG TABLET PO ×2 (08:28→20:31)
--- NOTE | 2025-04-01 09:24 | PCNFU ---
Nutrition Follow-Up Complete: Inadequate energy intake related to NPO status as evidenced by current diet orders Goal:diet order PO intake adequate Pt meeting goals. Pt current nutrition is Regular, intake 50-75%. Nutrition recommendation: continue with current plan of care Last recorded weight is 65.3 kg. Bowel Motility: +BM 03/31 Labs Reviewed: Hgb:11.3, HCT:36.4, GFR:43, BUN:23, Cr:1.2, Glu:157 Meds Noted: protonix, miralax, senekot Skin: WNL Additional Notes: Pt on a regular diet, charted intake 50-75%. Agree with orders. Monitor intake, wt, labs. Follow up in 7 days.
[2025-04-01 10:40] VITALS: O2SAT 97
[2025-04-01 14:00] VITALS: BP 98/38; PULSE 70; RESP 16; TEMP 36.4; O2SAT 95
[2025-04-01 21:02] VITALS: BP 121/38; PULSE 81; RESP 17; TEMP 36.3; O2SAT 92
[2025-04-02 05:26] VITALS: BP 163/79; PULSE 82; RESP 17; TEMP 36.5; O2SAT 98
[2025-04-02] MEDS: ACETAMINOPHEN 325 MG TABLET 650 MG PO ×3 (05:50→17:09)
[2025-04-02 05:54] LABS: Hematocrit 36.4 % (37.0-47.0); Hemoglobin 12.0 g/dL (12.0-15.0); Immature Granulocyte Percent A 0.7 % (0-0.5); Lymphocytes Absolute Auto 1.44 K/mm3 (0.9-3.2); Mean Corpuscular HGB Conc 33.0 g/dl (32-36); Mean Corpuscular Hemoglobin 29.9 pg (26-34); Mean Corpuscular Volume 90.8 fl (80-100); Nucleated Red Blood Cells Absolute Auto 0.000 K/mm3 (0.0-0.012); Nucleated Red Blood Cells Perc 0.0 % (0.0-0.2); Platelet Count Result 450 k/mm3 (150-375); Red Blood Count 4.01 M/mm3 (4.2-5.4); White Blood Count 13.2 K/mm3 (4.5-10.0)
[2025-04-02 06:14] LABS: Anion Gap 11 mmol/L (4-12); Blood Urea Nitrogen 37 mg/dL (7-17); Calcium 8.6 mg/dL (8.4-10.2); Carbon Dioxide 18 mmol/L (22-30); Chloride 104 mmol/L (98-107); Estimated CRCL calculation 21 ml/min; Estimated Glomerular Filt Rate 32; Glucose 139 mg/dL (65-110); Potassium 4.4 mmol/L (3.4-5.0); Sodium 133 mmol/L (137-145)
[2025-04-02] MEDS: FELODIPINE ER 5 MG TAB 10 MG PO (08:33)
[2025-04-02] MEDS: PANTOPRAZOLE SOD SESQUIHYDRATE 20 MG TAB PO (08:33)
[2025-04-02] MEDS: ATORVASTATIN 40 MG TABLET 80 MG PO (08:33)
[2025-04-02] MEDS: CLOPIDOGREL BISULFATE 75 MG TABLET PO (08:33)
[2025-04-02] MEDS: MEMANTINE 10 MG TABLET PO ×2 (08:33→20:51)
[2025-04-02] MEDS: LIDOCAINE 5% PATCH 1 PATCH TRANSDERM (08:33)
--- NOTE | 2025-04-02 08:33 | P.PNIM_ITS ---
Progress Note: A&P Assessment and Plan (1) Acute respiratory failure with hypoxia: Code(s): J96.01 - Acute respiratory failure with hypoxia Status: Acute Assessment and Plan: Denies shortness of breath and cough with clear lungs on auscultation - Oxygen supplementation: RA with stable saturations - Chest XR: small nodule overlying inferiour right scapula not excluded but no acute cardiopulmonary process seen - Chest CT ordered, hx of IV contrast allergy which will be pretreated per guidelines No acute abnormalities, severe emphysema, mod sized sliding hiatal hernia, multinodular goiter Per daughter patient does have a history of COPD previously requiring O2 supplementation about 2-3 years ago however she was able to wean back to room air. Does not appear in acute exacerbation as no noted wheezing on exam and patient asymptomatic. Resolved. Remains on room air with stable saturations. (2) Fall: Code(s): W19.XXXA - Unspecified fall, initial encounter Status: Acute Assessment and Plan: Recurrent falls Denies any dizziness or lightheadedness prior to the fall. She denies any loss of consciousness or head strike. Right Hip and knee XR: Arthroplasty intact without associated fracture or dislocation. Chronic fractures right pubic rami. No joint effusion. Endorsing continued right knee pain. Range of motion intact. Lidocaine patch ordered. Elbow XR: No fracture or dislocation Humerus/ shoulder XR: transverse fracture of proximal humerus with displacement of distal shaft Shoulder CT: Mildly comminuted displaced and foreshortened proximal humerus metaphyseal fracture. The glenohumeral articulation remains intact. PT/OT Hx of radial fracture, left from prior fall in 02/2025 that patient has been placed in a splint and receiving PT/OT per PCP recommendations. Per daughter no known weight restrictions. Ordered a request of records from [facility] as this is where the fracture was diagnosed to better confirm a weight bearing status of the extremity, however this has not been received. Radial XR to reassess radial fracture showed a healing fracture Ortho evaluated and okay to use the wrist as tolerated, using the brace for comfort only (3) Displaced fracture of proximal end of right humerus: Code(s): S42.201A - Unspecified fracture of upper end of right humerus, initial encounter for closed fracture Status: Acute Assessment and Plan: Humerus/ shoulder XR: transverse fracture of proximal humerus with displacement of distal shaft Shoulder CT: Mildly comminuted displaced and foreshortened proximal humerus metaphyseal fracture. The glenohumeral articulation remains intact. - use IS - neurovasc checks - see order for intervals - SCDs/TEDs and plavix per ortho - analgesics oxycodone 2.5 and 5 mg PRN, morphine 2 mg IV q2h no longer requiring IV pain management - monitor labs in AM - CBC and BMP - bowel regimen: polyethylene glycol - PT/OT - Ortho consulted * s/p ORIF right displaced proximal surgical neck fracture with intramedullary nail on 03/[address] Carbajal * Follow up in office with xrays in 4 weeks. * Wound Care: Remove Mepilex dressing at 7 days post op. Remove steristrips at 14 days post op. May shower. No soaking. * PT: Patient may remove wrist from immobilizer sling while at rest. Non weight bearing on the operative arm. Remains in immobilizer with sensation and mobility intact. Care coordination following for placement, rehab unable to take patient today. Plan for discharge tomorrow. (4) HTN (hypertension): Qualifiers: Hypertension type: primary hypertension Qualified Code(s): I10 - Essent ial (primary) hypertension Code(s): I10 - Essential (primary) hypertension Status: Chronic Assessment and Plan: Chronic, continue home medications - lisinopril 40 mg daily and felodipine 10 mg daily - blood pressures reviewed and remain stable (5) CKD (chronic kidney disease): Code(s): N18.9 - Chronic kidney disease, unspecified Status: Acute Assessment and Plan: Chronic, baseline Cr 1.3-1.9 Cr remains at baseline, continue to monitor with daily labs Renally dose medications Avoid nephrotoxic medications Monitor I/O (6) History of CVA (cerebrovascular accident): Code(s): Z86.73 - Personal history of transient ischemic attack (TIA), and cerebral infarction without residual deficits Status: Acute Assessment and Plan: Chronic, right sided lower extremity deficits Continue atorvastatin 80 mg daily and plavix 75 mg daily (7) Aortic stenosis: Code(s): I35.0 - Nonrheumatic aortic (valve) stenosis Status: Acute Assessment and Plan: Known history, echo 04/05/23 showed mod Recently referred on 03/25 to cardiology by PCP Plan Patient had leukocytosis on am labs Vitals stable Patient has no complaints denying shortness of breath, cough, nausea/vomiting, abdominal pain and UTI like symptoms Per RN bowel movement yesterday Exam unremarkable Continue to monitor CBC with am labs Time Spent With Patient Time with patient: 25 - 35 minutes Subjective Date/time seen: 04/02/25 08:33 Interval history: 84 year old female with past medical history of CVA with mild right sided deficits, BARBIE with noncompliance of CPAP, dementia, HTN, HLD, GERD, CKD, chronic LBP, h/o PE no longer on a/c, and presents to the hospital following a ground level fall at her home. Patient is pleasant sitting up comfortably in bed. She states pain is doing well on the current regimen. She has no complaints denying chest pain, palpitations, shortness of breath, nausea/vomiting, abdominal pain, and UTI like symptoms. Review of Systems Review of Systems: All systems reviewed & are unremarkable except as noted in HPI and below Exam Narrative: AF HR 82 RR 17 SpO2 98 BP 163/79 General: female in no acute respiratory distress who is nontoxic appearing, sitting up in bed HEENT: Extraocular movement intact. Sclera clear and anicteric. No facial asymmetry. Chest: Lungs are clear to auscultation bilaterally. No wheezes or crackles. Speaking full sentences. CV: Heart was regular rate and rhythm. Abd: Abdomen was soft. Nontender. Nondistended. Positive bowel sounds. Ext: Right upper extremity in immobilizer, sensation to the fingers intact and able to move, dressing clean/dry/intact with surrounding ecchymosis. Full ROM to left upper extremity. Radial pulses intact. No clubbing, cyanosis. DP pulses bilaterally. Neuro: Patient is alert and oriented x3. Speech is clear. Objective Data Vital Signs Vital Signs: Vital Signs - 24 hr 04/01/25 10:40 04/01/25 14:00 04/01/25 21:02 Temperature 97.5 F L 97.3 F L Pulse Rate 70 81 Respiratory Rate 16 17 Blood Pressure 98/38 L 121/38 L Pulse Oximetry 97 95 92 04/02/25 05:26 Temperature 97.7 F Pulse Rate 82 Respiratory Rate 17 Blood Pressure 163/79 H Pulse Oximetry 98 Intake/Output Intake/Output: Intake & Output 03/30/25 03/31/25 04/01/25 04/02/25 23:59 23:59 23:59 23:59 Intake Total 348 695 8207 250 Balance 752 700 2657 250 Meds/Results Medications: Active Medications Generic Name Dose Route Start Last Admin Trade Name Freq PRN Reason Stop Dose Admin Acetaminophen 650 mg 03/29/25 18:00 04/02/25 05:50 Acetaminophen 325 Mg Tablet PO 650 mg Q6HR KELVIN Administration Atorvastatin Calcium 80 mg 03/28/25 13:05 04/01/25 08:28 Atorvastatin 40 Mg Tablet PO 80 mg DAILY KELVIN Administration Clopidogrel Bisulfate 75 mg 03/31/25 09:00 04/01/25 08:28 Clopidogrel Bisulfate 75 Mg Tablet PO 75 mg DAILY KELVIN Administration Diphenhydramine HCl 25 mg 03/29/25 17:03 Diphenhydramine Hcl Inj 50 Mg/Ml Vial IV PUSH Q6H PRN Itching Felodipine 10 mg 03/28/25 13:10 04/01/25 08:27 Felodipine Er 5 Mg Tab PO 10 mg DAILY KELVIN Administration Lidocaine 1 patch 03/29/25 13:45 04/01/25 08:28 Lidocaine 5% Patch TRANSDERM 1 patch DAILY [facility] Administration Lisinopril 40 mg 03/28/25 13:05 04/01/25 08:28 Lisinopril 20 Mg Tablet PO 40 mg DAILY [facility] Administration Memantine 10 mg 03/28/25 21:00 04/01/25 20:31 Memantine 10 Mg Tablet PO 10 mg Q12HR KELVIN Administration Morphine Sulfate 2 mg 03/28/25 06:16 Morphine Sulfate (*Crx) 4 Mg/Ml Inj IV PUSH Q2H PRN Pain Rated 7-10 Naloxone HCl 0.1 mg 03/29/25 17:03 Naloxone Hcl 0.4 Mg/Ml Vial IV PUSH Q2M PRN Opiate Reversal Ondansetron HCl 4 mg 03/28/25 06:16 Ondansetron Inj 4 Mg/2 Ml Vial IV PUSH Q4H PRN Nausea Oxycodone HCl 5 mg 03/29/25 17:03 04/01/25 08:26 Oxycodone Hcl (*Crx) 5 Mg Tab Ir PO 5 mg Q4H PRN Administration Pain Rated 7-10 Oxycodone HCl 2.5 mg 03/29/25 17:03 Oxycodone Hcl (*Crx) 2.5 Mg Tab Ir PO Q4H PRN Pain Rated 4-6 Pantoprazole Sodium 20 mg 03/28/25 13:05 04/01/25 08:27 Pantoprazole Sod Sesquihydrate 20 Mg Tab PO 20 mg QAM KELVIN Administration Polyethylene Glycol 17 gm 03/29/25 09:00 04/01/25 08:28 Polyethylene Glycol 3350 17 Gm Powd.Pack PO 17 gm QAM KELVIN Administration Senna/Docusate Sodium 2 tab 03/29/25 17:03 04/01/25 18:00 Senna/Docusate Sodium Tablet PO 2 tab BID KELVIN Administration Radiology Results: ITS Impressions Shoulder CT 03/28/25 07:56 IMPRESSION: Mildly comminuted displaced and foreshortened proximal humerus metaphyseal fracture. The glenohumeral articulation remains intact. Other findings as above. NOTE: Preliminary radiologist/physician report provided by [facility] radiologist. Chest X-Ray 03/31/25 12:36 IMPRESSION: 1. No acute cardiopulmonary findings given portable technique. ADDENDUM: 03/31/25 1301 Small nodule overlying inferior right scapula not excluded. Recommend CT chest. Chest CT 04/01/25 08:28 IMPRESSION: 1. No abnormal correlate for the chest radiograph finding. 2. Severe emphysema. 3. Moderate-sized sliding hiatal hernia. 4. Multinodular goiter. Forearm X-Ray 04/01/25 15:43 Impression: Healing fracture Labs Labs: Laboratory Results - last 24 hr 04/02/25 05:44 WBC 13.2 H RBC 4.01 L Hgb 12.0 Hct 36.4 L MCV 90.8 D MCH 29.9 MCHC 33.0 RDW 14.6 H Plt Count 450 H D MPV 9.6 Immature Gran % (Auto) 0.7 H Neut % (Auto) 81.5 H Lymph % (Auto) 10.9 L [place] % (Auto) 6.8 Eos % (Auto) 0.0 Baso % (Auto) 0.1 L Lymph # (Auto) 1.44 [place] # (Auto) 0.9 H Eos # (Auto) 0.0 Baso # (Auto) 0.0 Abs Immat Gran (auto) 0.09 H Absolute Neuts (auto) 10.8 H Absolute Nucleated RBC 0.000 Nucleated RBC % 0.0 Sodium 133 L Potassium 4.4 Chloride 104 Carbon Dioxide 18 L Anion Gap 11 BUN 37 H D Creatinine 1.53 H Estim Creat Clear Calc 21 Estimated GFR 32 L Glucose 139 H Calcium 8.6 Quality VTE Prophylaxis VTE prophylaxis: mechanical ordered
[2025-04-02] MEDS: SENNA/DOCUSATE SODIUM TABLET 2 TAB PO ×2 (08:42→17:09)
--- NOTE | 2025-04-02 10:57 | P.PNOP_ITS ---
Progress Note: A&P Assessment and Plan (1) Fracture of left distal radius: Code(s): S52.502A - Unspecified fracture of the lower end of left radius, initial encounter for closed fracture Status: Acute (2) Displaced fracture of proximal end of right humerus: Code(s): S42.201A - Unspecified fracture of upper end of right humerus, initial encounter for closed fracture Status: Acute Plan The wrist has healed well. Mild residual deformity. X-rays reviewed. Motion is good with mild pain. 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 Ok to use the wrist as tolerated. Brace for comfort only. The shoulder and upper arm show expected swelling and ecchymosis Neurovascular status intact. Follow discharge instructions. Discussed care with hospitalist and therapist. Subjective Subjective Date/Time Seen: 04/02/25 10:57 Objective Data Vital Signs Vital Signs: Vital Signs - 24 hr 04/01/25 14:00 04/01/25 21:02 04/02/25 05:26 Temperature 36.4 C L 36.3 C L 36.5 C Pulse Rate 70 81 82 Respiratory Rate 16 17 17 Blood Pressure 98/38 L 121/38 L 163/79 H Pulse Oximetry 95 92 98 Oxygen Delivery 04/02/25 08:00 Temperature Pulse Rate Respiratory Rate Blood Pressure Pulse Oximetry Oxygen Delivery Room Air Intake/Output Intake/Output: Intake & Output 03/30/25 03/31/25 04/01/25 04/02/25 23:59 23:59 23:59 23:59 Intake Total 590 930 2137 490 Balance 236 973 5022 490 Meds/Results Medications: Active Medications Generic Name Dose Route Start Last Admin Trade Name Freq PRN Reason Stop Dose Admin Acetaminophen 650 mg 03/29/25 18:00 04/02/25 05:50 Acetaminophen 325 Mg Tablet PO 650 mg Q6HR KELVIN Administration Atorvastatin Calcium 80 mg 03/28/25 13:05 04/02/25 08:33 Atorvastatin 40 Mg Tablet PO 80 mg DAILY [facility]IN Administration Clopidogrel Bisulfate 75 mg 03/31/25 09:00 04/02/25 08:33 Clopidogrel Bisulfate 75 Mg Tablet PO 75 mg DAILY KELVIN Administration Diphenhydramine HCl 25 mg 03/29/25 17:03 Diphenhydramine Hcl Inj 50 Mg/Ml Vial IV PUSH Q6H PRN Itching Felodipine 10 mg 03/28/25 13:10 04/02/25 08:33 Felodipine Er 5 Mg Tab PO 10 mg DAILY KELVIN Administration Lidocaine 1 patch 03/29/25 13:45 04/02/25 08:33 Lidocaine 5% Patch TRANSDERM 1 patch DAILY [facility] Administration Lisinopril 40 mg 03/28/25 13:05 04/02/25 08:32 Lisinopril 20 Mg Tablet PO 40 mg DAILY KEL[facility]IN Administration Memantine 10 mg 03/28/25 21:00 04/02/25 08:33 Memantine 10 Mg Tablet PO 10 mg Q12HR KELVIN Administration Morphine Sulfate 2 mg 03/28/25 06:16 Morphine Sulfate (*Crx) 4 Mg/Ml Inj IV PUSH Q2H PRN Pain Rated 7-10 Naloxone HCl 0.1 mg 03/29/25 17:03 Naloxone Hcl 0.4 Mg/Ml Vial IV PUSH Q2M PRN Opiate Reversal Ondansetron HCl 4 mg 03/28/25 06:16 Ondansetron Inj 4 Mg/2 Ml Vial IV PUSH Q4H PRN Nausea Oxycodone HCl 5 mg 03/29/25 17:03 04/01/25 08:26 Oxycodone Hcl (*Crx) 5 Mg Tab Ir PO 5 mg Q4H PRN Administration Pain Rated 7-10 Oxycodone HCl 2.5 mg 03/29/25 17:03 Oxycodone Hcl (*Crx) 2.5 Mg Tab Ir PO Q4H PRN Pain Rated 4-6 Pantoprazole Sodium 20 mg 03/28/25 13:05 04/02/25 08:33 Pantoprazole Sod Sesquihydrate 20 Mg Tab PO 20 mg QAM KELVIN Administration Polyethylene Glycol 17 gm 03/29/25 09:00 04/02/25 08:33 Polyethylene Glycol 3350 17 Gm Powd.Pack PO 17 gm QAM KELVIN Administration Senna/Docusate Sodium 2 tab 03/29/25 17:03 04/02/25 08:42 Senna/Docusate Sodium Tablet PO 2 tab BID KELVIN Administration Radiology Results: ITS Impressions Shoulder CT 03/28/25 07:56 IMPRESSION: Mildly comminuted displaced and foreshortened proximal humerus metaphyseal fracture. The glenohumeral articulation remains intact. Other findings as above. NOTE: Preliminary radiologist/physician report provided by [facility] radiologist. Chest X-Ray 03/31/25 12:36 IMPRESSION: 1. No acute cardiopulmonary findings given portable technique. ADDENDUM: 03/31/25 1301 Small nodule overlying inferior right scapula not excluded. Recommend CT chest. Chest CT 04/01/25 08:28 IMPRESSION: 1. No abnormal correlate for the chest radiograph finding. 2. Severe emphysema. 3. Moderate-sized sliding hiatal hernia. 4. Multinodular goiter. Forearm X-Ray 04/01/25 15:43 Impression: Healing fracture Labs Labs: Laboratory Results - last 24 hr 04/02/25 05:44 WBC 13.2 H RBC 4.01 L Hgb 12.0 Hct 36.4 L MCV 90.8 D MCH 29.9 MCHC 33.0 RDW 14.6 H Plt Count 450 H D MPV 9.6 Immature Gran % (Auto) 0.7 H Neut % (Auto) 81.5 H Lymph % (Auto) 10.9 L [place] % (Auto) 6.8 Eos % (Auto) 0.0 Baso % (Auto) 0.1 L Lymph # (Auto) 1.44 [place] # (Auto) 0.9 H Eos # (Auto) 0.0 Baso # (Auto) 0.0 Abs Immat Gran (auto) 0.09 H Absolute Neuts (auto) 10.8 H Absolute Nucleated RBC 0.000 Nucleated RBC % 0.0 Sodium 133 L Potassium 4.4 Chloride 104 Carbon Dioxide 18 L Anion Gap 11 BUN 37 H D Creatinine 1.53 H Estim Creat Clear Calc 21 Estimated GFR 32 L Glucose 139 H Calcium 8.6
[2025-04-02 14:00] VITALS: BP 138/41; PULSE 80; RESP 18; TEMP 36.2; O2SAT 92
[2025-04-02 20:27] VITALS: BP 164/50; PULSE 82; RESP 16; TEMP 36.4; O2SAT 95
[2025-04-02 21:55] VITALS: O2SAT 95
[2025-04-03] MEDS: ACETAMINOPHEN 325 MG TABLET 650 MG PO ×3 (00:20→11:35)
[2025-04-03 05:22] VITALS: BP 163/57; PULSE 84; RESP 16; TEMP 36.3; O2SAT 94
--- NOTE | 2025-04-03 07:38 | P.PNOP_ITS ---
Progress Note: A&P Assessment and Plan (1) Fracture of left distal radius: Qualifiers: Encounter type: subsequent encounter Fracture type: closed Code(s): S52.502A - Unspecified fracture of the lower end of left radius, initial encounter for closed fracture Status: Acute (2) Displaced fracture of proximal end of right humerus: Code(s): S42.201A - Unspecified fracture of upper end of right humerus, initial encounter for closed fracture Status: Acute Plan Postop day 5:ORIF right displaced proximal surgical neck fracture with intramedullary nail. Also healed left distal radius fracture. Plan for patient to discharge today to rehab. Okay for discharge from orthopedic standpoint. The wrist has healed well. Mild residual deformity. X-rays reviewed. Motion is good with mild pain. 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 Ok to use the wrist as tolerated. Brace for comfort only. The shoulder and upper arm show expected swelling and ecchymosis. Neurovascular status intact. Ortho instructions: * D/C to SNF/rehab * Follow up in office with xrays of the shoulder in 4 weeks. * Wound Care: Remove Mepilex dressing at 7 days post op. Remove steristrips at 14 days post op. May shower. No soaking. * PT: Patient may remove wrist from immobilizer sling while at rest. Non weight bearing on the operative arm. * Ice as needed to decrease pain and swelling. Elevate fingers to decrease swelling. * DVT prophylaxis: Resume Clopidogrel 2 days postoperatively. Compression socks. * Left wrist fracture has healed. Ok to use julissa walker with the left hand. Wri st brace is not required. May use for comfort. Subjective Subjective Date/Time Seen: 04/03/25 07:38 Interval history: Patient resting comfortably. No pain in the shoulder at rest. Moving the wrist without pain or issues. Wearing immobilizer sling. Review of Systems Review of Systems: All systems reviewed & are unremarkable except as noted in HPI and below Exam Narrative: Overweight 84 y/o female. No acute distress. Wearing immobilizer sling. Dressing intact without drainage. Moderate swelling. Moderate ecchymosis down the arm and into the elbow. No erythema. Good finger and wrist motion. Contralateral wrist moving without pain. Near normal range of motion. Pain with passive elbow motion. Unable to fully assess the deltoid given the patient's pain with motion, however it seems to be firing. Calf nontender. Neurologic status intact. No varicosities. Distal pulses palpable. Objective Data Vital Signs Vital Signs: Vital Signs - 24 hr 04/02/25 08:00 04/02/25 14:00 04/02/25 20:00 Temperature 97.2 F L Pulse Rate 80 Respiratory Rate 18 Blood Pressure 138/41 L Pulse Oximetry 92 Oxygen Delivery Room Air Room Air 04/02/25 20:27 04/02/25 21:55 04/03/25 05:22 Temperature 97.6 F 97.3 F L Pulse Rate 82 84 Respiratory Rate 16 16 Blood Pressure 164/50 H 163/57 H Pulse Oximetry 95 95 94 Oxygen Delivery Room Air Intake/Output Intake/Output: Intake & Output 03/31/25 04/01/25 04/02/25 04/03/25 23:59 23:59 23:59 23:59 Intake Total 740 1244 1230 200 Balance 740 1244 1230 200 Meds/Results Medications: Active Medications Generic Name Dose Route Start Last Admin Trade Name Freq PRN Reason Stop Dose Admin Acetaminophen 650 mg 03/29/25 18:00 04/03/25 06:48 Acetaminophen 325 Mg Tablet PO 650 mg Q6HR KELVIN Administration Atorvastatin Calcium 80 mg 03/28/25 13:05 04/02/25 08:33 Atorvastatin 40 Mg Tablet PO 80 mg DAILY KELVIN Administration Clopidogrel Bisulfate 75 mg 03/31/25 09:00 04/02/25 08:33 Clopidogrel Bisulfate 75 Mg Tablet PO 75 mg DAILY KELVIN Administration Diphenhydramine HCl 25 mg 03/29/25 17:03 Diphenhydramine Hcl Inj 50 Mg/Ml Vial IV PUSH Q6H PRN Itching Felodipine 10 mg 03/28/25 13:10 04/02/25 08:33 Felodipine Er 5 Mg Tab PO 10 mg DAILY KELVIN Administration Lidocaine 1 patch 03/29/25 13:45 04/02/25 08:33 Lidocaine 5% Patch TRANSDERM 1 patch DAILY KELVIN Administration Lisinopril 40 mg 03/28/25 13:05 04/02/25 08:32 Lisinopril 20 Mg Tablet PO 40 mg DAILY KELVIN Administration Memantine 10 mg 03/28/25 21:00 04/02/25 20:51 Memantine 10 Mg Tablet PO 10 mg Q12HR KELVIN Administration Morphine Sulfate 2 mg 03/28/25 06:16 Morphine Sulfate (*Crx) 4 Mg/Ml Inj IV PUSH Q2H PRN Pain Rated 7-10 Naloxone HCl 0.1 mg 03/29/25 17:03 Naloxone Hcl 0.4 Mg/Ml Vial IV PUSH Q2M PRN Opiate Reversal Ondansetron HCl 4 mg 03/28/25 06:16 Ondansetron Inj 4 Mg/2 Ml Vial IV PUSH Q4H PRN Nausea Oxycodone HCl 5 mg 03/29/25 17:03 04/01/25 08:26 Oxycodone Hcl (*Crx) 5 Mg Tab Ir PO 5 mg Q4H PRN Administration Pain Rated 7-10 Oxycodone HCl 2.5 mg 03/29/25 17:03 Oxycodone Hcl (*Crx) 2.5 Mg Tab Ir PO Q4H PRN Pain Rated 4-6 Pantoprazole Sodium 20 mg 03/28/25 13:05 04/02/25 08:33 Pantoprazole Sod Sesquihydrate 20 Mg Tab PO 20 mg QAM KELVIN Administration Polyethylene Glycol 17 gm 03/29/25 09:00 04/02/25 08:33 Polyethylene Glycol 3350 17 Gm Powd.Pack PO 17 gm QAM KELVIN Administration Senna/Docusate Sodium 2 tab 03/29/25 17:03 04/02/25 17:09 Senna/Docusate Sodium Tablet PO 2 tab BID KELVIN Administration Radiology Results: ITS Impressions Shoulder CT 03/28/25 07:56 IMPRESSION: Mildly comminuted displaced and foreshortened proximal humerus metaphyseal fracture. The glenohumeral articulation remains intact. Other findings as above. NOTE: Preliminary radiologist/physician report provided by [facility] radiologist. Chest X-Ray 03/31/25 12:36 IMPRESSION: 1. No acute cardiopulmonary findings given portable technique. ADDENDUM: 03/31/25 1301 Small nodule overlying inferior right scapula not excluded. Recommend CT chest. Chest CT 04/01/25 08:28 IMPRESSION: 1. No abnormal correlate for the chest radiograph finding. 2. Severe emphysema. 3. Moderate-sized sliding hiatal hernia. 4. Multinodular goiter. Forearm X-Ray 04/01/25 15:43 Impression: Healing fracture Labs Labs: Laboratory Results - last 24 hr 04/02/25 05:44 WBC 13.2 H RBC 4.01 L Hgb 12.0 Hct 36.4 L MCV 90.8 D MCH 29.9 MCHC 33.0 RDW 14.6 H Plt Count 450 H D MPV 9.6 Immature Gran % (Auto) 0.7 H Neut % (Auto) 81.5 H Lymph % (Auto) 10.9 L King[place] % (Auto) 6.8 Eos % (Auto) 0.0 Baso % (Auto) 0.1 L Lymph # (Auto) 1.44 [place] # (Auto) 0.9 H Eos # (Auto) 0.0 Baso # (Auto) 0.0 Abs Immat Gran (auto) 0.09 H Absolute Neuts (auto) 10.8 H Absolute Nucleated RBC 0.000 Nucleated RBC % 0.0 Sodium 133 L Potassium 4.4 Chloride 104 Carbon Dioxide 18 L Anion Gap 11 BUN 37 H D Creatinine 1.53 H Estim Creat Clear Calc 21 Estimated GFR 32 L Glucose 139 H Calcium 8.6
--- NOTE | 2025-04-03 08:22 | P.PNIM_ITS ---
Progress Note: A&P Assessment and Plan (1) Acute respiratory failure with hypoxia: Code(s): J96.01 - Acute respiratory failure with hypoxia Status: Acute Assessment and Plan: Denies shortness of breath and cough with clear lungs on auscultation - Oxygen supplementation: RA with stable saturations - Chest XR: small nodule overlying inferiour right scapula not excluded but no acute cardiopulmonary process seen - Chest CT ordered, hx of IV contrast allergy which will be pretreated per guidelines No acute abnormalities, severe emphysema, mod sized sliding hiatal hernia, multinodular goiter Per daughter patient does have a history of COPD previously requiring O2 supplementation about 2-3 years ago however she was able to wean back to room air. Does not appear in acute exacerbation as no noted wheezing on exam and patient asymptomatic. Resolved. Remains on room air with stable saturations. (2) Fall: Code(s): W19.XXXA - Unspecified fall, initial encounter Status: Acute Assessment and Plan: Recurrent falls Denies any dizziness or lightheadedness prior to the fall. She denies any loss of consciousness or head strike. Right Hip and knee XR: Arthroplasty intact without associated fracture or dislocation. Chronic fractures right pubic rami. No joint effusion. Endorsing continued right knee pain. Range of motion intact. Lidocaine patch ordered. Elbow XR: No fracture or dislocation Humerus/ shoulder XR: transverse fracture of proximal humerus with displacement of distal shaft Shoulder CT: Mildly comminuted displaced and foreshortened proximal humerus metaphyseal fracture. The glenohumeral articulation remains intact. PT/OT Hx of radial fracture, left from prior fall in 02/2025 that patient has been placed in a splint and receiving PT/OT per PCP recommendations. Per daughter no known weight restrictions. Ordered a request of records from [facility] as this is where the fracture was diagnosed to better confirm a weight bearing status of the extremity, however this has not been received. Radial XR to reassess radial fracture showed a healing fracture Ortho evaluated and okay to use the wrist as tolerated, using the brace for comfort only (3) Displaced fracture of proximal end of right humerus: Code(s): S42.201A - Unspecified fracture of upper end of right humerus, initial encounter for closed fracture Status: Acute Assessment and Plan: Humerus/ shoulder XR: transverse fracture of proximal humerus with displacement of distal shaft Shoulder CT: Mildly comminuted displaced and foreshortened proximal humerus metaphyseal fracture. The glenohumeral articulation remains intact. - use IS - neurovasc checks - see order for intervals - SCDs/TEDs and plavix per ortho - analgesics oxycodone 2.5 and 5 mg PRN, morphine 2 mg IV q2h no longer requiring IV pain management - monitor labs in AM - CBC and BMP - bowel regimen: polyethylene glycol - PT/OT - Ortho consulted * s/p ORIF right displaced proximal surgical neck fracture with intramedullary nail on 03/[address] Carbajal * Follow up in office with xrays in 4 weeks. * Wound Care: Remove Mepilex dressing at 7 days post op. Remove steristrips at 14 days post op. May shower. No soaking. * PT: Patient may remove wrist from immobilizer sling while at rest. Non weight bearing on the operative arm. Remains in immobilizer with sensation and mobility intact. Care coordination following for placement, rehab unable to take patient today. Plan for discharge tomorrow. (4) HTN (hypertension): Qualifiers: Hypertension type: primary hypertension Qualified Code(s): I10 - Essent ial (primary) hypertension Code(s): I10 - Essential (primary) hypertension Status: Chronic Assessment and Plan: Chronic, continue home medications - lisinopril 40 mg daily and felodipine 10 mg daily - blood pressures reviewed and remain stable (5) CKD (chronic kidney disease): Code(s): N18.9 - Chronic kidney disease, unspecified Status: Acute Assessment and Plan: Chronic, baseline Cr 1.3-1.9 Cr remains at baseline, continue to monitor with daily labs Renally dose medications Avoid nephrotoxic medications Monitor I/O (6) History of CVA (cerebrovascular accident): Code(s): Z86.73 - Personal history of transient ischemic attack (TIA), and cerebral infarction without residual deficits Status: Acute Assessment and Plan: Chronic, right sided lower extremity deficits Continue atorvastatin 80 mg daily and plavix 75 mg daily (7) Aortic stenosis: Code(s): I35.0 - Nonrheumatic aortic (valve) stenosis Status: Acute Assessment and Plan: Known history, echo 04/05/23 showed mod Recently referred on 03/25 to cardiology by PCP Plan Patient had leukocytosis on am labs Vitals stable Patient has no complaints denying shortness of breath, cough, nausea/vomiting, abdominal pain and UTI like symptoms Per RN bowel movement yesterday Exam unremarkable Continue to monitor CBC with am labs Subjective Date/time seen: 04/03/25 08:22 Interval history: 84 year old female with past medical history of CVA with mild right sided deficits, BARBIE with noncompliance of CPAP, dementia, HTN, HLD, GERD, CKD, chronic LBP, h/o PE no longer on a/c, and presents to the hospital following a ground level fall at her home. Patient is pleasant sitting up comfortably in bed. She states pain is doing well on the current regimen. She has no complaints denying chest pain, palpitations, shortness of breath, nausea/vomiting, abdominal pain, and UTI like symptoms. Review of Systems Review of Systems: All systems reviewed & are unremarkable except as noted in HPI and below Exam Narrative: AF HR 82 RR 17 SpO2 98 BP 163/79 General: female in no acute respiratory distress who is nontoxic appearing, sitting up in bed HEENT: Extraocular movement intact. Sclera clear and anicteric. No facial asymmetry. Chest: Lungs are clear to auscultation bilaterally. No wheezes or crackles. Speaking full sentences. CV: Heart was regular rate and rhythm. Abd: Abdomen was soft. Nontender. Nondistended. Positive bowel sounds. Ext: Right upper extremity in immobilizer, sensation to the fingers intact and able to move, dressing clean/dry/intact with surrounding ecchymosis. Full ROM to left upper extremity. Radial pulses intact. No clubbing, cyanosis. DP pulses bilaterally. Neuro: Patient is alert and oriented x3. Speech is clear. Const: General: comfortable Objective Data Vital Signs Vital Signs: Vital Signs - 24 hr 04/02/25 14:00 04/02/25 20:00 04/02/25 20:27 Temperature 97.2 F L 97.6 F Pulse Rate 80 82 Respiratory Rate 18 16 Blood Pressure 138/41 L 164/50 H Pulse Oximetry 92 95 Oxygen Delivery Room Air 04/02/25 21:55 04/03/25 05:22 Temperature 97.3 F L Pulse Rate 84 Respiratory Rate 16 Blood Pressure 163/57 H Pulse Oximetry 95 94 Oxygen Delivery Room Air Intake/Output Intake/Output: Intake & Output 03/31/25 04/01/25 04/02/2504/03/25 23:59 23:59 23:59 23:59 Intake Total 740 1244 1230 200 Balance 740 1244 1230 200 Meds/Results Medications: Active Medications Generic Name Dose Route Start Last Admin Trade Name Freq PRN Reason Stop Dose Admin Acetaminophen 650 mg 03/29/25 18:00 04/03/25 06:48 Acetaminophen 325 Mg Tablet PO 650 mg Q6HR KELVIN Administration Atorvastatin Calcium 80 mg 03/28/25 13:05 04/02/25 08:33 Atorvastatin 40 Mg Tablet PO 80 mg DAILY KELVIN Administration Clopidogrel Bisulfate 75 mg 03/31/25 09:00 04/02/25 08:33 Clopidogrel Bisulfate 75 Mg Tablet PO 75 mg DAILY KELVIN Administration Diphenhydramine HCl 25 mg 03/29/25 17:03 Diphenhydramine Hcl Inj 50 Mg/Ml Vial IV PUSH Q6H PRN Itching Felodipine 10 mg 03/28/25 13:10 04/02/25 08:33 Felodipine Er 5 Mg Tab PO 10 mg DAILY KELVIN Administration Lidocaine 1 patch 03/29/25 13:45 04/02/25 08:33 Lidocaine 5% Patch TRANSDERM 1 patch DAILY [facility] Administration Lisinopril 40 mg 03/28/25 13:05 04/02/25 08:32 Lisinopril 20 Mg Tablet PO 40 mg DAILY KELVIN Administration Memantine 10 mg 03/28/25 21:00 04/02/25 20:51 Memantine 10 Mg Tablet PO 10 mg Q12HR KELVIN Administration Morphine Sulfate 2 mg 03/28/25 06:16 Morphine Sulfate (*Crx) 4 Mg/Ml Inj IV PUSH Q2H PRN Pain Rated 7-10 Naloxone HCl 0.1 mg 03/29/25 17:03 Naloxone Hcl 0.4 Mg/Ml Vial IV PUSH Q2M PRN Opiate Reversal Ondansetron HCl 4 mg 03/28/25 06:16 Ondansetron Inj 4 Mg/2 Ml Vial IV PUSH Q4H PRN Nausea Oxycodone HCl 5 mg 03/29/25 17:03 04/01/25 08:26 Oxycodone Hcl (*Crx) 5 Mg Tab Ir PO 5 mg Q4H PRN Administration Pain Rated 7-10 Oxycodone HCl 2.5 mg 03/29/25 17:03 Oxycodone Hcl (*Crx) 2.5 Mg Tab Ir PO Q4H PRN Pain Rated 4-6 Pantoprazole Sodium 20 mg 03/28/25 13:05 04/02/25 08:33 Pantoprazole Sod Sesquihydrate 20 Mg Tab PO 20 mg QAM KELVIN Administration Polyethylene Glycol 17 gm 03/29/25 09:00 04/02/25 08:33 Polyethylene Glycol 3350 17 Gm Powd.Pack PO 17 gm QAM KELVIN Administration Senna/Docusate Sodium 2 tab 03/29/25 17:03 04/02/25 17:09 Senna/Docusate Sodium Tablet PO 2 tab BID KELVIN Administration Radiology Results: ITS Impressions Shoulder CT 03/28/25 07:56 IMPRESSION: Mildly comminuted displaced and foreshortened proximal humerus metaphyseal fracture. The glenohumeral articulation remains intact. Other findings as above. NOTE: Preliminary radiologist/physician report provided by [facility] radiologist. Chest X-Ray 03/31/25 12:36 IMPRESSION: 1. No acute cardiopulmonary findings given portable technique. ADDENDUM: 03/31/25 1301 Small nodule overlying inferior right scapula not excluded. Recommend CT chest. Chest CT 04/01/25 08:28 IMPRESSION: 1. No abnormal correlate for the chest radiograph finding. 2. Severe emphysema. 3. Moderate-sized sliding hiatal hernia. 4. Multinodular goiter. Forearm X-Ray 04/01/25 15:43 Impression: Healing fracture Quality VTE Prophylaxis VTE prophylaxis: mechanical ordered
[2025-04-03] MEDS: CLOPIDOGREL BISULFATE 75 MG TABLET PO (09:11)
[2025-04-03] MEDS: LIDOCAINE 5% PATCH 1 PATCH TRANSDERM (09:11)
[2025-04-03] MEDS: FELODIPINE ER 5 MG TAB 10 MG PO (09:11)
[2025-04-03] MEDS: ATORVASTATIN 40 MG TABLET 80 MG PO (09:11)
[2025-04-03] MEDS: SENNA/DOCUSATE SODIUM TABLET 2 TAB PO (09:12)
[2025-04-03] MEDS: PANTOPRAZOLE SOD SESQUIHYDRATE 20 MG TAB PO (09:12)
[2025-04-03] MEDS: MEMANTINE 10 MG TABLET PO (09:12)
[2025-04-03 13:34] LABS: Hematocrit 38.0 % (37.0-47.0); Hemoglobin 12.2 g/dL (12.0-15.0); Mean Corpuscular HGB Conc 32.1 g/dl (32-36); Mean Corpuscular Hemoglobin 29.8 pg (26-34); Mean Corpuscular Volume 92.9 fl (80-100); Platelet Count Result 465 k/mm3 (150-375); Red Blood Count 4.09 M/mm3 (4.2-5.4); White Blood Count 11.4 K/mm3 (4.5-10.0)
--- NOTE | 2025-04-03 13:45 | P.DS_ITS ---
DS: Admitting Diagnosis Discharge Date 04/03/25 Admitting Diagnosis fall DS: Discharge Diagnosis Discharge Diagnosis (1) Acute respiratory failure with hypoxia: Code(s): J96.01 - Acute respiratory failure with hypoxia Status: Acute (2) Fall: Code(s): W19.XXXA - Unspecified fall, initial encounter Status: Acute (3) Displaced fracture of proximal end of right humerus: Code(s): S42.201A - Unspecified fracture of upper end of right humerus, initial encounter for closed fracture Status: Acute (4) HTN (hypertension): Qualifiers: Hypertension type: primary hypertension Qualified Code(s): I10 - Essential (primary) hypertension Code(s): I10 - Essential (primary) hypertension Status: Chronic (5) CKD (chronic kidney disease): Code(s): N18.9 - Chronic kidney disease, unspecified Status: Acute (6) History of CVA (cerebrovascular accident): Code(s): Z86.73 - Personal history of transient ischemic attack (TIA), and cerebral infarction without residual deficits Status: Acute (7) Aortic stenosis: Code(s): I35.0 - Nonrheumatic aortic (valve) stenosis Status: Acute DS: Summary Hospital Course Hospital Course: 84 year old female with past medical history of CVA with mild right sided deficits, BARBIE with noncompliance of CPAP, dementia, HTN, HLD, GERD, CKD, chronic LBP, h/o PE no longer on a/c, and presents to the hospital following a ground level fall at her home. # Fracture of left distal radius: Postop day 5:ORIF right displaced proximal surgical neck fracture with intramedullary nail. OK per ortho to discharge today to rehab. Pt had BM. Noted WBC elevated, repeated- better (13.2- 11.4). Lungs are clear, no cough. No concerns for any infectious process at this point. Instructed to continue to use IS. The wrist has healed well. Mild residual deformity. Good ROM with mild pain, skin is warm Ok to use the wrist as tolerated per ortho. Brace for comfort only. The shoulder and upper arm show expected swelling and ecchymosis. Neurovascular status intact. Ortho instructions: * D/C to SNF/rehab * Follow up in office with xrays of the shoulder in 4 weeks. * Wound Care: Remove Mepilex dressing at 7 days post op. Remove steristrips at 14 days post op. May shower. No soaking. * PT: Patient may remove wrist from immobilizer sling while at rest. Non weight bearing on the operative arm. * Ice as needed to decrease pain and swelling. Elevate fingers to decrease swelling. * DVT prophylaxis: Resume Clopidogrel 2 days postoperatively. Compression socks. * Left wrist fracture has healed. Ok to use julissa walker with the left hand. Wrist brace is not required. May use for comfort. Time Spent with Patient Time attestation: Total time spent providing and/or coordinating discharge services: Exam Narrative: AF HR 82 RR 17 SpO2 98 BP 163/79 General: female in no acute respiratory distress who is nontoxic appearing, sitting up in bed HEENT: Extraocular movement intact. Sclera clear and anicteric. No facial asymmetry. Chest: Lungs are clear to auscultation bilaterally. No wheezes or crackles. Speaking full sentences. CV: Heart was regular rate and rhythm. Abd: Abdomen was soft. Nontender. Nondistended. Positive bowel sounds. Ext: Right upper extremity in immobilizer, sensation to the fingers intact and able to move, dressing clean/dry/intact with surrounding ecchymosis. Full ROM to left upper extremity. Radial pulses intact. No clubbing, cyanosis. DP pulses bilaterally. Neuro: Patient is alert and oriented x3. Speech is clear. Const: General: comfortable DS: Data Data Completed and Pending Labs on day of discharge: Labs from last 24 hours 04/03/25 13:14 WBC 11.4 H RBC 4.09 L Hgb 12.2 Hct 38.0 MCV 92.9 MCH 29.8 MCHC 32.1 RDW 14.8 H Plt Count 465 H MPV 9.5 Discharge Plan Discharge Attending physician on discharge: Antonio Crowder Consulting providers: Lambert Carbajal Discharging Clinician: Mary Anne Stein Patient Disposition: SNF Activity: may shower Diet: as tolerated and heart healthy Discharge Instructions: Ortho instructions: * D/C to SNF/rehab * Follow up in office with xrays of the shoulder in 4 weeks. * Wound Care: Remove Mepilex dressing at 7 days post op. Remove steristrips at 14 days post op. May shower. No soaking. * PT: Patient may remove wrist from immobilizer sling while at rest. Non weight bearing on the operative arm. * Ice as needed to decrease pain and swelling. Elevate fingers to decrease swelling. * DVT prophylaxis: Resume Clopidogrel 2 days postoperatively. Compression socks. * Left wrist fracture has healed. Ok to use julissa walker with the left hand. Wrist brace is not required. May use for comfort. Patient Language: Anguill[place] Stand Alone Forms: General Discharge Information Discharge Medications: New polyethylene glycol 3350 [Miralax] 17 gram Powder In Packet 17 g PO QAM Qty: 14 0RF sennosides-docusate sodium [Senokot-S] 8.6-50 mg Tablet 2 tab PO BID Qty: 10 0RF lidocaine [Lidoderm] 5 % Adhesive Patch,Medicated 1 patch transdermal DAILY Qty: 10 0RF oxycodone 5 mg Tablet 5 mg PO Q4H PRN (Reason: Pain Rated 7-10) Qty: 4 0RF Continued clopidogrel [Plavix] 75 mg tablet 75 mg PO DAILY Qty: 90 3RF felodipine 10 mg tablet extended release 24 hr 10 mg PO DAILY Qty: 90 3RF lisinopril 40 mg tablet 40 mg PO DAILY Qty: 90 3RF pantoprazole [Protonix] 20 mg tablet,delayed release (DR/EC) 20 mg PO QAM Qty: 90 3RF cholecalciferol (vitamin D3) 25 mcg (1,000 unit) capsule 25 mcg PO DAILY mecobalamin (vitamin B12) 1,000 mcg tablet,chewable 1,000 mcg PO DAILY atorvastatin 80 mg tablet 80 mg PO DAILY Qty: 30 5RF memantine [Namenda Titration Ramsey] 5-10 mg tablets,dose pack See Rx Instructions PO PER PKG DIR Qty: 49 0RF Rx Instructions: PO PER PKG DIR memantine 10 mg tablet 10 mg PO BID Qty: 180 3RF Date of admission: 03/29/25 10:35 Primary Care Provider: Eber Acuña Admitting Provider: Dyan Raygoza Attending physician on admission: Dyan Raygoza Condition: Stable Quality VTE Prophylaxis VTE prophylaxis: mechanical ordered Hospitalist MIPS Heart Failure (Exclusion) Patient has history of Heart Transplant or Left Ventricular Assistive Device?: No IF YES, STOP HERE Heart Failure (Qualifier) Patient has current or prior documentation of LVEF less than or equal to 40%, or mod/servere depressed LVSF?: No IF NO, STOP HERE
[2025-04-03 13:59] VITALS: BP 142/64; PULSE 84; RESP 16; TEMP 36.3; O2SAT 94
== END 2025-04-03 17:42 | DRG 492 ==
LOC: ANHED 03:23 → ANH3MEDSUR 07:28
PROVIDERS: Orthopaedic Surgery; Student in an Organized Health Care Education/Training Program; Admitting Provider General Practice; Emergency Provider Student in an Organized Health Care Education/Training Program; PCP Family Medicine; Visit Provider Nurse Practitioner
PROC: 0PSC06Z Reposition Right Humeral Head with Intramedullary Internal Fixation Device, Open Approach (ICD-10-PCS; principal; 2025-03-29 13:15)
DX: S42.211A Unspecified displaced fracture of surgical neck of right humerus, initial encounter for closed fracture (principal); J96.01 Acute respiratory failure with hypoxia; I69.951 Hemiplegia and hemiparesis following unspecified cerebrovascular disease affecting right dominant side; N18.32 Chronic kidney disease, stage 3b; G30.9 Alzheimer's disease, unspecified; F02.80 Dementia in other diseases classified elsewhere, unspecified severity, without behavioral disturbance, psychotic disturbance, mood disturbance, and anxiety; G47.33 Obstructive sleep apnea (adult) (pediatric); E78.5 Hyperlipidemia, unspecified; K21.9 Gastro-esophageal reflux disease without esophagitis; M54.59 Other low back pain; J44.9 Chronic obstructive pulmonary disease, unspecified; I35.0 Nonrheumatic aortic (valve) stenosis; I12.9 Hypertensive chronic kidney disease with stage 1 through stage 4 chronic kidney disease, or unspecified chronic kidney disease; W01.0XXA Fall on same level from slipping, tripping and stumbling without subsequent striking against object, initial encounter; Z96.651 Presence of right artificial knee joint; Z91.81 History of falling; S52.502D Unspecified fracture of the lower end of left radius, subsequent encounter for closed fracture with routine healing; Z85.828 Personal history of other malignant neoplasm of skin; Z87.891 Personal history of nicotine dependence; S32.591S Other specified fracture of right pubis, sequela; Z86.711 Personal history of pulmonary embolism; Z79.02 Long term (current) use of antithrombotics/antiplatelets
CPT/HCPCS: 36415; 71045; 71260; 73030; 73060; 73080; 73090; 73200; 73502; 73562; 80048; 85025; 85027; 85055; 85610; 85730; 86850; 86900; 86901; 96374; 97110; 97116; 97162; 97166; 97530; 97535; 99199; 99285; J0690; A9270; C1713; C1769; G0378; J1100; J2003; J2270; J2405; J2704; J3010; J3290; J7120; J7512; Q9967